=== PATIENT | female | born 1930 | race Caucasian/White ===

== ENCOUNTER 2017-02-28 18:37 | Observation (INO) | payer MEDICARE ==
[~2017-02-28] VITALS: Ht 157.5 cm; Wt 52.0 kg
[~2017-02-28 18:37] MED LIST: ASPI-94 PO; CALCTAB32 PO; METO50 PO; MULTCAP13 PO; OMPR20CCR PO; SIMV40 PO
[2017-02-28 18:39] VITALS: BP 186/91; PULSE 92; RESP 18; TEMP 98.6; O2SAT 98
--- NOTE | 2017-02-28 19:04 | PD ---
HPI Chief Complaint: Chest Pain Time Seen by Provider: 19:03 Travel History International Travel<30 days: No Contact w/Intl Traveler<30days: No Traveled to known affect area: No History of Present Illness HPI 87-year-old female came to the emergency room brought by her daughter with history of 3 days of progressive subxiphoid chest pain and shortness of breath. Currently the patient says that the shortness of breath is worse than the chest pain/discomfort. She describes the pain as a dull ache in the subxiphoid area without any radiation. Pain and shortness of breath is worse on exertion especially after few steps. No history of nausea vomiting. No history of diaphoresis. No history of syncopal episode. Patient has history of coronary artery disease. She has had aortic valve replacement and double vessel bypass about 15 years ago as per her daughter. Her american history professor is Dr. Gupta and patient last saw him one month ago. She is not on any blood thinners or aspirin. She has history of emphysema as well. Vital signs were relatively stable. [facility] Past Medical History Narrative Medical List of her past medical, surgical, social and family history is reviewed from the nursing note. Arthritis: Yes Heart Rhythm Problems: No Cancer: No Cardiac Catheterization: Yes Cardiovascular Problems: Yes High Cholesterol: Yes Chest Pain: Yes Congestive Heart Failure: No Coronary Artery Disease: Yes Diabetes: No Diminished Hearing: No Endocrine: No Gastrointestinal Disorders: Yes (CHRONIC DIARRHEA) GERD: Yes Genitourinary: No Hiatal Hernia: Yes Hypertension: Yes Immune Disorder: No Musculoskeletal: Yes Neurologic: No Psychiatric: No Reproductive: No Respiratory: No Immunizations Current: Yes Ulcer: Yes Menopausal: Yes Past Surgical History Abdominal Surgery: No Cardiac Surgery: Yes (AVR, DOUBLE BYPASS) Coronary Artery Bypass Graft: Yes (2 VESSELS W/ AORTIC VALVE REPLACMENT) Ear Surgery: No Endocrine Surgery: No Eye Surgery: No Genitourinary Surgery: No Gynecologic Surgery: No Oral Surgery: No Thoracic Surgery: No Other Surgery: Yes Social History Alcohol Use: No Tobacco Use: No Substance Use: No Allergies-Medications (Allergen,Severity, Reaction): Coded Allergies: lansoprazole (Unverified Allergy, Mild, DIARRHEA, 03/05/17) nizatidine (Unverified Allergy, Mild, DIARRHEA, 03/05/17) Comments List of her allergies reviewed from the nursing note. Reported Meds & Prescriptions Reported Meds & Active Scripts Active Reported Simvastatin 20 Mg Tab 20 Mg PO HS Omeprazole 20 Mg Tab 20 Mg PO DAILY Narrative Medication List of her home medications reviewed from the nursing note. Review of Systems Except as stated in HPI: all other systems reviewed are Neg Cardiovascular: Positive: Chest Pain or Discomfort, Dyspnea on exertion Physical Exam Narrative GENERAL: Awake, alert, elderly, frail, moderate distress SKIN: Focused skin assessment warm/dry. HEAD: Atraumatic. Normocephalic. EYES: Pupils equal and round. No scleral icterus. No injection or drainage. ENT: No nasal bleeding or discharge. Mucous membranes pink and moist. NECK: Trachea midline. No JVD. CARDIOVASCULAR: Regular rate and rhythm. No murmur appreciated. RESPIRATORY: Tachypnea, use of accessory muscles for respirations, fine bibasilar crackles. Kyphosis GASTROINTESTINAL: Abdomen soft, non-tender, nondistended. Hepatic and splenic margins not palpable. MUSCULOSKELETAL: No obvious deformities. No clubbing. No cyanosis. 1+ pedal edema bilaterally NEUROLOGICAL: Awake and alert. No obvious cranial nerve deficits. Motor grossly within normal limits. Normal speech. PSYCHIATRIC: Appropriate mood and affect; insight and judgment normal. Data Data Last Documented VS Orders Orders Electrocardiogram (02/28/17 19:03) Basic Metabolic Panel (Bmp) (02/28/17 19:03) B-Type Natriuretic Peptide (02/28/17 19:03) Ckmb (Isoenzyme) Profile (02/28/17 19:03) Complete Blood Count With Diff (02/28/17 19:03) Magnesium (Mg) (02/28/17 19:03) Prothrombin Time / Inr (Pt) (02/28/17 19:03) Act Partial Throm Time (Ptt) (02/28/17 19:03) Troponin I (02/28/17 19:03) Chest, Single Ap (02/28/17 19:03) Ecg Monitoring (02/28/17 19:03) Bilateral Bp Monitoring (02/28/17 19:03) Iv Access Insert/Monitor (02/28/17 19:03) Oximetry (02/28/17 19:03) Oxygen Administration (02/28/17 19:03) Sodium Chloride 0.9% Flush (Ns Flush) (02/28/17 19:15) Furosemide Inj (Lasix Inj) (02/28/17 19:15) Aspirin Chew (Aspirin Chew) (02/28/17 19:15) Aspirin Chew (Aspirin Chew) (02/28/17 19:30) Admit Order (Ed Use Only) (02/28/17 20:41) Labs Laboratory Tests Test 02/28/17 19:20 White Blood Count 6.0 TH/MM3 Red Blood Count 4.22 MIL/MM3 Hemoglobin 12.0 GM/DL Hematocrit 36.0 % Mean Corpuscular Volume 85.3 FL Mean Corpuscular Hemoglobin 28.5 PG Mean Corpuscular Hemoglobin Concent 33.4 % Red Cell Distribution Width 15.7 % Platelet Count 257 TH/MM3 Mean Platelet Volume 8.5 FL Neutrophils (%) (Auto) 56.2 % Lymphocytes (%) (Auto) 33.1 % Monocytes (%) (Auto) 7.7 % Eosinophils (%) (Auto) 1.8 % Basophils (%) (Auto) 1.2 % Neutrophils # (Auto) 3.3 TH/MM3 Lymphocytes # (Auto) 2.0 TH/MM3 Monocytes # (Auto) 0.5 TH/MM3 Eosinophils # (Auto) 0.1 TH/MM3 Basophils # (Auto) 0.1 TH/MM3 CBC Comment DIFF FINAL Differential Comment Prothrombin Time 11.3 SEC Prothromb Time International Ratio 1.0 RATIO Activated Partial Thromboplast Time 28.0 SEC Blood Urea Nitrogen 8 MG/DL Creatinine 0.50 MG/DL Random Glucose 100 MG/DL Calcium Level 8.9 MG/DL Magnesium Level 2.0 MG/DL Sodium Level 132 MEQ/L Potassium Level 3.7 MEQ/L Chloride Level 101 MEQ/L Carbon Dioxide Level 23.8 MEQ/L Anion Gap 7 MEQ/L Estimat Glomerular Filtration Rate 117 ML/MIN Total Creatine Kinase 88 U/L Troponin I 0.07 NG/ML B-Type Natriuretic Peptide 2381 PG/ML [facility] Medical Decision Making Medical Screen Exam Complete: Yes Emergency Medical Condition: Yes Medical Record Reviewed: Yes Interpretation(s) Twelve-lead EKG was reviewed by me. Normal sinus rhythm, normal axis, left bundle branch block, unchanged left bundle branch block from the old EKG. Heart rate of 93 bpm. Differential Diagnosis Non-STEMI, congestive heart failure, COPD exacerbation Narrative Course 7:59 PM awaiting for the blood test results including troponin and BNP. Chest x -ray was done which shows a right middle lobe density. Awaiting for the radiologist to give read. Patient will need to be admitted to be seen by the american history professor's regardless given her current condition and past medical history. I've explained this to the patient and the daughter and they understand. She was given 2 baby aspirin's and 40 mg of IV Lasix. 8:32 PM blood test results are back. Troponin is mildly elevated. I will admit the patient to the medical service. Awaiting for the hospitalist call back. Critical Care Narrative Aggregate critical care time was 30 minutes. Time to perform other separately billable procedures was not included in the critical care time. My time did not include minutes spent treating any other patients simultaneously or on activities that did not directly contribute to the patient's treatment. The services I provided to this patient were to treat and/or prevent clinically significant deterioration that could result in: Respiratory distress, ACS, congestive heart failure I provided critical care services requiring my management, as noted below: Chart data review, documentation time, medication orders and management, vital sign assessments/reviewing monitor data, ordering and reviewing lab tests, ordering and interpreting/reviewing x-rays and diagnostic studies, care of the patient and discussion of the patient with the admitting physicians. Procedures EKG Prior to Arrival: No Diagnosis Primary Impression: ACS (acute coronary syndrome) Additional Impressions: Respiratory distress CHF (congestive heart failure) Qualified Codes: I50.9 - Heart failure, unspecified Admitting Information Admitting Physician Requests: Observation Scripts Spironolactone (Aldactone) 25 Mg Tab 25 MG PO DAILY for Blood Pressure Management, #30 TAB 0 Refills Prov: Shanna Thurston MD 03/02/17 Furosemide (Lasix) 20 Mg Tab 20 MG PO DAILY for edema, #30 TAB 0 Refills Prov: Shanna Thurston MD 03/02/[address] (Adult Aspirin EC Low Strength) 81 Mg Tabec 162 MG PO DAILY for Blood Clot Prevention, #30 TAB Prov: Shanna Thurston MD 03/02/17 Isosorbide Mononitrate ER (Isosorbide Mononitrate ER) 30 Mg Amanda 30 MG PO DAILY@07 for Blood Pressure Management, #30 TAB Prov: Shanna Thurston MD 03/02/17 Carvedilol (Coreg) 3.125 Mg Tab 3.125 MG PO Q12HR for Blood Pressure Management, #60 TAB Prov: Shanna Thurston MD 03/02/17 Enalapril (Enalapril) 2.5 Mg Tab 2.5 MG PO BID for Blood Pressure Management, #30 TAB Prov: Shanna Thurston MD 03/02/17 Ursula Lopez MD Feb 28, 2017 19:04
[2017-02-28 19:11] VITALS: O2SAT 96
[2017-02-28] MEDS ORDERED: SODIUM CHLORIDE 0.9% FLUSH 10 ML FLUSH IVF PRN (19:15)
[2017-02-28] MEDS ORDERED: ASPIRIN 81 MG CHEW TAB ONE (19:15)
[2017-02-28] MEDS ORDERED: FUROSEMIDE 40 MG/4 ML VIAL IV PUSH ONE (19:15)
[2017-02-28] MEDS ORDERED: ASPIRIN 81 MG CHEW TAB CHEW ONE (19:30)
[2017-02-28 19:38] LABS: AUTOMATED NEUTROPHIL # 3.3 TH/MM3 (1.8-7.7); BASOPHIL # 0.1 TH/MM3 (0-0.2); BASOPHIL % 1.2 % (0.0-2.0); EOSINOPHIL # 0.1 TH/MM3 (0-0.4); EOSINOPHIL % 1.8 % (0.0-4.0); LYMPH % 33.1 % (9.0-44.0); MEAN CELL VOLUME 85.3 FL (80.0-100.0); MEAN CORPUSCULAR HEMOGLOBIN 28.5 PG (27.0-34.0); MEAN CORPUSCULAR HGB CONC 33.4 % (32.0-36.0); MEAN PLATELET VOLUME 8.5 FL (7.0-11.0); MONO % 7.7 % (0.0-8.0); MONOCYTE # 0.5 TH/MM3 (0-0.9); NEUT % 56.2 % (16.0-70.0); PLATELET COUNT 257 TH/MM3 (150-450); RED BLOOD COUNT 4.22 MIL/MM3 (4.00-5.30); RED CELL DISTRIBUTION WIDTH 15.7 % (11.6-17.2)
[2017-02-28 19:45] LABS: PROTHROMBIN TIME - PATIENT 11.3 SEC (9.8-11.6)
[2017-02-28] MEDS ORDERED: OMEP20TA PO (19:58)
[2017-02-28] MEDS ORDERED: SIMV20TA PO (19:58)
[2017-02-28 20:11] LABS: BICARBONATE 23.8 MEQ/L (21.0-32.0); CALCIUM 8.9 MG/DL (8.5-10.1); CREATININE 0.5 MG/DL (0.50-1.00)
[2017-02-28 20:15] LABS: TROPONIN I 0.07 NG/ML (0.02-0.05)
[2017-02-28 20:27] VITALS: BP 158/68; PULSE 80; RESP 18; O2SAT 97
[2017-02-28] MEDS ORDERED: MAGNESIUM HYDROXIDE SUSP 30 ML CUP PO PRN (20:45)
[2017-02-28] MEDS ORDERED: NITROGLYCERIN 0.4 MG SL 25 TABS/BTL SL PRN (20:45)
[2017-02-28] MEDS ORDERED: SODIUM CHLORIDE 0.9% FLUSH 10 ML FLUSH IV FLUSH PRN (20:45)
[2017-02-28] MEDS ORDERED: ONDANSETRON HCL 4 MG/2 ML VIAL IVP PRN (20:45)
[2017-02-28] MEDS ORDERED: NALOXONE HCL 0.4 MG/ML AMP IV PUSH PRN (20:45)
[2017-02-28] MEDS ORDERED: SENNOSIDES 8.6 MG TAB PO PRN (20:45)
[2017-02-28] MEDS ORDERED: LACTULOSE SYRUP 20 GM/30 ML CUP PO PRN (20:45)
[2017-02-28] MEDS ORDERED: BISACODYL 10 MG SUPP RECTAL PRN (20:45)
--- NOTE | 2017-02-28 21:09 | RADRPT ---
EXAM DATE/TIME: 02/28/2017 19:05 [facility] COMPARISON: CHEST SINGLE AP, December 01, 2012, 18:00. INDICATIONS : Chest pain, congestion for 24 hours MEDICAL HISTORY : None. SURGICAL HISTORY : CABG. Aortic valve replacement ENCOUNTER: Initial ACUITY: 1 day PAIN SCORE: 5/10 LOCATION: Bilateral chest FINDINGS: Mild diffuse interstitial prominence which has increased. No definite alveolar consolidation or effus ion. Heart size is grossly stable. Mild increase in prominence of the right hilum. Sternotomy wires a nd prosthetic aortic valve. CONCLUSION: Diffuse interstitial prominence. Increased prominence of the right hilum from prior exam. Hesham Mcnamara MD on February 28, 2017 at 21:06 Board Certified Radiologist. This report was verified electronically.
[2017-02-28 21:23] VITALS: BP 147/67; PULSE 87; RESP 18; TEMP 98.5; O2SAT 97
[2017-02-28] MEDS: SODIUM CHLORIDE 0.9% FLUSH 10 ML FLUSH IV FLUSH SCH (21:33)
[2017-02-28] MEDS: HEPARIN SODIUM - SQ 10,000 UNITS/ML VIAL SQ SCH (21:33)
[2017-03-01] VITALS (9 sets, daily range): BP systolic 123–173; BP diastolic 58–75; PULSE 72–82; RESP 16–24; TEMP 98.1–98.8; O2SAT 96–98
[2017-03-01] MEDS ORDERED: PRAVASTATIN SOD 10 MG TAB PO SCH (09:00)
--- NOTE | 2017-03-01 09:37 | MH ---
cc: KATHLEEN LEVIN MD DATE OF ADMISSION: 02/28/[address] Claudio CHIEF COMPLAINT The patient came to the ER complaining of chest pain. HISTORY OF PRESENTING ILLNESS This is a pleasant 89-year-old female with prior history of known coronary artery disease and hypertension. She was in her usual state of health until the last few days when she started experiencing chest pain. The patient is forgetful and not a good historian. She told me the pain started yesterday. However, her daughter told the emergency room physician that the pain started three days ago. In any case, she described this as a dull aching sensation in the anterior middle chest pain that would come and go, lasted 10-15 minutes, moderate in intensity, sometimes has sharp component to it. The pain is non-radiating. When she gets these pains she says she cannot breathe. There is no known aggravating factor. There is no known relieving factor. She does not know what they gave her in the emergency room that made the pain go away. She also noted some swelling of her ankles. She denies fever or chills. Denies cough or sputum production. Denies nausea, vomiting or abdominal pain. Due to the recurring pain, she was recommended to come into the hospital. Upon arrival she was noted to be hemodynamically stable. Her initial EKG showed left bundle branch block which is unchanged. She was in sinus rhythm. The patient has mildly elevated troponin. Recommendation was given by ER physician for the patient to be admitted to the hospital. The patient was admitted to the hospital under our service for further evaluation and management. The patient is currently resting in bed. She is feeling better. Currently she is chest pain-free. PAST MEDICAL HISTORY 1. Hypertension. 2. Hyperlipidemia. 3. Coronary artery disease. 4. History of valvular heart disease. 5. Osteoarthritis. 6. Osteoporosis. 7. GERD. 8. Paniagua's esophagus. PAST SURGICAL HISTORY 1. Significant for coronary artery bypass grafting with bioprosthetic aortic valve replacement in 2000. 2. History of endoscopy. 3. History of colonoscopy. SOCIAL HISTORY She denies smoking, drinking or drug abuse. She is a who lives at home with her daughter. ALLERGIES She reports allergies to - LANSOPRAZOLE. NIZATIDINE. Apparently lansoprazole causes diarrhea. HOME MEDICATIONS 1. Omeprazole. 2. Simvastatin. Aspirin is not listed. FAMILY HISTORY Both of her parents are . Her mother in her 70s; she had congestive heart failure. Dad at the age of 90 from old age; he was a smoker. She has one sister who at the age of 75 of unknown cause and one sister and a brother living and they apparently are healthy. REVIEW OF SYSTEMS The patient denies headache, loss of vision, double vision. Denies change in hearing. She uses glasses. Denies sore throat, dysphagia or odynophagia. Her memory is not as good as it used to be. She denies cough or sputum production. She claims she has a good appetite. She has intermittent diarrhea for a long time which has not recently changed. She denies melena or bright red blood per rectum. She urinates a lot but she blames her increased watering habits for that. She denies dysuria or hematuria. She gets joint pain especially in her hands and her knees. She is able to walk around in the house. She is independent in activities of daily living. Her daughter assists her with bathing. She uses a cane for ambulation. Otherwise review of systems is negative for 12 systems. PHYSICAL EXAMINATION GENERAL: On examination, an elderly, frail female lying in bed, not in any acute distress. She is awake and alert. She is oriented x3. VITAL SIGNS: Upon arrival blood pressure was 186/97, pulse of 92, respirations 18. Temperature is 98.6, O2 sat 98%. HEAD EXAMINATION: Normocephalic, atraumatic. EYE EXAMINATION: Extraocular movements intact, round and reactive. No icterus or significant pallor. ENT: No throat congestion. No oral ulcers, no thrush. Ears clear. NECK: Supple. No JVD. No lymph nodes. No bruits. CARDIOVASCULAR: S1 and S2 audible. Regular. No murmur or gallop. RESPIRATORY SYSTEM: Good bilateral air entry. No crackles or rhonchi appreciated. CHEST: Scar of previous median sternotomy. G: The abdomen is soft, nontender. Positive bowel sounds. No hepatosplenomegaly. EXTREMITIES: No edema, cyanosis or clubbing. She has superficial varicose veins and feet are warm to touch. MUSCULOSKELETAL EXAM: She has prominent bony enlargement of her hand joints, especially her DIP and PIP joints bilaterally without sign of inflammation. NEUROLOGIC: She is awake and alert. She is oriented x3 but she is slightly forgetful. No facial asymmetry. Tongue is midline. She is moving all four extremities. LABORATORY DATA Chest x-ray was a portable film, showed evidence of previous sternotomy and mild diffuse interstitial prominence, increased prominence over the right hilum. A 12-lead EKG shows sinus rhythm with left bundle-branch block. Her white count is 6.0, hemoglobin 12.0, hematocrit of 36.0, platelet count of 257. MCV of 85.3. Sodium 132, potassium 3.7, chloride 101, bicarb 23.8, BUN of 8, creatinine 0.5, random glucose 100, calcium 8.9. Troponin I was 0.07, 0.09 in 0.09. BNP was elevated at 2381. ASSESSMENT 1. Chest pain, shortness of breath in a lady with known history of coronary artery disease and valvular heart disease with angina. 2. Hypertension. 3. Hyperlipidemia. 4. History of bioprosthetic aortic valve replacement. 5. History of GERD with Paniagua's esophagus. 6. Osteoarthritis. PLAN 1. The patient was admitted to hospital for observation. 2. She is put on oxygen. 3. We will give her an aspirin. 4. Put her on beta-bridger. 5. Continue statin. 6. Obtain echocardiogram. 7. Consult her debate director. 8. Check lipid profile. 9. Continue PPI. 10. Start heparin for DVT prophylaxis. Further management of this patient will depend on her hospital course. MD DEJAN Nicholson/IWONA /8:35 AM /8:55 AM
--- NOTE | 2017-03-01 10:59 | MB ---
cc: GUSTAVO WHEELER M.D. DATE OF CONSULTATION 03/01/2017 REASON FOR CONSULTATION Chest pain. HISTORY OF PRESENT ILLNESS The patient is a vague historian. She is an 87-year-old white female, followed in our office by Dr. Sander Gupta, with a history of coronary artery disease status post bypass surgery and aortic valve replacement in 2000, history of Paniagua's esophagus, hypertension, gastroesophageal reflux disease, who was in her usual state of health up until yesterday when she began to experienced some vaguely described episodes of substernal chest pain associated with shortness of breath without nausea or diaphoresis. She states she may have had 3 or 4 separate episodes which "did not last long" although she is unable to relate the duration of the chest discomforts. In the last 3-4 days she has noticed increased dyspnea and possibly mild pedal edema. She denies paroxysmal nocturnal dyspnea, syncope, near-syncope, palpitations. At times she has felt mildly lightheaded for a few minutes. PAST MEDICAL HISTORY 1. Coronary artery disease status post two-vessel bypass surgery in 2000. 2. Aortic valve disease status post bovine pericardial aortic valve replacement in 2000 at time of her bypass surgery. 3. Paniagua's esophagus. 4. Gastroesophageal reflux disease. 5. Hypertension 6. Hyperlipidemia. CARDIAC MEDICATIONS AT HOME Simvastatin. ALLERGIES LANSOPRAZOLE. NIZATIDINE. FAMILY HISTORY Noncontributory. SOCIAL HISTORY The patient denies any history of alcohol or tobacco abuse. REVIEW OF SYSTEMS as in the History of Present Illness otherwise negative or noncontributory. She also denies headache, abdominal pain, melena, dyspepsia, bright red blood per rectum, cough, pleurisy. PHYSICAL EXAMINATION VITAL SIGNS: On physical examination her blood pressure is 138/64 with a pulse of 77, respirations 20. IN GENERAL: She is a well-developed, well-nourished white female in no acute distress. NECK AND HEENT EXAMINATION: Jugular venous pressure is normal. Carotid pulses are 2+ bilaterally and without bruits. EXAMINATION OF THE CHEST: Reveals clear lung patiño. CARDIAC EXAMINATION: She has a regular rhythm and rate with a grade 2/6 systolic ejection murmur heard at the base of the heart. The S2 heart sound is very minimally diminished at the right upper sternal border. There may also be a separate grade 2/6 mid to late systolic murmur heard at the apex. No gallop is audible. ABDOMINAL EXAMINATION: She has a soft, nontender abdomen. Bowel sounds are present. There is no definite hepatosplenomegaly. EXAMINATION OF EXTREMITIES: No clubbing, cyanosis or edema. LABORATORY DATA Normal CBC. Potassium 3.7, BUN 8, creatinine 0.50. Troponin 0.09. Brain-natriuretic peptide level 2381. CHEST X-RAY Increased interstitial markings. EKG Normal sinus rhythm, left bundle-branch block. IMPRESSION Overall atypical chest pains, possible congestive heart failure in this 87-year-old white female with a history of coronary artery disease status post two-vessel bypass surgery and bovine pericardial aortic valve replacement in 2000, history of hypertension,hyperlipidemia, Paniagua's esophagus. The patient is a vague historian. Her chest pains are atypical for ischemia. Her EKG is unchanged from years ago with chronic left bundle-branch block. Initial CK is negative for myocardial infarction. Her troponin level is only minimally elevated and this could be due to congestive heart failure. The precipitating factor for her congestive heart failure is not entirely clear. She has no known history of left ventricular dysfunction. It appears she has diuresed quite well with a single dose of intravenous Lasix here in the emergency department. RECOMMENDATIONS 1. Agree with carvedilol 3.25 mg p.o. b.i.d. and daily aspirin. 2. Await her 2-D echo to assess her left ventricular and valvular function. 3. Check a Lexiscan nuclear stress test to rule out myocardial ischemia. MD VIKKI Barnes/IWONA /10:33 AM /10:43 AM EDILBERTO
[2017-03-01] MEDS: CARVEDILOL 3.125 MG TAB PO SCH ×2 (11:33→19:52)
[2017-03-01] MEDS: HEPARIN SODIUM - SQ 10,000 UNITS/ML VIAL SQ SCH ×2 (11:37→19:53)
[2017-03-01] MEDS: ASPIRIN EC 81 MG TABEC PO SCH (11:37)
[2017-03-01] MEDS: PANTOPRAZOLE SOD 20 MG DELAYED RELEASE TAB PO SCH (11:37)
[2017-03-01] MEDS: SODIUM CHLORIDE 0.9% FLUSH 10 ML FLUSH IV FLUSH SCH ×2 (11:38→19:52)
--- NOTE | 2017-03-01 15:03 | EKG ---
Date Performed: 02/28/2017 Time Performed: 18:59:34 PTAGE: 87 years EKG: Sinus rhythm LEFT BUNDLE BRANCH BLOCK ABNORMAL ECG PREVIOUS TRACING 12/02/12 Compared to prior tracing no significant change DOCTOR: Juvenal Ayala Interpretating Date/Time 03/01/2017 14:56:09
--- NOTE | 2017-03-01 15:03 | EKG ---
Date Performed: 03/01/2017 Time Performed: 02:58:18 PTAGE: 87 years EKG: Sinus rhythm LEFT BUNDLE BRANCH BLOCK ABNORMAL ECG PREVIOUS TRACING : 02/28/2017 18.59 Compared to prior tracing no significant change DOCTOR: Juvenal Ayala Interpretating Date/Time 03/01/2017 14:56:20
[2017-03-01] MEDS ORDERED: PRAVASTATIN SOD 40 MG TAB PO SCH (21:00)
[2017-03-01] MEDS ORDERED: ALPRAZolam 0.25 MG TAB PO PRN (21:45)
[2017-03-01] MEDS ORDERED: ACETAMINOPHEN 325 MG TAB PO PRN (21:45)
[2017-03-02] VITALS (9 sets, daily range): BP systolic 122–142; BP diastolic 58–64; PULSE 70–84; RESP 14–22; TEMP 98.1–98.8; O2SAT 96–99
[2017-03-02 07:28] LABS: HEMATOCRIT 35.8 % (35.0-46.0); HEMOGLOBIN 12.1 GM/DL (11.6-15.3); MEAN CELL VOLUME 84.7 FL (80.0-100.0); MEAN CORPUSCULAR HEMOGLOBIN 28.6 PG (27.0-34.0); MEAN CORPUSCULAR HGB CONC 33.8 % (32.0-36.0); MEAN PLATELET VOLUME 8.8 FL (7.0-11.0); PLATELET COUNT 276 TH/MM3 (150-450); RED BLOOD COUNT 4.22 MIL/MM3 (4.00-5.30); RED CELL DISTRIBUTION WIDTH 15.1 % (11.6-17.2); WHITE BLOOD COUNT 6.4 TH/MM3 (4.0-11.0)
[2017-03-02 07:51] LABS: CALCIUM 8.6 MG/DL (8.5-10.1); CREATININE 0.55 MG/DL (0.50-1.00)
[2017-03-02 07:55] LABS: CHOLESTEROL/ HDL RATIO 1.53 RATIO
--- NOTE | 2017-03-02 07:59 | PD.CARD.PN ---
Subjective Subjective Remarks Feels "OK". Slept well. Mild dyspnea last night, none this morning. No further CP. No dizziness, palpitations. Objective Medications Item Value Date Time Pravastatin Sodium 40 mg 03/01/172099 (Pravachol) HS/PO 03/01/171951 Carvedilol 3.125 mg 03/01/17 1000 (Coreg) Q12HR/PO 03/01/171951 Aspirin 162 mg 03/01/17 0900 (Ecotrin Ec) DAILY/PO 03/01/17 113 Heparin Sodium 5,000 units 02/28/172099 (Porcine) Q12H/SQ 03/01/171952 (Heparin Inj) Current Medications Medications (Trade) Dose Ordered Sig/Bradley Route Start Time Stop Time Status Last Admin (NS Flush) 2 ml UNSCH PRN IV FLUSH 02/28/17 20:45 (NS Flush) 2 ml BID IV FLUSH 02/28/17 21:00 03/01/17 19:52 (Zofran Inj) 4 mg Q6H PRN IVP 02/28/17 20:45 (Heparin Inj) 5,000 units Q12H SQ 02/28/17 21:00 03/01/17 19:53 (Narcan Inj) 0.4 mg UNSCH PRN IV PUSH 02/28/17 20:45 (Milk Of Magnesia Liq) 30 ml Q12H PRN PO 02/28/17 20:45 (Senokot) 17.2 mg Q12H PRN PO 02/28/17 20:45 (Dulcolax Supp) 10 mg DAILY PRN RECTAL 02/28/17 20:45 (Lactulose Liq) 30 ml DAILY PRN PO 02/28/17 20:45 (Ecotrin Ec) 162 mg DAILY PO 03/01/17 09:00 03/01/17 11:37 (Nitrostat Sl) 0.4 mg Q5M PRN SL 02/28/17 20:45 (Coreg) 3.125 mg Q12HR PO 03/01/17 10:00 03/01/17 19:52 (Protonix) 20 mg DAILY PO 03/01/17 10:00 03/01/17 11:37 (Pravachol) 40 mg HS PO 03/01/17 21:00 03/01/17 19:52 (Xanax) 0.25 mg Q8H PRN PO 03/01/17 21:45 03/01/17 22:05 (Tylenol) 650 mg Q4H PRN PO 03/01/17 21:45 03/01/17 22:05 Vital Signs / I&O Vital Signs Date Time Temp Pulse Resp B/P (MAP) Pulse Ox O2 Delivery O2 Flow Rate FiO2 03/02/17 07:49 99 Nasal Cannula 2.00 03/02/17 06:01 Nasal Cannula 2.00 03/02/17 04:00 78 03/02/17 03:39 98.2 72 18 122/58 (79) 99 03/02/17 00:00 84 03/01/17 23:48 98.6 82 19 123/59 (80) 97 03/01/17 19:44 98.3 80 20 173/75 (107) 96 03/01/17 15:20 98.1 72 24 152/67 (95) 97 03/01/17 13:36 74 03/01/17 11:24 98.4 78 22 124/59 (80) 96 I/O 03/01/17 03/01/17 03/01/17 03/02/17 03/02/17 03/02/17 07:00 15:00 23:00 07:00 15:00 23:00 Output Total 800 ml Balance -800 ml Output Urine Total 800 ml # Voids 2 3 # Bowel Movements 1 Physical Exam GENERAL: Well developed, well nourished. No acute distress. HEENT: Jugular venous pressure is normal. CHEST: Minimal bibasilar crackle. CARDIAC: Regular rate and rhythm without S3, S4. II/ [place] base. Normal S2. ABDOMEN: Soft, nontender, no hepatosplenomegaly. Bowel sounds present. EXTREMITIES: No clubbing, cyanosis, or edema. Laboratory Laboratory Tests Test 03/02/17 06:34 White Blood Count 6.4 TH/MM3 Red Blood Count 4.22 MIL/MM3 Hemoglobin 12.1 GM/DL Hematocrit 35.8 % Mean Corpuscular Volume 84.7 FL Mean Corpuscular Hemoglobin 28.6 PG Mean Corpuscular Hemoglobin Concent 33.8 % Red Cell Distribution Width 15.1 % Platelet Count 276 TH/MM3 Mean Platelet Volume 8.8 FL Blood Urea Nitrogen 11 MG/DL Creatinine 0.55 MG/DL Random Glucose 86 MG/DL Calcium Level 8.6 MG/DL Sodium Level 134 MEQ/L Potassium Level 3.5 MEQ/L Chloride Level 102 MEQ/L Carbon Dioxide Level 24.0 MEQ/L Anion Gap 8 MEQ/L Estimat Glomerular Filtration Rate 105 ML/MIN Triglycerides Level 40 MG/DL Cholesterol Level 106 MG/DL Assessment and Plan Problem List: (1) CAD (coronary artery disease) ICD Codes: I25.10 - Atherosclerotic heart disease of [place] coronary artery without angina pectoris Status: Chronic Plan: Stable overnight. No further atypical CP. Nuclear stress testing pending. REC await nuclear stress test results; overall recommend conservative medical management unless large amount of ischemia continue beta bridger, add oral nitrate, Imdur 30 mg qd continue daily aspirin (2) CHF (congestive heart failure) ICD Codes: I50.9 - Heart failure, unspecified Status: Acute Plan: Stable overnight. Dyspnea improved with IV Lasix diuresis in ER. Echo pending. REC continue beta bridger, add SHINE-I enalapril 2.5 mg bid (3) History of aortic valve replacement ICD Codes: Z95.2 - Presence of prosthetic heart valve Status: Chronic Plan: Echo pending. By exam, AVR function normal. Code Status full code Discussed Condition With patient Problem Qualifiers (1) CAD (coronary artery disease): Qualified Codes: I25.119 - Atherosclerotic heart disease of [place] coronary artery with unspecified angina pectoris (2) CHF (congestive heart failure): Qualified Codes: I50.9 - Heart failure, unspecified Aba Rivera MD Mar 02, 2017 07:59
[2017-03-02] MEDS ORDERED: ENALAPRIL MALEATE 2.5 MG TAB PO SCH (09:00)
[2017-03-02] MEDS ORDERED: REGADENOSON INJ 0.4 MG/5 ML SYR ONE (10:31)
--- NOTE | 2017-03-02 10:38 | HHI.PR ---
Subjective Remarks Went for stress test, patient was seen thereafter. No chest pain overnight. She feels sob, satting well on 2L NC. Says LE edema improved some. No n/v/d/c. Says she feels much better and wants to go home. Family at bedside, has family support. Objective Vitals Vital Signs Date Time Temp Pulse Resp B/P (MAP) Pulse Ox O2 Delivery O2 Flow Rate FiO2 03/02/17 08:05 98.4 71 14 135/62 (86) 97 03/02/17 08:02 98.8 70 22 142/64 (90) 96 03/02/17 07:49 99 Nasal Cannula 2.00 03/02/17 06:01 Nasal Cannula 2.00 03/02/17 04:00 78 03/02/17 03:39 98.2 72 18 122/58 (79) 99 03/02/17 00:00 84 03/01/17 23:48 98.6 82 19 123/59 (80) 97 03/01/17 19:44 98.3 80 20 173/75 (107) 96 03/01/17 15:20 98.1 72 24 152/67 (95) 97 03/01/17 13:36 74 03/01/17 11:24 98.4 78 22 124/59 (80) 96 I/O 03/01/17 03/01/17 03/01/17 03/02/17 03/02/17 03/02/17 07:00 15:00 23:00 07:00 15:00 23:00 Output Total 800 ml Balance -800 ml Output Urine Total 800 ml # Voids 2 3 # Bowel Movements 1 Result Diagram: 03/02/17 0634 03/02/17 0634 Imaging Last Impressions Chest X-Ray 02/28/17 190 Signed Impressions: Service Date/Time: Tuesday, February 28, 2017 19:05 - CONCLUSION: Diffuse interstitial prominence. Increased prominence of the right hilum from prior exam. Hesham Mcnamara MD Objective Remarks GENERAL: Elderly, frail, pleasant 87 yo F, appears in nad. CARDIOVASCULAR: Mid chest scar from previous sternotomy. Regular rate and rhythm. RESPIRATORY: No accessory muscle use. Clear to auscultation. Breath sounds equal bilaterally. GASTROINTESTINAL: Abdomen soft, non-tender, nondistended. Hepatic and splenic margins not palpable. MUSCULOSKELETAL: Extremities without clubbing, cyanosis, or edema. No obvious deformities. NEUROLOGICAL: Awake and alert. No obvious cranial nerve deficits. Motor grossly within normal limits. Five out of 5 muscle strength in the arms and legs. Normal speech. PSYCHIATRIC: Appropriate mood and affect; insight and judgment normal. A/P Assessment and Plan Chest pain, shortness of breath in the setting of known history of coronary artery disease and valvular heart disease with angina. Mildly elevated troponin Systolic CHF with EF of 30% Hypertension Hyperlipidemia History of bioprosthetic aortic valve replacement History of GERD with Paniagua's esophagus Osteoarthritis CXR reviewed previous sternotomy and mild diffuse interstitial prominence, increased prominence over the right hilum EKG reviewed NSR , LBBB Troponin I was 0.07, 0.09 in 0.09. BNP was elevated at 2381. 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 Meds per med reconciliations. Activity ad jayda as tolerated. Diet: healthy heart diet . Discharge Planning DC home in stable condition, to follow up as OP with PCP and consultants. Meds per med reconciliations. Activity ad jayda as tolerated. Diet : healthy heart diet . Shanna Thurston MD Mar 02, 2017 10:38
[2017-03-02] MEDS ORDERED: ISOS30TA3 PO (10:40)
[2017-03-02] MEDS ORDERED: CARV3.125 PO (10:40)
[2017-03-02] MEDS ORDERED: ENAL2.5T PO (10:40)
[2017-03-02] MEDS ORDERED: ASPI-99 PO (10:40)
--- NOTE | 2017-03-02 10:40 | HHI.DCPOC ---
Discharge Care Plan Goals to Promote Your Health * To prevent worsening of your condition and complications * To maintain your health at the optimal level Directions to Meet Your Goals Take your medications as prescribed Follow your dietary instruction Follow activity as directed Keep your appointments as scheduled Take your immunizations and boosters as scheduled If your symptoms worsen call your PCP, if no PCP go to Urgent Care Center or Emergency Room Smoking is Dangerous to Your Health. Avoid second hand smoke Call the 24-hour hour crisis hotline for domestic abuse at Shanna Thurston MD Mar 02, 2017 10:40
--- NOTE | 2017-03-02 10:40 | HHI.DCPOC ---
Discharge Care Plan Goals to Promote Your Health * To prevent worsening of your condition and complications * To maintain your health at the optimal level Directions to Meet Your Goals Take your medications as prescribed Follow your dietary instruction Follow activity as directed Keep your appointments as scheduled Take your immunizations and boosters as scheduled If your symptoms worsen call your PCP, if no PCP go to Urgent Care Center or Emergency Room Smoking is Dangerous to Your Health. Avoid second hand smoke Call the 24-hour hour crisis hotline for domestic abuse at Shanna Thurston MD Mar 02, 2017 10:40
--- NOTE | 2017-03-02 10:40 | HHI.DCPOC ---
Discharge Care Plan Goals to Promote Your Health * To prevent worsening of your condition and complications * To maintain your health at the optimal level Directions to Meet Your Goals Take your medications as prescribed Follow your dietary instruction Follow activity as directed Keep your appointments as scheduled Take your immunizations and boosters as scheduled If your symptoms worsen call your PCP, if no PCP go to Urgent Care Center or Emergency Room Smoking is Dangerous to Your Health. Avoid second hand smoke Call the 24-hour hour crisis hotline for domestic abuse at Shanna Thurston MD Mar 02, 2017 10:40
--- NOTE | 2017-03-02 10:43 | HHI.FF ---
Face to Face Verification Diagnosis: (1) CAD (coronary artery disease) (2) Respiratory distress (3) CHF (congestive heart failure) (4) ACS (acute coronary syndrome) (5) History of aortic valve replacement Physical Therapy Order: Evaluate and Treat Home Health Nursing Order: Medical education Signs/symptoms of disease process CHF education Medication education-adverse effect Nursing assessment with vital signs I have seen patient Jessy Cornell on 03/02/17. My clinical findings support the need for the requested home health care services because: Ltd mobility - disease progression Patient has SOB I certify that my clinical findings support that this patient is homebound because: Post-op weakness Shanna Thurston MD Mar 02, 2017 10:43
--- NOTE | 2017-03-02 10:46 | HHI.DS ---
Discharge Summary Admission Date Feb 28, 2017 at 20:44 Discharge Date: Mar 02, 2017 Admitting Diagnosis ACS, congestive heart failure, respiratory distress (1) CAD (coronary artery disease) ICD Code: I25.10 - Atherosclerotic heart disease of [place] coronary artery without angina pectoris Status: Chronic (2) Respiratory distress ICD Code: R06.00 - Dyspnea, unspecified Status: Acute (3) CHF (congestive heart failure) ICD Code: I50.9 - Heart failure, unspecified Status: Acute (4) ACS (acute coronary syndrome) ICD Code: I24.9 - Acute ischemic heart disease, unspecified Status: Acute (5) History of aortic valve replacement ICD Code: Z95.2 - Presence of prosthetic heart valve Status: Chronic Procedures none Brief History - From Admission This is a pleasant 89-year-old female with prior history of known coronary artery disease and hypertension. She was in her usual state of health until the last few days when she started experiencing chest pain. The patient is forgetful and not a good historian. She told me the pain started yesterday. However, her daughter told the emergency room physician that the pain started three days ago. In any case, she described this as a dull aching sensation in the anterior middle chest pain that would come and go, lasted 10-15 minutes, moderate in intensity, sometimes has sharp component to it. The pain is non-radiating. When she gets these pains she says she cannot breathe. There is no known aggravating factor. There is no known relieving factor. She does not know what they gave her in the emergency room that made the pain go away. She also noted some swelling of her ankles. She denies fever or chills. Denies cough or sputum production. Denies nausea, vomiting or abdominal pain. Due to the recurring pain, she was recommended to come into the hospital. Upon arrival she was noted to be hemodynamically stable. Her initial EKG showed left bundle branch block which is unchanged. She was in sinus rhythm. The patient has mildly elevated troponin. Recommendation was given by ER physician for the patient to be admitted to the hospital. The patient was admitted to the hospital under our service for further evaluation and management. The patient is currently resting in bed. She is feeling better. Currently she is chest pain-free. CBC/BMP: 03/02/17 0634 03/02/17 0634 Significant Findings Laboratory Tests Test 02/28/17 19:20 03/01/17 02:13 03/01/17 06:10 03/02/17 06:34 Sodium Level 132 MEQ/L (136-145) 134 MEQ/L (136-145) Troponin I 0.07 NG/ML (0.02-0.05) 0.09 NG/ML (0.02-0.05) 0.09 NG/ML (0.02-0.05) B-Type Natriuretic Peptide 2381 PG/ML (0-100) Triglycerides Level 40 MG/DL (42-150) Cholesterol Level 106 MG/DL (120-200) HDL Cholesterol 69.0 MG/DL (40.0-60.0) Imaging Last Impressions Chest X-Ray 02/28/17 190 Signed Impressions: Service Date/Time: Tuesday, February 28, 2017 19:05 - CONCLUSION: Diffuse interstitial prominence. Increased prominence of the right hilum from prior exam. Hesham Mcnamara MD PE at Discharge GENERAL: Elderly, frail, pleasant 87 yo F, appears in nad. CARDIOVASCULAR: Mid chest scar from previous sternotomy. Regular rate and rhythm. RESPIRATORY: No accessory muscle use. Clear to auscultation. Breath sounds equal bilaterally. GASTROINTESTINAL: Abdomen soft, non-tender, nondistended. Hepatic and splenic margins not palpable. MUSCULOSKELETAL: Extremities without clubbing, cyanosis, or edema. No obvious deformities. NEUROLOGICAL: Awake and alert. No obvious cranial nerve deficits. Motor grossly within normal limits. Five out of 5 muscle strength in the arms and legs. Normal speech. PSYCHIATRIC: Appropriate mood and affect; insight and judgment normal. Hospital Course Chest pain, shortness of breath in the setting of known history of coronary artery disease and valvular heart disease with angina. Mildly elevated troponin Systolic CHF with EF of 30% Hypertension Hyperlipidemia History of bioprosthetic aortic valve replacement History of GERD with Paniagua's esophagus Osteoarthritis CXR reviewed previous sternotomy and mild diffuse interstitial prominence, increased prominence over the right hilum EKG reviewed NSR , LBBB Troponin I was 0.07, 0.09 in 0.09. BNP was elevated at 2381. 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 Meds per med reconciliations. Activity ad jayda as tolerated. Diet : healthy heart diet . Pt Condition on Discharge: Stable Discharge Disposition: Disch w/ Home Health Serv Discharge Time: > 30 minutes Discharge Instructions DIET: Follow Instructions for: Heart Healthy Diet Activities you can perform: Regular-No Restrictions Follow up Referrals: Cardiology - 1 Week with Aba Rivera MD PCP Follow-up - 2-3 Days New Medications: Furosemide (Lasix) 20 Mg Tab 20 MG PO DAILY for edema, #30 TAB 0 Refills Spironolactone (Aldactone) 25 Mg Tab 25 MG PO DAILY for Blood Pressure Management, #30 TAB [address] (Adult Aspirin EC Low Strength) 81 Mg Tabec 162 MG PO DAILY for Blood Clot Prevention, #30 TAB Carvedilol (Coreg) 3.125 Mg Tab 3.125 MG PO Q12HR for Blood Pressure Management, #60 TAB Enalapril (Enalapril) 2.5 Mg Tab 2.5 MG PO BID for Blood Pressure Management, #30 TAB Isosorbide Mononitrate ER (Isosorbide Mononitrate ER) 30 Mg Amanda 30 MG PO DAILY@07 for Blood Pressure Management, #30 TAB Continued Medications: Omeprazole (Omeprazole) 20 Mg Tab 20 MG PO DAILY, #30 TAB 0 Refills Simvastatin (Simvastatin) 20 Mg Tab 20 MG PO HS for Cholesterol Management, #30 TAB 0 Refills Shanna Thurston MD Mar 02, 2017 10:46
[2017-03-02] MEDS: PANTOPRAZOLE SOD 20 MG DELAYED RELEASE TAB PO SCH (12:11)
[2017-03-02] MEDS: CARVEDILOL 3.125 MG TAB PO SCH (12:12)
[2017-03-02] MEDS: ASPIRIN EC 81 MG TABEC PO SCH (12:12)
[2017-03-02] MEDS: HEPARIN SODIUM - SQ 10,000 UNITS/ML VIAL SQ SCH (12:12)
[2017-03-02] MEDS ORDERED: AMINOPHYLLINE INJ 500 MG/20 ML VIAL ONE (12:24)
--- NOTE | 2017-03-02 12:30 | RADRPT ---
EXAM DATE/TIME: 03/02/2017 09:15 [facility] COMPARISON: MYOCARDIAL PERF PHARM SPECT, GATED W/EF, December 02, 2012, 9:25. INDICATIONS : Substernal chest pain with dyspnea. Coronary artery disease. DOSE: 27.2 mCi Tc99m Myoview at stress. 8.5 mCi Tc99m Myoview at rest. 0.4 mg Lexiscan STRESS SYMPTOMS: Dyspnea and headache. MEDICATIONS: 1.) 100 mg Aminophylline IV EJECTION FRACTION: 30% MEDICAL HISTORY : Hypercholesterolemia. Hypertension. SURGICAL HISTORY : CABG ENCOUNTER: Initial ACUITY: 3 days PAIN SCALE: 5/10 LOCATION: Substernal chest TECHNIQUE: The patient underwent pharmacologic stress with infusion of prescribed dose. Continuous ECG tracing was monitored during stress. Gated SPECT imaging was performed after stress and conventional SPECT i maging was performed at rest. The examination was performed on a SPECT/CT scanner, both attenuation and non-corrected datasets were reviewed. FINDINGS: DISTRIBUTION: The maximum perfused segment at stress is in the anterior wall. PERFUSION STUDY: The pattern of perfusion at stress show some diminished perfusion to the apex. There is an approximat steph 10% redistribution in segments of the mid septal wall which should not be considered significant. GATED STUDY: Diffuse hypokinesis with an akinetic septum and markedly reduced ejection fraction of 30%. CONCLUSION: 1. Scintigraphic findings characteristic apical thinning. 2. No reversibility to suggest ischemia. 3. Diffuse hypokinesis with an akinetic septum and markedly reduced ejection fraction of 30%. RISK CATEGORY: High (>3% Annual Mortality Rate) Zeyad Lance MD on March 02, 2017 at 12:22 Board Certified Radiologist. This report was verified electronically.
[2017-03-02] MEDS ORDERED: FURO1TAB62 PO (12:32)
[2017-03-02] MEDS ORDERED: FUROSEMIDE 20 MG/2 ML VIAL IV PUSH ONE (12:45)
[2017-03-02] MEDS ORDERED: POTASSIUM CHLORIDE 10 MEQ CONTROLLED RELEASE TAB PO ONE (12:45)
[2017-03-02] MEDS: SODIUM CHLORIDE 0.9% FLUSH 10 ML FLUSH IV FLUSH SCH (13:04)
[2017-03-02] MEDS ORDERED: SPIR25 PO (14:18)
--- NOTE | 2017-03-02 18:20 | ECHRPT ---
Indication: cp CONCLUSIONS There was limited left ventricular wall motion assessment due to poor endocardial visualization. The left ventricular systolic function is moderately reduced with an estimated ejection fraction 40% + or minus 10%. Mild mitral annular calcification. Mild mitral valve regurgitation. Mild aortic valve regurgitation. Aortic valve mean gradient is 32 mmHg. Aortic valve area is 0.91 cm. The aortic valve prosthesis is normal to two-dimensional, color flow and Doppler interrogation. There is mild tricuspid valve regurgitation. The estimated pulmonary arterial pressure is _42_ mmHg. The pulmonary valve is not well visualized. BP: / HR: Rhythm: MEASUREMENTS (Male / Female) Normal Values Technical Quality:Good 2D ECHO LV Diastolic Diameter PLAX 4.5 cm 4.2 - 5.9 / 3.9 - 5.3 cm LV Systolic Diameter PLAX 4.0 cm IVS Diastolic Thickness 2.4 cm 0.6 - 1.0 / 0.6 - 0.9 cm LVPW Diastolic Thickness 0.8 cm 0.6 - 1.0 / 0.6 - 0.9 cm LV Relative Wall Thickness 0.7 RV Internal Dim ED PLAX 2.7 cm M-MODE Aortic Root Diameter MM 2.7 cm LA Systolic Diameter MM 2.5 cm LA Ao Ratio MM 0.9 DOPPLER AV Peak Velocity 363.5 cm/s AV Peak Gradient 52.9 mmHg AV Mean Gradient 32.0 mmHg AV Velocity Time Integral 95.3 cm AI Peak Velocity 437.0 cm/s AI Peak Gradient 76.4 mmHg AI Pressure Half Time 439.0 ms LVOT Peak Velocity 96.3 cm/s LVOT Peak Gradient 3.7 mmHg LVOT Velocity Time Integral 22.8 cm AV Area Cont Eq vti 0.9 cm AV Area Cont Eq pk 1.0 cm Mitral E Point Velocity 102.0 cm/s Mitral A Point Velocity 106.0 cm/s Mitral E to A Ratio 1.0 LV E' Lateral Velocity 10.2 cm/s Mitral E to LV E' Lateral Ratio 10.0 LV E' Septal Velocity 4.2 cm/s Mitral E to LV E' Septal Ratio 24.3 TR Peak Velocity 281.0 cm/s TR Peak Gradient 31.6 mmHg Right Atrial Pressure 10.0 mmHg Pulmonary Artery Systolic Pressu 41.6 mmHg Right Ventricular Systolic Press 41.6 mmHg FINDINGS LEFT VENTRICLE There was limited left ventricular wall motion assessment due to poor endocardial visualization. The left ventricular systolic function is moderately reduced with an estimated ejection fraction 40% + or minus 10%. RIGHT VENTRICLE Normal right ventricular size and systolic function. LEFT ATRIUM The left atrial size is normal. RIGHT ATRIUM The right atrial size is normal. ATRIAL SEPTUM Normal atrial septal thickness without atrial level shunting by limited color doppler interrogation. AORTA The aortic root and proximal ascending aorta are normal in size on limited imaging. MITRAL VALVE Mild mitral annular calcification. Mild mitral valve regurgitation. AORTIC VALVE Mild aortic valve regurgitation. Aortic valve mean gradient is 32 mmHg. Aortic valve area is 0.91 cm. The aortic valve prosthesis is normal to two-dimensional, color flow and Doppler interrogation. TRICUSPID VALVE Structurally normal tricuspid valve. There is mild tricuspid valve regurgitation. The estimated pulmonary arterial pressure is _42_ mmHg. PULMONARY VALVE The pulmonary valve is not well visualized. VESSELS The inferior vena cava is normal in size. PERICARDIUM No pericardial effusion. Alonzo Gr MD (Electronically Signed) Final Date:02 March 2017 18:20
[2017-03-03] MEDS ORDERED: ISOSORBIDE MONONITRATE 30 MG TAB PO SCH (07:00)
[2017-03-03] MEDS ORDERED: FUROSEMIDE 20 MG TAB PO SCH (09:00)
[2017-03-03] MEDS ORDERED: SPIRONOLACTONE 25 MG TAB PO SCH (09:00)
== END 2017-03-02 18:25 | disposition home or self-care (01) ==
LOC: NEPE 18:37 → NEDA 20:44 → NEPHCDU 21:16
PROVIDERS: ADMIT Hospitalist; ATTEND Hospitalist
DX: I24.9 Acute ischemic heart disease, unspecified (principal); R06.03 Acute respiratory distress; I50.20 Unspecified systolic (congestive) heart failure; I25.119 Atherosclerotic heart disease of native coronary artery with unspecified angina pectoris; Z95.3 Presence of xenogenic heart valve; J43.9 Emphysema, unspecified; M19.90 Unspecified osteoarthritis, unspecified site; E78.00 Pure hypercholesterolemia, unspecified; K44.9 Diaphragmatic hernia without obstruction or gangrene; K21.9 Gastro-esophageal reflux disease without esophagitis; I11.0 Hypertensive heart disease with heart failure; K52.9 Noninfective gastroenteritis and colitis, unspecified; I44.7 Left bundle-branch block, unspecified; M81.0 Age-related osteoporosis without current pathological fracture; Z95.1 Presence of aortocoronary bypass graft
CPT/HCPCS: 71010; 78452; 80048; 80061; 82550; 83735; 83880; 84484; 85025; 85027; 85610; 85730; 93005; 93017; 93306; 94620; 96372; 96374; 96376; 99285; A9502; G0378; J0280; J1644; J1940; J2785

== ENCOUNTER 2017-03-05 04:19 | Inpatient (IN) | payer MEDICARE ==
[2017-03-05] VITALS (21 sets, daily range): BP systolic 109–179; BP diastolic 55–96; PULSE 66–103; RESP 16–26; TEMP 97.6–98.1; O2SAT 95–100
[~2017-03-05] VITALS: Ht 157.5 cm; Wt 51.4 kg
[~2017-03-05 04:19] MED LIST changes: -ASPI-94 PO; +ASPI-99 PO; -CALCTAB32 PO; +CARV3.125 PO; +ENAL2.5T PO; +FURO1TAB62 PO; +ISOS30TA3 PO; -METO50 PO; -MULTCAP13 PO; +OMEP20TA PO; -OMPR20CCR PO; +SIMV20TA PO; -SIMV40 PO; +SPIR25 PO
[2017-03-05] MEDS ORDERED: SODIUM CHLORIDE 0.9% FLUSH 10 ML FLUSH IVF PRN (04:30)
--- NOTE | 2017-03-05 04:37 | PD ---
HPI Chief Complaint: Respiratory Symptoms Time Seen by Provider: 04:26 Travel History International Travel<30 days: No Contact w/Intl Traveler<30days: No Traveled to known affect area: No History of Present Illness HPI Patient is an 87-year-old female with history of hypertension, hyperlipidemia, CAD, valvular heart disease, GERD, [place]'s esophagus, presents to emergency room with complaints of shortness of breath. Patient reports that she woke up tonight to use the restroom and became short of breath. She reports that she feels short of breath on exertion and feels shortness of breath when laying down. Patient denies any chest pain this time, denies any fevers or chills. Patient reports that she extremely anxious as she was recently discharged from the hospital with a diagnosis of CHF exacerbation. Patient reports that since her discharge on March 02, 2017, she has been compliant with all her medications. Patient reports that she has follow-up with customer service dispatcher, Dr. Gupta the office. She has not followed-up with him since her discharge from the hospital. Patient reports that she is feeling chilly, as it's "almost winter outside." Patient denies any fevers, denies any cough or congestion. PFSH Past Medical History Arthritis: Yes Blood Disorders: No Anxiety: No Depression: No Heart Rhythm Problems: No Cancer: No Cardiac Catheterization: Yes Cardiovascular Problems: Yes High Cholesterol: Yes Chest Pain: Yes Congestive Heart Failure: No Coronary Artery Disease: Yes Diabetes: No Diminished Hearing: No Endocrine: No Gastrointestinal Disorders: Yes (CHRONIC DIARRHEA) GERD: Yes Genitourinary: No Hiatal Hernia: Yes Hypertension: Yes Immune Disorder: No Musculoskeletal: Yes Neurologic: No Psychiatric: No Reproductive: No Respiratory: No Immunizations Current: Yes Radiation Therapy: No Ulcer: Yes Tetanus Vaccination: Never Vaccinated Influenza Vaccination: Yes Menopausal: Yes Past Surgical History Abdominal Surgery: No Cardiac Surgery: Yes (AVR, DOUBLE BYPASS) Coronary Artery Bypass Graft: Yes (2 VESSELS W/ AORTIC VALVE REPLACMENT) Ear Surgery: No Endocrine Surgery: No Eye Surgery: No Genitourinary Surgery: No Gynecologic Surgery: No Oral Surgery: No Thoracic Surgery: No Other Surgery: Yes Social History Alcohol Use: No Tobacco Use: No Substance Use: No Allergies-Medications (Allergen,Severity, Reaction): Coded Allergies: lansoprazole (Unverified Allergy, Mild, DIARRHEA, 03/05/17) nizatidine (Unverified Allergy, Mild, DIARRHEA, 03/05/17) Reported Meds & Prescriptions Reported Meds & Active Scripts Active Aldactone (Spironolactone) 25 Mg Tab 25 Mg PO DAILY Lasix (Furosemide) 20 Mg Tab 20 Mg PO DAILY Adult Aspirin EC Low Strength (Aspirin) 81 Mg Tabec 162 Mg PO DAILY Isosorbide Mononitrate ER (Isosorbide Mononitrate) 30 Mg Amanda 30 Mg PO DAILY@07 Coreg (Carvedilol) 3.125 Mg Tab 3.125 Mg PO Q12HR Enalapril (Enalapril Maleate) 2.5 Mg Tab 2.5 Mg PO BID Reported Simvastatin 20 Mg Tab 20 Mg PO HS Omeprazole 20 Mg Tab 20 Mg PO DAILY Review of Systems General / Constitutional: No: Fever Eyes: No: Visual changes HENT: No: Headaches Cardiovascular: No: Chest Pain or Discomfort Respiratory: Positive: Shortness of Breath Gastrointestinal: No: Abdominal Pain Genitourinary: No: Dysuria Musculoskeletal: No: Pain Skin: No Rash Neurologic: No: Weakness Psychiatric: No: Depression Endocrine: No: Polydipsia Hematologic/Lymphatic: No: Easy Bruising Physical Exam Narrative GENERAL: No acute distress, nontoxic SKIN: Focused skin assessment warm/dry. HEAD: Atraumatic. Normocephalic. EYES: Pupils equal and round. No scleral icterus. No injection or drainage. ENT: No nasal bleeding or discharge. Mucous membranes pink and moist. NECK: Trachea midline. No JVD. CARDIOVASCULAR: Regular rate and rhythm. + 5/6 systolic murmur appreciated. RESPIRATORY: No accessory muscle use. Clear to auscultation. Breath sounds equal bilaterally. GASTROINTESTINAL: Abdomen soft, non-tender, nondistended. Hepatic and splenic margins not palpable. MUSCULOSKELETAL: No obvious deformities. No clubbing. No cyanosis. No edema. NEUROLOGICAL: Awake and alert. No obvious cranial nerve deficits. Motor grossly within normal limits. Normal speech. PSYCHIATRIC: Anxious mood and affect; insight and judgment normal. Data Data Last Documented VS Vital Signs Date Time Temp Pulse Resp B/P (MAP) Pulse Ox O2 Delivery O2 Flow Rate FiO2 03/05/17 04:38 96 Room Air 03/05/17 04:28 2.00 03/05/17 04:22 98.1 91 26 179/74 (109) Orders Orders Complete Blood Count With Diff (03/05/17 04:26) Comprehensive Metabolic Panel (03/05/17 04:26) B-Type Natriuretic Peptide (03/05/17 04:26) Act Partial Throm Time (Ptt) (03/05/17 04:26) Prothrombin Time / Inr (Pt) (03/05/17 04:26) Magnesium (Mg) (03/05/17 04:26) Ckmb (Isoenzyme) Profile (03/05/17 04:26) Troponin I (03/05/17 04:26) Urinalysis - C+S If Indicated (03/05/17 04:26) Iv Access Insert/Monitor (03/05/17 04:26) Electrocardiogram (03/05/17 04:26) Ecg Monitoring (03/05/17 04:26) Oximetry (03/05/17 04:26) Chest, Single Ap (03/05/17 04:26) Sodium Chloride 0.9% Flush (Ns Flush) (03/05/17 04:30) CKMB (03/05/17 04:28) CKMB% (03/05/17 04:28) Aspirin (Aspirin) (03/05/17 05:30) Heparin Infusion SU.Q1H (03/05/17 05:23) Heparin-D5w 25,000 U/250 Ml (Heparin-D5w (03/05/17 05:30) Consult Cardiology (03/05/17 ) Labs Laboratory Tests Test 03/05/17 04:28 White Blood Count 6.1 TH/MM3 Red Blood Count 4.10 MIL/MM3 Hemoglobin 11.9 GM/DL Hematocrit 35.0 % Mean Corpuscular Volume 85.3 FL Mean Corpuscular Hemoglobin 28.9 PG Mean Corpuscular Hemoglobin Concent 33.9 % Red Cell Distribution Width 15.3 % Platelet Count 279 TH/MM3 Mean Platelet Volume 8.4 FL Neutrophils (%) (Auto) 52.0 % Lymphocytes (%) (Auto) 34.3 % Monocytes (%) (Auto) 10.3 % Eosinophils (%) (Auto) 2.1 % Basophils (%) (Auto) 1.3 % Neutrophils # (Auto) 3.2 TH/MM3 Lymphocytes # (Auto) 2.1 TH/MM3 Monocytes # (Auto) 0.6 TH/MM3 Eosinophils # (Auto) 0.1 TH/MM3 Basophils # (Auto) 0.1 TH/MM3 CBC Comment DIFF FINAL Differential Comment Prothrombin Time 10.9 SEC Prothromb Time International Ratio 1.0 RATIO Activated Partial Thromboplast Time 25.4 SEC Blood Urea Nitrogen 10 MG/DL Creatinine 0.56 MG/DL Random Glucose 86 MG/DL Total Protein 6.7 GM/DL Albumin 3.3 GM/DL Calcium Level 8.5 MG/DL Magnesium Level 1.8 MG/DL Alkaline Phosphatase 67 U/L Aspartate Amino Transf (AST/SGOT) 43 U/L Alanine Aminotransferase (ALT/SGPT) 34 U/L Total Bilirubin 0.6 MG/DL Sodium Level 131 MEQ/L Potassium Level 3.9 MEQ/L Chloride Level 101 MEQ/L Carbon Dioxide Level 21.3 MEQ/L Anion Gap 9 MEQ/L Estimat Glomerular Filtration Rate 103 ML/MIN Total Creatine Kinase 127 U/L Creatine Kinase MB 4.3 NG/ML Troponin I 0.80 NG/ML B-Type Natriuretic Peptide 1867 PG/ML MDM Medical Decision Making Medical Screen Exam Complete: Yes Emergency Medical Condition: Yes Medical Record Reviewed: Yes Interpretation(s) EKG at 0434: [id number], qt/qtc: 447/489, lbbb, ekg similar to ekg from 03/01/17 Vital Signs Date Time Temp Pulse Resp B/P (MAP) Pulse Ox O2 Delivery O2 Flow Rate FiO2 03/05/17 04:22 98.1 91 26 179/74 (109) 96 Differential Diagnosis Anxiety reaction, CHF exacerbation, ACS, arrhythmia, pneumonia Narrative Course 87 year old female who presents to the ER with c/o of sob and anxiety reaction. Onset of symptoms was tonight after she woke up to use the restroom. VSS as per EVAC and there were no interventions from EVAC. Vital Signs Date Time Temp Pulse Resp B/P (MAP) Pulse Ox O2 Delivery O2 Flow Rate FiO2 03/05/17 04:38 96 Room Air 03/05/17 04:28 98 Nasal Cannula 2.00 03/05/17 04:22 98.1 91 26 179/74 (109) 96 During the course of the patients emergency department visit, the patients history, examination, and differential diagnosis were reviewed with the patient. The patient was placed on a secured entrance monitor with oximetry and frequent blood pressure monitoring. The patient had 20 gauge IV access obtained and blood work sent for analysis. Patient's initial pulse ox was 96% on room air, patient requested oxygen as this makes her feel better and gave her resolution of symptoms from her SOB. The patient was initially provided 2L Oxygen. The patients laboratory studies were reviewed and remarkable for troponin of 0.80, sodium of 131 Radiology studies were reviewed and remarkable for stable interstitial prominence Patient with no chest pain at this time, patient with a positive troponin of 0.80, patient with NSTEMI. Plan to admit to medicine service at this time. Will administer ASA as well as start heparin gtt. case reviewed with Dr. oBwles who accepts pt to service Critical Care Narrative Aggregate critical care time was 30 minutes. Time to perform other separately billable procedures was not included in the critical care time. My time did not include minutes spent treating any other patients simultaneously or on activities that did not directly contribute to the patient's treatment. The services I provided to this patient were to treat and/or prevent clinically significant deterioration that could result in: , decompensation, deterioration I provided critical care services requiring my management, as noted below: Chart data review, documentation time, medication orders and management, vital sign assessments/reviewing monitor data, ordering and reviewing lab tests, ordering and interpreting/reviewing x-rays and diagnostic studies, care of the patient and discussion of the patient with the admitting physicians. Diagnosis Primary Impression: NSTEMI (non-ST elevation myocardial infarction) Additional Impression: Shortness of breath Admitting Information Admitting Physician Requests: Selina Johnston DO Mar 05, 2017 04:37
[2017-03-05 04:45] LABS: AUTOMATED NEUTROPHIL # 3.2 TH/MM3 (1.8-7.7); BASOPHIL # 0.1 TH/MM3 (0-0.2); BASOPHIL % 1.3 % (0.0-2.0); EOSINOPHIL # 0.1 TH/MM3 (0-0.4); EOSINOPHIL % 2.1 % (0.0-4.0); HEMOGLOBIN 11.9 GM/DL (11.6-15.3); LYMPH % 34.3 % (9.0-44.0); LYMPHOCYTE # 2.1 TH/MM3 (1.0-4.8); MEAN CELL VOLUME 85.3 FL (80.0-100.0); MEAN CORPUSCULAR HEMOGLOBIN 28.9 PG (27.0-34.0); MEAN CORPUSCULAR HGB CONC 33.9 % (32.0-36.0); MEAN PLATELET VOLUME 8.4 FL (7.0-11.0); MONO % 10.3 % (0.0-8.0); MONOCYTE # 0.6 TH/MM3 (0-0.9); PLATELET COUNT 279 TH/MM3 (150-450); RED CELL DISTRIBUTION WIDTH 15.3 % (11.6-17.2); WHITE BLOOD COUNT 6.1 TH/MM3 (4.0-11.0)
--- NOTE | 2017-03-05 04:50 | RADRPT ---
EXAM DATE/TIME: 03/05/2017 04:33 [facility] COMPARISON: CHEST SINGLE AP, February 28, 2017, 19:05. INDICATIONS : Shortness of breath. MEDICAL HISTORY : None. SURGICAL HISTORY : None. ENCOUNTER: Initial ACUITY: 1 day PAIN SCORE: 0/10 LOCATION: Bilateral chest FINDINGS: Mild diffuse interstitial prominence again noted. No alveolar consolidation or pleural effusion. Card iac contours are unchanged. Sternotomy wires are present. CONCLUSION: Stable interstitial prominence Hesham Mcnamara MD on March 05, 2017 at 4:47 Board Certified Radiologist. This report was verified electronically.
[2017-03-05 04:57] LABS: PROTHROMBIN TIME - PATIENT 10.9 SEC (9.8-11.6)
[2017-03-05 05:12] LABS: ALT (GPT) 34 U/L (10-53)
[2017-03-05 05:15] LABS: ALKALINE PHOSPHATASE 67 U/L (45-117); TOTAL BILIRUBIN ADULT 0.6 MG/DL (0.2-1.0); TOTAL PROTEIN 6.7 GM/DL (6.4-8.2)
[2017-03-05 05:18] LABS: ALBUMIN 3.3 GM/DL (3.4-5.0); AST (GOT) 43 U/L (15-37); BICARBONATE 21.3 MEQ/L (21.0-32.0); BLOOD UREA NITROGEN 10 MG/DL (7-18); CALCIUM 8.5 MG/DL (8.5-10.1); CHLORIDE 101 MEQ/L (98-107); CREATININE 0.56 MG/DL (0.50-1.00); GLOMERULAR FILTRATION RATE 103 ML/MIN (>89); GLUCOSE,RANDOM 86 MG/DL (74-106); MAGNESIUM 1.8 MG/DL (1.5-2.5); SODIUM (NA) 131 MEQ/L (136-145)
[2017-03-05] MEDS ORDERED: ASPIRIN 325 MG TAB PO ONE (05:30)
[2017-03-05] MEDS ORDERED: HEPARIN-D5W 25,000 U/250 ML 250 ML IV PRN (05:30)
[2017-03-05] MEDS ORDERED: CARVEDILOL 6.25 MG TAB PO ONE (05:45)
[2017-03-05] MEDS ORDERED: ONDANSETRON HCL 4 MG/2 ML VIAL IVP PRN (05:45)
[2017-03-05] MEDS ORDERED: MAGNESIUM HYDROXIDE SUSP 30 ML CUP PO PRN (05:45)
[2017-03-05] MEDS ORDERED: LORazepam 2 MG/ML VIAL IV PUSH ONE ×2 (05:45→20:45)
[2017-03-05] MEDS ORDERED: BISACODYL 10 MG SUPP RECTAL PRN (05:45)
[2017-03-05] MEDS ORDERED: SENNOSIDES 8.6 MG TAB PO PRN (05:45)
[2017-03-05] MEDS ORDERED: LACTULOSE SYRUP 20 GM/30 ML CUP PO PRN (05:45)
[2017-03-05] MEDS ORDERED: NALOXONE HCL 0.4 MG/ML AMP IV PUSH PRN (05:45)
[2017-03-05] MEDS ORDERED: SODIUM CHLORIDE 0.9% FLUSH 10 ML FLUSH IV FLUSH PRN (05:45)
--- NOTE | 2017-03-05 05:58 | HHI.HP ---
HPI Service [facility] Primary Care Physician No Primary Care Physician Admission Diagnosis NSTEMI Diagnoses: Chief Complaint: shortness of breath Travel History International Travel<30 Days: No Contact w/Intl Traveler <30 Da: No Traveled to Known Affected Are: No History of Present Illness Written by JUDITH Ritchie acting as scribe for Dr. Rachel] on 03/05/17 at 05:48. 87 y/o with a history of HTN, CHF, HLD presented to the ED with complaints of shortness of breath that has been getting worse over the last few days. She was recently discharge on the and she has been continuing to have short of breath. She said she woke up this morning and had short of breath with associated anxiety. Per the daughter she has not been taking her Coreg and Enalapril because her BP has been good, and she says the nurse told her to take the pressure and only take the Meds if her BP was high. The daughter states her shortness of breath is about the same as when she was admitted 5 days ago. She denies any chest pain, dizziness, fever, chills, nausea or vomiting. Review of Systems Except as stated in HPI: all other systems reviewed are Neg Past Family Social History Past Medical History HTN CHF HLD Past Surgical History Aortic valve replacement CABG Reported Medications Reported Meds & Active Scripts Active Aldactone (Spironolactone) 25 Mg Tab 25 Mg PO DAILY Lasix (Furosemide) 20 Mg Tab 20 Mg PO DAILY Adult Aspirin EC Low Strength (Aspirin) 81 Mg Tabec 162 Mg PO DAILY Isosorbide Mononitrate ER (Isosorbide Mononitrate) 30 Mg Amanda 30 Mg PO DAILY@07 Coreg (Carvedilol) 3.125 Mg Tab 3.125 Mg PO Q12HR Enalapril (Enalapril Maleate) 2.5 Mg Tab 2.5 Mg PO BID Reported Simvastatin 20 Mg Tab 20 Mg PO HS Omeprazole 20 Mg Tab 20 Mg PO DAILY Allergies: Coded Allergies: lansoprazole (Unverified Allergy, Mild, DIARRHEA, 03/05/17) nizatidine (Unverified Allergy, Mild, DIARRHEA, 03/05/17) Active Ordered Medications Current Medications Medications (Trade) Dose Ordered Sig/Bradley Route Start Time Stop Time Status Last Admin (NS Flush) 2 ml UNSCH PRN IVF 03/05/17 04:30 Heparin Sodium/ Dextrose 250 ml @ 6 mls/hr TITRATE PRN IV 03/05/17 05:30 (NS Flush) 2 ml UNSCH PRN IV FLUSH 03/05/17 05:45 UNV (NS Flush) 2 ml BID IV FLUSH 03/05/17 09:00 UNV (Zofran Inj) 4 mg Q6H PRN IVP 03/05/17 05:45 UNV (Narcan Inj) 0.4 mg UNSCH PRN IV PUSH 03/05/17 05:45 (Milk Of Magnesia Liq) 30 ml Q12H PRN PO 03/05/17 05:45 (Senokot) 17.2 mg Q12H PRN PO 03/05/17 05:45 UNV (Dulcolax Supp) 10 mg DAILY PRN RECTAL 03/05/17 05:45 (Lactulose Liq) 30 ml DAILY PRN PO 03/05/17 05:45 (Ecotrin Ec) 162 mg DAILY PO 03/05/17 09:00 (Vasotec) 2.5 mg BID PO 03/05/17 09:00 UNV (Lasix) 20 mg DAILY PO 03/05/17 09:00 (Imdur) 30 mg DAILY@07 PO 03/05/17 07:00 (Aldactone) 25 mg DAILY PO 03/05/17 09:00 Non-Formulary Medication 20 mg DAILY PO 03/05/17 09:00 UNV Non-Formulary Medication 20 mg HS PO 03/05/17 21:00 UNV (Coreg) 6.25 mg Q12HR PO 03/05/17 21:00 Family History Mom: CHF Social History Denies any tobacco, alcohol or illicit drug use. Physical Exam Vital Signs Vital Signs Date Time Temp Pulse Resp B/P (MAP) Pulse Ox O2 Delivery O2 Flow Rate FiO2 03/05/17 04:38 96 Room Air 03/05/17 04:28 98 Nasal Cannula 2.00 03/05/17 04:22 98.1 91 26 179/74 (109) 96 Physical Exam GENERAL: This is a well-nourished, well-developed patient, in no apparent distress. SKIN: No rashes, ecchymoses or lesions. Cool and dry. HEAD: Atraumatic. Normocephalic. EYES: Pupils equal round and reactive. Extraocular motions intact. ENT: Nose without bleeding, purulent drainage or septal hematoma. Airway patent. NECK: Trachea midline. No JVD or lymphadenopathy. Supple, nontender, no meningeal signs. CARDIOVASCULAR: Regular rate and rhythm without murmurs, gallops, or rubs. RESPIRATORY: Clear to auscultation. Breath sounds equal bilaterally. No wheezes , rales, or rhonchi. GASTROINTESTINAL: Abdomen soft, non-tender, nondistended. No hepato-splenomegaly , or palpable masses. No guarding. MUSCULOSKELETAL: +1 lower extremity edema. No joint tenderness, effusion, or edema noted. No calf tenderness. NEUROLOGICAL: Awake and alert. Motor and sensory grossly within normal limits Normal speech. Laboratory Laboratory Tests Test 03/05/17 04:28 White Blood Count 6.1 Red Blood Count 4.10 Hemoglobin 11.9 Hematocrit 35.0 Mean Corpuscular Volume 85.3 Mean Corpuscular Hemoglobin 28.9 Mean Corpuscular Hemoglobin Concent 33.9 Red Cell Distribution Width 15.3 Platelet Count 279 Mean Platelet Volume 8.4 Neutrophils (%) (Auto) 52.0 Lymphocytes (%) (Auto) 34.3 Monocytes (%) (Auto) 10.3 Eosinophils (%) (Auto) 2.1 Basophils (%) (Auto) 1.3 Neutrophils # (Auto) 3.2 Lymphocytes # (Auto) 2.1 Monocytes # (Auto) 0.6 Eosinophils # (Auto) 0.1 Basophils # (Auto) 0.1 CBC Comment DIFF FINAL Differential Comment Prothrombin Time 10.9 Prothromb Time International Ratio 1.0 Activated Partial Thromboplast Time 25.4 Blood Urea Nitrogen 10 Creatinine 0.56 Random Glucose 86 Total Protein 6.7 Albumin 3.3 Calcium Level 8.5 Magnesium Level 1.8 Alkaline Phosphatase 67 Aspartate Amino Transf (AST/SGOT) 43 Alanine Aminotransferase (ALT/SGPT) 34 Total Bilirubin 0.6 Sodium Level 131 Potassium Level 3.9 Chloride Level 101 Carbon Dioxide Level 21.3 Anion Gap 9 Estimat Glomerular Filtration Rate 103 Total Creatine Kinase 127 Creatine Kinase MB 4.3 Troponin I 0.80 B-Type Natriuretic Peptide 1867 Result Diagram: 03/05/1742703/05/17427 Imaging Last Impressions Chest X-Ray 03/05/17425 Signed Impressions: Service Date/Time: Sunday, March 05, 2017 04:33 - CONCLUSION: Stable interstitial prominence MD Lorraine Hawk VTE Risk Assessment Lorraine VTE Risk Assessment: Mod/High Risk (score >= 2) Caprini Risk Assessment Model Point Value = 1 Point Value = 2 Point Value = 3 Point Value = 5 Age 41-60 Minor surgery BMI > 25 kg/m2 Swollen legs Varicose veins or History of unexplained or recurrent spontaneous Oral contraceptives or hormone replacement Sepsis (< 1 month) Serious lung disease, including pneumonia (< 1 month) Abnormal pulmonary function Acute myocardial infarction Congestive heart failure (< 1 month) History of inflammatory bowel disease Medical patient at bed rest Age 61-74 Arthroscopic surgery Major open surgery (> 45 min) Laparoscopic surgery (> 45 min) Malignancy Confined to bed (> 72 hours) Immobilizing plaster cast Central venous access Age >= 75 History of VTE Family history of VTE Factor V Leiden Prothrombin [id number] Lupus anticoagulant Anticardiolipin antibodies Elevated serum homocysteine Heparin-induced thrombocytopenia Other congenital or acquired thrombophilia Stroke (< 1 month) Elective arthroplasty Hip, pelvis, or leg fracture Acute spinal cord injury (< 1 month) Prophylaxis Regimen Total Risk Factor Score Risk Level Prophylaxis Regimen 0-1 Low Early ambulation 2 Moderate Order ONE of the following: *Sequential Compression Device (SCD) *Heparin 5000 units SQ BID 3-4 Higher Order ONE of the following medications: *Heparin 5000 units SQ TID *Enoxaparin/Lovenox 40 mg SQ daily (WT < 150 kg, CrCl > 30 mL/min) *Enoxaparin/Lovenox 30 mg SQ daily (WT < 150 kg, CrCl > 10-29 mL/min) *Enoxaparin/Lovenox 30 mg SQ BID (WT < 150 kg, CrCl > 30 mL/min) AND/OR *Sequential Compression Device (SCD) 5 or more Highest Order ONE of the following medications: *Heparin 5000 units SQ TID (Preferred with Epidurals) *Enoxaparin/Lovenox 40 mg SQ daily (WT < 150 kg, CrCl > 30 mL/min) *Enoxaparin/Lovenox 30 mg SQ daily (WT < 150 kg, CrCl > 10-29 mL/min) *Enoxaparin/Lovenox 30 mg SQ BID (WT < 150 kg, CrCl > 30 mL/min) AND *Sequential Compression Device (SCD) Assessment and Plan Problem List: (1) CHF (congestive heart failure) ICD Code: I50.9 - Heart failure, unspecified Status: Acute (2) NSTEMI (non-ST elevation myocardial infarction) ICD Code: I21.4 - Non-ST elevation (NSTEMI) myocardial infarction Status: Acute Assessment and Plan 87 y/o with a history of HTN, CHF, HLD presented to the ED with complaints of shortness of breath that has been getting worse over the last few days. NSTEMI, troponin .8, denies chest pain EKG reviewed and shows no ST elevation with BBB -Serial troponin and EKGs -Consult cardiology for recommendations -Heparin drip ordered Acute on chronic CHF, EF 45%, BNP 1867 -Resume home medications -Fluid restriction HTN, chronic -Resume home medications, monitor vitals DVT prophylaxis: Heparin Discussed Condition With Patient and patient's daughter Physician Certification 2 Midnight Certification Type: Admission for Inpatient Services Order for Inpatient Services The services are ordered in accordance with Medicare regulations or non- Medicare payer requirements, as applicable. In the case of services not specified as inpatient-only, they are appropriately provided as inpatient services in accordance with the 2-midnight benchmark. Estimated LOS (days): 2 days is the estimated time the patient will need to remain in the hospital, assuming treatment plan goals are met and no additional complications. Post-Hospital Plan: Not yet determined Notes: This note was transcribed by JUDITH Topete. I, Dr. Nahum Bowles personally performed the history, physical exam, and medical decision making; and confirmed the accuracy of the information in the transcribed note. Authenticated by Dr. Nahum Bowles on 03/06/17 at 05:36. Problem Qualifiers (1) CHF (congestive heart failure): Qualified Codes: I50.23 - Acute on chronic systolic (congestive) heart failure Patricia Park Mar 05, 2017 05:58 Nahum Bowles MD Mar 06, 2017 05:36
[2017-03-05 06:05] LABS: BILIRUBIN, URINE NEG (NEG); BLOOD, URINE NEG (NEG); GLUCOSE,URINE NEG (NEG); KETONE, URINE NEG (NEG); MUCUS URINE FEW /lpf (OCC); NITRITE,URINE NEG (NEG); RENAL EPITHELIAL CELLS <1 /hpf; URINE COLOR LIGHT-YELLOW (YELLW/STRAW); URINE LEUKOCYTE ESTERASE NEG (NEG)
[2017-03-05] MEDS: PANTOPRAZOLE SOD 20 MG DELAYED RELEASE TAB PO SCH (09:01)
[2017-03-05] MEDS: SODIUM CHLORIDE 0.9% FLUSH 10 ML FLUSH IV FLUSH SCH ×2 (09:01→20:34)
[2017-03-05] MEDS: ASPIRIN EC 81 MG TABEC PO SCH (09:02)
[2017-03-05] MEDS: ISOSORBIDE MONONITRATE 30 MG TAB PO SCH (09:02)
[2017-03-05] MEDS: SPIRONOLACTONE 25 MG TAB PO SCH (09:02)
[2017-03-05] MEDS: FUROSEMIDE 20 MG TAB PO SCH (09:02)
[2017-03-05] MEDS: ENALAPRIL MALEATE 2.5 MG TAB PO SCH ×2 (09:15→20:34)
--- NOTE | 2017-03-05 13:28 | EKG ---
Date Performed: 03/05/2017 Time Performed: 04:34:49 PTAGE: 87 years EKG: Sinus rhythm WITH OCCASIONAL SUPRAVENTRICULAR PREMATURE COMPLEXES LEFT BUNDLE BRANCH BLOCK ABNORMAL ECG PREVIOUS TRACING : 03/01/2017 02.58 Compared to prior tracing no significant change DOCTOR: Karl Summers Interpretating Date/Time 03/05/2017 13:25:57
--- NOTE | 2017-03-05 13:28 | EKG ---
Date Performed: 03/05/2017 Time Performed: 07:08:09 PTAGE: 87 years EKG: Sinus rhythm WITH MARKED SINUS ARRHYTHMIA LEFT BUNDLE BRANCH BLOCK ABNORMAL ECG PREVIOUS TRACING : 03/05/2017 04.34 Compared to prior tracing no significant change DOCTOR: Karl Summers Interpretating Date/Time 03/05/2017 13:25:48
[2017-03-05 17:26] LABS: HEMOGLOBIN A1C 5.5 % (4.3-6.0)
[2017-03-05] MEDS: CARVEDILOL 6.25 MG TAB PO SCH (20:34)
[2017-03-05] MEDS: PRAVASTATIN SOD 40 MG TAB PO SCH (20:34)
[2017-03-06] VITALS (26 sets, daily range): BP systolic 101–135; BP diastolic 52–89; PULSE 63–96; RESP 16–20; TEMP 97.3–98.5; O2SAT 94–99
[2017-03-06 05:26] LABS: AUTOMATED NEUTROPHIL # 2.4 TH/MM3 (1.8-7.7); BASOPHIL # 0.1 TH/MM3 (0-0.2); BASOPHIL % 1.8 % (0.0-2.0); EOSINOPHIL # 0.2 TH/MM3 (0-0.4); EOSINOPHIL % 2.9 % (0.0-4.0); HEMATOCRIT 31.6 % (35.0-46.0); HEMOGLOBIN 10.7 GM/DL (11.6-15.3); LYMPH % 41.1 % (9.0-44.0); LYMPHOCYTE # 2.2 TH/MM3 (1.0-4.8); MEAN CELL VOLUME 85.1 FL (80.0-100.0); MEAN CORPUSCULAR HEMOGLOBIN 28.8 PG (27.0-34.0); MEAN CORPUSCULAR HGB CONC 33.8 % (32.0-36.0); MEAN PLATELET VOLUME 8.4 FL (7.0-11.0); MONOCYTE # 0.5 TH/MM3 (0-0.9); NEUT % 44.2 % (16.0-70.0); PLATELET COUNT 255 TH/MM3 (150-450); RED BLOOD COUNT 3.72 MIL/MM3 (4.00-5.30); WHITE BLOOD COUNT 5.3 TH/MM3 (4.0-11.0)
[2017-03-06 05:53] LABS: ALBUMIN 2.8 GM/DL (3.4-5.0); AST (GOT) 25 U/L (15-37); BICARBONATE 24.1 MEQ/L (21.0-32.0); BLOOD UREA NITROGEN 13 MG/DL (7-18); CALCIUM 8.1 MG/DL (8.5-10.1); CHLORIDE 98 MEQ/L (98-107); CREATININE 0.56 MG/DL (0.50-1.00); GLOMERULAR FILTRATION RATE 103 ML/MIN (>89); GLUCOSE,RANDOM 81 MG/DL (74-106); SODIUM (NA) 131 MEQ/L (136-145)
[2017-03-06 06:04] LABS: ALKALINE PHOSPHATASE 53 U/L (45-117); ALT (GPT) 27 U/L (10-53); TOTAL BILIRUBIN ADULT 0.6 MG/DL (0.2-1.0); TOTAL PROTEIN 5.5 GM/DL (6.4-8.2)
[2017-03-06] MEDS: ISOSORBIDE MONONITRATE 30 MG TAB PO SCH (06:37)
[2017-03-06] MEDS: ASPIRIN EC 81 MG TABEC PO SCH (08:59)
[2017-03-06] MEDS: CARVEDILOL 6.25 MG TAB PO SCH ×3 (08:59→21:00)
[2017-03-06] MEDS: PANTOPRAZOLE SOD 20 MG DELAYED RELEASE TAB PO SCH (08:59)
[2017-03-06] MEDS: SPIRONOLACTONE 25 MG TAB PO SCH (08:59)
[2017-03-06] MEDS: ENALAPRIL MALEATE 2.5 MG TAB PO SCH ×3 (09:00→21:00)
[2017-03-06] MEDS: FUROSEMIDE 20 MG TAB PO SCH (09:00)
[2017-03-06] MEDS: SODIUM CHLORIDE 0.9% FLUSH 10 ML FLUSH IV FLUSH SCH ×2 (09:00→21:00)
--- NOTE | 2017-03-06 11:57 | HHI.PR ---
Subjective Remarks Denies chest pain. Awaiting heart catheterization. Objective Vitals Vital Signs Date Time Temp Pulse Resp B/P (MAP) Pulse Ox O2 Delivery O2 Flow Rate FiO2 03/06/17 10:00 64 03/06/17 09:00 70 03/06/17 09:00 97.6 70 18 115/62 (79) 97 03/06/17 06:08 67 03/06/17 05:29 69 03/06/17 04:15 67 03/06/17 03:40 98.0 79 16 120/59 (79) 99 03/06/17 03:26 71 03/06/17 02:19 65 03/06/17 01:45 72 03/06/17 00:00 72 03/05/17 23:25 97.8 81 16 109/55 (73) 100 03/05/17 23:00 69 03/05/17 22:00 70 03/05/17 21:15 84 03/05/17 20:15 82 03/05/17 19:25 82 03/05/17 19:25 98.1 81 18 115/59 (77) 99 03/05/17 18:00 80 03/05/17 17:00 70 03/05/17 16:00 73 03/05/17 15:00 97.9 71 16 118/67 (84) 98 03/05/17 15:00 80 03/05/17 14:00 79 03/05/17 13:00 79 03/05/17 12:00 67 I/O 03/05/17 03/05/17 03/05/17 03/06/17 03/06/17 03/06/17 07:00 15:00 23:00 07:00 15:00 23:00 Intake Total 6 ml 48 ml 78 ml 240 ml Output Total 1500 ml Balance 6 ml 48 ml -1422 ml 240 ml Intake Oral 0 ml 240 ml IV Total 6 ml 48 ml 78 ml Output Urine Total 1500 ml # Voids 3 Result Diagram: 03/06/1742703/06/17427 Objective Remarks GENERAL: Elderly female. CARDIOVASCULAR: Regular rate and rhythm. RESPIRATORY: No accessory muscle use. Clear to auscultation. Breath sounds equal bilaterally. GASTROINTESTINAL: Abdomen soft, non-tender, nondistended. MUSCULOSKELETAL: Extremities without clubbing, cyanosis, or edema. NEUROLOGICAL: Awake and alert. Normal speech. PSYCHIATRIC: Appropriate mood and affect; insight and judgment normal. A/P Problem List: (1) CHF (congestive heart failure) ICD Code: I50.9 - Heart failure, unspecified Status: Acute (2) NSTEMI (non-ST elevation myocardial infarction) ICD Code: I21.4 - Non-ST elevation (NSTEMI) myocardial infarction Status: Acute Assessment and Plan 87 y/o with a history of HTN, CHF, HLD presented to the ED with complaints of shortness of breath that has been getting worse over the last few days. NSTEMI, troponin .8, denies chest pain - Cardiology following. On Heparin drip. Plan for heart catheterization today. Acute on chronic CHF, EF 45%, BNP 1867 -No overt evidence of fluid overload. Resume home dose Lasix. -Fluid restriction HTN, chronic -Resume home medications, monitor vitals DVT prophylaxis: Heparin Problem Qualifiers (1) CHF (congestive heart failure): Qualified Codes: I50.23 - Acute on chronic systolic (congestive) heart failure Alfie Purcell MD Mar 06, 2017 11:57
--- NOTE | 2017-03-06 14:15 | ECHRPT ---
Indication: AVR, LOW EF CONCLUSIONS Normal left ventricular size. Wall thickness is normal. There is diffuse global hypokinesis with distinct regional wall motion abnormalities. 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 There is severe stenosis of the aortic valve prosthesis, mean gradient 44 mmHg. BP: 118 / 67 HR: Rhythm: Sinus MEASUREMENTS (Male / Female) Normal Values Technical Quality:Fair 2D ECHO LV Diastolic Diameter PLAX 5.4 cm 4.2 - 5.9 / 3.9 - 5.3 cm LV Systolic Diameter PLAX 5.0 cm IVS Diastolic Thickness 1.0 cm 0.6 - 1.0 / 0.6 - 0.9 cm LVPW Diastolic Thickness 0.7 cm 0.6 - 1.0 / 0.6 - 0.9 cm LV Relative Wall Thickness 0.3 LVOT Diameter 1.8 cm Aortic Root Diameter 2.5 cm LA Systolic Diameter LX 3.4 cm 3.0 - 4.0 / 2.7 - 3.8 cm DOPPLER AV Peak Velocity 439.0 cm/s AV Peak Gradient 77.1 mmHg AV Mean Gradient 44.0 mmHg AV Velocity Time Integral 107.0 cm AI Peak Velocity 402.0 cm/s AI Peak Gradient 64.6 mmHg AI Pressure Half Time 483.0 ms LVOT Peak Velocity 73.7 cm/s LVOT Peak Gradient 2.2 mmHg LVOT Velocity Time Integral 18.6 cm AV Area Cont Eq vti 0.4 cm AV Area Cont Eq pk 0.4 cm Mitral E Point Velocity 88.4 cm/s Mitral A Point Velocity 99.7 cm/s Mitral E to A Ratio 0.9 LV E' Lateral Velocity 8.1 cm/s Mitral E to LV E' Lateral Ratio 10.9 LV E' Septal Velocity 3.8 cm/s Mitral E to LV E' Septal Ratio 23.3 TR Peak Velocity 239.0 cm/s TR Peak Gradient 22.8 mmHg Right Atrial Pressure 10.0 mmHg Pulmonary Artery Systolic Pressu 32.8 mmHg Right Ventricular Systolic Press 32.8 mmHg PV Peak Velocity 63.2 cm/s PV Peak Gradient 1.6 mmHg FINDINGS LEFT VENTRICLE Normal left ventricular size. Wall thickness is normal. There is diffuse global hypokinesis with distinct regional wall motion abnormalities. 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 There is moderate stenosis of the aortic valve prosthesis, mean gradient 44 mmHg. Austin Calderon MD (Electronically Signed) Final Date:06 March 2017 14:14
[2017-03-06] MEDS ORDERED: VERAPAMIL HCL 5 MG/2 ML VIAL ONE (16:35)
[2017-03-06] MEDS ORDERED: MIDAZOLAM HCL 2 MG/2 ML VIAL ONE (16:35)
[2017-03-06] MEDS ORDERED: HEPARIN-NS/PF INJ 500 ML ONE (16:35)
[2017-03-06] MEDS ORDERED: IOHEXOL 350 MG/ML 50 ML BTL (for Cath Lab) OTHER ONE (16:36)
[2017-03-06] MEDS ORDERED: NITROGLYCERIN INJ 5 ML ONE (16:36)
[2017-03-06] MEDS ORDERED: HEPARIN SODIUM - IV 10,000 UNITS/10 ML VIAL ONE (16:36)
[2017-03-06] MEDS ORDERED: IOHEXOL 350 MG/ML 100 ML BTL (for Cath Lab) OTHER ONE (16:36)
--- NOTE | 2017-03-06 18:02 | EKG ---
Date Performed: 03/05/2017 Time Performed: 14:41:26 PTAGE: 87 years EKG: Sinus rhythm . Left bundle branch block Abnormal ECG Compared to prior tracing no significant change PREVIOUS TRACING : 03/05/2017 07.08 DOCTOR: Karyna Escobar Interpretating Date/Time 03/06/2017 18:01:34
[2017-03-06] MEDS ORDERED: MISC INFORMATION XX ONE (18:15)
[2017-03-06] MEDS ORDERED: ONDANSETRON HCL 4 MG/2 ML VIAL IV PUSH PRN (18:15)
[2017-03-06] MEDS ORDERED: SODIUM CHLORIDE 0.9% FLUSH 10 ML FLUSH IV FLUSH PRN (18:15)
[2017-03-06] MEDS ORDERED: ATROPINE SULFATE 1 MG/ML VIAL IV PUSH PRN (18:15)
--- NOTE | 2017-03-06 18:22 | PD.CONS ---
HPI Consult Requested By Primary Care Physician No Primary Care Physician History of Present Illness 87 y/o with a pmhx significant for aortic stenosis s/p AVR in 2000 ([place] 23mm Pericardial Heart Valve), CABG x2, depressed LV systolic function, HTN, HLD admitted with complaints of shortness of breath that has been getting worse over the last few days. She was recently discharge on the for the same symptoms, at the time she was treated with IV diuresis.She reports being complaint with medical regimen. She denies any chest pain, dizziness, fever, chills, nausea or vomiting. Cardiology consulted for acute on chronic HF management and troponin elevation. Review of Systems Consitutional: COMPLAINS OF: Fatigue, DENIES: Fever, Chills, Weight gain, Weight loss Eyes: DENIES: Amaurosis Fugax, Change in vision HEENT: DENIES: Lightheadedness, Change in hearing Respiratory: COMPLAINS OF: Shortness of breath, DENIES: See HPI, Cough, Snoring , Wheezing, Sputum production Cardiovascular: DENIES: See HPI, Chest pain, Palpitations, Syncope, Tachycardia Gastrointestinal: DENIES: Nausea, Vomiting, Change in bowel habits, Reflux, Bloody stools, Melena Genitourinary: DENIES: Urinary incontinence, Difficulty voiding Integumentary: DENIES: Rash Neurologic: DENIES: Tingling or numbness, Memory problems, Poor Balance, Stroke symptoms Musculoskeletal: DENIES: Joint pain, Muscle pain, Limited range of motion, Back pain Psychiatric: DENIES: Anxiety, Depression, Sleep disturbances Hematologic: DENIES: Bruising tendencies, Bleeding tendencies Endocrine: DENIES: Weight gain, Weight loss, Thyroid disease Past Family Social History Allergies: Coded Allergies: lansoprazole (Unverified Allergy, Mild, DIARRHEA, 03/05/17) nizatidine (Unverified Allergy, Mild, DIARRHEA, 03/05/17) Past Medical History HTN CHF HLD Past Surgical History Aortic valve replacement CABG x2 Reported Medications Reported Meds & Active Scripts Active Aldactone (Spironolactone) 25 Mg Tab 25 Mg PO DAILY Lasix (Furosemide) 20 Mg Tab 20 Mg PO DAILY Adult Aspirin EC Low Strength (Aspirin) 81 Mg Tabec 162 Mg PO DAILY Isosorbide Mononitrate ER (Isosorbide Mononitrate) 30 Mg Amanda 30 Mg PO DAILY@07 Coreg (Carvedilol) 3.125 Mg Tab 3.125 Mg PO Q12HR Enalapril (Enalapril Maleate) 2.5 Mg Tab 2.5 Mg PO BID Reported Simvastatin 20 Mg Tab 20 Mg PO HS Omeprazole 20 Mg Tab 20 Mg PO DAILY Active Ordered Medications Current Medications Medications (Trade) Dose Ordered Sig/Bradley Route Start Time Stop Time Status Last Admin (NS Flush) 2 ml UNSCH PRN IVF 03/05/17 04:30 Heparin Sodium/ Dextrose 250 ml @ 6 mls/hr TITRATE PRN IV 03/05/17 05:30 03/05/17 06:15 (NS Flush) 2 ml UNSCH PRN IV FLUSH 03/05/17 05:45 (NS Flush) 2 ml BID IV FLUSH 03/05/17 09:00 03/06/17 09:00 (Zofran Inj) 4 mg Q6H PRN IVP 03/05/17 05:45 (Narcan Inj) 0.4 mg UNSCH PRN IV PUSH 03/05/17 05:45 (Milk Of Magnesia Liq) 30 ml Q12H PRN PO 03/05/17 05:45 (Senokot) 17.2 mg Q12H PRN PO 03/05/17 05:45 (Dulcolax Supp) 10 mg DAILY PRN RECTAL 03/05/17 05:45 (Lactulose Liq) 30 ml DAILY PRN PO 03/05/17 05:45 (Ecotrin Ec) 162 mg DAILY PO 03/05/17 09:00 03/06/17 08:59 (Vasotec) 2.5 mg BID PO 03/05/17 09:00 03/05/17 20:34 (Lasix) 20 mg DAILY PO 03/05/17 09:00 03/06/17 09:00 (Imdur) 30 mg DAILY@07 PO 03/05/17 07:00 03/06/17 06:37 (Aldactone) 25 mg DAILY PO 03/05/17 09:00 03/06/17 08:59 (Protonix) 20 mg DAILY PO 03/05/17 09:00 03/06/17 08:59 (Pravachol) 40 mg HS PO 03/05/17 21:00 03/05/17 20:34 (Coreg) 6.25 mg Q12HR PO 03/05/17 21:00 03/06/17 08:59 Family History Noncontributory Social History Denies any tobacco, alcohol or illicit drug use. Physical Exam Vital Signs Vital Signs Date Time Temp Pulse Resp B/P (MAP) Pulse Ox O2 Delivery O2 Flow Rate FiO2 03/06/17 16:00 77 03/06/17 15:00 97.9 69 18 118/63 (81) 99 03/06/17 15:00 69 03/06/17 14:00 70 03/06/17 13:00 63 03/06/17 12:00 64 03/06/17 11:00 63 03/06/17 11:00 97.3 63 20 117/63 (81) 97 03/06/17 10:00 64 03/06/17 09:00 70 03/06/17 09:00 97.6 70 18 115/62 (79) 97 03/06/17 06:08 67 03/06/17 05:29 69 03/06/17 04:15 67 03/06/17 03:40 98.0 79 16 120/59 (79) 99 03/06/17 03:26 71 03/06/17 02:19 65 03/06/17 01:45 72 03/06/17 00:00 72 03/05/17 23:25 97.8 81 16 109/55 (73) 100 03/05/17 23:00 69 03/05/17 22:00 70 03/05/17 21:15 84 03/05/17 20:15 82 03/05/17 19:25 82 03/05/17 19:25 98.1 81 18 115/59 (77) 99 Physical Exam GENERAL: Well-nourished, well-developed patient. SKIN: Warm and dry. HEAD: Normocephalic. EYES: No scleral icterus. No injection or drainage. NECK: Supple, trachea midline. No JVD or lymphadenopathy. CARDIOVASCULAR: Regular rate and rhythm 2/3 KAHLIL RESPIRATORY: Breath sounds equal bilaterally. No accessory muscle use. GASTROINTESTINAL: Abdomen soft, non-tender, nondistended. EXTREMITIES: No cyanosis, or edema. NEUROLOGICAL: Awake, alert, and oriented x 3. Non-focal. Laboratory Laboratory Tests Test 03/05/17 21:22 03/06/17 04:28 03/06/17 13:49 Activated Partial Thromboplast Time 32.2 38.9 45.1 White Blood Count 5.3 Red Blood Count 3.72 Hemoglobin 10.7 Hematocrit 31.6 Mean Corpuscular Volume 85.1 Mean Corpuscular Hemoglobin 28.8 Mean Corpuscular Hemoglobin Concent 33.8 Red Cell Distribution Width 15.0 Platelet Count 255 Mean Platelet Volume 8.4 Neutrophils (%) (Auto) 44.2 Lymphocytes (%) (Auto) 41.1 Monocytes (%) (Auto) 10.0 Eosinophils (%) (Auto) 2.9 Basophils (%) (Auto) 1.8 Neutrophils # (Auto) 2.4 Lymphocytes # (Auto) 2.2 Monocytes # (Auto) 0.5 Eosinophils # (Auto) 0.2 Basophils # (Auto) 0.1 CBC Comment DIFF FINAL Differential Comment Blood Urea Nitrogen 13 Creatinine 0.56 Random Glucose 81 Total Protein 5.5 Albumin 2.8 Calcium Level 8.1 Alkaline Phosphatase 53 Aspartate Amino Transf (AST/SGOT) 25 Alanine Aminotransferase (ALT/SGPT) 27 Total Bilirubin 0.6 Sodium Level 131 Potassium Level 3.5 Chloride Level 98 Carbon Dioxide Level 24.1 Anion Gap 9 Estimat Glomerular Filtration Rate 103 Result Diagram: 03/06/1742703/06/17427 Imaging Last Impressions Chest X-Ray 03/05/17425 Signed Impressions: Service Date/Time: Sunday, March 05, 2017 04:33 - CONCLUSION: Stable interstitial prominence Hesham Mcnamara MD Assessment and Plan Problem List: (1) Shortness of breath ICD Codes: R06.02 - Shortness of breath Status: Acute Plan: 87 y/oF with acute on chronic heart failure and elevated troponin. Denies chest pain or palpitations. 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 This has been confirm with today's echo which shows SEVERE . Thus will evaluate her Valve in Valve TAVR. Regarding elevated troponin this might be due to ACS vs HF. Thus recommend will do a LHC to evaluate for progression of CAD, failure of graft and preoperative evaluation. Risk benefits of LHC/PCI including but not limited to neurovascular trauma, infection, bleeding, acute kidney injury, stoke , emergent CABG and have been explain to the patient. She understands risks and is willing to proceed. Plan: -[facility] -TAVR evaluation Austin Calderon MD, MPH, [facility] Director, [facility] [place] Structural Valve Program (2) CAD (coronary artery disease) ICD Codes: I25.10 - Atherosclerotic heart disease of [place] coronary artery without angina pectoris Status: Chronic (3) NSTEMI (non-ST elevation myocardial infarction) ICD Codes: I21.4 - Non-ST elevation (NSTEMI) myocardial infarction Status: Acute (4) CHF (congestive heart failure) ICD Codes: I50.9 - Heart failure, unspecified Status: Acute Problem Qualifiers (1) CHF (congestive heart failure): Qualified Codes: I50.23 - Acute on chronic systolic (congestive) heart failure Austin Calderon MD Mar 06, 2017 18:22
--- NOTE | 2017-03-06 19:18 | MA ---
cc: KAYCE JOSE DATE March 06, 2017 DATE OF 1930 PROCEDURE PERFORMED 1. Left heart catheterization. 2. Selective right and left coronary angiography. 3. Saphenous vein graft angiography. 4. Selective right common femoral artery angiography. 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 ACCESS Right transfemoral. DESCRIPTION OF PROCEDURE Consent signed. The patient was prepped and draped in sterile fashion using 1% lidocaine for local anesthesia and a micropuncture kit a 5-[place] sheath was inserted in the right common femoral artery. Right common femoral artery angiography was performed to confirm position of the sheath. Then selective right and left coronary angiography was performed with a JR-4 and a JL-5 diagnostic catheters. Angiography was taken in multiple views. Then the JR-4 catheter was used also to engage the saphenous vein graft. The patient tolerated the procedure well without complications. Estimated blood loss less than 20 cc. Total contrast 120 cc. The right groin access site was closed with a Vascade closure device. RESULTS Aortic pressure was 131/56 with a mean of 85. 1. Right coronary artery. Is dominant vessel. It does have a stent in the proximal segment which has ISR. After the lesion there is a 90% lesion and a significant lumen irregularities throughout. There is also a collateral vessel coming up from the ___ that is providing some blood supply to the left circumflex artery. 2. Left main is mildly calcified, long and patent. 3. The left main is giving off the LAD and ramus vessel and a high obtuse marginal vessel which is patent. The LAD is 100% occluded proximally. The left circumflex is 100% occluded proximally. However, it has an OM branch which is patent with NORIS III flow and minimal luminal irregularities throughout. 4. The ramus vessel is small and patent. Saphenous vein graft angiography: -SVG to the DUVALL is patent. It touches the DUVALL in its mid segment. The LAD is a transapical vessel, is small and giving retrograde flow to the proximal and first diagonal. -SVG to PDA is patent. Is patent. The PDA is diffusely diseased and is giving collateral to the LAD and also OM vessels through the PLV branches. -DUVALL is not attached to any vessel. 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 RECOMMENDATIONS The patient will go back to the [facility] for post cath care. She will continue a TAVR workup for a possible Valve in Valve. MD CHIQUITA Meraz/BAKARI /5:57 PM /6:51 PM EDILBERTO
--- NOTE | 2017-03-06 19:18 | MA ---
cc: KAYCE JOSE DATE March 06, 2017 DATE OF 1930 PROCEDURE PERFORMED 1. Left heart catheterization. 2. Selective right and left coronary angiography. 3. Saphenous vein graft angiography. 4. Selective right common femoral artery angiography. 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 ACCESS Right transfemoral. DESCRIPTION OF PROCEDURE Consent signed. The patient was prepped and draped in sterile fashion using 1% lidocaine for local anesthesia and a micropuncture kit a 5-[place] sheath was inserted in the right common femoral artery. Right common femoral artery angiography was performed to confirm position of the sheath. Then selective right and left coronary angiography was performed with a JR-4 and a JL-5 diagnostic catheters. Angiography was taken in multiple views. Then the JR-4 catheter was used also to engage the saphenous vein graft. The patient tolerated the procedure well without complications. Estimated blood loss less than 20 cc. Total contrast 120 cc. The right groin access site was closed with a Vascade closure device. RESULTS Aortic pressure was 131/56 with a mean of 85. 1. Right coronary artery. Is dominant vessel. It does have a stent in the proximal segment which has ISR. After the lesion there is a 90% lesion and a significant lumen irregularities throughout. There is also a collateral vessel coming up from the ___ that is providing some blood supply to the left circumflex artery. 2. Left main is mildly calcified, long and patent. 3. The left main is giving off the LAD and ramus vessel and a high obtuse marginal vessel which is patent. The LAD is 100% occluded proximally. The left circumflex is 100% occluded proximally. However, it has an OM branch which is patent with NORIS III flow and minimal luminal irregularities throughout. 4. The ramus vessel is small and patent. Saphenous vein graft angiography: -SVG to the DUVALL is patent. It touches the DUVALL in its mid segment. The LAD is a transapical vessel, is small and giving retrograde flow to the proximal and first diagonal. -SVG to PDA is patent. Is patent. The PDA is diffusely diseased and is giving collateral to the LAD and also OM vessels through the PLV branches. -DUVALL is not attached to any vessel. 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 RECOMMENDATIONS The patient will go back to the [facility] for post cath care. She will continue a TAVR workup for a possible Valve in Valve. MD CHIQUITA Meraz/BAKARI /5:57 PM /6:51 PM EDILBERTO
--- NOTE | 2017-03-06 19:18 | MA ---
cc: KAYCE JOSE DATE March 06, 2017 DATE OF 1930 PROCEDURE PERFORMED 1. Left heart catheterization. 2. Selective right and left coronary angiography. 3. Saphenous vein graft angiography. 4. Selective right common femoral artery angiography. 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 ACCESS Right transfemoral. DESCRIPTION OF PROCEDURE Consent signed. The patient was prepped and draped in sterile fashion using 1% lidocaine for local anesthesia and a micropuncture kit a 5-[place] sheath was inserted in the right common femoral artery. Right common femoral artery angiography was performed to confirm position of the sheath. Then selective right and left coronary angiography was performed with a JR-4 and a JL-5 diagnostic catheters. Angiography was taken in multiple views. Then the JR-4 catheter was used also to engage the saphenous vein graft. The patient tolerated the procedure well without complications. Estimated blood loss less than 20 cc. Total contrast 120 cc. The right groin access site was closed with a Vascade closure device. RESULTS Aortic pressure was 131/56 with a mean of 85. 1. Right coronary artery. Is dominant vessel. It does have a stent in the proximal segment which has ISR. After the lesion there is a 90% lesion and a significant lumen irregularities throughout. There is also a collateral vessel coming up from the ___ that is providing some blood supply to the left circumflex artery. 2. Left main is mildly calcified, long and patent. 3. The left main is giving off the LAD and ramus vessel and a high obtuse marginal vessel which is patent. The LAD is 100% occluded proximally. The left circumflex is 100% occluded proximally. However, it has an OM branch which is patent with NORIS III flow and minimal luminal irregularities throughout. 4. The ramus vessel is small and patent. Saphenous vein graft angiography: -SVG to the DUVALL is patent. It touches the DUVALL in its mid segment. The LAD is a transapical vessel, is small and giving retrograde flow to the proximal and first diagonal. -SVG to PDA is patent. Is patent. The PDA is diffusely diseased and is giving collateral to the LAD and also OM vessels through the PLV branches. -DUVALL is not attached to any vessel. 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 RECOMMENDATIONS The patient will go back to the [facility] for post cath care. She will continue a TAVR workup for a possible Valve in Valve. MD CHIQUITA Meraz/BAKARI /5:57 PM /6:51 PM EDILBERTO
[2017-03-06] MEDS: PRAVASTATIN SOD 40 MG TAB PO SCH (20:59)
[2017-03-06] MEDS ORDERED: diphenhydrAMINE HCL 25 MG CAP PO ONE (21:00)
[2017-03-06] MEDS ORDERED: ACETAMINOPHEN 325 MG TAB PO ONE (21:00)
[2017-03-07] VITALS (26 sets, daily range): BP systolic 102–133; BP diastolic 45–74; PULSE 62–91; RESP 16–18; TEMP 97.9–99.3; O2SAT 95–100
[2017-03-07] MEDS: ISOSORBIDE MONONITRATE 30 MG TAB PO SCH (06:39)
[2017-03-07] MEDS: FUROSEMIDE 20 MG TAB PO SCH (09:01)
[2017-03-07] MEDS: PANTOPRAZOLE SOD 20 MG DELAYED RELEASE TAB PO SCH (09:01)
[2017-03-07] MEDS: ENALAPRIL MALEATE 2.5 MG TAB PO SCH ×2 (09:01→22:02)
[2017-03-07] MEDS: CARVEDILOL 6.25 MG TAB PO SCH ×2 (09:02→22:02)
[2017-03-07] MEDS: ASPIRIN EC 81 MG TABEC PO SCH (09:02)
[2017-03-07] MEDS: SPIRONOLACTONE 25 MG TAB PO SCH (09:02)
[2017-03-07] MEDS: SODIUM CHLORIDE 0.9% FLUSH 10 ML FLUSH IV FLUSH SCH ×2 (09:03→22:02)
[2017-03-07] MEDS ORDERED: EPINEPHrine HCL (1:10,000) 1 MG/10 ML SYRINGE ONE (11:25)
[2017-03-07] MEDS ORDERED: LIDOCAINE HCL 2% 100 MG/5 ML SYRINGE ONE (11:25)
[2017-03-07] MEDS ORDERED: ATROPINE SULFATE 1 MG/10 ML SYRINGE ONE (11:25)
[2017-03-07] MEDS ORDERED: LOPERAMIDE HCL 2 MG CAP PO PRN (11:30)
[2017-03-07] MEDS ORDERED: IOHEXOL 350 MG/ML 10 ML VIAL (for RAD DIAG) IVCONTRAST ONE (12:01)
--- NOTE | 2017-03-07 12:43 | HHI.PR ---
Subjective Remarks Patient reports she is feeling okay. No chest pain or increased shortness of breath. Objective Vitals Vital Signs Date Time Temp Pulse Resp B/P (MAP) Pulse Ox O2 Delivery O2 Flow Rate FiO2 03/07/17 11:00 69 03/07/17 11:00 98.6 73 16 119/64 (82) 99 03/07/17 10:00 70 03/07/17 09:00 68 03/07/17 08:00 80 03/07/17 07:00 97.9 78 16 128/57 (80) 98 03/07/17 07:00 71 03/07/17 06:13 76 03/07/17 06:13 76 18 122/62 (82) 95 03/07/17 05:26 74 03/07/17 04:29 98.7 71 18 102/45 (64) 99 03/07/17 04:27 70 03/07/17 03:55 71 03/07/17 02:05 75 03/07/17 01:39 76 03/07/17 01:00 71 18 104/50 (68) 100 03/07/17 00:18 72 03/07/17 00:00 72 18 111/58 (75) 97 03/06/17 23:00 67 18 101/52 (68) 94 03/06/17 23:00 67 03/06/17 22:00 98.5 78 20 110/58 (75) 98 03/06/17 22:00 78 03/06/17 21:00 96 135/56 (82) 03/06/17 21:00 96 03/06/17 20:30 93 129/67 (87) 03/06/17 20:00 89 03/06/17 20:00 89 121/89 (100) 03/06/17 19:30 82 116/65 (82) 03/06/17 19:00 70 122/63 (82) 03/06/17 18:45 80 126/65 (85) 03/06/17 18:30 75 116/64 (81) 03/06/17 18:18 81 133/68 (89) 95 03/06/17 18:18 81 03/06/17 16:00 77 03/06/17 15:00 97.9 69 18 118/63 (81) 99 03/06/17 15:00 69 03/06/17 14:00 70 03/06/17 13:00 63 I/O 03/06/17 03/06/17 03/06/17 03/07/17 03/07/17 03/07/17 07:00 15:00 23:00 07:00 15:00 23:00 Intake Total 240 ml 200 ml 450 ml Output Total 850 ml Balance 240 ml 200 ml -400 ml Intake Oral 240 ml 120 ml 450 ml IV Total 80 ml Output Urine Total 850 ml # Voids 3 4 # Bowel Movements 1 Result Diagram: 03/06/1742703/06/17427 Objective Remarks GENERAL: Elderly female. CARDIOVASCULAR: Regular rate and rhythm. 2 out of 6 KAHLIL best heard right upper sternum RESPIRATORY: No accessory muscle use. Clear to auscultation. Breath sounds equal bilaterally. GASTROINTESTINAL: Abdomen soft, non-tender, nondistended. MUSCULOSKELETAL: Extremities without clubbing, cyanosis, or edema. NEUROLOGICAL: Awake and alert. Normal speech. PSYCHIATRIC: Appropriate mood and affect; insight and judgment normal. A/P Problem List: (1) CHF (congestive heart failure) ICD Code: I50.9 - Heart failure, unspecified Status: Acute (2) NSTEMI (non-ST elevation myocardial infarction) ICD Code: I21.4 - Non-ST elevation (NSTEMI) myocardial infarction Status: Acute Assessment and Plan 87 y/o with a history of HTN, CHF, HLD presented to the ED with complaints of shortness of breath that has been getting worse over the last few days. NSTEMI, troponin .8, denies chest pain Aortic valve stenosis - Cardiology following. Patient underwent heart catheterization which showed severe [place] coronary artery disease. 2 out of 2 patent grafts. 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 - Per cardiology, ongoing workup for TAVR. CT surgery consulted. Acute on chronic CHF, EF 45%, BNP 1867 -No overt evidence of fluid overload. Resume home dose Lasix. -Fluid restriction HTN, chronic -Resume home medications, monitor vitals DVT prophylaxis: Heparin Problem Qualifiers (1) CHF (congestive heart failure): Qualified Codes: I50.23 - Acute on chronic systolic (congestive) heart failure Alfie Purcell MD Mar 07, 2017 12:43
--- NOTE | 2017-03-07 15:22 | EKG ---
Date Performed: 03/07/2017 Time Performed: 06:13:36 PTAGE: 87 years EKG: Sinus rhythm PVC Left bundle branch block Abnormal ECG PREVIOUS TRACING : 03/05/2017 14.41 Compared to prior tracing no significant change DOCTOR: Yash Roman Interpretating Date/Time 03/07/2017 15:21:49
--- NOTE | 2017-03-07 15:46 | RADRPT ---
EXAM DATE/TIME: 03/07/2017 11:43 [place] COMPARISON: No previous studies available for comparison. INDICATIONS : Aortic stenosis; pre-operative evaluation for TAVR procedure. IV CONTRAST: 85 cc Omnipaque 350 (iohexol) IV RADIATION DOSE: 44.68 CTDIvol (mGy) MEDICAL HISTORY : Cardiovascular disease. Congestive heart failure. Hypertension.Osteoporosis. SURGICAL HISTORY : CABG Aortic valve replacement. ENCOUNTER: Initial ACUITY: 1 day PAIN SCALE: 0/10 LOCATION: Bilateral chest TECHNIQUE: Volumetric scanning was performed using a multi-row detector CT scanner. The data was post processed with a variety of visualization algorithms including full volume maximum intensity projection, multi -planar sliding thin slab reformation, curved planar reformation, and surface rendering techniques. Using automated exposure control and adjustment of the mA and/or kV according to patient size, radiat ion dose was kept as low as reasonably achievable to obtain optimal diagnostic quality images. DIC OM format image data is available electronically for review and comparison. FINDINGS: CARDIAC: The coronary system is right dominant. Extensive coronary artery calcification involving LAD, circumf satinder arteries and right coronary artery. There is evidence of previous bypass. Aortic valve replacemen t. There is no pericardial effusion AORTIC ROOT/VALVE: Coronary cusps are evident with minimal calcifications. The aortic root measures 3.1 cm. Mid thoracic aorta measures 3.3 with no calcifications. THORACIC AORTA: Origin of the great vessels is normal. No evidence of aneurysm, mural thrombus, dissection, mural ca lcification, or stenosis. ABDOMINAL AORTA: No evidence of aneurysm, mural thrombus, dissection, mural calcification, or stenosis. CELIAC ARTERY: Celiac artery is widely patent. SMA: Superior mesenteric artery is widely patent. RIGHT RENAL ARTERY: Right renal artery is widely patent. LEFT RENAL ARTERY: Left renal artery is widely patent. RIGHT COMMON ILIAC: No evidence of aneurysm, mural thrombus, dissection, mural calcification, or stenosis. The common fe moral measures 7-8 mm LEFT COMMON ILIAC: No evidence of aneurysm, mural thrombus, dissection, mural calcification, or stenosis. The common fe moral measures 7-8mm. THORAX: Heterogeneous left thyroid gland with dominant nodule inferiorly. A there are some interstitial mcknight es. 5 mm nodule right lower lobe anteriorly. 5 nodule right upper lobe medially. ABDOMEN: Diverticulosis of the colon. There is cholelithiasis. PELVIS: No acute abnormalities. CONCLUSION: 1. Evidence of previous CABG. 2. Previous aortic valve replacement. 3. Scattered subcentimeter pulmonary nodules, likely benign. Followup CT chest in 6 months. 4. Diverticulosis of the colon. 5. Heterogeneous left thyroid nodule containing dominant nodule. Osmar Cam MD on March 07, 2017 at 15:37 Board Certified Radiologist. This report was verified electronically.
--- NOTE | 2017-03-07 15:50 | PD.CONS ---
History of Present Illness Service CT Surgery Consult Requested By Dr. Turner Reason for Consult Severe , exertional dyspnea Primary Care Physician No Primary Care Physician Diagnoses: History of Present Illness 87 y/o female presents with exertional dyspnea leading to her admission. She has a h/o AVR/CABG x 2 in 2000. She needs help with her ADLs and is very frail. She presents for consideration of REDO AVR. Review of Systems Constitutional: COMPLAINS OF: Fatigue, DENIES: Diaphoretic episodes, Fever, Weight gain, Weight loss, Chills, Dizziness, Change in appetite, Night Sweats Endocrine: DENIES: Abnorml menstrual pattern, Heat/cold intolerance, Polydipsia , Polyuria, Polyphagia Eyes: DENIES: Blurred vision, Diplopia, Eye inflammation, Eye pain, Vision loss , Photosensitivity, Double Vision Ears, nose, mouth, throat: DENIES: Tinnitus, Hearing loss, Vertigo, Nasal discharge, Oral lesions, Throat pain, Hoarseness, Ear Pain, Running Nose, Epistaxis, Sinus Pain, Toothache, Odynophagia Respiratory: COMPLAINS OF: Shortness of breath, DENIES: Apneas, Cough, Snoring , Wheezing, Hemoptysis, Sputum production Cardiovascular: COMPLAINS OF: Dyspnea on Exertion, DENIES: Chest pain, Palpitations, Syncope, PND, Lower Extremity Edema, Orthopnea, Claudication Gastrointestinal: DENIES: Abdominal pain, Black stools, Bloody stools, Constipation, Diarrhea, Nausea, Vomiting, Difficulty Swallowing, Anorexia Genitourinary: DENIES: Abnormal vaginal bleeding, Dysmenorrhea, Dyspareunia, Sexual dysfunction, Urinary frequency, Urinary incontinence, Urgency, Hematuria , Dysuria, Nocturia, Vaginal discharge Musculoskeletal: COMPLAINS OF: Muscle aches, Stiffness, DENIES: Joint pain, Joint Swelling, Back pain, Neck pain Integumentary: DENIES: Abnormal pigmentation, Pruritus, Rash, Nail changes, Breast masses, Breast skin changes, Nipple discharge Hematologic/lymphatic: DENIES: Bruising, Lymphadenopathy Immunologic/allergic: DENIES: Eczema, Urticaria Neurologic: COMPLAINS OF: Abnormal gait, Poor Balance, DENIES: Headache, Localized weakness, Paresthesias, Seizures, Speech Problems, Tremor Psychiatric: DENIES: Anxiety, Confusion, Mood changes, Depression, Hallucinations, Agitation, Suicidal Ideation, Homicidal Ideation, Delusions Past Family Social History Allergies: Coded Allergies: lansoprazole (Unverified Allergy, Mild, DIARRHEA, 03/05/17) nizatidine (Unverified Allergy, Mild, DIARRHEA, 03/05/17) Past Medical History HTN CHF HLD Past Surgical History Aortic valve replacement (23 [place] tissue valve) CABG x2 Reported Medications Reported Meds & Active Scripts Active Aldactone (Spironolactone) 25 Mg Tab 25 Mg PO DAILY Lasix (Furosemide) 20 Mg Tab 20 Mg PO DAILY Adult Aspirin EC Low Strength (Aspirin) 81 Mg Tabec 162 Mg PO DAILY Isosorbide Mononitrate ER (Isosorbide Mononitrate) 30 Mg Amanda 30 Mg PO DAILY@07 Coreg (Carvedilol) 3.125 Mg Tab 3.125 Mg PO Q12HR Enalapril (Enalapril Maleate) 2.5 Mg Tab 2.5 Mg PO BID Reported Simvastatin 20 Mg Tab 20 Mg PO HS Omeprazole 20 Mg Tab 20 Mg PO DAILY Active Ordered Medications Current Medications Medications (Trade) Dose Ordered Sig/Bradley Route Start Time Stop Time Status Last Admin (Zofran Inj) 4 mg Q6H PRN IVP 03/05/17 05:45 (Narcan Inj) 0.4 mg UNSCH PRN IV PUSH 03/05/17 05:45 (Milk Of Magnesia Liq) 30 ml Q12H PRN PO 03/05/17 05:45 (Senokot) 17.2 mg Q12H PRN PO 03/05/17 05:45 (Dulcolax Supp) 10 mg DAILY PRN RECTAL 03/05/17 05:45 (Lactulose Liq) 30 ml DAILY PRN PO 03/05/17 05:45 (Ecotrin Ec) 162 mg DAILY PO 03/05/17 09:00 03/07/17 09:02 (Vasotec) 2.5 mg BID PO 03/05/17 09:00 03/07/17 09:01 (Lasix) 20 mg DAILY PO 03/05/17 09:00 03/07/17 09:01 (Imdur) 30 mg DAILY@07 PO 03/05/17 07:00 03/07/17 06:39 (Aldactone) 25 mg DAILY PO 03/05/17 09:00 03/07/17 09:02 (Protonix) 20 mg DAILY PO 03/05/17 09:00 03/07/17 09:01 (Pravachol) 40 mg HS PO 03/05/17 21:00 03/06/17 20:59 (Coreg) 6.25 mg Q12HR PO 03/05/17 21:00 03/07/17 09:02 (NS Flush) 2 ml BID IV FLUSH 03/06/17 21:00 03/07/17 09:03 (NS Flush) 2 ml UNSCH PRN IV FLUSH 03/06/17 18:15 (Atropine Inj) 0.5 mg UNSCH PRN IV PUSH 03/06/17 18:15 (Zofran Inj) 4 mg Q4H PRN IV PUSH 03/06/17 18:15 (Imodium) 2 mg Q6H PRN PO 03/07/17 11:30 03/07/17 13:09 Family History unremarkable Social History Denies tobacco, ETOH abuse Physical Exam Vital Signs Vital Signs Date Time Temp Pulse Resp B/P (MAP) Pulse Ox O2 Delivery O2 Flow Rate FiO2 03/07/17 15:00 80 03/07/17 15:00 98.8 70 18 118/67 (84) 99 03/07/17 14:00 64 03/07/17 13:00 70 03/07/17 11:00 69 03/07/17 11:00 98.6 73 16 119/64 (82) 99 03/07/17 10:00 70 03/07/17 09:00 68 03/07/17 08:00 80 03/07/17 07:00 97.9 78 16 128/57 (80) 98 03/07/17 07:00 71 03/07/17 06:13 76 03/07/17 06:13 76 18 122/62 (82) 95 03/07/17 05:26 74 03/07/17 04:29 98.7 71 18 102/45 (64) 99 03/07/17 04:27 70 03/07/17 03:55 71 03/07/17 02:05 75 03/07/17 01:39 76 03/07/17 01:00 71 18 104/50 (68) 100 03/07/17 00:18 72 03/07/17 00:00 72 18 111/58 (75) 97 03/06/17 23:00 67 18 101/52 (68) 94 03/06/17 23:00 67 03/06/17 22:00 98.5 78 20 110/58 (75) 98 03/06/17 22:00 78 03/06/17 21:00 96 135/56 (82) 03/06/17 21:00 96 03/06/17 20:30 93 129/67 (87) 03/06/17 20:00 89 03/06/17 20:00 89 121/89 (100) 03/06/17 19:30 82 116/65 (82) 03/06/17 19:00 70 122/63 (82) 03/06/17 18:45 80 126/65 (85) 03/06/17 18:30 75 116/64 (81) 03/06/17 18:18 81 133/68 (89) 95 03/06/17 18:18 81 03/06/17 16:00 77 Physical Exam GENERAL: This is an elderly appearing , well-developed patient, in no apparent distress. SKIN: No rashes, ecchymoses or lesions. Cool and dry. HEAD: Atraumatic. Normocephalic. No temporal or scalp tenderness. EYES: Pupils equal round and reactive. Extraocular motions intact. No scleral icterus. No injection or drainage. ENT: Nose without bleeding, purulent drainage or septal hematoma. Throat without erythema, tonsillar hypertrophy or exudate. Uvula midline. Airway patent. NECK: Trachea midline. No JVD or lymphadenopathy. Supple, nontender, no meningeal signs. CARDIOVASCULAR: Regular rate and rhythm with 3/6 KAHLIL at the RUSB RESPIRATORY: Clear to auscultation. Breath sounds equal bilaterally. No wheezes , rales, or rhonchi. GASTROINTESTINAL: Abdomen soft, non-tender, nondistended. No hepato-splenomegaly , or palpable masses. No guarding. MUSCULOSKELETAL: Extremities without clubbing, cyanosis, or edema. No joint tenderness, effusion, or edema noted. No calf tenderness. Negative Homans sign bilaterally. NEUROLOGICAL: Awake and alert. Cranial nerves II through XII intact. Motor and sensory grossly within normal limits. Five out of 5 muscle strength in all muscle groups. Normal speech. Result Diagram: 03/06/1742703/06/17427 Imaging Last Impressions Chest X-Ray 03/05/17425 Signed Impressions: Service Date/Time: Sunday, March 05, 2017 04:33 - CONCLUSION: Stable interstitial prominence Hesham Mcnamara MD Assessment and Plan Problem List: (1) Shortness of breath ICD Codes: R06.02 - Shortness of breath Status: Acute (2) CHF (congestive heart failure) ICD Codes: I50.9 - Heart failure, unspecified Status: Acute (3) CAD (coronary artery disease) ICD Codes: I25.10 - Atherosclerotic heart disease of [place] coronary artery without angina pectoris Status: Chronic (4) History of aortic valve replacement ICD Codes: Z95.2 - Presence of prosthetic heart valve Status: Chronic Assessment and Plan 87 y/o female presents with severe and class 4 symptoms. She has failed frailty assessment and wouls not be a candidate for REDO AVR. She should be considered for TAVR - valve in valve. Problem Qualifiers (1) CHF (congestive heart failure): Qualified Codes: I50.23 - Acute on chronic systolic (congestive) heart failure Mary Leyva MD Mar 07, 2017 15:50
[2017-03-07] MEDS ORDERED: diphenhydrAMINE HCL 25 MG CAP PO ONE (20:45)
[2017-03-07] MEDS: PRAVASTATIN SOD 40 MG TAB PO SCH (22:02)
[2017-03-08] VITALS (27 sets, daily range): BP systolic 98–146; BP diastolic 45–79; PULSE 60–79; RESP 16–20; TEMP 96.9–99.4; O2SAT 98–99
[2017-03-08] MEDS: ISOSORBIDE MONONITRATE 30 MG TAB PO SCH (06:29)
[2017-03-08] MEDS: CARVEDILOL 6.25 MG TAB PO SCH ×2 (08:55→20:55)
[2017-03-08] MEDS: ENALAPRIL MALEATE 2.5 MG TAB PO SCH ×2 (08:55→20:54)
[2017-03-08] MEDS: PANTOPRAZOLE SOD 20 MG DELAYED RELEASE TAB PO SCH (08:56)
[2017-03-08] MEDS: SODIUM CHLORIDE 0.9% FLUSH 10 ML FLUSH IV FLUSH SCH ×2 (08:56→20:55)
[2017-03-08] MEDS: FUROSEMIDE 20 MG TAB PO SCH (08:56)
[2017-03-08] MEDS: ASPIRIN EC 81 MG TABEC PO SCH (08:56)
[2017-03-08] MEDS: SPIRONOLACTONE 25 MG TAB PO SCH (08:56)
--- NOTE | 2017-03-08 09:12 | HHI.PR ---
Subjective Remarks Patient reports she is feeling ok. No chest pain or shortness of breath. Did not sleep well last night. Laura worked for her a couple of nights ago. Objective Vitals Vital Signs Date Time Temp Pulse Resp B/P (MAP) Pulse Ox O2 Delivery O2 Flow Rate FiO2 03/08/17 09:07 68 03/08/17 08:00 66 03/08/17 07:30 99.0 66 18 98/45 (62) 98 03/08/17 07:00 66 03/08/17 06:00 62 03/08/17 05:00 74 03/08/17 04:00 99.4 75 18 117/67 (84) 99 03/08/17 04:00 71 03/08/17 03:00 74 03/08/17 02:00 70 03/08/17 01:00 76 03/08/17 00:00 96.9 79 20 146/79 (101) 98 03/08/17 00:00 79 03/07/17 23:00 70 03/07/17 22:00 70 03/07/17 21:00 72 03/07/17 20:00 99.3 83 18 133/74 (93) 99 03/07/17 20:00 71 03/07/17 19:00 76 03/07/17 18:00 76 03/07/17 17:00 70 03/07/17 16:00 62 03/07/17 15:00 80 03/07/17 15:00 98.8 70 18 118/67 (84) 99 03/07/17 14:00 64 03/07/17 13:00 70 03/07/17 11:00 69 03/07/17 11:00 98.6 73 16 119/64 (82) 99 03/07/17 10:00 70 I/O 03/07/17 03/07/17 03/07/17 03/08/17 03/08/17 03/08/17 07:00 15:00 23:00 07:00 15:00 23:00 Intake Total 450 ml 600 ml 480 ml Output Total 850 ml 650 ml Balance -400 ml 600 ml -170 ml Intake Oral 450 ml 600 ml 480 ml Output Urine Total 850 ml 650 ml # Voids 1 # Bowel Movements 1 1 0 Result Diagram: 03/06/1742703/06/17427 Objective Remarks GENERAL: Elderly female. CARDIOVASCULAR: Regular rate and rhythm. 2 out of 6 KAHLIL best heard right upper sternum RESPIRATORY: No accessory muscle use. Clear to auscultation. Breath sounds equal bilaterally. GASTROINTESTINAL: Abdomen soft, non-tender, nondistended. MUSCULOSKELETAL: Extremities without clubbing, cyanosis, or edema. NEUROLOGICAL: Awake and alert. Normal speech. PSYCHIATRIC: Appropriate mood and affect; insight and judgment normal. A/P Problem List: (1) CHF (congestive heart failure) ICD Code: I50.9 - Heart failure, unspecified Status: Acute (2) NSTEMI (non-ST elevation myocardial infarction) ICD Code: I21.4 - Non-ST elevation (NSTEMI) myocardial infarction Status: Acute Assessment and Plan 87 y/o with a history of HTN, CHF, HLD presented to the ED with complaints of shortness of breath that has been getting worse over the last few days. NSTEMI, troponin .8, denies chest pain - Cardiology following. Patient underwent heart catheterization which showed severe [place] coronary artery disease. 2 out of 2 patent grafts. 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 - Continue medical management for CAD Aortic valve stenosis - Per cardiology, ongoing workup for TAVR. - CT surgery following and considering TAVR Acute on chronic CHF, EF 45%, BNP 1867 -No overt evidence of fluid overload. Continue home dose Lasix. -Fluid restriction Insomnia: Low dose Ativan at night PRN HTN, chronic -Resume home medications, monitor vitals DVT prophylaxis: Heparin Problem Qualifiers (1) CHF (congestive heart failure): Qualified Codes: I50.23 - Acute on chronic systolic (congestive) heart failure Alfie Purcell MD Mar 08, 2017 09:12
--- NOTE | 2017-03-08 11:03 | PD.CAR.PN ---
CVT Progress Note Subjective/Hospital Course: Risk Model and Variables - STS Adult Cardiac Surgery Database Version 2.81 RISK SCORES About the STS Risk Calculator Procedure: AV Replacement Risk of Mortality: 12.521% Morbidity or Mortality: 41.204% Long Length of Stay: 20.759% Short Length of Stay: 11.048% Permanent Stroke: 2.488% Prolonged Ventilation: 38.93% DSW Infection: 0.141% Renal Failure: 7.947% Reoperation: 13.043% Objective: Vital Signs Date Time Temp Pulse Resp B/P (MAP) Pulse Ox O2 Delivery O2 Flow Rate FiO2 03/08/17 09:07 68 03/08/17 08:00 66 03/08/17 07:30 99.0 66 18 98/45 (62) 98 03/08/17 07:00 66 03/08/17 06:00 62 03/08/17 05:00 74 03/08/17 04:00 99.4 75 18 117/67 (84) 99 03/08/17 04:00 71 03/08/17 03:00 74 03/08/17 02:00 70 03/08/17 01:00 76 03/08/17 00:00 96.9 79 20 146/79 (101) 98 03/08/17 00:00 79 03/07/17 23:00 70 03/07/17 22:00 70 03/07/17 21:00 72 03/07/17 20:00 99.3 83 18 133/74 (93) 99 03/07/17 20:00 71 03/07/17 19:00 76 03/07/17 18:00 76 03/07/17 17:00 70 03/07/17 16:00 62 03/07/17 15:00 80 03/07/17 15:00 98.8 70 18 118/67 (84) 99 03/07/17 14:00 64 03/07/17 13:00 70 Result Diagram: 03/06/178 03/06/17 0428 (1) Shortness of breath Plan: 87 y/oF with acute on chronic heart failure and elevated troponin. Denies chest pain or palpitations. 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 This has been confirm with today's echo which shows SEVERE . Thus will evaluate her Valve in Valve TAVR. Regarding elevated troponin this might be due to ACS vs HF. Thus recommend will do a LHC to evaluate for progression of CAD, failure of graft and preoperative evaluation. Risk benefits of LHC/PCI including but not limited to neurovascular trauma, infection, bleeding, acute kidney injury, stoke , emergent CABG and have been explain to the patient. She understands risks and is willing to proceed. Plan: -LHC -TAVR evaluation Austin Calderon MD, MPH, FACC Director, [facility] [place] (2) CAD (coronary artery disease) (3) NSTEMI (non-ST elevation myocardial infarction) (4) CHF (congestive heart failure) Problem Qualifiers (1) CHF (congestive heart failure): Qualified Codes: I50.23 - Acute on chronic systolic (congestive) heart failure Patrick Levine MD Mar 08, 2017 11:03
--- NOTE | 2017-03-08 12:28 | MB ---
cc: AUSTIN JOSE SOHIT K. MD KHANNA,BRAVO DATE OF CONSULTATION 03/08/[address] Austin Jose REASON FOR CONSULTATION Second opinion regarding aortic stenosis. HISTORY Ms. Cornell is a very pleasant and very frail 87-year-old lady with a known history of coronary artery disease and aortic stenosis status post previous coronary artery bypass grafting and aortic valve replacement by Dr. Krueger who now presents with recurrent episodes and admissions for congestive heart failure with symptoms of shortness of breath and associated anxiety. The patient was recently admitted and discharged and then readmitted again for the same complaints. Further workup at this time including an echocardiogram reveals moderate to severe left ventricle dysfunction with associated severe prosthetic aortic valve stenosis and moderate aortic insufficiency. I am now being consulted for further therapy and opinion regarding her aortic valve pathology. At the present time, she is on supplemental oxygen therapy. She is very weak and quite short of breath even at rest, but certainly with minimal exertion. PAST MEDICAL HISTORY Significant for: 1. Hypertension 2. Congestive heart failure with recurrent admissions. 3. Hyperlipidemia 4. Coronary artery disease 5. Gastroesophageal reflux disease PAST SURGICAL HISTORY Remarkable for: 1. Aortic valve replacement 1. Coronary artery bypass grafting x2. ALLERGIES THE PATIENT REPORTS ALLERGIES TO LANSOPRAZOLE AND NIZATIDINE. ADMISSION MEDICATIONS Include: 1. Aldactone 2. Lasix 3. Aspirin 4. Isordil 5. Coreg 6. Enalapril 7. Simvastatin 8. Omeprazole SOCIAL HISTORY Denies any history of smoking, alcohol use or illicit drug use. FAMILY HISTORY Noncontributory, although there is some history of congestive heart failure in her mom. REVIEW OF SYSTEMS As above, all other parameters are negative. EXAMINATION Today she is 157 cm tall, weighs 51 kg, blood pressure is 98/45 with a heart rate of 66, respiratory rate is 18 and she is afebrile. HEENT: Normocephalic, atraumatic. Pupils are round and reactive. Extraocular muscles intact. NECK: No cervical lymphadenopathy, carotid bruits or JVD. CARDIOVASCULAR: Regular rate rhythm. Normal S1-S2 without gallops or rubs. There is a 3/6 systolic ejection murmur at the right parasternal border. She also has a well-healed mediastinotomy incision. LUNGS: Clear to auscultation bilaterally with good air exchange. There are some basilar crackles bilaterally. ABDOMEN: Soft, nontender, and nondistended with normoactive bowel sounds. No hepatosplenomegaly. EXTREMITIES: Bilateral lower extremity femoral pulses are intact with no palpable pedal pulses and no cyanosis, clubbing or edema. NEUROLOGIC: Neurologically intact with no focal deficits. IMPRESSION 1. 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 2. Severe left ventricle dysfunction . 3. Congestive heart failure 4. Hypertension 5. Hyperlipidemia 6. CAD - status post CABG. PLAN The clinical, echo, as well as radiographic findings were discussed in detail with the patient and her daughter today. At this point, the patient is very frail and has recurrent admissions with exacerbated congestive heart failure. Therapeutic options including a reoperative aortic valve replacement versus TAVR were discussed with both. Given her severe medical co-morbidities, as well as her fraility, I do not think she will be a candidate for reoperative sternotomy and reoperative aortic valve replacement. Her STS score puts her at a high risk category and I think she will achieve maximum benefit from the TAVR approach. I suspect prior to that she will need rehabilitation and therapy to get her a little bit stronger in efforts to tolerate the procedure and have a good outcome. This was discussed in detail with the patient and daughter and all questions answered. Thank you for allowing me to participate in the care of this patient. Patrick CAGE /11:22 AM /12:25 PM EDILBERTO
[2017-03-08] MEDS: PRAVASTATIN SOD 40 MG TAB PO SCH (20:54)
[2017-03-08] MEDS: LORazepam 2 MG/ML VIAL IV PUSH PRN (20:55)
[2017-03-09] VITALS (25 sets, daily range): BP systolic 96–132; BP diastolic 51–73; PULSE 60–75; RESP 16–18; TEMP 98.1–98.6; O2SAT 99–100
[2017-03-09] MEDS: ISOSORBIDE MONONITRATE 30 MG TAB PO SCH (06:33)
[2017-03-09] MEDS: ENALAPRIL MALEATE 2.5 MG TAB PO SCH ×2 (09:14→20:53)
[2017-03-09] MEDS: FUROSEMIDE 20 MG TAB PO SCH (09:14)
[2017-03-09] MEDS: ASPIRIN EC 81 MG TABEC PO SCH (09:14)
[2017-03-09] MEDS: CARVEDILOL 6.25 MG TAB PO SCH ×2 (09:14→20:50)
[2017-03-09] MEDS: PANTOPRAZOLE SOD 20 MG DELAYED RELEASE TAB PO SCH (09:14)
[2017-03-09] MEDS: SODIUM CHLORIDE 0.9% FLUSH 10 ML FLUSH IV FLUSH SCH ×2 (09:14→20:51)
[2017-03-09] MEDS: SPIRONOLACTONE 25 MG TAB PO SCH (09:14)
--- NOTE | 2017-03-09 09:16 | HHI.PR ---
Subjective Remarks No chest pain. Baseline SOB is unchanged. Objective Vitals Vital Signs Date Time Temp Pulse Resp B/P (MAP) Pulse Ox O2 Delivery O2 Flow Rate FiO2 03/09/17 08:00 70 03/09/17 08:00 98.1 70 18 113/60 (77) 99 03/09/17 07:00 70 03/09/17 06:00 64 03/09/17 05:00 63 03/09/17 04:06 98.6 75 16 109/51 (70) 100 03/09/17 04:00 61 03/09/17 03:00 74 03/09/17 02:00 67 03/09/17 01:00 70 03/09/17 00:24 98.3 75 16 132/73 (92) 99 03/09/17 00:00 69 03/08/17 23:00 68 03/08/17 22:00 67 03/08/17 21:00 74 03/08/17 20:40 98.7 69 16 120/60 (80) 98 03/08/17 20:00 78 03/08/17 19:00 79 03/08/17 18:00 66 03/08/17 17:00 68 03/08/17 16:00 64 03/08/17 15:00 66 03/08/17 15:00 98.3 66 20 108/64 (79) 99 03/08/17 14:00 66 03/08/17 13:00 60 03/08/17 12:00 68 03/08/17 11:30 98.3 68 20 103/49 (67) 99 03/08/17 11:00 63 03/08/17 10:00 68 I/O 03/08/17 03/08/17 03/08/17 03/09/17 03/09/17 03/09/17 07:00 15:00 23:00 07:00 15:00 23:00 Intake Total 480 ml 650 ml 420 ml Output Total 650 ml 701 ml 981 ml Balance -170 ml -51 ml -561 ml Intake Oral 480 ml 650 ml 420 ml Output Urine Total 650 ml 700 ml 980 ml Stool Total 1 ml 1 ml # Bowel Movements 0 Result Diagram: 03/06/17 0428 03/06/17 0428 Objective Remarks GENERAL: Elderly female. CARDIOVASCULAR: Regular rate and rhythm. 2 out of 6 KAHLIL best heard right upper sternum RESPIRATORY: No accessory muscle use. Clear to auscultation. Breath sounds equal bilaterally. GASTROINTESTINAL: Abdomen soft, non-tender, nondistended. MUSCULOSKELETAL: Extremities without clubbing, cyanosis, or edema. NEUROLOGICAL: Awake and alert. Normal speech. PSYCHIATRIC: Appropriate mood and affect; insight and judgment normal. A/P Problem List: (1) CHF (congestive heart failure) ICD Code: I50.9 - Heart failure, unspecified Status: Acute (2) NSTEMI (non-ST elevation myocardial infarction) ICD Code: I21.4 - Non-ST elevation (NSTEMI) myocardial infarction Status: Acute Assessment and Plan 87 y/o with a history of HTN, CHF, HLD presented to the ED with complaints of shortness of breath that has been getting worse over the last few days. NSTEMI, troponin .8, denies chest pain - Cardiology following. Patient underwent heart catheterization which showed severe [place] coronary artery disease. 2 out of 2 patent grafts. 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 - Continue medical management for CAD Aortic valve stenosis - Per cardiology, ongoing workup for TAVR. - CT surgery considering TAVR but indicates she will need further rehabilitation prior to procedure. Acute on chronic CHF, EF 45%, BNP 1867 -No overt evidence of fluid overload. Continue home dose Lasix. -Fluid restriction Insomnia: Low dose Ativan at night PRN HTN, chronic -Resume home medications, monitor vitals DVT prophylaxis: Heparin Discharge Planning DC planning to rehab. ?[facility]. PT, OT consult. CT surgery to determine timing and follow up for TAVR Problem Qualifiers (1) CHF (congestive heart failure): Qualified Codes: I50.23 - Acute on chronic systolic (congestive) heart failure Alfie Purcell MD Mar 09, 2017 09:16
--- NOTE | 2017-03-09 14:31 | PD.CARD.PN ---
Subjective Subjective Remarks no cv complaints no overnight events Objective Medications Current Medications Medications (Trade) Dose Ordered Sig/Bradley Route Start Time Stop Time Status Last Admin (Narcan Inj) 0.4 mg UNSCH PRN IV PUSH 03/05/17 05:45 (Milk Of Magnesia Liq) 30 ml Q12H PRN PO 03/05/17 05:45 (Senokot) 17.2 mg Q12H PRN PO 03/05/17 05:45 (Dulcolax Supp) 10 mg DAILY PRN RECTAL 03/05/17 05:45 (Lactulose Liq) 30 ml DAILY PRN PO 03/05/17 05:45 (Ecotrin Ec) 162 mg DAILY PO 03/05/17 09:00 03/09/17 09:14 (Vasotec) 2.5 mg BID PO 03/05/17 09:00 03/09/17 09:14 (Lasix) 20 mg DAILY PO 03/05/17 09:00 03/09/17 09:14 (Imdur) 30 mg DAILY@07 PO 03/05/17 07:00 03/09/17 06:33 (Aldactone) 25 mg DAILY PO 03/05/17 09:00 03/09/17 09:14 (Protonix) 20 mg DAILY PO 03/05/17 09:00 03/09/17 09:14 (Pravachol) 40 mg HS PO 03/05/17 21:00 03/08/17 20:54 (Coreg) 6.25 mg Q12HR PO 03/05/17 21:00 03/09/17 09:14 (NS Flush) 2 ml BID IV FLUSH 03/06/17 21:00 03/09/17 09:14 (NS Flush) 2 ml UNSCH PRN IV FLUSH 03/06/17 18:15 (Atropine Inj) 0.5 mg UNSCH PRN IV PUSH 03/06/17 18:15 (Zofran Inj) 4 mg Q4H PRN IV PUSH 03/06/17 18:15 (Imodium) 2 mg Q6H PRN PO 03/07/17 11:30 03/07/17 13:09 (Ativan Inj) 0.5 mg HS PRN IV PUSH 03/08/17 10:45 03/08/17 20:55 Vital Signs / I&O Vital Signs Date Time Temp Pulse Resp B/P (MAP) Pulse Ox O2 Delivery O2 Flow Rate FiO2 03/09/17 12:00 60 03/09/17 12:00 60 18 101/54 (70) 100 03/09/17 11:00 66 03/09/17 10:00 70 03/09/17 09:00 68 03/09/17 08:00 70 03/09/17 08:00 98.1 70 18 113/60 (77) 99 03/09/17 07:00 70 03/09/17 06:00 64 03/09/17 05:00 63 03/09/17 04:06 98.6 75 16 109/51 (70) 100 03/09/17 04:00 61 03/09/17 03:00 74 03/09/17 02:00 67 03/09/17 01:00 70 03/09/17 00:24 98.3 75 16 132/73 (92) 99 03/09/17 00:00 69 03/08/17 23:00 68 03/08/17 22:00 67 03/08/17 21:00 74 03/08/17 20:40 98.7 69 16 120/60 (80) 98 03/08/17 20:00 78 03/08/17 19:00 79 03/08/17 18:00 66 03/08/17 17:00 68 03/08/17 16:00 64 03/08/17 15:00 66 03/08/17 15:00 98.3 66 20 108/64 (79) 99 I/O 03/08/17 03/08/17 03/08/17 03/09/17 03/09/17 03/09/17 07:00 15:00 23:00 07:00 15:00 23:00 Intake Total 480 ml 650 ml 420 ml Output Total 650 ml 701 ml 981 ml Balance -170 ml -51 ml -561 ml Intake Oral 480 ml 650 ml 420 ml Output Urine Total 650 ml 700 ml 980 ml Stool Total 1 ml 1 ml # Bowel Movements 0 Physical Exam GENERAL: Well-nourished, well-developed patient. SKIN: Warm and dry. HEAD: Normocephalic. EYES: No scleral icterus. No injection or drainage. NECK: Supple, trachea midline. No JVD or lymphadenopathy. CARDIOVASCULAR: Regular rate and rhythm without murmurs, gallops, or rubs. RESPIRATORY: Breath sounds equal bilaterally. No accessory muscle use. GASTROINTESTINAL: Abdomen soft, non-tender, nondistended. EXTREMITIES: No cyanosis, or edema. NEUROLOGICAL: Awake, alert, and oriented x 3. Non-focal. Laboratory Laboratory Tests Test 03/09/17 11:16 Thyroid Stimulating Hormone 3rd Gen 1.410 uIU/ML Imaging Last Impressions Chest CTA 03/07/17 0000 Signed Impressions: Service Date/Time: Tuesday, March 07, 2017 11:43 - CONCLUSION: 1. Evidence of previous CABG. 2. Previous aortic valve replacement. 3. Scattered subcentimeter pulmonary nodules, likely benign. Followup CT chest in 6 months. 4. Diverticulosis of the colon. 5. Heterogeneous left thyroid nodule containing dominant nodule. Osmar Cam MD Chest X-Ray 03/05/17 0426 Signed Impressions: Service Date/Time: Sunday, March 05, 2017 04:33 - CONCLUSION: Stable interstitial prominence Hesham Mcnamara MD Assessment and Plan Problem List: (1) CHF (congestive heart failure) ICD Codes: I50.9 - Heart failure, unspecified Status: Acute Plan: No CV Complaints Severely deconditioned. 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 Plan: Will schedule TAVR after rehab Stable to be d/c home or rehab from CV standpoint (2) Shortness of breath ICD Codes: R06.02 - Shortness of breath Status: Acute (3) CAD (coronary artery disease) ICD Codes: I25.10 - Atherosclerotic heart disease of [place] coronary artery without angina pectoris Status: Chronic (4) NSTEMI (non-ST elevation myocardial infarction) ICD Codes: I21.4 - Non-ST elevation (NSTEMI) myocardial infarction Status: Acute Problem Qualifiers (1) CHF (congestive heart failure): Qualified Codes: I50.23 - Acute on chronic systolic (congestive) heart failure Austin Calderon MD Mar 09, 2017 14:31
[2017-03-09] MEDS: PRAVASTATIN SOD 40 MG TAB PO SCH (20:50)
[2017-03-09] MEDS: LORazepam 2 MG/ML VIAL IV PUSH PRN (21:03)
[2017-03-10] VITALS (25 sets, daily range): BP systolic 97–126; BP diastolic 52–68; PULSE 58–80; RESP 16–18; TEMP 97.5–98.2; O2SAT 97–99
[2017-03-10] MEDS: ISOSORBIDE MONONITRATE 30 MG TAB PO SCH (06:16)
[2017-03-10] MEDS: SPIRONOLACTONE 25 MG TAB PO SCH (09:28)
[2017-03-10] MEDS: ENALAPRIL MALEATE 2.5 MG TAB PO SCH ×2 (09:28→20:25)
[2017-03-10] MEDS: SODIUM CHLORIDE 0.9% FLUSH 10 ML FLUSH IV FLUSH SCH ×2 (09:29→20:26)
[2017-03-10] MEDS: ASPIRIN EC 81 MG TABEC PO SCH (09:29)
[2017-03-10] MEDS: CARVEDILOL 6.25 MG TAB PO SCH ×2 (09:29→20:25)
[2017-03-10] MEDS: FUROSEMIDE 20 MG TAB PO SCH (09:29)
[2017-03-10] MEDS: PANTOPRAZOLE SOD 20 MG DELAYED RELEASE TAB PO SCH (09:29)
[2017-03-10] MEDS ORDERED: CARV6.252 PO (13:56)
--- NOTE | 2017-03-10 14:01 | HHI.DS ---
Discharge Summary Admission Date Mar 05, 2017 at 05:38 Discharge Date: Mar 10, 2017 Admitting Diagnosis NSTEMI (1) CHF (congestive heart failure) ICD Code: I50.9 - Heart failure, unspecified Status: Acute (2) NSTEMI (non-ST elevation myocardial infarction) ICD Code: I21.4 - Non-ST elevation (NSTEMI) myocardial infarction Status: Acute Procedures Heart catheterization Brief History - From Admission Written by JUDITH Ritchie acting as scribe for Dr. Rachel] on 03/05/17 at 05:48. 87 y/o with a history of HTN, CHF, HLD presented to the ED with complaints of shortness of breath that has been getting worse over the last few days. She was recently discharge on the and she has been continuing to have short of breath. She said she woke up this morning and had short of breath with associated anxiety. Per the daughter she has not been taking her Coreg and Enalapril because her BP has been good, and she says the nurse told her to take the pressure and only take the Meds if her BP was high. The daughter states her shortness of breath is about the same as when she was admitted 5 days ago. She denies any chest pain, dizziness, fever, chills, nausea or vomiting. CBC/BMP: 03/06/17 0428 03/06/17 0428 Significant Findings Laboratory Tests Test 03/09/17 11:16 Imaging Last Impressions Chest CTA 03/07/17 0000 Signed Impressions: Service Date/Time: Tuesday, March 07, 2017 11:43 - CONCLUSION: 1. Evidence of previous CABG. 2. Previous aortic valve replacement. 3. Scattered subcentimeter pulmonary nodules, likely benign. Followup CT chest in 6 months. 4. Diverticulosis of the colon. 5. Heterogeneous left thyroid nodule containing dominant nodule. Osmar Cam MD Chest X-Ray 03/05/17 0426 Signed Impressions: Service Date/Time: Sunday, March 05, 2017 04:33 - CONCLUSION: Stable interstitial prominence Hesham Mcnamara MD PE at Discharge GENERAL: Elderly female. CARDIOVASCULAR: Regular rate and rhythm. 2 out of 6 [place] best heard right upper sternum RESPIRATORY: No accessory muscle use. Clear to auscultation. Breath sounds equal bilaterally. GASTROINTESTINAL: Abdomen soft, non-tender, nondistended. MUSCULOSKELETAL: Extremities without clubbing, cyanosis, or edema. NEUROLOGICAL: Awake and alert. Normal speech. PSYCHIATRIC: Appropriate mood and affect; insight and judgment normal. Pt update on day of discharge Patient reports she is feeling okay. No increased in shortness of breath. No chest pain. Hospital Course 87 y/o with a history of HTN, CHF, HLD presented to the ED with complaints of shortness of breath that has been getting worse over the last few days. Evaluation and treatment course detailed below: NSTEMI, troponin .8, denies chest pain - Cardiology followed the patient. Patient underwent heart catheterization which showed severe [place] coronary artery disease. 2 out of 2 patent grafts. 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 -Cardiology recommends medical management for CAD and TAVR after rehabilitation. Aortic valve stenosis: Severe - Patient was seen by cardiology and CT surgery. Patient will be considered for TAVR after rehabilitation. Acute on chronic CHF, EF 45%, BNP 1867 -No overt evidence of fluid overload. Continue home dose Lasix. -Fluid restriction Insomnia: Low dose Ativan at night PRN HTN, chronic -Resume home medications, Coreg was increased to 6.25 mg twice a day. Patient is medically stable. She is discharged to inpatient rehabilitation to continue rehabilitation efforts. She will be considered for TAVR after completion of rehabilitation. Pt Condition on Discharge: Good Discharge Disposition: Rehab Inpatient Discharge Time: > 30 minutes Discharge Instructions DIET: Follow Instructions for: Heart Healthy Diet Activities you can perform: Regular-No Restrictions Other Activity Instructions: Per PT instructions. Follow up Referrals: Cardiology @ [facility] Changed Medications: Carvedilol (Carvedilol) 6.25 Mg Tab 6.25 MG PO BID, #60 TAB 0 Refills (Changed from: Carvedilol (Coreg) 3.125 Mg Tab 3.125 Mg PO Q12HR Blood Pressure Management #60 TAB) Continued Medications: Aspirin DR (Adult Aspirin EC Low Strength) 81 Mg Tabec 162 MG PO DAILY for Blood Clot Prevention, #30 TAB Enalapril (Enalapril) 2.5 Mg Tab 2.5 MG PO BID for Blood Pressure Management, #30 TAB Furosemide (Lasix) 20 Mg Tab 20 MG PO DAILY for edema, #30 TAB 0 Refills Isosorbide Mononitrate ER (Isosorbide Mononitrate ER) 30 Mg Amanda 30 MG PO DAILY@07 for Blood Pressure Management, #30 TAB Omeprazole (Omeprazole) 20 Mg Tab 20 MG PO DAILY, #30 TAB 0 Refills Simvastatin (Simvastatin) 20 Mg Tab 20 MG PO HS for Cholesterol Management, #30 TAB 0 Refills Spironolactone (Aldactone) 25 Mg Tab 25 MG PO DAILY for Blood Pressure Management, #30 TAB 0 Refills Alfie Purcell MD Mar 10, 2017 14:01
[2017-03-10] MEDS: PRAVASTATIN SOD 40 MG TAB PO SCH (20:25)
[2017-03-10] MEDS: LORazepam 2 MG/ML VIAL IV PUSH PRN (20:26)
[2017-03-11] VITALS (26 sets, daily range): BP systolic 96–135; BP diastolic 48–72; PULSE 57–78; RESP 18–20; TEMP 98–98.6; O2SAT 96–100
[2017-03-11] MEDS: ISOSORBIDE MONONITRATE 30 MG TAB PO SCH (06:21)
[2017-03-11] MEDS: SPIRONOLACTONE 25 MG TAB PO SCH (08:55)
[2017-03-11] MEDS: CARVEDILOL 6.25 MG TAB PO SCH ×2 (08:56→20:05)
[2017-03-11] MEDS: PANTOPRAZOLE SOD 20 MG DELAYED RELEASE TAB PO SCH (08:56)
[2017-03-11] MEDS: ASPIRIN EC 81 MG TABEC PO SCH (08:56)
[2017-03-11] MEDS: SODIUM CHLORIDE 0.9% FLUSH 10 ML FLUSH IV FLUSH SCH ×2 (08:56→20:05)
[2017-03-11] MEDS: FUROSEMIDE 20 MG TAB PO SCH (08:56)
[2017-03-11] MEDS: ENALAPRIL MALEATE 2.5 MG TAB PO SCH ×2 (09:00→20:05)
--- NOTE | 2017-03-11 10:04 | HHI.PR ---
Subjective Remarks Patient reports she is feeling okay today. Was not discharged to [place] yesterday because she did not meet the criteria for [place]. Case management following for [facility] to a [facility] facility. Objective Vitals Vital Signs Date Time Temp Pulse Resp B/P (MAP) Pulse Ox O2 Delivery O2 Flow Rate FiO2 03/11/17 06:00 77 03/11/17 05:00 68 03/11/17 04:00 60 03/11/17 04:00 98.1 60 18 97/48 (64) 96 03/11/17 04:00 Nasal Cannula 2.00 03/11/17 03:00 62 03/11/17 02:00 64 03/11/17 01:00 72 03/11/17 00:00 75 03/11/17 00:00 Nasal Cannula 2.00 03/11/17 00:00 98.3 75 18 96/51 (66) 99 03/10/17 23:00 72 03/10/17 22:00 64 03/10/17 21:00 66 03/10/17 20:00 Nasal Cannula 2.00 03/10/17 20:00 65 03/10/17 20:00 98.0 65 18 110/60 (77) 97 03/10/17 18:00 70 03/10/17 17:00 66 03/10/17 16:00 68 03/10/17 15:25 97.8 69 16 106/56 (73) 98 03/10/17 15:00 69 03/10/17 14:00 66 03/10/17 13:00 68 03/10/17 12:10 97.5 70 18 105/57 (73) 99 03/10/17 12:00 66 03/10/17 11:00 69 03/10/17 10:00 80 I/O 03/10/17 03/10/17 03/10/17 03/11/17 03/11/17 03/11/17 07:00 15:00 23:00 07:00 15:00 23:00 Intake Total 480 ml 880 ml 240 ml Output Total 850 ml 800 ml Balance -370 ml 880 ml -560 ml Intake Oral 480 ml 880 ml 240 ml Output Urine Total 850 ml 800 ml # Voids 4 # Bowel Movements 0 1 0 Objective Remarks GENERAL: Elderly female. CARDIOVASCULAR: Regular rate and rhythm. 2 out of 6 [place] best heard right upper sternum RESPIRATORY: No accessory muscle use. Clear to auscultation. Breath sounds equal bilaterally. GASTROINTESTINAL: Abdomen soft, non-tender, nondistended. MUSCULOSKELETAL: Extremities without clubbing, cyanosis, or edema. NEUROLOGICAL: Awake and alert. Normal speech. PSYCHIATRIC: Appropriate mood and affect; insight and judgment normal. Procedures Heart catheterization A/P Problem List: (1) CHF (congestive heart failure) ICD Code: I50.9 - Heart failure, unspecified Status: Acute (2) NSTEMI (non-ST elevation myocardial infarction) ICD Code: I21.4 - Non-ST elevation (NSTEMI) myocardial infarction Status: Acute Assessment and Plan 87 y/o with a history of HTN, CHF, HLD presented to the ED with complaints of shortness of breath that has been getting worse over the last few days. Evaluation and treatment course detailed below: NSTEMI, troponin .8, denies chest pain - Cardiology followed the patient. Patient underwent heart catheterization which showed severe [place] coronary artery disease. 2 out of 2 patent grafts. 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 - Cardiology recommends medical management for CAD and TAVR after rehabilitation. Aortic valve stenosis: Severe - Patient was seen by cardiology and CT surgery. Patient will be considered for TAVR after rehabilitation. Acute on chronic CHF, EF 45%, BNP 1867 -No overt evidence of fluid overload. Continue home dose Lasix. -Fluid restriction Insomnia: Low dose Ativan at night PRN HTN, chronic -Resume home medications, Coreg was increased to 6.25 mg twice a day. Patient is medically stable. She is discharged to SNF to continue rehabilitation efforts. She did not meet criteria for [facility]. She will be considered for TAVR after completion of rehabilitation. Discharge Planning Can be discharged to SNF once arrangements are made. 3008 in chart. Problem Qualifiers (1) CHF (congestive heart failure): Qualified Codes: I50.23 - Acute on chronic systolic (congestive) heart failure Alfie Purcell MD Mar 11, 2017 10:04
[2017-03-11] MEDS: LORazepam 2 MG/ML VIAL IV PUSH PRN (16:00)
[2017-03-11] MEDS ORDERED: LORazepam 0.5 MG TAB PO PRN (19:30)
[2017-03-11] MEDS: PRAVASTATIN SOD 40 MG TAB PO SCH (20:05)
[2017-03-11] MEDS ORDERED: ZOLPIDEM TARTRATE 5 MG TAB PO ONE (23:15)
[2017-03-12] VITALS (13 sets, daily range): BP systolic 117–150; BP diastolic 62–97; PULSE 65–99; RESP 18–20; TEMP 97.3–98.3; O2SAT 94–99
[2017-03-12] MEDS: ISOSORBIDE MONONITRATE 30 MG TAB PO SCH (05:32)
[2017-03-12] MEDS: FUROSEMIDE 20 MG TAB PO SCH (09:32)
[2017-03-12] MEDS: PANTOPRAZOLE SOD 20 MG DELAYED RELEASE TAB PO SCH (09:32)
[2017-03-12] MEDS: SPIRONOLACTONE 25 MG TAB PO SCH (09:32)
[2017-03-12] MEDS: ENALAPRIL MALEATE 2.5 MG TAB PO SCH (09:33)
[2017-03-12] MEDS: ASPIRIN EC 81 MG TABEC PO SCH (09:33)
[2017-03-12] MEDS: SODIUM CHLORIDE 0.9% FLUSH 10 ML FLUSH IV FLUSH SCH (09:33)
[2017-03-12] MEDS: CARVEDILOL 6.25 MG TAB PO SCH (09:33)
--- NOTE | 2017-03-12 10:58 | HHI.PR ---
Subjective Remarks Pt feels a bit sleepy but denies any CP/SOB/N/V ate all her oatmeals and some of her banana and drank her coffee. No concerns at this time. waiting for placement. Objective Vitals Vital Signs Date Time Temp Pulse Resp B/P (MAP) Pulse Ox O2 Delivery O2 Flow Rate FiO2 03/12/17 10:00 84 03/12/17 09:00 67 03/12/17 08:00 85 03/12/17 07:00 99 03/12/17 07:00 Nasal Cannula 2.00 03/12/17 07:00 97.3 94 18 140/92 (108) 97 03/12/17 06:00 77 03/12/17 05:00 79 03/12/17 04:00 81 03/12/17 04:00 98.2 81 18 150/97 (114) 97 03/12/17 04:00 Nasal Cannula 2.00 03/12/17 03:00 76 03/12/17 02:00 65 03/12/17 01:00 69 03/12/17 00:00 72 03/12/17 00:00 98.3 72 20 143/70 (94) 99 03/12/17 00:00 Nasal Cannula 2.00 03/11/17 23:00 69 03/11/17 22:00 65 03/11/17 21:00 67 03/11/17 20:00 70 03/11/17 20:00 Nasal Cannula 2.00 03/11/17 20:00 98.1 70 20 121/67 (85) 97 03/11/17 18:01 71 03/11/17 17:01 62 03/11/17 16:00 68 03/11/17 15:42 98.0 69 20 110/56 (74) 100 03/11/17 15:00 69 03/11/17 14:00 62 03/11/17 13:01 68 03/11/17 12:00 66 03/11/17 11:45 98.0 67 20 114/62 (79) 98 03/11/17 11:00 70 I/O 03/11/17 03/11/17 03/11/17 03/12/17 03/12/17 03/12/17 07:00 15:00 23:00 07:00 15:00 23:00 Intake Total 240 ml 720 ml 240 ml Output Total 800 ml 500 ml 650 ml Balance -560 ml 220 ml -410 ml Intake Oral 240 ml 720 ml 240 ml Output Urine Total 800 ml 500 ml 650 ml Stool Total 0 ml # Voids 4 # Bowel Movements 0 4 0 Imaging Last Impressions Chest CTA 03/07/17 0000 Signed Impressions: Service Date/Time: Tuesday, March 07, 2017 11:43 - CONCLUSION: 1. Evidence of previous CABG. 2. Previous aortic valve replacement. 3. Scattered subcentimeter pulmonary nodules, likely benign. Followup CT chest in 6 months. 4. Diverticulosis of the colon. 5. Heterogeneous left thyroid nodule containing dominant nodule. Osmar Cam MD Chest X-Ray 03/05/17 0426 Signed Impressions: Service Date/Time: Sunday, March 05, 2017 04:33 - CONCLUSION: Stable interstitial prominence Hesham Mcnamara MD Objective Remarks GENERAL: Elderly female resting on the recliner, appears comfortable. CARDIOVASCULAR: Regular rate and rhythm. 1/6 [place] RESPIRATORY: No accessory muscle use. Clear to auscultation. Breath sounds equal bilaterally. GASTROINTESTINAL: Abdomen soft, non-tender, nondistended. MUSCULOSKELETAL: Extremities without edema. NEUROLOGICAL: Awake and alert. Normal speech. PSYCHIATRIC: Appropriate mood and affect; insight and judgment normal. Procedures Heart catheterization A/P Problem List: (1) CHF (congestive heart failure) ICD Code: I50.9 - Heart failure, unspecified Status: Acute (2) NSTEMI (non-ST elevation myocardial infarction) ICD Code: I21.4 - Non-ST elevation (NSTEMI) myocardial infarction Status: Acute Assessment and Plan 87 y/o with a history of HTN, CHF, HLD presented to the ED with complaints of shortness of breath that has been getting worse over the last few days. Evaluation and treatment course detailed below: NSTEMI, troponin 00.8--0.77--0.92, denies chest pain at this time. - Cardiology followed the patient. Patient underwent heart catheterization which showed severe [place] coronary artery disease. 2 out of 2 patent grafts. 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 - Cardiology recommends medical management for CAD and TAVR after rehabilitation. Aortic valve stenosis: Severe - Patient was seen by cardiology and CT surgery. Patient will be considered for TAVR after rehabilitation. Acute on chronic CHF, EF 45%, BNP 1867 -No overt evidence of fluid overload. Continue home dose Lasix. -Fluid restriction Insomnia: Low dose Ativan at night PRN HTN, chronic -Resume home medications, Coreg was increased to 6.25 mg twice a day. Patient is medically stable. She is discharged to SNF to continue rehabilitation efforts. She did not meet criteria for [facility]. She will be considered for TAVR after completion of rehabilitation. Discharge Planning No change in management. Can be discharged to SNF once arrangements are made. 3008 in chart. Problem Qualifiers (1) CHF (congestive heart failure): Qualified Codes: I50.23 - Acute on chronic systolic (congestive) heart failure Princess Cortés MD Mar 12, 2017 10:58
--- NOTE | 2017-03-13 09:53 | RSPPFT ---
DATE OF PROCEDURE: 03/06/17 COMMENTS: Spirometry demonstrates an FEV1 of 0.8 at 53% of predicted, FVC of 0.8 at 38%, FEF 25-75 is 83%. Post-bronchodilator study were not conducted. Flow volume loops suggest a restrictive pattern. IMPRESSION: 1. Moderately severe restrictive disease. 2. No significant obstructive disease.
== END 2017-03-12 13:49 | DRG 280 ==
LOC: NEPC 04:19 → NEDA 05:38 → HCPC 07:27 → HCIN 03-06 08:35 → HCIS 03-09 16:07
PROVIDERS: ADMIT Hospitalist; ATTEND Hospitalist
PROC: B2111ZZ Fluoroscopy of Multiple Coronary Arteries using Low Osmolar Contrast (ICD-10-PCS; 2017-03-06)
PROC: B41F1ZZ Fluoroscopy of Right Lower Extremity Arteries using Low Osmolar Contrast (ICD-10-PCS; 2017-03-06)
PROC: B2131ZZ Fluoroscopy of Multiple Coronary Artery Bypass Grafts using Low Osmolar Contrast (ICD-10-PCS; 2017-03-06)
PROC: 4A023N7 Measurement of Cardiac Sampling and Pressure, Left Heart, Percutaneous Approach (ICD-10-PCS; principal; 2017-03-06 16:15)
DX: I21.4 Non-ST elevation (NSTEMI) myocardial infarction (principal); I50.23 Acute on chronic systolic (congestive) heart failure; T82.857A Stenosis of other cardiac prosthetic devices, implants and grafts, initial encounter; I11.0 Hypertensive heart disease with heart failure; K21.9 Gastro-esophageal reflux disease without esophagitis; I25.10 Atherosclerotic heart disease of native coronary artery without angina pectoris; E78.5 Hyperlipidemia, unspecified; M19.90 Unspecified osteoarthritis, unspecified site; G47.00 Insomnia, unspecified; F41.1 Generalized anxiety disorder; Y83.1 Surgical operation with implant of artificial internal device as the cause of abnormal reaction of the patient, or of later complication, without mention of misadventure at the time of the procedure; Z95.1 Presence of aortocoronary bypass graft; Z95.2 Presence of prosthetic heart valve
CPT/HCPCS: 71010; 74174; 80053; 81001; 82550; 82552; 83036; 83735; 83880; 84443; 84484; 85025; 85610; 85730; 86850; 86900; 86901; 93005; 93308; 93454; 94010; 99152; 99153; C1760; C1769; C1893; G0269; J0171; J0461; J1644; J2060; J2250; J3010; Q9967

== ENCOUNTER 2017-03-21 04:48 | Inpatient (IN) | payer MEDICARE ==
[2017-03-21] VITALS (8 sets, daily range): BP systolic 128–158; BP diastolic 66–76; PULSE 70–86; RESP 16–20; TEMP 97.1–98.2; O2SAT 98
[~2017-03-21] VITALS: Ht 152.4 cm; Wt 51.4 kg
[~2017-03-21 04:48] MED LIST changes: -ASPI-99 PO; +ASPI1TAB56 PO; -CARV3.125 PO; +CARV6.252 PO; -OMEP20TA PO; +OMEP20TA93 PO
--- NOTE | 2017-03-21 05:11 | PD ---
HPI Chief Complaint: Chest Pain Time Seen by Provider: 04:52 Travel History International Travel<30 days: No Contact w/Intl Traveler<30days: No Traveled to known affect area: No History of Present Illness HPI The patient is an 87 year old female who presents to the [facility] emergency department with a history of chest pressure in the center of her chest that she reports began an hour prior to arrival. The patient is a resident at a local [place] [facility]. They tried administering a gas medication without relief. The patient reports that she has shortness of breath associated with this. According to ambulance services the patient was recently admitted to the hospital and had an elevated troponin and was diagnosed with a non-STEMI. The patient has a known left bundle branch block. The patient was given aspirin 162 mg by mouth prior to arrival. On review of systems otherwise , the patient denies having any nausea or vomiting. The patient denies having any cough, congestion, neck pain, urinary symptoms, or neurologic symptoms. According to ambulance services at [place] [facility] had reported that the patient did experience diarrhea 2 days ago. [facility] Past Medical History Narrative Medical The patient's past medical history is significant for having a left bundle branch block, coronary artery disease, hyperlipidemia, aortic valve stenosis, arthritis, according to the record she has a history of chronic diarrhea, acid reflux, hypertension, systolic congestive heart failure with an ejection fraction of Arthritis: Yes Blood Disorders: No Anxiety: No Depression: No Heart Rhythm Problems: No Cancer: No Cardiac Catheterization: Yes Cardiovascular Problems: Yes High Cholesterol: Yes Chest Pain: Yes Congestive Heart Failure: No Coronary Artery Disease: Yes Diabetes: No Diminished Hearing: No Endocrine: No Gastrointestinal Disorders: Yes (CHRONIC DIARRHEA) GERD: Yes Genitourinary: No Hiatal Hernia: Yes Hypertension: Yes Immune Disorder: No Musculoskeletal: Yes Neurologic: No Psychiatric: No Reproductive: No Respiratory: No Immunizations Current: Yes Radiation Therapy: No Ulcer: Yes ?: Not Menopausal: Yes Past Surgical History Narrative Surgical The patient's past surgical history is significant for 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 to the record failed, and two-vessel coronary artery bypass grafting Abdominal Surgery: No Cardiac Surgery: Yes (AVR, DOUBLE BYPASS) Coronary Artery Bypass Graft: Yes (2 VESSELS W/ AORTIC VALVE REPLACMENT) Ear Surgery: No Endocrine Surgery: No Eye Surgery: No Genitourinary Surgery: No Gynecologic Surgery: No Oral Surgery: No Thoracic Surgery: No Other Surgery: Yes Social History Alcohol Use: No Tobacco Use: No Substance Use: No Allergies-Medications (Allergen,Severity, Reaction): Coded Allergies: lansoprazole (Unverified Allergy, Mild, DIARRHEA, 03/21/17) nizatidine (Unverified Allergy, Mild, DIARRHEA, 03/21/17) Reported Meds & Prescriptions Reported Meds & Active Scripts Active Carvedilol 6.25 Mg Tab 6.25 Mg PO BID Aldactone (Spironolactone) 25 Mg Tab 25 Mg PO DAILY Lasix (Furosemide) 20 Mg Tab 20 Mg PO DAILY Adult Aspirin EC Low Strength (Aspirin) 81 Mg Tabec 162 Mg PO DAILY Isosorbide Mononitrate ER (Isosorbide Mononitrate) 30 Mg Amanda 30 Mg PO DAILY@07 Enalapril (Enalapril Maleate) 2.5 Mg Tab 2.5 Mg PO BID Reported Xanax (Alprazolam) 0.5 Mg Tab 0.5 Mg PO Q8H PRN Hydrocodone-Acetamin 5-325 mg (Hydrocodone/Acetaminophen) 5 Mg-325 Mg Tablet 1 Tab PO Q6HR Tylenol (Acetaminophen) 325 Mg Tab 650 Mg PO Q4H PRN Simvastatin 20 Mg Tab 20 Mg PO HS Omeprazole 20 Mg Tab 20 Mg PO DAILY Review of Systems Except as stated in HPI: all other systems reviewed are Neg General / Constitutional: No: Fever Eyes: No: Visual changes HENT: No: Headaches Cardiovascular: Positive: Chest Pain or Discomfort, Dyspnea on exertion Respiratory: Positive: Shortness of Breath Gastrointestinal: Positive: Diarrhea, Indigestion, No: Nausea, Vomiting, Abdominal Pain, Changes in Bowel Habits, Loss of Appetite Genitourinary: No: Dysuria Musculoskeletal: No: Pain Skin: No Rash Neurologic: No: Weakness Psychiatric: No: Depression Endocrine: No: Polydipsia Hematologic/Lymphatic: No: Easy Bruising Physical Exam Narrative General: The patient is a well-developed well-nourished female in no acute distress. Head and Neck exam: Head is normocephalic atraumatic. Eyes: EOMI, pupils are equal round and reactive to light. Nose: Midline septum with pink mucous membranes Mouth: Dentition unremarkable. Moist mucus membranes. Posterior oropharynx is not erythematous. No tonsillar hypertrophy. Uvula midline. Airway patent. Neck: No palpable lymphadenopathy. No nuchal rigidity. No thyromegaly. Cardiovascular: Regular rate and rhythm with a 2/6 systolic murmur and an audible click consistent with a history of valve replacement. No pulse deficit to the extremities on simultaneous auscultation and palpation of her radial artery. Lungs: Decreased breath sounds in bilateral bases, crackles audible in the bases, no wheezes or rhonchi. Abdomen: Soft, without tenderness to palpation in all 4 quadrants of the abdomen. No guarding, rebound, or rigidity. Normal bowel sounds are audible. No tenderness on palpation of McBurney's point. Negative Farrell's sign. Extremities: No clubbing, cyanosis, or edema. 2+ pulses in all 4 extremities. No calf tenderness on palpation. Back: No spinous process tenderness to palpation. No costovertebral angle tenderness to palpation. Neurologic Exam: Grossly nonfocal. Skin Exam: No rash noted. Intact skin that is warm and dry. Data Data Last Documented VS Vital Signs Date Time Temp Pulse Resp B/P (MAP) Pulse Ox O2 Delivery O2 Flow Rate FiO2 03/21/17 05:03 98 Room Air 03/21/17 04:59 2.00 03/21/17 04:52 98.2 81 16 158/71 (100) Orders Orders Electrocardiogram (03/21/17 04:55) Complete Blood Count With Diff (03/21/17 04:55) Comprehensive Metabolic Panel (03/21/17 04:55) Creatine Kinase (Cpk) (03/21/17 04:55) Ckmb (Isoenzyme) Profile (03/21/17 04:55) Troponin I (03/21/17 04:55) B-Type Natriuretic Peptide (03/21/17 04:55) Prothrombin Time / Inr (Pt) (03/21/17 04:55) Act Partial Throm Time (Ptt) (03/21/17 04:55) Lipase (03/21/17 04:55) Magnesium (Mg) (03/21/17 04:55) Chest, Single Ap (03/21/17 04:55) Iv Access Insert/Monitor (03/21/17 04:55) Ecg Monitoring (03/21/17 04:55) Oxygen Administration (03/21/17 04:55) Oximetry (03/21/17 04:55) Aspirin Chew (Aspirin Chew) (03/21/17 05:15) Nitroglycerin 2% Oint (Nitroglycerin 2% (03/21/17 05:15) Nitroglycerin Sl (Nitrostat Sl) (03/21/17 05:15) Furosemide Inj (Lasix Inj) (03/21/17 06:00) Labs Laboratory Tests Test 03/21/17 05:00 White Blood Count 7.9 TH/MM3 Red Blood Count 4.00 MIL/MM3 Hemoglobin 11.9 GM/DL Hematocrit 34.0 % Mean Corpuscular Volume 85.2 FL Mean Corpuscular Hemoglobin 29.7 PG Mean Corpuscular Hemoglobin Concent 34.9 % Red Cell Distribution Width 14.9 % Platelet Count 239 TH/MM3 Mean Platelet Volume 8.3 FL Neutrophils (%) (Auto) 61.3 % Lymphocytes (%) (Auto) 24.5 % Monocytes (%) (Auto) 9.2 % Eosinophils (%) (Auto) 3.7 % Basophils (%) (Auto) 1.3 % Neutrophils # (Auto) 4.8 TH/MM3 Lymphocytes # (Auto) 1.9 TH/MM3 Monocytes # (Auto) 0.7 TH/MM3 Eosinophils # (Auto) 0.3 TH/MM3 Basophils # (Auto) 0.1 TH/MM3 CBC Comment DIFF FINAL Differential Comment Prothrombin Time 10.6 SEC Prothromb Time International Ratio 1.0 RATIO Activated Partial Thromboplast Time 26.4 SEC Blood Urea Nitrogen 12 MG/DL Creatinine 0.41 MG/DL Random Glucose 100 MG/DL Total Protein 6.5 GM/DL Albumin 3.2 GM/DL Calcium Level 8.4 MG/DL Magnesium Level 1.8 MG/DL Alkaline Phosphatase 64 U/L Aspartate Amino Transf (AST/SGOT) 27 U/L Alanine Aminotransferase (ALT/SGPT) 22 U/L Total Bilirubin 0.4 MG/DL Sodium Level 123 MEQ/L Potassium Level 4.7 MEQ/L Chloride Level 90 MEQ/L Carbon Dioxide Level 24.8 MEQ/L Anion Gap 8 MEQ/L Estimat Glomerular Filtration Rate 147 ML/MIN Total Creatine Kinase 71 U/L Troponin I 0.07 NG/ML B-Type Natriuretic Peptide 1139 PG/ML Lipase 157 U/L MDM Medical Decision Making Medical Screen Exam Complete: Yes Emergency Medical Condition: Yes Medical Record Reviewed: Yes Interpretation(s) Last Impressions Chest X-Ray 11/15/17 0455 Signed Impressions: Service Date/Time: Tuesday, March 21, 2017 05:12 - CONCLUSION: Diffuse patchy interstitial lung disease. Venkatesh Iverson MD Differential Diagnosis Acute coronary syndrome, versus CHF exacerbation, versus pneumonia Narrative Course During the course of the patients emergency department visit, the patients history, examination, and differential diagnosis were reviewed with the patient. The patient was placed on a labor arbitrator with oximetry and frequent blood pressure monitoring. The patient had IV access obtained and blood work sent for analysis. The patient had an ECG done on arrival. The patient's ECG shows a sinus rhythm heart rate of 85, left bundle branch block. From reviewing the patient's electronic medical record she does have a history of a left bundle branch block. A review of the record reveals that the patient did have a cardiac catheterization on March 06 that showed a failed aortic valve replacement with aortic stenosis. The patient had 2 patent coronary arteries grafts. The patient was initially provided an additional aspirin 81 mg by mouth 1 as the patient received 162 mg by ambulance services and is on low-dose aspirin daily at the [place] [facility]. The patient was given sublingual nitroglycerin every 5 minutes 3 when necessary chest pain, nitroglycerin 1 inch the chest wall. The patients laboratory studies were reviewed and remarkable for a white count of 7.9, hemoglobin 11.9, platelets 239 with monocytes 9.2, CMP is remarkable for a sodium of 123, chloride 90, creatinine 0.41, calcium 8.4, CPK 71, troponin I 0.07, lipase 157, BNP is 1139. During the patient's prior admission her last troponin I was measured at 0.92 on March 05. PT PTT within normal limits. Radiology studies were reviewed and remarkable for a chest x-ray that shows diffuse patchy interstitial lung disease. The patients results were discussed with the patient, including the plan of care. I explained that further testing and/ or monitoring is indicated based on the patients history, examination, and/ or laboratory findings. Therefore, I recommended admission for additional evaluation. The patient expressed understanding and was agreeable with this plan. The patient was admitted to the hospital in guarded condition and [facility] Physician Communication Physician Communication The patient's case including history, pertinent physical examination findings, and laboratory studies were discussed with Dr. Smith. It was agreed that the patient would be admitted to the [facility] service. Diagnosis Primary Impression: CHF (congestive heart failure) Qualified Codes: I50.9 - Heart failure, unspecified Additional Impression: Elevated troponin Admitting Information Admitting Physician Requests: Polly Hernandez MD Mar 21, 2017 05:11
[2017-03-21 05:15] LABS: AUTOMATED NEUTROPHIL # 4.8 TH/MM3 (1.8-7.7); BASOPHIL # 0.1 TH/MM3 (0-0.2); BASOPHIL % 1.3 % (0.0-2.0); EOSINOPHIL # 0.3 TH/MM3 (0-0.4); EOSINOPHIL % 3.7 % (0.0-4.0); HEMO FLAGS DIFF FINAL; LYMPH % 24.5 % (9.0-44.0); LYMPHOCYTE # 1.9 TH/MM3 (1.0-4.8); MEAN CELL VOLUME 85.2 FL (80.0-100.0); MEAN CORPUSCULAR HEMOGLOBIN 29.7 PG (27.0-34.0); MEAN CORPUSCULAR HGB CONC 34.9 % (32.0-36.0); MONO % 9.2 % (0.0-8.0); NEUT % 61.3 % (16.0-70.0); PLATELET COUNT 239 TH/MM3 (150-450); RED CELL DISTRIBUTION WIDTH 14.9 % (11.6-17.2); WHITE BLOOD COUNT 7.9 TH/MM3 (4.0-11.0)
[2017-03-21] MEDS ORDERED: NITROGLYCERIN 2% OINT 1 GM PACKET TOPICAL ONE (05:15)
[2017-03-21] MEDS ORDERED: ASPIRIN 81 MG CHEW TAB CHEW ONE (05:15)
[2017-03-21 05:25] LABS: APTT (PATIENT) 26.4 SEC (24.3-30.1); PROTHROMBIN TIME - PATIENT 10.6 SEC (9.8-11.6)
--- NOTE | 2017-03-21 05:43 | RADRPT ---
EXAM DATE/TIME: 03/21/2017 05:12 [place] COMPARISON: CHEST SINGLE AP, March 05, 2017, 4:33. INDICATIONS : Short of breath. MEDICAL HISTORY : None. SURGICAL HISTORY : CABG. ENCOUNTER: Initial ACUITY: 1 day PAIN SCORE: 0/10 LOCATION: Bilateral chest FINDINGS: A single view of the chest demonstrates patchy interstitial disease bilaterally. Aorta is quite tortu ous. Clips and wires suggest CABG and a prosthetic aortic valve.. The cardiomediastinal contours are unremarkable. Osseous structures are intact. CONCLUSION: Diffuse patchy interstitial lung disease. Venkatesh Iverson MD on March 21, 2017 at 5:41 Board Certified Radiologist. This report was verified electronically.
[2017-03-21 05:46] LABS: ALKALINE PHOSPHATASE 64 U/L (45-117); ALT (GPT) 22 U/L (10-53); ANION GAP 8 MEQ/L (5-15); AST (GOT) 27 U/L (15-37); BICARBONATE 24.8 MEQ/L (21.0-32.0); BLOOD UREA NITROGEN 12 MG/DL (7-18); CHLORIDE 90 MEQ/L (98-107); CREATINE KINASE 71 U/L (26-192); GLOMERULAR FILTRATION RATE 147 ML/MIN (>89); MAGNESIUM 1.8 MG/DL (1.5-2.5); POTASSIUM 4.7 MEQ/L (3.5-5.1); TOTAL BILIRUBIN ADULT 0.4 MG/DL (0.2-1.0)
[2017-03-21 05:50] LABS: SODIUM (NA) 123 MEQ/L (136-145)
[2017-03-21] MEDS: NITROGLYCERIN 0.4 MG SL 25 TABS/BTL SL PRN ×2 (05:55→06:34)
[2017-03-21] MEDS ORDERED: FUROSEMIDE 40 MG/4 ML VIAL IV PUSH ONE (06:00)
[2017-03-21] MEDS ORDERED: ALPR.5 PO (06:04)
[2017-03-21] MEDS ORDERED: TYLE325T PO (06:04)
[2017-03-21] MEDS ORDERED: HYDR-3516 PO (06:04)
[2017-03-21] MEDS ORDERED: SODIUM CHLORIDE 0.9% FLUSH 10 ML FLUSH IV FLUSH PRN ×2 (06:15→11:00)
[2017-03-21] MEDS ORDERED: NALOXONE HCL 0.4 MG/ML AMP IV PUSH PRN ×2 (06:15→11:00)
[2017-03-21] MEDS ORDERED: ACETAMINOPHEN 325 MG TAB PO PRN ×4 (06:15→11:00)
[2017-03-21] MEDS ORDERED: SODIUM CHLORIDE 0.9% FLUSH 10 ML FLUSH IV FLUSH SCH (09:00)
--- NOTE | 2017-03-21 10:54 | HHI.HP ---
HPI Service [facility]ists Primary Care Physician De Claudio MD Admission Diagnosis CHF exacerbation, elevated troponin, hyponatremia Diagnoses: Chief Complaint: Chest pain Travel History International Travel<30 Days: No Contact w/Intl Traveler <30 Da: No Traveled to Known Affected Are: No History of Present Illness Patient is a 87-year-old female who presented to [facility] emergency department with a history of chest pressure in the center of her chest that began an hour prior to arrival. Patient lives in [facility] [place] [facility]. At the residential facility they tried to administering gas medication without relief. The patient reports that she had some shortness of breath associated with this. Patient had recently been admitted to the hospital and had an elevated troponin was diagnosed with a non-ST elevation OH. Patient has a chronic known left bundle branch block. As given aspirin. On review of systems denies any nausea vomiting denies any cough or congestion neck pain urinary symptoms but had some diarrhea couple days. Patient has been placed in observation will consult cardiology someone is already consult cardiovascular surgery patient was being worked up for TAVR aortic valve stenosis Review of Systems Constitutional: COMPLAINS OF: Fatigue, DENIES: Diaphoretic episodes, Fever, Weight gain, Weight loss, Dizziness Endocrine: DENIES: Abnorml menstrual pattern, Heat/cold intolerance Eyes: DENIES: Blurred vision, Diplopia, Eye inflammation, Eye pain Ears, nose, mouth, throat: DENIES: Tinnitus, Hearing loss, Vertigo, Nasal discharge Respiratory: DENIES: Apneas, Cough, Snoring, Wheezing, Hemoptysis Cardiovascular: COMPLAINS OF: Chest pain, DENIES: Palpitations, Syncope, Dyspnea on Exertion, PND, Lower Extremity Edema Gastrointestinal: COMPLAINS OF: Diarrhea, DENIES: Abdominal pain, Black stools , Bloody stools, Constipation Genitourinary: DENIES: Abnormal vaginal bleeding, Dysmenorrhea Musculoskeletal: DENIES: Joint pain, Muscle aches, Stiffness Integumentary: DENIES: Abnormal pigmentation, Pruritus, Rash Hematologic/lymphatic: DENIES: Bruising, Lymphadenopathy Immunologic/allergic: DENIES: Eczema, Urticaria Neurologic: DENIES: Abnormal gait, Headache, Localized weakness, Paresthesias Psychiatric: DENIES: Anxiety, Confusion, Mood changes, Depression, Hallucinations Past Family Social History Past Medical History Left bundle branch block Coronary artery disease Hyperlipidemia Aortic valve stenosis Osteoarthritis Chronic diarrhea GERD hiatal hernia Hypertension systolic congestive heart failure Hypertension Past Surgical History Aortic valve replacement Coronary artery bypass and graft of 2 vessels Reported Medications Reported Meds & Active Scripts Active Carvedilol 6.25 Mg Tab 6.25 Mg PO BID Aldactone (Spironolactone) 25 Mg Tab 25 Mg PO DAILY Lasix (Furosemide) 20 Mg Tab 20 Mg PO DAILY Adult Aspirin EC Low Strength (Aspirin) 81 Mg Tabec 162 Mg PO DAILY Isosorbide Mononitrate ER (Isosorbide Mononitrate) 30 Mg Amanda 30 Mg PO DAILY@07 Enalapril (Enalapril Maleate) 2.5 Mg Tab 2.5 Mg PO BID Reported Xanax (Alprazolam) 0.5 Mg Tab 0.5 Mg PO Q8H PRN Hydrocodone-Acetamin 5-325 mg (Hydrocodone/Acetaminophen) 5 Mg-325 Mg Tablet 1 Tab PO Q6HR Tylenol (Acetaminophen) 325 Mg Tab 650 Mg PO Q4H PRN Simvastatin 20 Mg Tab 20 Mg PO HS Omeprazole 20 Mg Tab 20 Mg PO DAILY Allergies: Coded Allergies: lansoprazole (Unverified Allergy, Mild, DIARRHEA, 03/21/17) nizatidine (Unverified Allergy, Mild, DIARRHEA, 03/21/17) Active Ordered Medications Current Medications Aspirin (Aspirin Chew) 81 mg ONCE ONCE CHEW Last administered on 03/21/17 05 :54; Start 03/21/17 at 05:15; Stop 03/21/17 at 05:16; Status DC Nitroglycerin (Nitroglycerin 2% Oint) 1 inch ONCE ONCE TOPICAL Last administered on 03/21/17 05:54; Start 03/21/17 at 05:15; Stop 03/21/17 at 05 :16; Status DC Nitroglycerin (Nitrostat Sl) 0.4 mg Q5M PRN SL CHEST PAIN Last administered on 03/21/17 06:34; Start 03/21/17 at 05:15 Furosemide (Lasix Inj) 40 mg ONCE ONCE IV PUSH Last administered on 05:54; Start 03/21/17 at 06:00; Stop 03/21/17 at 06:01; Status DC Sodium Chloride (NS Flush) 2 ml UNSCH PRN IV FLUSH FLUSH AFTER USING IV ACCESS ; Start 03/21/17 at 06:15 Sodium Chloride (NS Flush) 2 ml BID IV FLUSH Last administered on 03/21/17 07 :58; Start 03/21/17 at 09:00 Acetaminophen (Tylenol) 650 mg Q4H PRN PO TEMP > 100.4 Last administered on 06:53; Start 03/21/17 at 06:15 Naloxone HCl (Narcan Inj) 0.4 mg UNSCH PRN IV PUSH SEE LABEL COMMENTS; Start 03/21/17 at 06:15 Family History Suspected hypertension Social History Denies any tobacco alcohol or illicits Lives at [facility] Physical Exam Vital Signs Vital Signs Date Time Temp Pulse Resp B/P (MAP) Pulse Ox O2 Delivery O2 Flow Rate FiO2 03/21/17 09:00 97.8 76 18 128/76 (93) 98 Nasal Cannula 2.00 03/21/17 07:53 17 03/21/17 07:01 97.8 74 18 139/66 (90) 98 Nasal Cannula 2.00 03/21/17 07:00 74 17 98 Nasal Cannula 2.00 03/21/17 07:00 17 03/21/17 07:00 98 Room Air 2.00 03/21/17 05:03 98 Room Air 03/21/17 04:59 98 Nasal Cannula 2.00 03/21/17 04:52 98.2 81 16 158/71 (100) 98 Physical Exam GENERAL: This is a well-nourished, well-developed patient, in no apparent distress. SKIN: No rashes, ecchymoses or lesions. Cool and dry. HEAD: Atraumatic. Normocephalic. No temporal or scalp tenderness. EYES: Pupils equal round and reactive. Extraocular motions intact. No scleral icterus. No injection or drainage. ENT: Nose without bleeding, purulent drainage or septal hematoma. Throat without erythema, tonsillar hypertrophy or exudate. Uvula midline. Airway patent. NECK: Trachea midline. No JVD or lymphadenopathy. Supple, nontender, no meningeal signs. CARDIOVASCULAR: Regular rate and rhythm without murmurs, gallops, or rubs. S1 and S2 no S3 or S4 RESPIRATORY: Clear to auscultation. Breath sounds equal bilaterally. No wheezes , rales, or rhonchi. GASTROINTESTINAL: Abdomen soft, non-tender, nondistended. No hepato-splenomegaly , or palpable masses. No guarding. MUSCULOSKELETAL: Extremities without clubbing, cyanosis, or edema. No joint tenderness, effusion, or edema noted. No calf tenderness. Negative Homans sign bilaterally. NEUROLOGICAL: Awake and alert. Cranial nerves II through XII intact. Motor and sensory grossly within normal limits. 4 out of 5 muscle strength in all muscle groups. Normal speech. Insight and judgment appears good Mood and behavior are somewhat appropriate Laboratory Laboratory Tests Test 03/21/17 05:00 White Blood Count 7.9 Red Blood Count 4.00 Hemoglobin 11.9 Hematocrit 34.0 Mean Corpuscular Volume 85.2 Mean Corpuscular Hemoglobin 29.7 Mean Corpuscular Hemoglobin Concent 34.9 Red Cell Distribution Width 14.9 Platelet Count 239 Mean Platelet Volume 8.3 Neutrophils (%) (Auto) 61.3 Lymphocytes (%) (Auto) 24.5 Monocytes (%) (Auto) 9.2 Eosinophils (%) (Auto) 3.7 Basophils (%) (Auto) 1.3 Neutrophils # (Auto) 4.8 Lymphocytes # (Auto) 1.9 Monocytes # (Auto) 0.7 Eosinophils # (Auto) 0.3 Basophils # (Auto) 0.1 CBC Comment DIFF FINAL Differential Comment Prothrombin Time 10.6 Prothromb Time International Ratio 1.0 Activated Partial Thromboplast Time 26.4 Blood Urea Nitrogen 12 Creatinine 0.41 Random Glucose 100 Total Protein 6.5 Albumin 3.2 Calcium Level 8.4 Magnesium Level 1.8 Alkaline Phosphatase 64 Aspartate Amino Transf (AST/SGOT) 27 Alanine Aminotransferase (ALT/SGPT) 22 Total Bilirubin 0.4 Sodium Level 123 Potassium Level 4.7 Chloride Level 90 Carbon Dioxide Level 24.8 Anion Gap 8 Estimat Glomerular Filtration Rate 147 Total Creatine Kinase 71 Troponin I 0.07 B-Type Natriuretic Peptide 1139 Lipase 157 Result Diagram: 03/21/17 0500 03/21/17 0500 Imaging Last Impressions Chest X-Ray 03/21/17 5753 Signed Impressions: Service Date/Time: Tuesday, March 21, 2017 05:12 - CONCLUSION: Diffuse patchy interstitial lung disease. MD Lorraine Ayers VTE Risk Assessment Caprini VTE Risk Assessment: Mod/High Risk (score >= 2) Caprini Risk Assessment Model Point Value = 1 Point Value = 2 Point Value = 3 Point Value = 5 Age 41-60 Minor surgery BMI > 25 kg/m2 Swollen legs Varicose veins or History of unexplained or recurrent spontaneous Oral contraceptives or hormone replacement Sepsis (< 1 month) Serious lung disease, including pneumonia (< 1 month) Abnormal pulmonary function Acute myocardial infarction Congestive heart failure (< 1 month) History of inflammatory bowel disease Medical patient at bed rest Age 61-74 Arthroscopic surgery Major open surgery (> 45 min) Laparoscopic surgery (> 45 min) Malignancy Confined to bed (> 72 hours) Immobilizing plaster cast Central venous access Age >= 75 History of VTE Family history of VTE Factor V Leiden Prothrombin [id number] Lupus anticoagulant Anticardiolipin antibodies Elevated serum homocysteine Heparin-induced thrombocytopenia Other congenital or acquired thrombophilia Stroke (< 1 month) Elective arthroplasty Hip, pelvis, or leg fracture Acute spinal cord injury (< 1 month) Prophylaxis Regimen Total Risk Factor Score Risk Level Prophylaxis Regimen 0-1 Low Early ambulation 2 Moderate Order ONE of the following: *Sequential Compression Device (SCD) *Heparin 5000 units SQ BID 3-4 Higher Order ONE of the following medications: *Heparin 5000 units SQ TID *Enoxaparin/Lovenox 40 mg SQ daily (WT < 150 kg, CrCl > 30 mL/min) *Enoxaparin/Lovenox 30 mg SQ daily (WT < 150 kg, CrCl > 10-29 mL/min) *Enoxaparin/Lovenox 30 mg SQ BID (WT < 150 kg, CrCl > 30 mL/min) AND/OR *Sequential Compression Device (SCD) 5 or more Highest Order ONE of the following medications: *Heparin 5000 units SQ TID (Preferred with Epidurals) *Enoxaparin/Lovenox 40 mg SQ daily (WT < 150 kg, CrCl > 30 mL/min) *Enoxaparin/Lovenox 30 mg SQ daily (WT < 150 kg, CrCl > 10-29 mL/min) *Enoxaparin/Lovenox 30 mg SQ BID (WT < 150 kg, CrCl > 30 mL/min) AND *Sequential Compression Device (SCD) Assessment and Plan Assessment and Plan Chest pain we will trend troponins. Consult cardiology. Has slightly higher than baseline troponins at less than last admission Hypertension continue home medications Hyperlipidemia continue on statin if able to tolerate History of coronary artery disease consult cardiology History of aortic valve replacement and past with probable need of TAVR in future GERD hiatal hernia continue PPI osteoarthritis pain control Hyponatremia recheck labs monitor Cardiology and cardiovascular surgery (consulted await their opinions Code Status Full code Discussed Condition With Patient RN and family Luis Segura DO Mar 21, 2017 10:54
[2017-03-21] MEDS ORDERED: LACTULOSE SYRUP 20 GM/30 ML CUP PO PRN (11:00)
[2017-03-21] MEDS ORDERED: BISACODYL 10 MG SUPP RECTAL PRN (11:00)
[2017-03-21] MEDS ORDERED: MORPHINE SULFATE 2 MG/ML INJ IV PUSH PRN (11:00)
[2017-03-21] MEDS ORDERED: MORPHINE SULFATE 4 MG/ML INJ IV PUSH PRN (11:00)
[2017-03-21] MEDS ORDERED: ONDANSETRON HCL 4 MG/2 ML VIAL IVP PRN (11:00)
[2017-03-21] MEDS ORDERED: MAGNESIUM HYDROXIDE SUSP 30 ML CUP PO PRN (11:00)
[2017-03-21] MEDS ORDERED: PROCHLORPERAZINE 25 MG SUPP RECTAL PRN (11:00)
[2017-03-21] MEDS ORDERED: SENNOSIDES 8.6 MG TAB PO PRN (11:00)
--- NOTE | 2017-03-21 11:08 | PD.CAR.PN ---
CVT Progress Note Subjective/Hospital Course: 87/ female known to our service , seen by Dr Levine and Dr Leyva recently for evaluation for TAVR , Ms. Cornell is a very pleasant and very frail 87-year-old lady with a known history of coronary artery disease and aortic stenosis status post previous coronary artery bypass grafting and aortic valve replacement by Dr. Kreuger who now presented in NOV with recurrent episodes and admissions for congestive heart failure with symptoms of shortness of breath and associated anxiety. She has been admitted multiple times for same complaint Further workup at that time including an echocardiogram reveals moderate to severe left ventricle dysfunction with associated severe prosthetic aortic valve stenosis and moderate aortic insufficiency. She has a history of being very weak and quite short of breath even at rest, but certainly with minimal exertion. Her STS score risk of mortality of 12.4, she was recommended for TAVR and was scheduled 04/11/17. she was discharge on her last admission to [facility] for rehab and to improved strength and stability. Per the daughter, she was not happy with the care and felt the she did not progress in the rehab and actually is worse now strength bob , then when she was transferred there. She now has to have assistance to get OOB with a walker , when she previously walked only with a cane. She presented to ED with increased shortness of breath and chest pressure PAST MEDICAL HISTORY: Hypertension , Congestive heart failure with recurrent admissions, Hyperlipidemia, Coronary artery disease, Gastroesophageal reflux disease PAST SURGICAL HISTORY: Aortic valve replacement, Coronary artery bypass grafting x2. Objective: GENERAL: weakness SKIN: Warm and dry. HEAD: Atraumatic. Normocephalic. EYES: Pupils equal and round. No scleral icterus. No injection or drainage. ENT: No nasal bleeding or discharge. Mucous membranes pink and moist. NECK: Trachea midline. No JVD. CARDIOVASCULAR: Regular rate and rhythm. 3/6 sm RESPIRATORY: No accessory muscle use. diminished in the bases , few crackles Clear to auscultation. Breath sounds equal bilaterally. GASTROINTESTINAL: Abdomen soft, non-tender, nondistended. Hepatic and splenic margins not palpable. MUSCULOSKELETAL: Extremities without clubbing, cyanosis, or edema. No obvious deformities. NEUROLOGICAL: Awake and alert. No obvious cranial nerve deficits. Motor grossly within normal limits. Five out of 5 muscle strength in the arms and legs. Normal speech. PSYCHIATRIC: Appropriate mood and affect; insight and judgment normal. Vital Signs Date Time Temp Pulse Resp B/P (MAP) Pulse Ox O2 Delivery O2 Flow Rate FiO2 03/21/17 09:00 97.8 76 18 128/76 (93) 98 Nasal Cannula 2.00 03/21/17 07:53 17 03/21/17 07:01 97.8 74 18 139/66 (90) 98 Nasal Cannula 2.00 03/21/17 07:00 74 17 98 Nasal Cannula 2.00 03/21/17 07:00 17 03/21/17 07:00 98 Room Air 2.00 03/21/17 05:03 98 Room Air 03/21/17 04:59 98 Nasal Cannula 2.00 03/21/17 04:52 98.2 81 16 158/71 (100) 98 Labs: Laboratory Tests Test 03/21/17 05:00 White Blood Count 7.9 TH/MM3 (4.0-11.0) Red Blood Count 4.00 MIL/MM3 (4.00-5.30) Hemoglobin 11.9 GM/DL (11.6-15.3) Hematocrit 34.0 % (35.0-46.0) Mean Corpuscular Volume 85.2 FL (80.0-100.0) Mean Corpuscular Hemoglobin 29.7 PG (27.0-34.0) Mean Corpuscular Hemoglobin Concent 34.9 % (32.0-36.0) Red Cell Distribution Width 14.9 % (11.6-17.2) Platelet Count 239 TH/MM3 (150-450) Mean Platelet Volume 8.3 FL (7.0-11.0) Neutrophils (%) (Auto) 61.3 % (16.0-70.0) Lymphocytes (%) (Auto) 24.5 % (9.0-44.0) Monocytes (%) (Auto) 9.2 % (0.0-8.0) Eosinophils (%) (Auto) 3.7 % (0.0-4.0) Basophils (%) (Auto) 1.3 % (0.0-2.0) Neutrophils # (Auto) 4.8 TH/MM3 (1.8-7.7) Lymphocytes # (Auto) 1.9 TH/MM3 (1.0-4.8) Monocytes # (Auto) 0.7 TH/MM3 (0-0.9) Eosinophils # (Auto) 0.3 TH/MM3 (0-0.4) Basophils # (Auto) 0.1 TH/MM3 (0-0.2) CBC Comment DIFF FINAL Differential Comment Prothrombin Time 10.6 SEC (9.8-11.6) Prothromb Time International Ratio 1.0 RATIO Activated Partial Thromboplast Time 26.4 SEC (24.3-30.1) Blood Urea Nitrogen 12 MG/DL (7-18) Creatinine 0.41 MG/DL (0.50-1.00) Random Glucose 100 MG/DL (74-106) Total Protein 6.5 GM/DL (6.4-8.2) Albumin 3.2 GM/DL (3.4-5.0) Calcium Level 8.4 MG/DL (8.5-10.1) Magnesium Level 1.8 MG/DL (1.5-2.5) Alkaline Phosphatase 64 U/L (45-117) Aspartate Amino Transf (AST/SGOT) 27 U/L (15-37) Alanine Aminotransferase (ALT/SGPT) 22 U/L (10-53) Total Bilirubin 0.4 MG/DL (0.2-1.0) Sodium Level 123 MEQ/L (136-145) Potassium Level 4.7 MEQ/L (3.5-5.1) Chloride Level 90 MEQ/L (98-107) Carbon Dioxide Level 24.8 MEQ/L (21.0-32.0) Anion Gap 8 MEQ/L (5-15) Estimat Glomerular Filtration Rate 147 ML/MIN (>89) Total Creatine Kinase 71 U/L (26-192) Troponin I 0.07 NG/ML (0.02-0.05) B-Type Natriuretic Peptide 1139 PG/ML (0-100) Lipase 157 U/L (73-393) Result Diagram: 03/21/17 0500 03/21/17 0500 Telemetry: SR with LBBB (1) CHF (congestive heart failure) (2) CAD (coronary artery disease) (3) History of aortic valve replacement Plan: await further eval by Dr Turner for possible rescheuling of TAVR will get PT/OT Marian Kaur Mar 21, 2017 11:08
--- NOTE | 2017-03-21 11:45 | PD.CONS ---
HPI Consult Requested By Primary Care Physician De Claudio MD History of Present Illness 87/ female known to me admitted recenlty with HF exacerbation in the setting of Aortic Bioprosthesis Failure readmitted with acute on chronic HF. She has been evaluated by the Structural Heart Team and is schedule for TAVR in the beginning o April. PMHx significant for coronary artery disease s/ CABG, HLF , GERD, anxiety. Her STS score risk of mortality for conventional AVR is 12.4%. Review of Systems Consitutional: COMPLAINS OF: Fatigue, DENIES: Fever, Chills, Weight gain, Weight loss Eyes: DENIES: Amaurosis Fugax, Change in vision HEENT: DENIES: Lightheadedness, Change in hearing Respiratory: COMPLAINS OF: Shortness of breath, DENIES: See HPI, Cough, Snoring , Wheezing, Sputum production Cardiovascular: DENIES: See HPI, Chest pain, Palpitations, Syncope, Tachycardia Gastrointestinal: DENIES: Nausea, Vomiting, Change in bowel habits, Reflux, Bloody stools, Melena Genitourinary: DENIES: Urinary incontinence, Difficulty voiding Integumentary: DENIES: Rash Neurologic: DENIES: Tingling or numbness, Memory problems, Poor Balance, Stroke symptoms Musculoskeletal: DENIES: Joint pain, Muscle pain, Limited range of motion, Back pain Psychiatric: DENIES: Anxiety, Depression, Sleep disturbances Hematologic: DENIES: Bruising tendencies, Bleeding tendencies Endocrine: DENIES: Weight gain, Weight loss, Thyroid disease Past Family Social History Allergies: Coded Allergies: lansoprazole (Unverified Allergy, Mild, DIARRHEA, 03/21/17) nizatidine (Unverified Allergy, Mild, DIARRHEA, 03/21/17) Past Medical History Hypertension Congestive heart failure with recurrent admissions, Hyperlipidemia, Coronary artery disease, Gastroesophageal reflux disease Past Surgical History Aortic valve replacement, Coronary artery bypass grafting x2. Reported Medications Reported Meds & Active Scripts Active Carvedilol 6.25 Mg Tab 6.25 Mg PO BID Aldactone (Spironolactone) 25 Mg Tab 25 Mg PO DAILY Lasix (Furosemide) 20 Mg Tab 20 Mg PO DAILY Adult Aspirin EC Low Strength (Aspirin) 81 Mg Tabec 162 Mg PO DAILY Isosorbide Mononitrate ER (Isosorbide Mononitrate) 30 Mg Amanda 30 Mg PO DAILY@07 Enalapril (Enalapril Maleate) 2.5 Mg Tab 2.5 Mg PO BID Reported Xanax (Alprazolam) 0.5 Mg Tab 0.5 Mg PO Q8H PRN Hydrocodone-Acetamin 5-325 mg (Hydrocodone/Acetaminophen) 5 Mg-325 Mg Tablet 1 Tab PO Q6HR Tylenol (Acetaminophen) 325 Mg Tab 650 Mg PO Q4H PRN Simvastatin 20 Mg Tab 20 Mg PO HS Omeprazole 20 Mg Tab 20 Mg PO DAILY Active Ordered Medications Current Medications Medications (Trade) Dose Ordered Sig/Bradley Route Start Time Stop Time Status Last Admin (Nitrostat Sl) 0.4 mg Q5M PRN SL 03/21/17 05:15 03/21/17 06:34 (Xanax) 0.5 mg Q8H PRN PO 03/21/17 11:00 (Ecotrin Ec) 162 mg DAILY PO 03/22/17 09:00 (Coreg) 6.25 mg BID PO 03/21/17 21:00 (Vasotec) 2.5 mg BID PO 03/21/17 21:00 (Lasix) 20 mg DAILY PO 03/22/17 09:00 ([place] 5-325 Mg) 1 tab Q6HR PO 03/21/17 12:00 (Imdur) 30 mg DAILY@07 PO 03/22/17 07:00 (Aldactone) 25 mg DAILY PO 03/22/17 09:00 (Protonix) 20 mg DAILY PO 03/22/17 09:00 (Pravachol) 40 mg HS PO 03/21/17 21:00 (NS Flush) 2 ml UNSCH PRN IV FLUSH 03/21/17 11:00 (NS Flush) 2 ml BID IV FLUSH 03/21/17 21:00 (Tylenol) 650 mg Q4H PRN PO 03/21/17 11:00 (Zofran Inj) 4 mg Q6H PRN IVP 03/21/17 11:00 (Compazine Supp) 25 mg Q12H PRN RECTAL 03/21/17 11:00 (Tylenol) 650 mg Q6H PRN PO 03/21/17 11:00 (Morphine Inj) 2 mg Q3H PRN IV PUSH 03/21/17 11:00 (Morphine Inj) 4 mg Q3H PRN IV PUSH 03/21/17 11:00 (Narcan Inj) 0.4 mg UNSCH PRN IV PUSH 03/21/17 11:00 (Nasrin-Colace) 1 tab BID PO 03/21/17 21:00 (Milk Of Magnesia Liq) 30 ml Q12H PRN PO 03/21/17 11:00 (Senokot) 17.2 mg Q12H PRN PO 03/21/17 11:00 (Dulcolax Supp) 10 mg DAILY PRN RECTAL 03/21/17 11:00 (Lactulose Liq) 30 ml DAILY PRN PO 03/21/17 11:00 Physical Exam Vital Signs Vital Signs Date Time Temp Pulse Resp B/P (MAP) Pulse Ox O2 Delivery O2 Flow Rate FiO2 03/21/17 09:00 97.8 76 18 128/76 (93) 98 Nasal Cannula 2.00 03/21/17 07:53 17 03/21/17 07:01 97.8 74 18 139/66 (90) 98 Nasal Cannula 2.00 03/21/17 07:00 74 17 98 Nasal Cannula 2.00 03/21/17 07:00 17 03/21/17 07:00 98 Room Air 2.00 03/21/17 05:03 98 Room Air 03/21/17 04:59 98 Nasal Cannula 2.00 03/21/17 04:52 98.2 81 16 158/71 (100) 98 Laboratory Laboratory Tests Test 03/21/17 05:00 White Blood Count 7.9 Red Blood Count 4.00 Hemoglobin 11.9 Hematocrit 34.0 Mean Corpuscular Volume 85.2 Mean Corpuscular Hemoglobin 29.7 Mean Corpuscular Hemoglobin Concent 34.9 Red Cell Distribution Width 14.9 Platelet Count 239 Mean Platelet Volume 8.3 Neutrophils (%) (Auto) 61.3 Lymphocytes (%) (Auto) 24.5 Monocytes (%) (Auto) 9.2 Eosinophils (%) (Auto) 3.7 Basophils (%) (Auto) 1.3 Neutrophils # (Auto) 4.8 Lymphocytes # (Auto) 1.9 Monocytes # (Auto) 0.7 Eosinophils # (Auto) 0.3 Basophils # (Auto) 0.1 CBC Comment DIFF FINAL Differential Comment Prothrombin Time 10.6 Prothromb Time International Ratio 1.0 Activated Partial Thromboplast Time 26.4 Blood Urea Nitrogen 12 Creatinine 0.41 Random Glucose 100 Total Protein 6.5 Albumin 3.2 Calcium Level 8.4 Magnesium Level 1.8 Alkaline Phosphatase 64 Aspartate Amino Transf (AST/SGOT) 27 Alanine Aminotransferase (ALT/SGPT) 22 Total Bilirubin 0.4 Sodium Level 123 Potassium Level 4.7 Chloride Level 90 Carbon Dioxide Level 24.8 Anion Gap 8 Estimat Glomerular Filtration Rate 147 Total Creatine Kinase 71 Troponin I 0.07 B-Type Natriuretic Peptide 1139 Lipase 157 Result Diagram: 03/21/17 0500 03/21/17 0500 Imaging Last Impressions Chest X-Ray 03/21/17 0455 Signed Impressions: Service Date/Time: Sunday, March 21, 2017 05:12 - CONCLUSION: Diffuse patchy interstitial lung disease. 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 Currently afebrile and hemodynamically stable. Omproving from SOB. She is schedule for Karl TAVR on 04/11/17 Recommendations: 1. IV diuresis 2. Strict I&O 3. Low salt diet 4. Daily weight 5. Cont cardiac home medications After d/c follow with Cardiology Schedule Karl TAVR on 04/11/17 Thank you for the opportunity to take part in the care of this patient Will be available on a PRN basis for any questions or concerns (2) CAD (coronary artery disease) ICD Codes: I25.10 - Atherosclerotic heart disease of [place] coronary artery without angina pectoris Status: Chronic (3) History of aortic valve replacement ICD Codes: Z95.2 - Presence of prosthetic heart valve Status: Chronic Problem Qualifiers (1) CHF (congestive heart failure): Qualified Codes: I50.21 - Acute systolic (congestive) heart failure (2) CAD (coronary artery disease): Austin Calderon MD Mar 21, 2017 11:45
[2017-03-21] MEDS: ACETAMINOPHEN/HYDROcodone 325 MG/5 MG TAB PO SCH ×2 (12:00→18:00)
[2017-03-21] MEDS: ALPRAZolam 0.5 MG TAB PO PRN ×2 (13:47→22:35)
--- NOTE | 2017-03-21 18:28 | EKG ---
Date Performed: 03/21/2017 Time Performed: 05:00:25 PTAGE: 87 years EKG: Sinus rhythm LEFT BUNDLE BRANCH BLOCK ABNORMAL ECG PREVIOUS TRACING : 03/07/2017 06.13 Compared to prior tracing no significant change DOCTOR: Yash Roman Interpretating Date/Time 03/21/2017 18:26:37
[2017-03-21] MEDS: SODIUM CHLORIDE 0.9% FLUSH 10 ML FLUSH IV FLUSH SCH (22:32)
[2017-03-21] MEDS: DOCUSATE SODIUM 50 MG/SENNA 8.6 MG TAB PO SCH (22:35)
[2017-03-21] MEDS: ENALAPRIL MALEATE 2.5 MG TAB PO SCH (22:35)
[2017-03-21] MEDS: CARVEDILOL 6.25 MG TAB PO SCH (22:35)
[2017-03-21] MEDS: PRAVASTATIN SOD 40 MG TAB PO SCH (22:35)
[2017-03-22] VITALS (22 sets, daily range): BP systolic 89–126; BP diastolic 47–71; PULSE 59–78; RESP 18–20; TEMP 97.6–98.8; O2SAT 97–99
[2017-03-22] MEDS: ISOSORBIDE MONONITRATE 30 MG TAB PO SCH (05:54)
[2017-03-22 07:05] LABS: AUTOMATED NEUTROPHIL # 3.5 TH/MM3 (1.8-7.7); BASOPHIL # 0.1 TH/MM3 (0-0.2); BASOPHIL % 1.4 % (0.0-2.0); EOSINOPHIL # 0.2 TH/MM3 (0-0.4); EOSINOPHIL % 3.8 % (0.0-4.0); HEMATOCRIT 33.1 % (35.0-46.0); HEMO FLAGS DIFF FINAL; LYMPHOCYTE # 1.6 TH/MM3 (1.0-4.8); MEAN CELL VOLUME 84.5 FL (80.0-100.0); MEAN CORPUSCULAR HEMOGLOBIN 28.9 PG (27.0-34.0); MEAN CORPUSCULAR HGB CONC 34.2 % (32.0-36.0); MONO % 10.7 % (0.0-8.0); NEUT % 58.1 % (16.0-70.0); PLATELET COUNT 225 TH/MM3 (150-450); RED BLOOD COUNT 3.91 MIL/MM3 (4.00-5.30); RED CELL DISTRIBUTION WIDTH 14.6 % (11.6-17.2); WHITE BLOOD COUNT 6.1 TH/MM3 (4.0-11.0)
[2017-03-22 07:09] LABS: PROTHROMBIN TIME - PATIENT 11.2 SEC (9.8-11.6)
[2017-03-22 07:38] LABS: BICARBONATE 26.4 MEQ/L (21.0-32.0); POTASSIUM 3.6 MEQ/L (3.5-5.1)
[2017-03-22] MEDS: CARVEDILOL 6.25 MG TAB PO SCH ×2 (08:55→20:57)
[2017-03-22] MEDS: PANTOPRAZOLE SOD 20 MG DELAYED RELEASE TAB PO SCH (08:56)
[2017-03-22] MEDS: ALPRAZolam 0.5 MG TAB PO PRN ×2 (08:56→21:04)
[2017-03-22] MEDS: FUROSEMIDE 20 MG TAB PO SCH (08:56)
[2017-03-22] MEDS: ENALAPRIL MALEATE 2.5 MG TAB PO SCH (08:56)
[2017-03-22] MEDS: ASPIRIN EC 81 MG TABEC PO SCH (08:56)
[2017-03-22] MEDS: DOCUSATE SODIUM 50 MG/SENNA 8.6 MG TAB PO SCH ×2 (08:56→21:00)
[2017-03-22] MEDS: SODIUM CHLORIDE 0.9% FLUSH 10 ML FLUSH IV FLUSH SCH ×2 (08:57→21:02)
[2017-03-22] MEDS ORDERED: SPIRONOLACTONE 25 MG TAB PO SCH (09:00)
[2017-03-22] MEDS ORDERED: ADJUSTABLE COMM1 MIS (15:40)
[2017-03-22] MEDS ORDERED: HOSP BED1 (15:40)
--- NOTE | 2017-03-22 15:41 | HHI.PR ---
Subjective Remarks Patient is a 87-year-old female who presented to [facility] emergency department with a history of chest pressure in the center of her chest that began an hour prior to arrival. Patient lives in [facility] assisted facility. At the assisted facility they tried to administering gas medication without relief. The patient reports that she had some shortness of breath associated with this. Patient had recently been admitted to the hospital and had an elevated troponin was diagnosed with a non-ST elevation [place]. Patient has a chronic known left bundle branch block. As given aspirin. On review of systems denies any nausea vomiting denies any cough or congestion neck pain urinary symptoms but had some diarrhea couple days. Patient has been placed in observation will consult cardiology someone is already consult cardiovascular surgery patient was being worked up for TAVR aortic valve stenosis 03-22 SEEN BY CARDIOLOGY YESTERDAY NOT MUCH OFFERED- AWAIT PROCEDURE ON APR 11 MONITOR LABS PT AND OT DW RN AND PT FOLLOW HYPONATREMIA Objective Vitals Vital Signs Date Time Temp Pulse Resp B/P (MAP) Pulse Ox O2 Delivery O2 Flow Rate FiO2 03/22/17 12:00 98.2 67 19 96/47 (63) 99 03/22/17 12:00 66 03/22/17 11:00 59 03/22/17 10:00 72 03/22/17 09:02 98.2 68 20 101/57 (72) 98 03/22/17 09:00 66 03/22/17 08:00 70 03/22/17 07:00 62 03/22/17 04:00 76 03/22/17 04:00 98.4 76 18 126/63 (84) 98 03/22/17 03:00 78 03/22/17 02:00 70 03/22/17 01:00 72 03/22/17 00:00 74 03/22/17 00:00 98.0 77 20 121/71 (88) 99 03/21/17 23:00 70 03/21/17 22:00 80 03/21/17 21:00 86 03/21/17 20:00 97.1 79 20 128/70 (89) 98 03/21/17 20:00 83 03/21/17 19:00 78 I/O 03/21/17 03/21/17 03/21/17 03/22/17 03/22/17 03/22/17 07:00 15:00 23:00 07:00 15:00 23:00 Intake Total 240 ml Output Total 775 ml Balance -535 ml Intake Oral 240 ml Output Urine Total 775 ml # Bowel Movements 0 Result Diagram: 03/22/17 0537 03/22/17 0537 Other Results Laboratory Tests Test 03/21/17 05:00 03/21/17 12:10 03/21/17 17:10 03/21/17 22:46 White Blood Count 7.9 TH/MM3 Red Blood Count 4.00 MIL/MM3 Hemoglobin 11.9 GM/DL Hematocrit 34.0 % Mean Corpuscular Volume 85.2 FL Mean Corpuscular Hemoglobin 29.7 PG Mean Corpuscular Hemoglobin Concent 34.9 % Red Cell Distribution Width 14.9 % Platelet Count 239 TH/MM3 Mean Platelet Volume 8.3 FL Neutrophils (%) (Auto) 61.3 % Lymphocytes (%) (Auto) 24.5 % Monocytes (%) (Auto) 9.2 % Eosinophils (%) (Auto) 3.7 % Basophils (%) (Auto) 1.3 % Neutrophils # (Auto) 4.8 TH/MM3 Lymphocytes # (Auto) 1.9 TH/MM3 Monocytes # (Auto) 0.7 TH/MM3 Eosinophils # (Auto) 0.3 TH/MM3 Basophils # (Auto) 0.1 TH/MM3 CBC Comment DIFF FINAL Differential Comment Prothrombin Time 10.6 SEC Prothromb Time International Ratio 1.0 RATIO Activated Partial Thromboplast Time 26.4 SEC Blood Urea Nitrogen 12 MG/DL Creatinine 0.41 MG/DL Random Glucose 100 MG/DL Total Protein 6.5 GM/DL Albumin 3.2 GM/DL Calcium Level 8.4 MG/DL Magnesium Level 1.8 MG/DL Alkaline Phosphatase 64 U/L Aspartate Amino Transf (AST/SGOT) 27 U/L Alanine Aminotransferase (ALT/SGPT) 22 U/L Total Bilirubin 0.4 MG/DL Sodium Level 123 MEQ/L Potassium Level 4.7 MEQ/L Chloride Level 90 MEQ/L Carbon Dioxide Level 24.8 MEQ/L Anion Gap 8 MEQ/L Estimat Glomerular Filtration Rate 147 ML/MIN Total Creatine Kinase 71 U/L 69 U/L 68 U/L 77 U/L Troponin I 0.07 NG/ML 0.06 NG/ML 0.07 NG/ML 0.07 NG/ML B-Type Natriuretic Peptide 1139 PG/ML Lipase 157 U/L Test 03/22/17 05:37 White Blood Count 6.1 TH/MM3 Red Blood Count 3.91 MIL/MM3 Hemoglobin 11.3 GM/DL Hematocrit 33.1 % Mean Corpuscular Volume 84.5 FL Mean Corpuscular Hemoglobin 28.9 PG Mean Corpuscular Hemoglobin Concent 34.2 % Red Cell Distribution Width 14.6 % Platelet Count 225 TH/MM3 Mean Platelet Volume 8.5 FL Neutrophils (%) (Auto) 58.1 % Lymphocytes (%) (Auto) 26.0 % Monocytes (%) (Auto) 10.7 % Eosinophils (%) (Auto) 3.8 % Basophils (%) (Auto) 1.4 % Neutrophils # (Auto) 3.5 TH/MM3 Lymphocytes # (Auto) 1.6 TH/MM3 Monocytes # (Auto) 0.6 TH/MM3 Eosinophils # (Auto) 0.2 TH/MM3 Basophils # (Auto) 0.1 TH/MM3 CBC Comment DIFF FINAL Differential Comment Prothrombin Time 11.2 SEC Prothromb Time International Ratio 1.0 RATIO Blood Urea Nitrogen 13 MG/DL Creatinine 0.46 MG/DL Random Glucose 79 MG/DL Calcium Level 8.1 MG/DL Sodium Level 123 MEQ/L Potassium Level 3.6 MEQ/L Chloride Level 88 MEQ/L Carbon Dioxide Level 26.4 MEQ/L Anion Gap 9 MEQ/L Estimat Glomerular Filtration Rate 129 ML/MIN Imaging Last Impressions Chest X-Ray 03/21/17 0455 Signed Impressions: Service Date/Time: Tuesday, March 21, 2017 05:12 - CONCLUSION: Diffuse patchy interstitial lung disease. Venkatesh Iverson MD Objective Remarks GENERAL: This is a well-nourished, well-developed patient, in no apparent distress. SKIN: No rashes, ecchymoses or lesions. Cool and dry. HEAD: Atraumatic. Normocephalic. No temporal or scalp tenderness. EYES: Pupils equal round and reactive. Extraocular motions intact. No scleral icterus. No injection or drainage. ENT: Nose without bleeding, purulent drainage or septal hematoma. Throat without erythema, tonsillar hypertrophy or exudate. Uvula midline. Airway patent. NECK: Trachea midline. No JVD or lymphadenopathy. Supple, nontender, no meningeal signs. CARDIOVASCULAR: Regular rate and rhythm without murmurs, gallops, or rubs. S1 and S2 no S3 or S4 RESPIRATORY: Clear to auscultation. Breath sounds equal bilaterally. No wheezes , rales, or rhonchi. GASTROINTESTINAL: Abdomen soft, non-tender, nondistended. No hepato-splenomegaly , or palpable masses. No guarding. MUSCULOSKELETAL: Extremities without clubbing, cyanosis, or edema. No joint tenderness, effusion, or edema noted. No calf tenderness. Negative Homans sign bilaterally. NEUROLOGICAL: Awake and alert. Cranial nerves II through XII intact. Motor and sensory grossly within normal limits. 4 out of 5 muscle strength in all muscle groups. Normal speech. Insight and judgment appears good Mood and behavior are somewhat appropriate Procedures NONE Medications and IVs Current Medications Aspirin (Aspirin Chew) 81 mg ONCE ONCE CHEW Last administered on 03/21/17 05 :54; Start 03/21/17 at 05:15; Stop 03/21/17 at 05:16; Status DC Nitroglycerin (Nitroglycerin 2% Oint) 1 inch ONCE ONCE TOPICAL Last administered on 03/21/17 05:54; Start 03/21/17 at 05:15; Stop 03/21/17 at 05 :16; Status DC Nitroglycerin (Nitrostat Sl) 0.4 mg Q5M PRN SL CHEST PAIN Last administered on 03/21/17 06:34; Start 03/21/17 at 05:15 Furosemide (Lasix Inj) 40 mg ONCE ONCE IV PUSH Last administered on 05:54; Start 03/21/17 at 06:00; Stop 03/21/17 at 06:01; Status DC Sodium Chloride (NS Flush) 2 ml UNSCH PRN IV FLUSH FLUSH AFTER USING IV ACCESS ; Start 03/21/17 at 06:15; Stop 03/21/17 at 11:16; Status DC Sodium Chloride (NS Flush) 2 ml BID IV FLUSH Last administered on 03/21/17 07 :58; Start 03/21/17 at 09:00; Stop 03/21/17 at 11:16; Status DC Acetaminophen (Tylenol) 650 mg Q4H PRN PO TEMP > 100.4 Last administered on 06:53; Start 03/21/17 at 06:15; Stop 03/21/17 at 11:09; Status DC Naloxone HCl (Narcan Inj) 0.4 mg UNSCH PRN IV PUSH SEE LABEL COMMENTS; Start 03/21/17 at 06:15; Stop 03/21/17 at 11:15; Status DC Acetaminophen (Tylenol) 650 mg Q4H PRN PO PAIN SCALE 1 TO 10; Start 03/21/17 at 11:00; Stop 03/21/17 at 11:09; Status DC Alprazolam (Xanax) 0.5 mg Q8H PRN PO ANXIETY Last administered on 03/22/17 08 :56; Start 03/21/17 at 11:00 Aspirin (Ecotrin Ec) 162 mg DAILY PO Last administered on 03/22/17 08:56; Start 03/22/17 at 09:00 Carvedilol (Coreg) 6.25 mg BID PO Last administered on 03/22/17 08:55; Start 03/21/17 at 21:00 Enalapril Maleate (Vasotec) 2.5 mg BID PO Last administered on 03/22/17 08:56 ; Start 03/21/17 at 21:00 Furosemide (Lasix) 20 mg DAILY PO Last administered on 03/22/17 08:56; Start 03/22/17 at 09:00 Acetaminophen/ Hydrocodone Bitart ([place] 5-325 Mg) 1 tab Q6HR PO ; Start 03/21 at 12:00; Stop 03/21/17 at 19:56; Status DC Isosorbide Mononitrate (Imdur) 30 mg DAILY@07 PO Last administered on 05:54; Start 03/22/17 at 07:00 Spironolactone (Aldactone) 25 mg DAILY PO Last administered on 03/22/17 08:56 ; Start 03/22/17 at 09:00 Pantoprazole Sodium (Protonix) 20 mg DAILY PO Last administered on 03/22/17 08:56; Start 03/22/17 at 09:00 Pravastatin Sodium (Pravachol) 40 mg HS PO Last administered on 03/21/17 22: 35; Start 03/21/17 at 21:00 Sodium Chloride (NS Flush) 2 ml UNSCH PRN IV FLUSH FLUSH AFTER USING IV ACCESS ; Start 03/21/17 at 11:00 Sodium Chloride (NS Flush) 2 ml BID IV FLUSH Last administered on 03/22/17 08 :57; Start 03/21/17 at 21:00 Acetaminophen (Tylenol) 650 mg Q4H PRN PO TEMP > 100.4; Start 03/21/17 at 11: 00 Ondansetron HCl (Zofran Inj) 4 mg Q6H PRN IVP NAUSEA OR VOMITING; Start at 11:00 Prochlorperazine (Compazine Supp) 25 mg Q12H PRN RECTAL NAUSEA OR VOMITING; Start 03/21/17 at 11:00 Acetaminophen (Tylenol) 650 mg Q6H PRN PO PAIN SCALE 1 TO 2; Start 03/21/17 at 11:00 Morphine Sulfate (Morphine Inj) 2 mg Q3H PRN IV PUSH Pain 3-5; if unable to take PO; Start 03/21/17 at 11:00; Stop 03/21/17 at 19:56; Status DC Morphine Sulfate (Morphine Inj) 4 mg Q3H PRN IV PUSH Pain 6-10;if unable to take PO; Start 03/21/17 at 11:00; Stop 03/21/17 at 19:56; Status DC Naloxone HCl (Narcan Inj) 0.4 mg UNSCH PRN IV PUSH SEE LABEL COMMENTS; Start 03/21/17 at 11:00 Senna/Docusate Sodium (Nasrin-Colace) 1 tab BID PO Last administered on 08:56; Start 03/21/17 at 21:00 Magnesium Hydroxide (Milk Of Magnesia Liq) 30 ml Q12H PRN PO Mild constipation ; Start 03/21/17 at 11:00 Sennosides (Senokot) 17.2 mg Q12H PRN PO Moderate constipation; Start at 11:00 Bisacodyl (Dulcolax Supp) 10 mg DAILY PRN RECTAL SEVERE CONSITIPATION; Start 03/21/17 at 11:00 Lactulose (Lactulose Liq) 30 ml DAILY PRN PO SEVERE CONSITIPATION; Start 03/21 at 11:00 A/P Assessment and Plan Chest pain we will trend troponins. Consult cardiology. Has slightly higher than baseline troponins BUT less than last admission Hypertension continue home medications PUT RESTRICTIONS ON MEDS Hyperlipidemia continue on statin if able to tolerate History of coronary artery disease consult cardiology History of aortic valve replacement and past with probable need of TAVR in future MAYBE APR 11 GERD hiatal hernia continue PPI osteoarthritis pain control Hyponatremia recheck labs monitor Cardiology and cardiovascular surgery (consulted) OPINIONS REVIEWED Discharge Planning WILL NEED HHC AND PT AND OT AND RN EVAL AND TREAT WILL NEED 3 IN 1 [facility] AND HOSPITAL BED WALK TEST TO SEE IF CAN HAVE HOME OXYGEN Luis Segura DO Mar 22, 2017 15:41
[2017-03-22] MEDS ORDERED: PILL SPLITTER OTHER PRN (16:15)
--- NOTE | 2017-03-22 16:28 | EKG ---
Date Performed: 03/21/2017 Time Performed: 11:38:04 PTAGE: 87 years EKG: Sinus rhythm Left bundle branch block Abnormal ECG PREVIOUS TRACING 03/21/17 @ 05.00 Compared to prior tracing no significant change DOCTOR: Cinthia Brock Interpretating Date/Time 03/22/2017 16:27:11
--- NOTE | 2017-03-22 16:29 | EKG ---
Date Performed: 03/21/2017 Time Performed: 17:13:44 PTAGE: 87 years EKG: Sinus rhythm Left bundle branch block Abnormal ECG PREVIOUS TRACING 03/21/17 @ 11.38 DOCTOR: Cinthia Brock Interpretating Date/Time 03/22/2017 16:27:41
[2017-03-22] MEDS: SODIUM CHLORIDE 1 GRAM TAB PO SCH (19:20)
[2017-03-22] MEDS: PRAVASTATIN SOD 40 MG TAB PO SCH (21:01)
[2017-03-23] VITALS (22 sets, daily range): BP systolic 105–133; BP diastolic 49–70; PULSE 64–80; RESP 18–20; TEMP 98.4–98.6; O2SAT 97–98
[2017-03-23] MEDS: ISOSORBIDE MONONITRATE 30 MG TAB PO SCH (07:00)
[2017-03-23 07:07] LABS: ALT (GPT) 19 U/L (10-53); ANION GAP 9 MEQ/L (5-15); AST (GOT) 21 U/L (15-37); BICARBONATE 25.4 MEQ/L (21.0-32.0); CHLORIDE 91 MEQ/L (98-107); GLOMERULAR FILTRATION RATE 136 ML/MIN (>89); POTASSIUM 4.3 MEQ/L (3.5-5.1); SODIUM (NA) 125 MEQ/L (136-145)
[2017-03-23 07:10] LABS: ALKALINE PHOSPHATASE 59 U/L (45-117); BLOOD UREA NITROGEN 15 MG/DL (7-18); TOTAL BILIRUBIN ADULT 0.5 MG/DL (0.2-1.0)
[2017-03-23 07:13] LABS: AUTOMATED NEUTROPHIL # 2.9 TH/MM3 (1.8-7.7); BASOPHIL # 0.1 TH/MM3 (0-0.2); BASOPHIL % 1.5 % (0.0-2.0); EOSINOPHIL # 0.2 TH/MM3 (0-0.4); EOSINOPHIL % 3.9 % (0.0-4.0); HEMATOCRIT 32.8 % (35.0-46.0); HEMO FLAGS DIFF FINAL; LYMPH % 34.4 % (9.0-44.0); MEAN CELL VOLUME 84.9 FL (80.0-100.0); MEAN CORPUSCULAR HEMOGLOBIN 29.7 PG (27.0-34.0); MEAN CORPUSCULAR HGB CONC 34.9 % (32.0-36.0); MONO % 9.9 % (0.0-8.0); NEUT % 50.3 % (16.0-70.0); PLATELET COUNT 216 TH/MM3 (150-450); RED BLOOD COUNT 3.87 MIL/MM3 (4.00-5.30); RED CELL DISTRIBUTION WIDTH 14.7 % (11.6-17.2); WHITE BLOOD COUNT 5.8 TH/MM3 (4.0-11.0)
[2017-03-23] MEDS: SODIUM CHLORIDE 1 GRAM TAB PO SCH ×3 (09:00→18:00)
[2017-03-23] MEDS: CARVEDILOL 6.25 MG TAB PO SCH ×2 (09:00→20:38)
[2017-03-23] MEDS: ENALAPRIL MALEATE 2.5 MG TAB PO SCH (09:00)
[2017-03-23] MEDS: PANTOPRAZOLE SOD 20 MG DELAYED RELEASE TAB PO SCH (09:00)
[2017-03-23] MEDS: ASPIRIN EC 81 MG TABEC PO SCH (09:00)
[2017-03-23] MEDS: SODIUM CHLORIDE 0.9% FLUSH 10 ML FLUSH IV FLUSH SCH ×2 (09:00→20:39)
[2017-03-23] MEDS: DOCUSATE SODIUM 50 MG/SENNA 8.6 MG TAB PO SCH ×2 (09:00→20:38)
[2017-03-23] MEDS: SPIRONOLACTONE 25 MG TAB PO SCH (09:00)
[2017-03-23] MEDS: FUROSEMIDE 20 MG TAB PO SCH (09:00)
--- NOTE | 2017-03-23 09:30 | HHI.PR ---
Subjective Remarks Patient is a 87-year-old female who presented to [facility] emergency department with a history of chest pressure in the center of her chest that began an hour prior to arrival. Patient lives in [facility] care home facility. At the care home facility they tried to administering gas medication without relief. The patient reports that she had some shortness of breath associated with this. Patient had recently been admitted to the hospital and had an elevated troponin was diagnosed with a non-ST elevation [place]. Patient has a chronic known left bundle branch block. As given aspirin. On review of systems denies any nausea vomiting denies any cough or congestion neck pain urinary symptoms but had some diarrhea couple days. Patient has been placed in observation will consult cardiology someone is already consult cardiovascular surgery patient was being worked up for TAVR aortic valve stenosis 03-22 SEEN BY CARDIOLOGY YESTERDAY NOT MUCH OFFERED- AWAIT PROCEDURE ON APR 11 MONITOR LABS PT AND OT DW RN AND PT FOLLOW HYPONATREMIA 03-23 CONTINUE PT AND OT HYPONATREMIA SLOWLY IMPROVING WITH MEDICATION ADJUSTMENT DW RN AND PT FAMILY WANTS [facility] [place] MEDICATIONS WERE ADJUSTED AM LABS Objective Vitals Vital Signs Date Time Temp Pulse Resp B/P (MAP) Pulse Ox O2 Delivery O2 Flow Rate FiO2 03/23/17 06:00 69 03/23/17 05:00 71 03/23/17 04:25 98.4 64 18 105/49 (67) 97 03/23/17 04:00 64 03/23/17 03:00 64 03/23/17 02:00 68 03/23/17 01:00 76 03/23/17 00:00 67 03/23/17 00:00 74 03/23/17 00:00 98.6 67 18 106/53 (70) 97 03/22/17 23:00 78 03/22/17 20:00 98.8 72 18 100/58 (72) 97 03/22/17 19:00 72 03/22/17 18:59 99 Nasal Cannula 2.00 03/22/17 18:00 72 03/22/17 17:00 69 03/22/17 16:00 60 03/22/17 15:00 68 03/22/17 15:00 97.6 70 20 89/48 (62) 99 03/22/17 14:00 68 03/22/17 13:00 62 03/22/17 12:00 98.2 67 19 96/47 (63) 99 03/22/17 12:00 66 03/22/17 11:00 59 03/22/17 10:00 72 I/O 03/22/17 03/22/17 03/22/17 03/23/17 03/23/17 03/23/17 07:00 15:00 23:00 07:00 15:00 23:00 Intake Total 240 ml 520 ml 240 ml Output Total 775 ml 453 ml 575 ml Balance -535 ml 67 ml -335 ml Intake Oral 240 ml 520 ml 240 ml Output Urine Total 775 ml 450 ml 575 ml Stool Total 3 ml # Bowel Movements 0 Result Diagram: 03/23/17 0533 03/23/17 0533 Other Results Laboratory Tests Test 03/21/17 05:00 03/21/17 12:10 03/21/17 17:10 03/21/17 22:46 White Blood Count 7.9 TH/MM3 Red Blood Count 4.00 MIL/MM3 Hemoglobin 11.9 GM/DL Hematocrit 34.0 % Mean Corpuscular Volume 85.2 FL Mean Corpuscular Hemoglobin 29.7 PG Mean Corpuscular Hemoglobin Concent 34.9 % Red Cell Distribution Width 14.9 % Platelet Count 239 TH/MM3 Mean Platelet Volume 8.3 FL Neutrophils (%) (Auto) 61.3 % Lymphocytes (%) (Auto) 24.5 % Monocytes (%) (Auto) 9.2 % Eosinophils (%) (Auto) 3.7 % Basophils (%) (Auto) 1.3 % Neutrophils # (Auto) 4.8 TH/MM3 Lymphocytes # (Auto) 1.9 TH/MM3 Monocytes # (Auto) 0.7 TH/MM3 Eosinophils # (Auto) 0.3 TH/MM3 Basophils # (Auto) 0.1 TH/MM3 CBC Comment DIFF FINAL Differential Comment Prothrombin Time 10.6 SEC Prothromb Time International Ratio 1.0 RATIO Activated Partial Thromboplast Time 26.4 SEC Blood Urea Nitrogen 12 MG/DL Creatinine 0.41 MG/DL Random Glucose 100 MG/DL Total Protein 6.5 GM/DL Albumin 3.2 GM/DL Calcium Level 8.4 MG/DL Magnesium Level 1.8 MG/DL Alkaline Phosphatase 64 U/L Aspartate Amino Transf (AST/SGOT) 27 U/L Alanine Aminotransferase (ALT/SGPT) 22 U/L Total Bilirubin 0.4 MG/DL Sodium Level 123 MEQ/L Potassium Level 4.7 MEQ/L Chloride Level 90 MEQ/L Carbon Dioxide Level 24.8 MEQ/L Anion Gap 8 MEQ/L Estimat Glomerular Filtration Rate 147 ML/MIN Total Creatine Kinase 71 U/L 69 U/L 68 U/L 77 U/L Troponin I 0.07 NG/ML 0.06 NG/ML 0.07 NG/ML 0.07 NG/ML B-Type Natriuretic Peptide 1139 PG/ML Lipase 157 U/L Test 03/22/17 05:37 03/23/17 05:33 White Blood Count 6.1 TH/MM3 5.8 TH/MM3 Red Blood Count 3.91 MIL/MM3 3.87 MIL/MM3 Hemoglobin 11.3 GM/DL 11.5 GM/DL Hematocrit 33.1 % 32.8 % Mean Corpuscular Volume 84.5 FL 84.9 FL Mean Corpuscular Hemoglobin 28.9 PG 29.7 PG Mean Corpuscular Hemoglobin Concent 34.2 % 34.9 % Red Cell Distribution Width 14.6 % 14.7 % Platelet Count 225 TH/MM3 216 TH/MM3 Mean Platelet Volume 8.5 FL 8.6 FL Neutrophils (%) (Auto) 58.1 % 50.3 % Lymphocytes (%) (Auto) 26.0 % 34.4 % Monocytes (%) (Auto) 10.7 % 9.9 % Eosinophils (%) (Auto) 3.8 % 3.9 % Basophils (%) (Auto) 1.4 % 1.5 % Neutrophils # (Auto) 3.5 TH/MM3 2.9 TH/MM3 Lymphocytes # (Auto) 1.6 TH/MM3 2.0 TH/MM3 Monocytes # (Auto) 0.6 TH/MM3 0.6 TH/MM3 Eosinophils # (Auto) 0.2 TH/MM3 0.2 TH/MM3 Basophils # (Auto) 0.1 TH/MM3 0.1 TH/MM3 CBC Comment DIFF FINAL DIFF FINAL Differential Comment Prothrombin Time 11.2 SEC Prothromb Time International Ratio 1.0 RATIO Blood Urea Nitrogen 13 MG/DL 15 MG/DL Creatinine 0.46 MG/DL 0.44 MG/DL Random Glucose 79 MG/DL 85 MG/DL Calcium Level 8.1 MG/DL 8.1 MG/DL Sodium Level 123 MEQ/L 125 MEQ/L Potassium Level 3.6 MEQ/L 4.3 MEQ/L Chloride Level 88 MEQ/L 91 MEQ/L Carbon Dioxide Level 26.4 MEQ/L 25.4 MEQ/L Anion Gap 9 MEQ/L 9 MEQ/L Estimat Glomerular Filtration Rate 129 ML/MIN 136 ML/MIN Total Protein 5.9 GM/DL Albumin 2.9 GM/DL Phosphorus Level 3.7 MG/DL Magnesium Level 2.0 MG/DL Alkaline Phosphatase 59 U/L Aspartate Amino Transf (AST/SGOT) 21 U/L Alanine Aminotransferase (ALT/SGPT) 19 U/L Total Bilirubin 0.5 MG/DL B-Type Natriuretic Peptide 616 PG/ML Imaging Last Impressions Chest X-Ray 03/21/17 0673 Signed Impressions: Service Date/Time: Tuesday, March 21, 2017 05:12 - CONCLUSION: Diffuse patchy interstitial lung disease. Venkatesh Iverson MD Objective Remarks GENERAL: This is a well-nourished, well-developed patient, in no apparent distress. SKIN: No rashes, ecchymoses or lesions. Cool and dry. HEAD: Atraumatic. Normocephalic. No temporal or scalp tenderness. EYES: Pupils equal round and reactive. Extraocular motions intact. No scleral icterus. No injection or drainage. ENT: Nose without bleeding, purulent drainage or septal hematoma. Throat without erythema, tonsillar hypertrophy or exudate. Uvula midline. Airway patent. NECK: Trachea midline. No JVD or lymphadenopathy. Supple, nontender, no meningeal signs. CARDIOVASCULAR: Regular rate and rhythm without murmurs, gallops, or rubs. S1 and S2 no S3 or S4 RESPIRATORY: Clear to auscultation. Breath sounds equal bilaterally. No wheezes , rales, or rhonchi. GASTROINTESTINAL: Abdomen soft, non-tender, nondistended. No hepato-splenomegaly , or palpable masses. No guarding. MUSCULOSKELETAL: Extremities without clubbing, cyanosis, or edema. No joint tenderness, effusion, or edema noted. No calf tenderness. Negative Homans sign bilaterally. NEUROLOGICAL: Awake and alert. Cranial nerves II through XII intact. Motor and sensory grossly within normal limits. 4 out of 5 muscle strength in all muscle groups. Normal speech. Insight and judgment appears good Mood and behavior are somewhat appropriate Procedures NONE Medications and IVs Current Medications Aspirin (Aspirin Chew) 81 mg ONCE ONCE CHEW Last administered on 03/21/17 05 :54; Start 03/21/17 at 05:15; Stop 03/21/17 at 05:16; Status DC Nitroglycerin (Nitroglycerin 2% Oint) 1 inch ONCE ONCE TOPICAL Last administered on 03/21/17 05:54; Start 03/21/17 at 05:15; Stop 03/21/17 at 05 :16; Status DC Nitroglycerin (Nitrostat Sl) 0.4 mg Q5M PRN SL CHEST PAIN Last administered on 03/21/17 06:34; Start 03/21/17 at 05:15 Furosemide (Lasix Inj) 40 mg ONCE ONCE IV PUSH Last administered on 05:54; Start 03/21/17 at 06:00; Stop 03/21/17 at 06:01; Status DC Sodium Chloride (NS Flush) 2 ml UNSCH PRN IV FLUSH FLUSH AFTER USING IV ACCESS ; Start 03/21/17 at 06:15; Stop 03/21/17 at 11:16; Status DC Sodium Chloride (NS Flush) 2 ml BID IV FLUSH Last administered on 03/21/17 07 :58; Start 03/21/17 at 09:00; Stop 03/21/17 at 11:16; Status DC Acetaminophen (Tylenol) 650 mg Q4H PRN PO TEMP > 100.4 Last administered on 06:53; Start 03/21/17 at 06:15; Stop 03/21/17 at 11:09; Status DC Naloxone HCl (Narcan Inj) 0.4 mg UNSCH PRN IV PUSH SEE LABEL COMMENTS; Start 03/21/17 at 06:15; Stop 03/21/17 at 11:15; Status DC Acetaminophen (Tylenol) 650 mg Q4H PRN PO PAIN SCALE 1 TO 10; Start 03/21/17 at 11:00; Stop 03/21/17 at 11:09; Status DC Alprazolam (Xanax) 0.5 mg Q8H PRN PO ANXIETY Last administered on 03/22/17 21 :04; Start 03/21/17 at 11:00 Aspirin (Ecotrin Ec) 162 mg DAILY PO Last administered on 11/16/17at 08:56; Start 03/22/17 at 09:00 Carvedilol (Coreg) 6.25 mg BID PO Last administered on 03/22/17 08:55; Start 03/21/17 at 21:00 Enalapril Maleate (Vasotec) 2.5 mg BID PO Last administered on 03/22/17 08:56 ; Start 03/21/17 at 21:00; Stop 03/22/17 at 15:32; Status DC Furosemide (Lasix) 20 mg DAILY PO Last administered on 03/22/17 08:56; Start 03/22/17 at 09:00 Acetaminophen/ Hydrocodone Bitart ([place] 5-325 Mg) 1 tab Q6HR PO ; Start 03/21 at 12:00; Stop 03/21/17 at 19:56; Status DC Isosorbide Mononitrate (Imdur) 30 mg DAILY@07 PO Last administered on 05:54; Start 03/22/17 at 07:00 Spironolactone (Aldactone) 25 mg DAILY PO Last administered on 03/22/17 08:56 ; Start 03/22/17 at 09:00; Stop 03/22/17 at 15:32; Status DC Pantoprazole Sodium (Protonix) 20 mg DAILY PO Last administered on 03/22/17 08:56; Start 03/22/17 at 09:00 Pravastatin Sodium (Pravachol) 40 mg HS PO Last administered on 03/22/17 21: 01; Start 03/21/17 at 21:00 Sodium Chloride (NS Flush) 2 ml UNSCH PRN IV FLUSH FLUSH AFTER USING IV ACCESS ; Start 03/21/17 at 11:00 Sodium Chloride (NS Flush) 2 ml BID IV FLUSH Last administered on 03/22/17 21 :02; Start 03/21/17 at 21:00 Acetaminophen (Tylenol) 650 mg Q4H PRN PO TEMP > 100.4; Start 03/21/17 at 11: 00 Ondansetron HCl (Zofran Inj) 4 mg Q6H PRN IVP NAUSEA OR VOMITING; Start at 11:00 Prochlorperazine (Compazine Supp) 25 mg Q12H PRN RECTAL NAUSEA OR VOMITING; Start 03/21/17 at 11:00 Acetaminophen (Tylenol) 650 mg Q6H PRN PO PAIN SCALE 1 TO 2; Start 03/21/17 at 11:00 Morphine Sulfate (Morphine Inj) 2 mg Q3H PRN IV PUSH Pain 3-5; if unable to take PO; Start 03/21/17 at 11:00; Stop 03/21/17 at 19:56; Status DC Morphine Sulfate (Morphine Inj) 4 mg Q3H PRN IV PUSH Pain 6-10;if unable to take PO; Start 03/21/17 at 11:00; Stop 03/21/17 at 19:56; Status DC Naloxone HCl (Narcan Inj) 0.4 mg UNSCH PRN IV PUSH SEE LABEL COMMENTS; Start 03/21/17 at 11:00 Senna/Docusate Sodium (Nasrin-Colace) 1 tab BID PO Last administered on t 08:56; Start 03/21/17 at 21:00 Magnesium Hydroxide (Milk Of Magnesia Liq) 30 ml Q12H PRN PO Mild constipation ; Start 03/21/17 at 11:00 Sennosides (Senokot) 17.2 mg Q12H PRN PO Moderate constipation; Start at 11:00 Bisacodyl (Dulcolax Supp) 10 mg DAILY PRN RECTAL SEVERE CONSITIPATION; Start 03/21/17 at 11:00 Lactulose (Lactulose Liq) 30 ml DAILY PRN PO SEVERE CONSITIPATION; Start 03/21 at 11:00 Enalapril Maleate (Vasotec) 2.5 mg DAILY PO ; Start 03/23/17 at 09:00 Spironolactone (Aldactone) 12.5 mg DAILY PO ; Start 03/23/17 at 09:00 Sodium Chloride (Sodium Chloride) 1 gm TID PO Last administered on 03/22/17t 19:20; Start 03/22/17 at 18:00 Miscellaneous (Pill Splitter) 1 ea UNSCH PRN OTHER SEE LABEL COMMENTS; Start 03/22/17 at 16:15 A/P Assessment and Plan Chest pain we will trend troponins. Consult cardiology. Has slightly higher than baseline troponins BUT less than last admission Hypertension continue home medications PUT RESTRICTIONS ON MEDS Hyperlipidemia continue on statin if able to tolerate History of coronary artery disease consult cardiology History of aortic valve replacement and past with probable need of TAVR in future MAYBE APR 11 GERD hiatal hernia continue PPI osteoarthritis pain control Hyponatremia recheck labs monitor- SLOW IMPROVEMENT WITH SODIUM CHLORIDE TABS Cardiology and cardiovascular surgery (consulted) OPINIONS REVIEWED NEEDS PT AND OT WANTS TO GO HOME WITH HHC AND DAUGHTER AT DC Discharge Planning WILL NEED HHC AND PT AND OT AND RN EVAL AND TREAT WILL NEED [facility] TO SEE IF CAN HAVE HOME OXYGEN Luis Segura DO Mar 23, 2017 09:30
[2017-03-23] MEDS: PRAVASTATIN SOD 40 MG TAB PO SCH (20:38)
[2017-03-23] MEDS: ALPRAZolam 0.5 MG TAB PO PRN (20:38)
[2017-03-24] VITALS (23 sets, daily range): BP systolic 100–126; BP diastolic 48–65; PULSE 60–78; RESP 16–18; TEMP 97.2–98.6; O2SAT 96–98
[2017-03-24 04:53] LABS: AUTOMATED NEUTROPHIL # 2.7 TH/MM3 (1.8-7.7); BASOPHIL # 0.1 TH/MM3 (0-0.2); BASOPHIL % 1.8 % (0.0-2.0); EOSINOPHIL # 0.2 TH/MM3 (0-0.4); HEMATOCRIT 30.8 % (35.0-46.0); HEMO FLAGS DIFF FINAL; LYMPHOCYTE # 2.1 TH/MM3 (1.0-4.8); MEAN CELL VOLUME 84.3 FL (80.0-100.0); MEAN CORPUSCULAR HEMOGLOBIN 29.8 PG (27.0-34.0); MEAN CORPUSCULAR HGB CONC 35.4 % (32.0-36.0); MONO % 11.5 % (0.0-8.0); NEUT % 46.7 % (16.0-70.0); PLATELET COUNT 195 TH/MM3 (150-450); RED BLOOD COUNT 3.65 MIL/MM3 (4.00-5.30); RED CELL DISTRIBUTION WIDTH 14.9 % (11.6-17.2); WHITE BLOOD COUNT 5.8 TH/MM3 (4.0-11.0)
[2017-03-24 05:20] LABS: ANION GAP 7 MEQ/L (5-15); AST (GOT) 18 U/L (15-37); BICARBONATE 26.7 MEQ/L (21.0-32.0); BLOOD UREA NITROGEN 14 MG/DL (7-18); CHLORIDE 93 MEQ/L (98-107); GLOMERULAR FILTRATION RATE 156 ML/MIN (>89); POTASSIUM 4.1 MEQ/L (3.5-5.1); SODIUM (NA) 127 MEQ/L (136-145)
[2017-03-24 05:23] LABS: ALKALINE PHOSPHATASE 66 U/L (45-117); ALT (GPT) 19 U/L (10-53); TOTAL BILIRUBIN ADULT 0.4 MG/DL (0.2-1.0)
[2017-03-24] MEDS: ISOSORBIDE MONONITRATE 30 MG TAB PO SCH (06:24)
[2017-03-24] MEDS: SPIRONOLACTONE 25 MG TAB PO SCH (08:27)
[2017-03-24] MEDS: ENALAPRIL MALEATE 2.5 MG TAB PO SCH (08:28)
[2017-03-24] MEDS: DOCUSATE SODIUM 50 MG/SENNA 8.6 MG TAB PO SCH ×2 (08:29→20:34)
[2017-03-24] MEDS: PANTOPRAZOLE SOD 20 MG DELAYED RELEASE TAB PO SCH (08:29)
[2017-03-24] MEDS: ALPRAZolam 0.5 MG TAB PO PRN ×2 (08:29→19:39)
[2017-03-24] MEDS: FUROSEMIDE 20 MG TAB PO SCH (08:29)
[2017-03-24] MEDS: SODIUM CHLORIDE 1 GRAM TAB PO SCH ×3 (08:30→17:47)
[2017-03-24] MEDS: ASPIRIN EC 81 MG TABEC PO SCH (08:30)
[2017-03-24] MEDS: SODIUM CHLORIDE 0.9% FLUSH 10 ML FLUSH IV FLUSH SCH ×2 (08:30→20:33)
[2017-03-24] MEDS: CARVEDILOL 6.25 MG TAB PO SCH ×2 (08:30→20:34)
--- NOTE | 2017-03-24 12:42 | HHI.PR ---
Subjective Remarks Patient is a 87-year-old female who presented to [facility] emergency department with a history of chest pressure in the center of her chest that began an hour prior to arrival. Patient lives in [facility]. At the detention facility they tried to administering gas medication without relief. The patient reports that she had some shortness of breath associated with this. Patient had recently been admitted to the hospital and had an elevated troponin was diagnosed with a non-ST elevation [place]. Patient has a chronic known left bundle branch block. As given aspirin. On review of systems denies any nausea vomiting denies any cough or congestion neck pain urinary symptoms but had some diarrhea couple days. Patient has been placed in observation will consult cardiology someone is already consult cardiovascular surgery patient was being worked up for TAVR aortic valve stenosis 03-22 SEEN BY CARDIOLOGY YESTERDAY NOT MUCH OFFERED- AWAIT PROCEDURE ON APR 11 MONITOR LABS PT AND OT DW RN AND PT FOLLOW HYPONATREMIA 03-23 CONTINUE PT AND OT HYPONATREMIA SLOWLY IMPROVING WITH MEDICATION ADJUSTMENT DW RN AND PT FAMILY WANTS HHC AT DC MEDICATIONS WERE ADJUSTED AM LABS 03-24 HYPONATREMIA SLOWLY IMPROVING WITH MEDICATION ADJUSTMENT WILL NEED HHC AT DC DW RN AND PT AM LABS Objective Vitals Vital Signs Date Time Temp Pulse Resp B/P (MAP) Pulse Ox O2 Delivery O2 Flow Rate FiO2 03/24/17 06:00 62 03/24/17 05:00 61 03/24/17 04:00 65 03/24/17 04:00 Room Air 03/24/17 04:00 98.5 66 18 115/55 (75) 98 03/24/17 03:00 69 03/24/17 02:00 66 03/24/17 01:00 64 03/24/17 00:00 98.1 66 18 111/64 (80) 96 03/24/17 00:00 66 03/24/17 00:00 Room Air 03/23/17 23:00 69 03/23/17 22:00 79 03/23/17 21:00 80 03/23/17 20:00 98.6 77 18 106/60 (75) 97 03/23/17 20:00 77 03/23/17 17:56 98.6 67 18 120/53 (75) 97 03/23/17 17:00 80 03/23/17 16:00 71 03/23/17 15:00 76 03/23/17 14:00 69 03/23/17 13:00 76 I/O 03/23/17 03/23/17 03/23/17 03/24/17 03/24/17 03/24/17 07:00 15:00 23:00 07:00 15:00 23:00 Intake Total 240 ml 240 ml 240 ml Output Total 575 ml 600 ml Balance -335 ml 240 ml -360 ml Intake Oral 240 ml 240 ml 240 ml Output Urine Total 575 ml 600 ml # Voids 1 # Bowel Movements 0 Result Diagram: 03/24/17 0340 03/24/17 0340 Other Results Laboratory Tests Test 03/21/17 17:10 03/21/17 22:46 03/22/17 05:37 03/23/17 05:33 Total Creatine Kinase 68 U/L 77 U/L Troponin I 0.07 NG/ML 0.07 NG/ML White Blood Count 6.1 TH/MM3 5.8 TH/MM3 Red Blood Count 3.91 MIL/MM3 3.87 MIL/MM3 Hemoglobin 11.3 GM/DL 11.5 GM/DL Hematocrit 33.1 % 32.8 % Mean Corpuscular Volume 84.5 FL 84.9 FL Mean Corpuscular Hemoglobin 28.9 PG 29.7 PG Mean Corpuscular Hemoglobin Concent 34.2 % 34.9 % Red Cell Distribution Width 14.6 % 14.7 % Platelet Count 225 TH/MM3 216 TH/MM3 Mean Platelet Volume 8.5 FL 8.6 FL Neutrophils (%) (Auto) 58.1 % 50.3 % Lymphocytes (%) (Auto) 26.0 % 34.4 % Monocytes (%) (Auto) 10.7 % 9.9 % Eosinophils (%) (Auto) 3.8 % 3.9 % Basophils (%) (Auto) 1.4 % 1.5 % Neutrophils # (Auto) 3.5 TH/MM3 2.9 TH/MM3 Lymphocytes # (Auto) 1.6 TH/MM3 2.0 TH/MM3 Monocytes # (Auto) 0.6 TH/MM3 0.6 TH/MM3 Eosinophils # (Auto) 0.2 TH/MM3 0.2 TH/MM3 Basophils # (Auto) 0.1 TH/MM3 0.1 TH/MM3 CBC Comment DIFF FINAL DIFF FINAL Differential Comment Prothrombin Time 11.2 SEC Prothromb Time International Ratio 1.0 RATIO Blood Urea Nitrogen 13 MG/DL 15 MG/DL Creatinine 0.46 MG/DL 0.44 MG/DL Random Glucose 79 MG/DL 85 MG/DL Calcium Level 8.1 MG/DL 8.1 MG/DL Sodium Level 123 MEQ/L 125 MEQ/L Potassium Level 3.6 MEQ/L 4.3 MEQ/L Chloride Level 88 MEQ/L 91 MEQ/L Carbon Dioxide Level 26.4 MEQ/L 25.4 MEQ/L Anion Gap 9 MEQ/L 9 MEQ/L Estimat Glomerular Filtration Rate 129 ML/MIN 136 ML/MIN Total Protein 5.9 GM/DL Albumin 2.9 GM/DL Phosphorus Level 3.7 MG/DL Magnesium Level 2.0 MG/DL Alkaline Phosphatase 59 U/L Aspartate Amino Transf (AST/SGOT) 21 U/L Alanine Aminotransferase (ALT/SGPT) 19 U/L Total Bilirubin 0.5 MG/DL B-Type Natriuretic Peptide 616 PG/ML Test 03/24/17 03:40 White Blood Count 5.8 TH/MM3 Red Blood Count 3.65 MIL/MM3 Hemoglobin 10.9 GM/DL Hematocrit 30.8 % Mean Corpuscular Volume 84.3 FL Mean Corpuscular Hemoglobin 29.8 PG Mean Corpuscular Hemoglobin Concent 35.4 % Red Cell Distribution Width 14.9 % Platelet Count 195 TH/MM3 Mean Platelet Volume 8.6 FL Neutrophils (%) (Auto) 46.7 % Lymphocytes (%) (Auto) 36.0 % Monocytes (%) (Auto) 11.5 % Eosinophils (%) (Auto) 4.0 % Basophils (%) (Auto) 1.8 % Neutrophils # (Auto) 2.7 TH/MM3 Lymphocytes # (Auto) 2.1 TH/MM3 Monocytes # (Auto) 0.7 TH/MM3 Eosinophils # (Auto) 0.2 TH/MM3 Basophils # (Auto) 0.1 TH/MM3 CBC Comment DIFF FINAL Differential Comment Blood Urea Nitrogen 14 MG/DL Creatinine 0.39 MG/DL Random Glucose 87 MG/DL Total Protein 5.6 GM/DL Albumin 2.8 GM/DL Calcium Level 7.9 MG/DL Phosphorus Level 3.1 MG/DL Magnesium Level 2.0 MG/DL Alkaline Phosphatase 66 U/L Aspartate Amino Transf (AST/SGOT) 18 U/L Alanine Aminotransferase (ALT/SGPT) 19 U/L Total Bilirubin 0.4 MG/DL Sodium Level 127 MEQ/L Potassium Level 4.1 MEQ/L Chloride Level 93 MEQ/L Carbon Dioxide Level 26.7 MEQ/L Anion Gap 7 MEQ/L Estimat Glomerular Filtration Rate 156 ML/MIN Imaging Last Impressions Chest X-Ray 03/21/17 5516 Signed Impressions: Service Date/Time: Tuesday, March 21, 2017 05:12 - CONCLUSION: Diffuse patchy interstitial lung disease. Venkatesh Iverson MD Objective Remarks GENERAL: This is a well-nourished, well-developed patient, in no apparent distress. SKIN: No rashes, ecchymoses or lesions. Cool and dry. HEAD: Atraumatic. Normocephalic. No temporal or scalp tenderness. EYES: Pupils equal round and reactive. Extraocular motions intact. No scleral icterus. No injection or drainage. ENT: Nose without bleeding, purulent drainage or septal hematoma. Throat without erythema, tonsillar hypertrophy or exudate. Uvula midline. Airway patent. NECK: Trachea midline. No JVD or lymphadenopathy. Supple, nontender, no meningeal signs. CARDIOVASCULAR: Regular rate and rhythm without murmurs, gallops, or rubs. S1 and S2 no S3 or S4 RESPIRATORY: Clear to auscultation. Breath sounds equal bilaterally. No wheezes , rales, or rhonchi. GASTROINTESTINAL: Abdomen soft, non-tender, nondistended. No hepato-splenomegaly , or palpable masses. No guarding. MUSCULOSKELETAL: Extremities without clubbing, cyanosis, or edema. No joint tenderness, effusion, or edema noted. No calf tenderness. Negative Homans sign bilaterally. NEUROLOGICAL: Awake and alert. Cranial nerves II through XII intact. Motor and sensory grossly within normal limits. 4 out of 5 muscle strength in all muscle groups. Normal speech. Insight and judgment appears good Mood and behavior are somewhat appropriate Procedures NONE Medications and IVs Current Medications Aspirin (Aspirin Chew) 81 mg ONCE ONCE CHEW Last administered on 03/21/17 05 :54; Start 03/21/17 at 05:15; Stop 03/21/17 at 05:16; Status DC Nitroglycerin (Nitroglycerin 2% Oint) 1 inch ONCE ONCE TOPICAL Last administered on 03/21/17 05:54; Start 03/21/17 at 05:15; Stop 03/21/17 at 05 :16; Status DC Nitroglycerin (Nitrostat Sl) 0.4 mg Q5M PRN SL CHEST PAIN Last administered on 03/21/17 06:34; Start 03/21/17 at 05:15 Furosemide (Lasix Inj) 40 mg ONCE ONCE IV PUSH Last administered on 05:54; Start 03/21/17 at 06:00; Stop 03/21/17 at 06:01; Status DC Sodium Chloride (NS Flush) 2 ml UNSCH PRN IV FLUSH FLUSH AFTER USING IV ACCESS ; Start 03/21/17 at 06:15; Stop 03/21/17 at 11:16; Status DC Sodium Chloride (NS Flush) 2 ml BID IV FLUSH Last administered on 03/21/17 07 :58; Start 03/21/17 at 09:00; Stop 03/21/17 at 11:16; Status DC Acetaminophen (Tylenol) 650 mg Q4H PRN PO TEMP > 100.4 Last administered on 06:53; Start 03/21/17 at 06:15; Stop 03/21/17 at 11:09; Status DC Naloxone HCl (Narcan Inj) 0.4 mg UNSCH PRN IV PUSH SEE LABEL COMMENTS; Start 03/21/17 at 06:15; Stop 03/21/17 at 11:15; Status DC Acetaminophen (Tylenol) 650 mg Q4H PRN PO PAIN SCALE 1 TO 10; Start 03/21/17 at 11:00; Stop 03/21/17 at 11:09; Status DC Alprazolam (Xanax) 0.5 mg Q8H PRN PO ANXIETY Last administered on 03/24/17 08 :29; Start 03/21/17 at 11:00 Aspirin (Ecotrin Ec) 162 mg DAILY PO Last administered on 03/24/17 08:30; Start 03/22/17 at 09:00 Carvedilol (Coreg) 6.25 mg BID PO Last administered on 03/24/17 08:30; Start 03/21/17 at 21:00 Enalapril Maleate (Vasotec) 2.5 mg BID PO Last administered on 03/22/17 08:56 ; Start 03/21/17 at 21:00; Stop 03/22/17 at 15:32; Status DC Furosemide (Lasix) 20 mg DAILY PO Last administered on 03/24/17 08:29; Start 03/22/17 at 09:00 Acetaminophen/ Hydrocodone Bitart ([place] 5-325 Mg) 1 tab Q6HR PO ; Start 03/21 at 12:00; Stop 03/21/17 at 19:56; Status DC Isosorbide Mononitrate (Imdur) 30 mg DAILY@07 PO Last administered on 06:24; Start 03/22/17 at 07:00 Spironolactone (Aldactone) 25 mg DAILY PO Last administered on 03/22/17 08:56 ; Start 03/22/17 at 09:00; Stop 03/22/17 at 15:32; Status DC Pantoprazole Sodium (Protonix) 20 mg DAILY PO Last administered on 03/24/17 08:29; Start 03/22/17 at 09:00 Pravastatin Sodium (Pravachol) 40 mg HS PO Last administered on 03/23/17 20: 38; Start 03/21/17 at 21:00 Sodium Chloride (NS Flush) 2 ml UNSCH PRN IV FLUSH FLUSH AFTER USING IV ACCESS ; Start 03/21/17 at 11:00 Sodium Chloride (NS Flush) 2 ml BID IV FLUSH Last administered on 03/24/17 08 :30; Start 03/21/17 at 21:00 Acetaminophen (Tylenol) 650 mg Q4H PRN PO TEMP > 100.4; Start 03/21/17 at 11: 00 Ondansetron HCl (Zofran Inj) 4 mg Q6H PRN IVP NAUSEA OR VOMITING; Start at 11:00 Prochlorperazine (Compazine Supp) 25 mg Q12H PRN RECTAL NAUSEA OR VOMITING; Start 03/21/17 at 11:00 Acetaminophen (Tylenol) 650 mg Q6H PRN PO PAIN SCALE 1 TO 2; Start 03/21/17 at 11:00 Morphine Sulfate (Morphine Inj) 2 mg Q3H PRN IV PUSH Pain 3-5; if unable to take PO; Start 03/21/17 at 11:00; Stop 03/21/17 at 19:56; Status DC Morphine Sulfate (Morphine Inj) 4 mg Q3H PRN IV PUSH Pain 6-10;if unable to take PO; Start 03/21/17 at 11:00; Stop 03/21/17 at 19:56; Status DC Naloxone HCl (Narcan Inj) 0.4 mg UNSCH PRN IV PUSH SEE LABEL COMMENTS; Start 03/21/17 at 11:00 Senna/Docusate Sodium (Nasrin-Colace) 1 tab BID PO Last administered on 08:29; Start 03/21/17 at 21:00 Magnesium Hydroxide (Milk Of Magnesia Liq) 30 ml Q12H PRN PO Mild constipation ; Start 03/21/17 at 11:00 Sennosides (Senokot) 17.2 mg Q12H PRN PO Moderate constipation; Start at 11:00 Bisacodyl (Dulcolax Supp) 10 mg DAILY PRN RECTAL SEVERE CONSITIPATION; Start 03/21/17 at 11:00 Lactulose (Lactulose Liq) 30 ml DAILY PRN PO SEVERE CONSITIPATION; Start 03/21 at 11:00 Enalapril Maleate (Vasotec) 2.5 mg DAILY PO Last administered on 03/24/17 08: 28; Start 03/23/17 at 09:00 Spironolactone (Aldactone) 12.5 mg DAILY PO Last administered on 03/24/17 08: 27; Start 03/23/17 at 09:00 Sodium Chloride (Sodium Chloride) 1 gm TID PO Last administered on 03/24/17 12:01; Start 03/22/17 at 18:00 Miscellaneous (Pill Splitter) 1 ea UNSCH PRN OTHER SEE LABEL COMMENTS; Start 03/22/17 at 16:15 Urinary Catheter: No Vascular Central Line Catheter: No A/P Assessment and Plan Chest pain we will trend troponins. Consult cardiology. Has slightly higher than baseline troponins BUT less than last admission Hypertension continue home medications PUT RESTRICTIONS ON MEDS Hyperlipidemia continue on statin if able to tolerate History of coronary artery disease consult cardiology History of aortic valve replacement and past with probable need of TAVR in future MAYBE APR 11 GERD hiatal hernia continue PPI osteoarthritis pain control Hyponatremia recheck labs monitor- SLOW IMPROVEMENT WITH SODIUM CHLORIDE TABS Cardiology and cardiovascular surgery (consulted) OPINIONS REVIEWED NEEDS PT AND OT WANTS TO GO HOME WITH HHC AND DAUGHTER AT DC AWAIT HYPONATREMIA IMPROVEMENT Discharge Planning WILL NEED HHC AND PT AND OT AND RN EVAL AND TREAT WILL NEED 3 [facility] TO SEE IF CAN HAVE HOME OXYGEN Luis Segura DO Mar 24, 2017 12:42
--- NOTE | 2017-03-24 12:44 | HHI.FF ---
Face to Face Verification Diagnosis: (1) History of aortic valve replacement (2) CHF (congestive heart failure) (3) Aortic stenosis (4) CAD (coronary artery disease) Physical Therapy Order: Evaluate and Treat, Improve ambulation, Strength and gait training Occupational Therapy Order: Evaluate and Treat, Improve ADL, Gross motor coordination, Fine motor coordination Home Health Nursing Order: Medical education Signs/symptoms of disease process CHF education Oxygen administration education Nursing assessment with vital signs Telehealth Home Health Aide Order: To Assist In: Bathing and personal care, brilliandeer lopper and meal prep I have seen patient Jessy Cornell on 03/24/17. My clinical findings support the need for the requested home health care services because: Ltd mobility - disease progression Patient has SOB Deconditioned w/ increased weakness Limited ability to care for self High risk of falls I certify that my clinical findings support that this patient is homebound because: Impaired cognitive ability/safety Unsteady gait/balance Poor cardiac reserve Luis Segura DO Mar 24, 2017 12:44
[2017-03-24] MEDS: PRAVASTATIN SOD 40 MG TAB PO SCH (20:34)
[2017-03-25] VITALS (26 sets, daily range): BP systolic 97–139; BP diastolic 52–66; PULSE 63–104; RESP 18–20; TEMP 97.7–98.4; O2SAT 96–98
[2017-03-25] MEDS: ALPRAZolam 0.5 MG TAB PO PRN ×3 (05:21→21:01)
[2017-03-25] MEDS: ISOSORBIDE MONONITRATE 30 MG TAB PO SCH (05:44)
[2017-03-25] MEDS: ASPIRIN EC 81 MG TABEC PO SCH (08:45)
[2017-03-25] MEDS: CARVEDILOL 6.25 MG TAB PO SCH ×2 (08:45→21:01)
[2017-03-25] MEDS: PANTOPRAZOLE SOD 20 MG DELAYED RELEASE TAB PO SCH (08:45)
[2017-03-25] MEDS: FUROSEMIDE 20 MG TAB PO SCH (08:45)
[2017-03-25] MEDS: SPIRONOLACTONE 25 MG TAB PO SCH (08:45)
[2017-03-25] MEDS: ENALAPRIL MALEATE 2.5 MG TAB PO SCH (08:45)
[2017-03-25] MEDS: SODIUM CHLORIDE 1 GRAM TAB PO SCH ×3 (08:50→18:15)
[2017-03-25] MEDS: DOCUSATE SODIUM 50 MG/SENNA 8.6 MG TAB PO SCH (08:51)
[2017-03-25] MEDS: SODIUM CHLORIDE 0.9% FLUSH 10 ML FLUSH IV FLUSH SCH ×2 (08:54→21:02)
--- NOTE | 2017-03-25 11:07 | HHI.PR ---
Subjective Remarks Patient seen and evaluated in follow-up for congestive heart failure and weakness. Patient doing a bit better. T aVR scheduled for 04/11 Sodium better Care plan discussed with veterinary physiologist Objective Vitals Vital Signs Date Time Temp Pulse Resp B/P (MAP) Pulse Ox O2 Delivery O2 Flow Rate FiO2 03/25/17 08:45 97.7 78 18 139/66 (90) 98 03/25/17 06:00 63 03/25/17 05:00 71 03/25/17 04:00 98.4 67 18 132/60 (84) 97 03/25/17 04:00 Room Air 03/25/17 04:00 67 03/25/17 03:00 70 03/25/17 02:00 69 03/25/17 01:00 69 03/25/17 00:00 79 03/25/17 00:00 98.2 79 18 110/66 (81) 96 03/25/17 00:00 Room Air 03/24/17 23:00 71 03/24/17 22:00 74 03/24/17 21:00 66 03/24/17 20:00 98.5 69 18 126/60 (82) 97 03/24/17 20:00 Room Air 03/24/17 20:00 69 03/24/17 18:00 70 03/24/17 17:00 66 03/24/17 16:00 66 03/24/17 16:00 97.2 66 18 112/53 (72) 98 03/24/17 15:00 72 03/24/17 14:00 78 03/24/17 13:00 68 03/24/17 12:00 62 03/24/17 12:00 97.2 65 16 100/48 (65) 97 I/O 03/24/17 03/24/17 03/24/17 03/25/17 03/25/17 03/25/17 07:00 15:00 23:00 07:00 15:00 23:00 Intake Total 240 ml 360 ml 400 ml Output Total 600 ml 450 ml 550 ml Balance -360 ml -90 ml -150 ml Intake Oral 240 ml 360 ml 400 ml Output Urine Total 600 ml 450 ml 550 ml # Bowel Movements 0 3 1 Result Diagram: 03/24/1733903/24/17 034 Objective Remarks GENERAL: This is a frail elderly female who is tearful CARDIOVASCULAR: Regular rate and rhythm without murmurs, gallops, or rubs. RESPIRATORY: Clear to auscultation. Breath sounds equal bilaterally. No wheezes , rales, or rhonchi. GASTROINTESTINAL: Abdomen soft, non-tender, nondistended. Normal active bowel sounds MUSCULOSKELETAL: Extremities without clubbing, cyanosis, or edema. NEURO: Alert & Oriented x4 to person, place, time, situation. Moves all ext x4 Procedures NONE A/P Problem List: (1) CHF (congestive heart failure) ICD Code: I50.9 - Heart failure, unspecified Status: Acute Plan: Patient also with known coronary artery disease Aldactone, Pravachol, Imdur, Lasix, lisinopril Coreg and aspirin Follow ins and outs with diuresis (2) Aortic stenosis ICD Code: I35.0 - Nonrheumatic aortic (valve) stenosis Plan: With failed previous valve T aVR scheduled 04/11 per cardiology Continue medications (3) Hyponatremia ICD Code: E87.1 - Hypo-osmolality and hyponatremia Plan: Improved, likely due to CHF It is chronic and asymptomatic Discharge Planning Likely discharge with home health in a.m. Daughter has gone to the emergency room, no family available at this time Problem Qualifiers (1) CHF (congestive heart failure): Qualified Codes: I50.21 - Acute systolic (congestive) heart failure (2) Aortic stenosis: Qualified Codes: I35.0 - Nonrheumatic aortic (valve) stenosis Leticia Orona MD Mar 25, 2017 11:07
[2017-03-25 12:27] LABS: AUTOMATED NEUTROPHIL # 2.6 TH/MM3 (1.8-7.7); BASOPHIL # 0.1 TH/MM3 (0-0.2); BASOPHIL % 2.5 % (0.0-2.0); EOSINOPHIL # 0.2 TH/MM3 (0-0.4); EOSINOPHIL % 3.8 % (0.0-4.0); HEMATOCRIT 35.4 % (35.0-46.0); HEMO FLAGS DIFF FINAL; LYMPH % 28.6 % (9.0-44.0); LYMPHOCYTE # 1.4 TH/MM3 (1.0-4.8); MEAN CELL VOLUME 86.8 FL (80.0-100.0); MEAN CORPUSCULAR HEMOGLOBIN 29.9 PG (27.0-34.0); MEAN CORPUSCULAR HGB CONC 34.4 % (32.0-36.0); MONO % 11.2 % (0.0-8.0); NEUT % 53.9 % (16.0-70.0); PLATELET COUNT 229 TH/MM3 (150-450); RED BLOOD COUNT 4.07 MIL/MM3 (4.00-5.30); RED CELL DISTRIBUTION WIDTH 14.9 % (11.6-17.2); WHITE BLOOD COUNT 4.8 TH/MM3 (4.0-11.0)
[2017-03-25 12:51] LABS: ALKALINE PHOSPHATASE 68 U/L (45-117); ALT (GPT) 19 U/L (10-53); ANION GAP 7 MEQ/L (5-15); AST (GOT) 15 U/L (15-37); BICARBONATE 23.4 MEQ/L (21.0-32.0); BLOOD UREA NITROGEN 10 MG/DL (7-18); CHLORIDE 94 MEQ/L (98-107); GLOMERULAR FILTRATION RATE 140 ML/MIN (>89); POTASSIUM 4.8 MEQ/L (3.5-5.1); TOTAL BILIRUBIN ADULT 0.5 MG/DL (0.2-1.0)
[2017-03-25 12:56] LABS: SODIUM (NA) 124 MEQ/L (136-145)
[2017-03-25] MEDS: PRAVASTATIN SOD 40 MG TAB PO SCH (21:01)
[2017-03-26] VITALS (12 sets, daily range): BP systolic 110–139; BP diastolic 55–67; PULSE 62–84; RESP 18–20; TEMP 98.1–98.4; O2SAT 96–97
[2017-03-26] MEDS: ISOSORBIDE MONONITRATE 30 MG TAB PO SCH (05:56)
[2017-03-26 07:11] LABS: BICARBONATE 25.7 MEQ/L (21.0-32.0); POTASSIUM 4.3 MEQ/L (3.5-5.1)
[2017-03-26] MEDS: SPIRONOLACTONE 25 MG TAB PO SCH (10:05)
[2017-03-26] MEDS: CARVEDILOL 6.25 MG TAB PO SCH (10:06)
[2017-03-26] MEDS: FUROSEMIDE 20 MG TAB PO SCH (10:06)
[2017-03-26] MEDS: ASPIRIN EC 81 MG TABEC PO SCH (10:06)
[2017-03-26] MEDS: SODIUM CHLORIDE 0.9% FLUSH 10 ML FLUSH IV FLUSH SCH (10:07)
[2017-03-26] MEDS: ENALAPRIL MALEATE 2.5 MG TAB PO SCH (10:07)
[2017-03-26] MEDS: PANTOPRAZOLE SOD 20 MG DELAYED RELEASE TAB PO SCH (10:07)
[2017-03-26] MEDS: SODIUM CHLORIDE 1 GRAM TAB PO SCH (10:11)
[2017-03-26] MEDS ORDERED: FURO1TAB62 PO (10:56)
--- NOTE | 2017-03-26 10:59 | HHI.DCPOC ---
Discharge Care Plan Diagnosis: (1) CAD (coronary artery disease) (2) CHF (congestive heart failure) (3) Hyponatremia Goals to Promote Your Health * To prevent worsening of your condition and complications * To maintain your health at the optimal level Directions to Meet Your Goals Take your medications as prescribed Follow your dietary instruction Follow activity as directed Keep your appointments as scheduled Take your immunizations and boosters as scheduled If your symptoms worsen call your PCP, if no PCP go to Urgent Care Center or Emergency Room Smoking is Dangerous to Your Health. Avoid second hand smoke Call the 24-hour hour crisis hotline for domestic abuse at Leticia Orona MD Mar 26, 2017 10:59
--- NOTE | 2017-03-26 11:04 | HHI.DS ---
Discharge Summary Admission Date Mar 21, 2017 at 06:16 Discharge Date: Mar 26, 2017 Admitting Diagnosis CHF exacerbation, elevated troponin, hyponatremia (1) CHF (congestive heart failure) ICD Code: I50.9 - Heart failure, unspecified Status: Acute (2) Aortic stenosis ICD Code: I35.0 - Nonrheumatic aortic (valve) stenosis (3) Hyponatremia ICD Code: E87.1 - Hypo-osmolality and hyponatremia Procedures NONE Brief History - From Admission Patient is a 87-year-old female who presented to [facility] emergency department with a history of chest pressure in the center of her chest that began an hour prior to arrival. Patient lives in [facility]. At the [facility] they tried to administering gas medication without relief. The patient reports that she had some shortness of breath associated with this. Patient had recently been admitted to the hospital and had an elevated troponin was diagnosed with a non-ST elevation IL. Patient has a chronic known left bundle branch block. As given aspirin. On review of systems denies any nausea vomiting denies any cough or congestion neck pain urinary symptoms but had some diarrhea couple days. Patient has been placed in observation will consult cardiology someone is already consult cardiovascular surgery patient was being worked up for TAVR aortic valve stenosis CBC/BMP: 03/25/17 1119 03/26/17 0456 Significant Findings Laboratory Tests Test 03/24/17 03:40 03/25/17 11:19 03/25/17 18:12 03/25/17 18:26 Red Blood Count 3.65 MIL/MM3 (4.00-5.30) Hemoglobin 10.9 GM/DL (11.6-15.3) Hematocrit 30.8 % (35.0-46.0) Monocytes (%) (Auto) 11.5 % (0.0-8.0) 11.2 % (0.0-8.0) Creatinine 0.39 MG/DL (0.50-1.00) 0.43 MG/DL (0.50-1.00) Total Protein 5.6 GM/DL (6.4-8.2) 6.3 GM/DL (6.4-8.2) Albumin 2.8 GM/DL (3.4-5.0) 3.0 GM/DL (3.4-5.0) Calcium Level 7.9 MG/DL (8.5-10.1) 7.9 MG/DL (8.5-10.1) Sodium Level 127 MEQ/L (136-145) 124 MEQ/L (136-145) Chloride Level 93 MEQ/L (98-107) 94 MEQ/L (98-107) Basophils (%) (Auto) 2.5 % (0.0-2.0) Urine Osmolality 275 MOSM/KG (300-1300) Serum Osmolality 269 MOSM/KG (275-295) Test 03/26/17 04:56 Creatinine 0.39 MG/DL (0.50-1.00) Calcium Level 8.0 MG/DL (8.5-10.1) Sodium Level 127 MEQ/L (136-145) Chloride Level 94 MEQ/L (98-107) Imaging Last Impressions Chest X-Ray 03/21/17 0375 Signed Impressions: Service Date/Time: Sunday, March 21, 2017 05:12 - CONCLUSION: Diffuse patchy interstitial lung disease. Venkatesh Iverson MD PE at Discharge GENERAL: This is a frail elderly female who is tearful CARDIOVASCULAR: Regular rate and rhythm without murmurs, gallops, or rubs. RESPIRATORY: Clear to auscultation. Breath sounds equal bilaterally. No wheezes , rales, or rhonchi. GASTROINTESTINAL: Abdomen soft, non-tender, nondistended. Normal active bowel sounds MUSCULOSKELETAL: Extremities without clubbing, cyanosis, or edema. NEURO: Alert & Oriented x4 to person, place, time, situation. Moves all ext x4 Pt update on day of discharge Patient seen today in follow-up for discharge planning. Daughter at the bedside. Sodium improved. Care plan and discharge plan discussed with daughter , patient and nursing team Hospital Course Patient is a 87-year-old female who came in hospital with chest pressure and evidence of congestive heart fire. Patient has no congestive heart failure evaluation for aortic valve dysfunction. Patient is scheduled for TAvR April. She did well with medical management of her chest discomfort as well as or shortness of breath. Patient also has some hyponatremia likely from being hypervolemic related to congestive heart failure. She was treated appropriately. Pt Condition on Discharge: Good Discharge Disposition: Discharge Home Discharge Time: <= 30 minutes Discharge Instructions DIET: Follow Instructions for: Heart Healthy Diet Activities you can perform: Regular-No Restrictions Follow up Referrals: Cardiology - 04/11/17 with lawrence PCP Follow-up - 1 Week New Medications: Adjustable Commode 3-in-1 (Adjustable Commode 3-in-1) 1 Mis Mis EA .ROUTE DIRECTED for Shortness of Breath, #1 Furosemide (Lasix) 20 Mg Tab 20 MG PO BID for chf, #60 TAB 0 Refills Hospital Bed - Electric (Hospital Bed - Electric) 1 Ea Ea EA .ROUTE DIRECTED for Shortness of Breath, #1 Continued Medications: Acetaminophen (Tylenol) 325 Mg Tab 650 MG PO Q4H PRN for PAIN SCALE 1 TO 10, TAB 0 Refills Alprazolam (Xanax) 0.5 Mg Tab 0.5 MG PO Q8H PRN for ANXIETY, TAB [address] (Adult Aspirin EC Low Strength) 81 Mg Tabec 162 MG PO DAILY for Blood Clot Prevention, #30 TAB Carvedilol (Carvedilol) 6.25 Mg Tab 6.25 MG PO BID, #60 TAB 0 Refills Enalapril (Enalapril) 2.5 Mg Tab 2.5 MG PO BID for Blood Pressure Management, #30 TAB Hydrocodone/Acetaminophen (Hydrocodone-Acetamin 5-325 mg) 5 Mg-325 Mg Tablet 1 TAB PO Q6HR for Pain Management Isosorbide Mononitrate ER (Isosorbide Mononitrate ER) 30 Mg Amanda 30 MG PO DAILY@07 for Blood Pressure Management, #30 TAB Omeprazole (Omeprazole) 20 Mg Tab 20 MG PO DAILY, #30 TAB 0 Refills Simvastatin (Simvastatin) 20 Mg Tab 20 MG PO HS for Cholesterol Management, #30 TAB 0 Refills Spironolactone (Aldactone) 25 Mg Tab 25 MG PO DAILY for Blood Pressure Management, #30 TAB 0 Refills Discontinued Medications: Furosemide (Lasix) 20 Mg Tab 20 MG PO DAILY for edema, #30 TAB 0 Refills Leticia Orona MD Mar 26, 2017 11:04
== END 2017-03-26 12:57 | disposition home or self-care (01) | DRG 292 ==
LOC: NEPE 04:48 → NEDA 06:16 → HCIS 09:18
PROVIDERS: ADMIT Hospitalist; ATTEND Hospitalist
DX: I11.0 Hypertensive heart disease with heart failure (principal); E87.1 Hypo-osmolality and hyponatremia; J84.9 Interstitial pulmonary disease, unspecified; T82.857A Stenosis of other cardiac prosthetic devices, implants and grafts, initial encounter; I35.1 Nonrheumatic aortic (valve) insufficiency; I44.7 Left bundle-branch block, unspecified; I25.10 Atherosclerotic heart disease of native coronary artery without angina pectoris; I50.23 Acute on chronic systolic (congestive) heart failure; K21.9 Gastro-esophageal reflux disease without esophagitis; E78.5 Hyperlipidemia, unspecified; I25.2 Old myocardial infarction; K44.9 Diaphragmatic hernia without obstruction or gangrene; M19.90 Unspecified osteoarthritis, unspecified site; F41.9 Anxiety disorder, unspecified; Y83.1 Surgical operation with implant of artificial internal device as the cause of abnormal reaction of the patient, or of later complication, without mention of misadventure at the time of the procedure; Z95.1 Presence of aortocoronary bypass graft
CPT/HCPCS: 71010; 80048; 80053; 82550; 83690; 83735; 83880; 83930; 83935; 84100; 84300; 84484; 85025; 85610; 85730; 93005; 94620; 96374; J1940

== ENCOUNTER 2017-04-11 05:09 | Inpatient (IN) | payer MEDICARE ==
[~2017-04-11] VITALS: Ht 152.4 cm; Wt 51.5 kg
[~2017-04-11 05:09] MED LIST changes: +ADJUSTABLE COMM1 MIS; +ALPR.5 PO; +CARV3.125 PO; -CARV6.252 PO; +CIPR250T52 PO; +HOSP BED1; +HYDR-3516 PO; +PLAV75TA29 PO; +POTA-163 PO; +SODI1TAB PO; -SPIR25 PO; +TYLE325T PO
[2017-04-11] MEDS ORDERED: MUPIROCIN 2% OINT 1 APPLIC/GM SYRINGE EACH NARE PRN (06:00)
[2017-04-11] MEDS ORDERED: CHLORHEXIDINE GLUCONATE 2 % 1 PACK (2 CLOTHS) TOPICAL PRN ×2 (06:00→07:00)
[2017-04-11] MEDS ORDERED: POVIDONE IODINE 5% (ANTISEPSIS KIT) EACH NARE PRN (06:00)
[2017-04-11] MEDS ORDERED: ceFAZolin 2 GM PREMIX 50 ML IV PRN (06:00)
[2017-04-11] MEDS ORDERED: SODIUM CHLOR 0.9% 1000 ML 1,000 ML IV SCH (06:00)
[2017-04-11] MEDS ORDERED: HEPARIN-NS/PF INJ 2,500 ML ONE (06:11)
[2017-04-11 06:24] LABS: AUTOMATED NEUTROPHIL # 3.6 TH/MM3 (1.8-7.7); BASOPHIL # 0.1 TH/MM3 (0-0.2); BASOPHIL % 1.6 % (0.0-2.0); EOSINOPHIL # 0.2 TH/MM3 (0-0.4); EOSINOPHIL % 3.2 % (0.0-4.0); HEMATOCRIT 33.3 % (35.0-46.0); HEMO FLAGS DIFF FINAL; LYMPH % 26.1 % (9.0-44.0); LYMPHOCYTE # 1.6 TH/MM3 (1.0-4.8); MEAN CELL VOLUME 84.3 FL (80.0-100.0); MEAN CORPUSCULAR HEMOGLOBIN 28.3 PG (27.0-34.0); MEAN CORPUSCULAR HGB CONC 33.6 % (32.0-36.0); MONO % 9.6 % (0.0-8.0); NEUT % 59.5 % (16.0-70.0); PLATELET COUNT 301 TH/MM3 (150-450); RED BLOOD COUNT 3.95 MIL/MM3 (4.00-5.30); RED CELL DISTRIBUTION WIDTH 14.1 % (11.6-17.2); WHITE BLOOD COUNT 6.1 TH/MM3 (4.0-11.0)
[2017-04-11 06:32] LABS: APTT (PATIENT) 27.4 SEC (24.3-30.1); INTERNATIONAL NORMALIZED RATIO 1.1 RATIO; PROTHROMBIN TIME - PATIENT 10.7 SEC (9.8-11.6)
[2017-04-11 06:38] LABS: BICARBONATE 25.3 MEQ/L (21.0-32.0); POTASSIUM 4.1 MEQ/L (3.5-5.1)
[2017-04-11 06:53] VITALS: BP 122/68; PULSE 78; RESP 17; TEMP 98.4; O2SAT 96
[2017-04-11] MEDS ORDERED: POVIDONE IODINE 5% (ANTISEPSIS KIT) 4 APPLICATIONS EACH NARE PRN (07:00)
[2017-04-11] MEDS ORDERED: LACTATED RINGER'S 1000 ML IV PRN (07:00)
[2017-04-11] MEDS ORDERED: SODIUM CHLORID 0.9% 500 ML IV PRN (07:00)
[2017-04-11] MEDS ORDERED: METOPROLOL TARTRATE 25 MG TAB PO PRN (07:00)
[2017-04-11] MEDS ORDERED: POTASSIUM CHLORIDE 20 MEQ CONTROLLED RELEASE TAB PO ONE (08:00)
[2017-04-11] MEDS ORDERED: FUROSEMIDE 40 MG/4 ML VIAL ONE (08:12)
[2017-04-11] MEDS ORDERED: FUROSEMIDE 20 MG/2 ML VIAL IV PUSH ONE (08:15)
[2017-04-11] MEDS ORDERED: SODIUM CHLORID 0.9% 500 ML INJ 500 ML IV ONE (08:15)
--- NOTE | 2017-04-11 08:42 | MH ---
cc: KAYCE JOSE DATE OF ADMISSION: 04/11/2017 DATE OF : 1930 REASON FOR ADMISSION Severe symptomatic aortic stenosis for elective aortic valve replacement. HISTORY OF PRESENT ILLNESS 87-year-old female with past medical history significant for severe symptomatic aortic stenosis with preserved ejection fraction in the setting of bioprosthetic failure. The patient had an Paris 23 mm Perimount valve placed in 2000, CABG x2, COPD, hypertension, hyperlipidemia and hyponatremia. The patient presents today for elective TAVR. The patient has been thoroughly evaluated by the structural valve team who deemed her inoperable for open replacement of the aortic valve. Currently she denies chest pain, shortness of breath, PND, dizziness, bleeding, nausea, vomiting, diarrhea or fevers. REVIEW OF SYSTEMS Review of systems is negative except for what is mentioned in the HPI. PAST MEDICAL HISTORY 1. CABG x2. 2. AVR in 2000. 3. COPD. 4. Hypertension. 5. Hyperlipidemia. 6. Anxiety. 7. Hyponatremia. 8. Systolic Heart Failure PAST SURGICAL HISTORY CABG x2 with AVR in 2000. SOCIAL HISTORY Denies illicit drug use, alcohol or tobacco use. MEDICATIONS Home medications: 1. Acetaminophen. 2. Xanax. 3. Aspirin. 4. Coreg. 5. Plavix. 6. Lasix. 7. Isosorbide. 8. Omeprazole. 9. Potassium chloride. 10. Simvastatin. 11. Sodium chloride tabs. PHYSICAL EXAMINATION VITAL SIGNS: Temperature 98, respiratory rate 17, heart rate 78, blood pressure 122/68. O2 sat 96% in room air. GENERAL: She is awake, alert, oriented x3, in no acute distress. NECK: No JVD or carotid bruits. HEART: Regular rate and rhythm. There is a 3/6 systolic ejection murmur. Mid- sternotomy LUNGS: Poor inspiratory effort. No wheezes or rhonchi. EXTREMITIES: No edema. Pulses throughout. LABORATORY Hemoglobin 11, hematocrit 33, platelet count 301. INR 1.1. Sodium 129, potassium 4.1, BUN 9, creatinine 0.45, calcium 8.0. TAVR WORK-UP STS scores 12.5. She is 4/4 frail. -EKG is sinus rhythm with a left bundle branch block and nonspecific ST changes in the anterolateral leads. -PFTs showed moderate to severe restrictive disease. -Echocardiogram shows an aortic valve velocity of 4.3, mean gradient of 44, calculated valve area 0.44, and ejection fraction of 40%. There is moderate AR. -Cardiac catheterization: She has a patent graft to the LAD and a patent graft to the PDA. -TAVR CTA shows a short annulus diameter of 20, a long annulus diameter of 21, and annular area of 343, upper limit 65. The sinus of Valsalva diameter is 30. The STD is 28. The left coronary height is 12. The right coronary height is 15. Iliacs show a minimal luminal diameter on the right of 6.7 and on the left 6.7. ASSESSMENT AND PLAN 87-year-old female with severe symptomatic aortic stenosis in the setting of bioprosthetic failure, here for elective percutaneous aortic valve replacement. The patient has been deemed high-risk/inoperable for open repair per Dr. Levine and Dr. Leyva. She is scheduled today for TAVR. The risks and benefits of TAVR including but not limited to infection, bleeding, acute kidney injury, neurovascular trauma, stroke, need for permanent pacemaker and have been explained to the patient. The patient understands the risks and she is willing to proceed. Keep n.p.o. for right TF Valve in Valve TAVR. Kayce Jose MD, MPH, [facility] FIXED INTEREST DEALER/BT /8:01 AM /8:16 AM EDILBERTO
[2017-04-11 10:03] LABS: BICARBONATE 28.1 MEQ/L (21.0-32.0); POTASSIUM 4.2 MEQ/L (3.5-5.1)
--- NOTE | 2017-04-11 10:06 | EKG ---
Date Performed: 04/11/2017 Time Performed: 06:46:04 PTAGE: 87 years EKG: Sinus rhythm . Left bundle branch block Abnormal ECG PREVIOUS TRACING : 03/28/2017 05.53 Compared to prior tracing no significant change DOCTOR: Yash Roman Interpretating Date/Time 04/11/2017 10:05:23
[2017-04-11] MEDS ORDERED: HEPARIN SODIUM - SQ 10,000 UNITS/ML VIAL ONE (14:26)
[2017-04-11] MEDS ORDERED: CUSTODIOL HTK IRR SOLN 0 ML ONE (14:27)
[2017-04-11] MEDS ORDERED: POTASSIUM CHLORIDE 20 MEQ/10 ML VIAL ONE (14:29)
[2017-04-11] MEDS ORDERED: SODIUM CHLORIDE 0.9% IRR BTL 1,000 ML IV ONE (14:51)
[2017-04-11] MEDS ORDERED: PROTAMINE SULFATE 50 MG/5 ML VIAL ONE (14:55)
[2017-04-11] MEDS ORDERED: HEPARIN SODIUM - IV 10,000 UNITS/10 ML VIAL ONE (14:55)
[2017-04-11] MEDS ORDERED: IOHEXOL 350 MG/ML 50 ML BTL (for RAD DIAG) OTHER ONE (14:58)
[2017-04-11] MEDS ORDERED: SODIUM CHLOR 0.9% 1000 ML INJ 1,000 ML IV SCH (15:58)
[2017-04-11] MEDS ORDERED: MISC INFORMATION OTHER ONE (16:00)
[2017-04-11] MEDS ORDERED: ACETAMINOPHEN 325 MG TAB PO PRN (16:00)
[2017-04-11] MEDS ORDERED: DEXTROSE 50% IN WATER 50 ML VIAL(D50) IV PUSH PRN (16:00)
[2017-04-11] MEDS ORDERED: GLUCAGON 1 MG/ML VIAL OTHER PRN (16:00)
[2017-04-11] MEDS ORDERED: CLOPIDOGREL 300 MG TAB PO ONE (16:00)
[2017-04-11 16:10] VITALS: BP_SYST 137; BP_SYST 147; BP_DIAS 54; BP_DIAS 61; PULSE 70; RESP 16; TEMP 97.2; O2SAT 100
[2017-04-11 16:15] VITALS: PULSE 70
--- NOTE | 2017-04-11 16:19 | PD.OP ---
cc: Austin Calderon MD; Patrick Levine MD; Mary Leyva MD; Venkatesh Bob MD Operative Report Date of Surgery: Apr 11, 2017 Preoperative Diagnosis: (1) Aortic stenosis (2) CAD (coronary artery disease) (3) CHF (congestive heart failure) Postoperative Diagnosis: same Procedure: Transcatheter aortic valve replacement with a 26 Evolut R Corevalve (valve in valve) Percutaneous right and left femoral access with Perclose closure of the right femoral artery Fluoroscopy Anesthesia: Dr. Baldwin Surgeon: Mary Leyva Co-surgeon - Dr. Turner Copier Repair Technician(s): Mary Pickard Dr., MD Apr 11, 2017 16:19
--- NOTE | 2017-04-11 16:55 | PD.CONS ---
[facility] Service Critical Care Medicine Consult Requested By Dr. Turner Reason for Consult Medical management of comorbid conditions Primary Care Physician De Claudio MD History of Present Illness This is an 87yF with history of prior bioprosthetic aortic valve with symptomatic bioprosthetic severe aortic stenosis. She additionally has comorbid coronary artery disease status post CABG 2 in 2000, COPD with FEV1 of 0.8, hypertension, hyperlipidemia, and chronic asymptomatic hyponatremia which is typically any where from 121-129. She presents today for transcatheter aortic valve placement. She underwent uncomplicated placement under monitored anesthesia care, via groin access. She arrives to the CVICU extubated, somnolent and arousing from deep sedation. No additional information is available from the patient due to her somnolence arousing from her sedation. She is not visibly in any pain. Review of Systems ROS Limitations: Clinical Condition, Altered Mental Status ROS Arousing from deep sedation Past Family Social History Allergies: Coded Allergies: ranitidine (Verified Allergy, Severe, 04/11/17) lansoprazole (Unverified Allergy, Mild, DIARRHEA, 03/21/17) nizatidine (Unverified Allergy, Mild, DIARRHEA, 03/21/17) Uncoded Allergies: lactose intolerant (Adverse Reaction, Intermediate, diarrhea, 03/23/17) Past Medical History Severe bioprosthetic aortic stenosis Coronary artery disease COPD Hypertension Hyperlipidemia Anxiety Hypernatremia Past Surgical History Bioprosthetic aortic valve replacement in 2000 CABG 2 Reported Medications Tylenol Xanax Aspirin Coreg Plavix Lasix Isosorbide Omeprazole Simvastatin Salt tabs Active Ordered Medications See MAR Family History Reviewed in the chart and found to be noncontributory to her acute illness Social History Denied alcohol, tobacco, drugs of abuse Physical Exam Vital Signs Vital Signs Date Time Temp Pulse Resp B/P (MAP) Pulse Ox O2 Delivery O2 Flow Rate FiO2 04/11/17 06:53 98.4 78 17 122/68 (86) 96 Physical Exam GENERAL: Elderly female, frail, lying in bed, arousing from sedation HEENT: Normocephalic. Atraumatic. Pupils equal, round, reactive, conjugate. Mucous membranes are moist NECK: Trachea is midline. There is no JVD. CHEST: Unlabored. Equal chest rise. Face mask oxygen. CARDIOVASCULAR: Normal rate, regular rhythm. ABDOMEN: Soft, nontender, nondistended. No guarding. MUSCULOSKELETAL: Pulses 2+. No peripheral edema. Bilateral lower extremity Dopplers present. Bilateral groin sites with dressings intact, no evidence of hematoma. NEUROLOGICAL: RASS -2. Arousing from deep sedation. No focal deficits. Moves all extremities. Laboratory Laboratory Tests Test 04/11/17 06:00 04/11/17 09:15 White Blood Count 6.1 Red Blood Count 3.95 Hemoglobin 11.2 Hematocrit 33.3 Mean Corpuscular Volume 84.3 Mean Corpuscular Hemoglobin 28.3 Mean Corpuscular Hemoglobin Concent 33.6 Red Cell Distribution Width 14.1 Platelet Count 301 Mean Platelet Volume 7.9 Neutrophils (%) (Auto) 59.5 Lymphocytes (%) (Auto) 26.1 Monocytes (%) (Auto) 9.6 Eosinophils (%) (Auto) 3.2 Basophils (%) (Auto) 1.6 Neutrophils # (Auto) 3.6 Lymphocytes # (Auto) 1.6 Monocytes # (Auto) 0.6 Eosinophils # (Auto) 0.2 Basophils # (Auto) 0.1 CBC Comment DIFF FINAL Differential Comment Prothrombin Time 10.7 Prothromb Time International Ratio 1.1 Activated Partial Thromboplast Time 27.4 Blood Urea Nitrogen 9 8 Creatinine 0.45 0.39 Random Glucose 93 92 Calcium Level 8.0 8.1 Sodium Level 125 129 Potassium Level 4.1 4.2 Chloride Level 93 96 Carbon Dioxide Level 25.3 28.1 Anion Gap 7 5 Estimat Glomerular Filtration Rate 132 156 Result Diagram: 04/11/17 0600 04/11/17 0915 Assessment and Plan Assessment and Plan Assessment: 87-year-old female now postop day 0 status post transcatheter aortic valve replacement with additional asymptomatic hyponatremia. Her hyponatremia is likely hypervolemic secondary to heart failure. Now status postoperative replacement with preserved EF, she should likely clinically improve her hyponatremia as she improves her volume status. Will check serial sodiums and anticipate slow rise. Avoid significant amounts of fluid resuscitation. For her COPD, aggressive pulmonary toilet and when necessary nebs. Keep in ICU overnight for close monitoring. s/p TAVR with groin access 04/11 - frequent neurovascular checks - anticoagulation per Dr. Turner Asymptomatic hyponatremia - serial sodium checks - avoid 3% - anticipate slow rise in sodium as heart failure improves Hypertension - hold home antihypertensives and add back prn - goal spb < 180 COPD - prn nebs - aggressive pulmonary toilet - wean o2 for goal spo2> 90% - OOB after flat time. keep in ICU advance diet as tolerated. Dedrick Harkins MD Apr 11, 2017 16:55
[2017-04-11] MEDS: INSULIN NovoLIN REGULAR SUPPLEMENTAL SCALE SQ SCH ×2 (17:00→21:00)
[2017-04-11] MEDS ORDERED: RESP: ALBUTEROL 2.5 MG/IPRATROPIUM 0.5 MG NEB (PRN) INH (17:00)
[2017-04-11] MEDS: ACETAMINOPHEN 325 MG TAB PO PRN ×2 (17:29→22:26)
[2017-04-11 19:00] VITALS: BP_SYST 142; BP_SYST 158; BP_DIAS 63; BP_DIAS 80; PULSE 81; RESP 14; TEMP 98.3; O2SAT 97
[2017-04-11] MEDS: RESP: ALBUTEROL 2.5 MG/IPRATROPIUM 0.5 MG NEB (SCH) INH (20:54)
[2017-04-11] MEDS ORDERED: PRAVASTATIN SOD 40 MG TAB PO SCH (21:00)
[2017-04-11] MEDS ORDERED: SODIUM CHLOR 0.9% 250 ML INJ 250 ML IV ONE (21:00)
[2017-04-11] MEDS: SODIUM CHLORIDE 1 GRAM TAB PO SCH (21:11)
[2017-04-11] MEDS ORDERED: LABETALOL HCL 100 MG/20 ML VIAL IV PUSH ONE (21:15)
[2017-04-11 21:35] VITALS: O2SAT 98
[2017-04-11 23:00] VITALS: BP_SYST 143; BP_SYST 145; BP_DIAS 48; BP_DIAS 80; PULSE 80; RESP 14; TEMP 98.1; O2SAT 99
[2017-04-12] VITALS (10 sets, daily range): BP systolic 118–174; BP diastolic 60–90; PULSE 74–93; RESP 12–18; TEMP 97.4–98.4; O2SAT 94–98
--- NOTE | 2017-04-12 00:10 | MB ---
cc: KAYCE JOSE HANSCY M.D. DATE OF CONSULTATION: 04/11/2017 REASON FOR CONSULTATION: Evaluation of A-V block status post TAVR. HISTORY OF PRESENT ILLNESS: Ms. Cornell is an 87-year-old female with history of coronary artery disease, coronary bypass grafting, COPD, hyperlipidemia, history of congestive heart failure, aortic stenosis, who underwent today aortic valve replacement. She has at baseline left bundle-branch block and I was consulted for evaluation and management. The chart was reviewed. The patient was evaluated. ALLERGIES: LACTOSE INTOLERANT LANSOPRAZOLE RANITIDINE NIZATIDINE SOCIAL HISTORY Negative for smoking and drinking. FAMILY HISTORY Noncontributory to her current medical condition. MEDICATIONS At home she was on: 1. Plavix. 2. Lasix. 3. Omeprazole. 4. Imdur. 5. Zocor. 6. Aspirin. 7. Xanax 8. Simvastatin REVIEW OF SYSTEMS Currently she refers no chest pain, no chest discomfort. No fever. PHYSICAL EXAMINATION: Alert, fully oriented. VITAL SIGNS: Blood pressure was 142/80, pulse 81, respiratory rate 18. LUNGS: Ventilated. CARDIOVASCULAR: S1-S2. No gallop, no murmur. ABDOMEN: Soft, no masses, no bruits. EXTREMITIES: No edema. Right jugular area with central venous access. LABORATORY DATA: Hemoglobin 11.2, white blood cells 6.1, potassium 4.2, creatinine 0.39. Electrocardiogram showed left bundle-branch block. ASSESSMENT AND RECOMMENDATION: Ms. Cornell is stable. She has central line access in the right jugular area with a temporary pacemaker. The left bundle branch was baseline. This is nothing new. At this point, my recommendation is continue observation. DC the temporary pacer in the morning. If the patient is stable, she can be discharged home tomorrow. Discussed with the patient and Dr. Turner. I will follow the patient on a p.r.n. basis. Mariluz Enamorado MD /MACKENZIE /11:14 PM /11:43 PM
[2017-04-12] MEDS: ACETAMINOPHEN 325 MG TAB PO PRN (02:47)
[2017-04-12] MEDS: RESP: ALBUTEROL 2.5 MG/IPRATROPIUM 0.5 MG NEB (SCH) INH ×3 (03:28→15:58)
[2017-04-12 05:10] LABS: HEMATOCRIT 32.9 % (35.0-46.0); MEAN CELL VOLUME 85.2 FL (80.0-100.0); MEAN CORPUSCULAR HEMOGLOBIN 28.6 PG (27.0-34.0); MEAN CORPUSCULAR HGB CONC 33.5 % (32.0-36.0); PLATELET COUNT 273 TH/MM3 (150-450); RED BLOOD COUNT 3.86 MIL/MM3 (4.00-5.30); RED CELL DISTRIBUTION WIDTH 14.4 % (11.6-17.2); REVIEW FLAG FINAL; WHITE BLOOD COUNT 6.6 TH/MM3 (4.0-11.0)
[2017-04-12 05:23] LABS: ANION GAP 10 MEQ/L (5-15); AST (GOT) 24 U/L (15-37); BICARBONATE 23.5 MEQ/L (21.0-32.0); BLOOD UREA NITROGEN 8 MG/DL (7-18); CHLORIDE 94 MEQ/L (98-107); GLOMERULAR FILTRATION RATE 147 ML/MIN (>89); POTASSIUM 3.8 MEQ/L (3.5-5.1); SODIUM (NA) 127 MEQ/L (136-145)
[2017-04-12 05:24] LABS: ALT (GPT) 14 U/L (10-53)
[2017-04-12 05:26] LABS: ALKALINE PHOSPHATASE 61 U/L (45-117); TOTAL BILIRUBIN ADULT 0.7 MG/DL (0.2-1.0)
[2017-04-12] MEDS ORDERED: ISOSORBIDE MONONITRATE 30 MG TAB PO SCH (07:00)
[2017-04-12] MEDS ORDERED: FUROSEMIDE 20 MG/2 ML VIAL IV PUSH ONE (08:00)
[2017-04-12] MEDS: INSULIN NovoLIN REGULAR SUPPLEMENTAL SCALE SQ SCH ×3 (08:00→17:00)
[2017-04-12] MEDS ORDERED: PANTOPRAZOLE SOD 20 MG DELAYED RELEASE TAB PO SCH (09:00)
[2017-04-12] MEDS ORDERED: CLOPIDOGREL 75 MG TAB PO SCH (09:00)
[2017-04-12] MEDS ORDERED: CARVEDILOL 3.125 MG TAB PO SCH (09:00)
[2017-04-12] MEDS ORDERED: FUROSEMIDE 20 MG TAB PO SCH (09:00)
[2017-04-12] MEDS ORDERED: LISINOPRIL 20 MG TAB PO SCH (09:00)
[2017-04-12] MEDS ORDERED: ASPIRIN 81 MG CHEW TAB PO SCH (09:00)
[2017-04-12] MEDS: SODIUM CHLORIDE 1 GRAM TAB PO SCH ×3 (09:31→17:51)
--- NOTE | 2017-04-12 09:57 | PD.CARD.PN ---
Subjective Subjective Remarks no complaints no overnight events doing very good no events on telemetry Objective Medications Current Medications Medications (Trade) Dose Ordered Sig/Bradley Route Start Time Stop Time Status Last Admin Cefazolin Sodium/ Dextrose 50 ml @ 100 mls/hr [facility] PRN IV 04/11/17 06:00 04/14/17 05:59 04/11/17 14:40 (Betadine 5% Antisepsis Kit) 1 applic [facility]OR PRN EACH NARE 04/11/17 06:00 04/14/17 05:59 (Bactroban Nasal 2% Oint) 1 applic [facility] PRN EACH NARE 04/11/17 06:00 04/14/17 05:59 (Chlorhexidine 2% Cloth) 3 pack [facility] PRN TOPICAL 04/11/17 06:00 04/14/17 05:59 Sodium Chloride 500 ml @ 30 mls/hr [id number] PRN IV 04/11/17 07:00 04/14/17 06:59 (Lopressor) 25 mg [facility] PRN PO 04/11/17 07:00 04/14/17 06:59 (Betadine 5% Antisepsis Kit) 1 applic [facility] PRN EACH NARE 04/11/17 07:00 04/14/17 06:59 (Chlorhexidine 2% Cloth) 3 pack [facility]OR PRN TOPICAL 04/11/17 07:00 04/14/17 06:59 (Aspirin Chew) 81 mg DAILY PO 04/12/17 09:00 04/12/17 09:31 (Plavix) 75 mg DAILY PO 04/12/17 09:00 04/12/17 09:32 (D50w (Vial) Inj) 50 ml UNSCH PRN IV PUSH 04/11/17 16:00 (Glucagon Inj) 1 mg UNSCH PRN OTHER 04/11/17 16:00 (NovoLIN R SUPPLEMENTAL SCALE) 1 ACHS SLIDING SCALE SQ 04/11/17 17:00 (Tylenol) 650 mg Q4H PRN PO 04/11/17 16:00 04/12/17 02:47 (Imdur) 30 mg DAILY@07 PO 04/12/17 07:00 04/12/17 07:30 (Sodium Chloride) 1 gm TID PO 04/11/17 18:00 04/12/17 09:31 (Protonix) 20 mg DAILY PO 04/12/17 09:00 04/12/17 09:31 (Pravachol) 40 mg HS PO 04/11/17 21:00 04/11/17 21:11 (Duoneb Neb) 1 ampule Q6HR NEB INH 04/11/17 22:00 04/12/17 03:28 (Duoneb Neb) 1 ampule Q2HR NEB PRN INH 04/11/17 17:00 (Coreg) 3.125 mg BID PO 04/12/17 09:00 04/12/17 09:32 (Lasix) 20 mg BID PO 04/12/17 09:00 (Prinivil) 20 mg DAILY PO 04/12/17 09:00 04/12/17 09:32 Vital Signs / I&O Vital Signs Date Time Temp Pulse Resp B/P (MAP) Pulse Ox O2 Delivery O2 Flow Rate FiO2 04/12/17 08:00 96 Room Air 04/12/17 07:00 81 04/12/17 07:00 97.8 81 18 174/90 (118) 97 Arterial Line 04/12/17 07:00 81 04/12/17 04:00 98 Nasal Cannula 3.00 04/12/17 03:47 16 04/12/17 03:28 98 Nasal Cannula 3.00 04/12/17 03:00 84 04/12/17 03:00 88 04/12/17 03:00 98.3 78 16 152/75 (100) 97 04/12/17 00:00 98 Nasal Cannula 3.00 04/11/17 23:00 98.1 80 14 145/80 (101) 99 143/48 (79) 04/11/17 23:00 89 04/11/17 23:00 80 04/11/17 21:35 98 Nasal Cannula 3.00 04/11/17 20:00 97 Nasal Cannula 3.00 04/11/17 19:00 98.3 81 14 142/80 (100) 97 158/63 (94) 04/11/17 19:00 81 04/11/17 19:00 81 04/11/17 16:15 70 04/11/17 16:15 70 04/11/17 16:10 97.2 70 16 147/61 (89) 100 137/54 (81) I/O 04/11/17 04/11/17 04/11/17 04/12/17 04/12/17 04/12/17 07:00 15:00 23:00 07:00 15:00 23:00 Intake Total 750 ml 960 ml Output Total 560 ml 875 ml Balance 190 ml 85 ml Intake Oral 960 ml IV Total 250 ml Other 500 ml Output Urine Total 550 ml 875 ml Estimated Blood Loss 10 ml # Bowel Movements 1 Physical Exam GENERAL: Well-nourished, well-developed patient. SKIN: Warm and dry. HEAD: Normocephalic. EYES: No scleral icterus. No injection or drainage. NECK: Supple, trachea midline. No JVD or lymphadenopathy. CARDIOVASCULAR: Regular rate and rhythm without murmurs, gallops, or rubs. RESPIRATORY: Breath sounds equal bilaterally. No accessory muscle use. Rales GASTROINTESTINAL: Abdomen soft, non-tender, nondistended. EXTREMITIES: No cyanosis, or edema. NEUROLOGICAL: Awake, alert, and oriented x 3. Non-focal. Laboratory Laboratory Tests Test 04/11/17 18:32 04/12/17 00:00 04/12/17 04:45 Sodium Level 128 MEQ/L 128 MEQ/L 127 MEQ/L White Blood Count 6.6 TH/MM3 Red Blood Count 3.86 MIL/MM3 Hemoglobin 11.0 GM/DL Hematocrit 32.9 % Mean Corpuscular Volume 85.2 FL Mean Corpuscular Hemoglobin 28.6 PG Mean Corpuscular Hemoglobin Concent 33.5 % Red Cell Distribution Width 14.4 % Platelet Count 273 TH/MM3 Mean Platelet Volume 7.9 FL Blood Urea Nitrogen 8 MG/DL Creatinine 0.41 MG/DL Random Glucose 78 MG/DL Total Protein 6.1 GM/DL Albumin 3.0 GM/DL Calcium Level 8.1 MG/DL Alkaline Phosphatase 61 U/L Aspartate Amino Transf (AST/SGOT) 24 U/L Alanine Aminotransferase (ALT/SGPT) 14 U/L Total Bilirubin 0.7 MG/DL Potassium Level 3.8 MEQ/L Chloride Level 94 MEQ/L Carbon Dioxide Level 23.5 MEQ/L Anion Gap 10 MEQ/L Estimat Glomerular Filtration Rate 147 ML/MIN Assessment and Plan Problem List: (1) Aortic stenosis ICD Codes: I35.0 - Nonrheumatic aortic (valve) stenosis Plan: s/p successful Valve in Valve TAVR with a 26mm Evolut Valve. No events on Telemetry, LBBB baseline. Appreciate EP recs, no need for TPM. Acute on chronic systolic HF on exam. Hyponatremia chronic, asymptomatic followed by PCP. /Nephro. Recs: 1. Cont DAPT with ASA and Plavix 2. IV Lasix 3. Restart Home meds for BP 4. D/C IJ central line 5. PT/OT eval 6. Echo this AM 7. Encourage ambulation and incentive spirometry Stable to d/c home in the afternoon (2) Hyponatremia ICD Codes: E87.1 - Hypo-osmolality and hyponatremia (3) CAD (coronary artery disease) ICD Codes: I25.10 - Atherosclerotic heart disease of [place] coronary artery without angina pectoris Status: Chronic (4) CHF (congestive heart failure) ICD Codes: I50.9 - Heart failure, unspecified Status: Acute Turner-Austin Jordan MD Apr 12, 2017 09:56
--- NOTE | 2017-04-12 10:05 | PD.CARD ---
Cardiology Procedure Note Procedure Name: Right TF TAVR Procedure Date: Apr 12, 2017 Procedure Note: DATE OF 1930 PREPROCEDURE DIAGNOSIS -Severe symptomatic aortic stenosis due to failed bioprosthesis 23 Perimount Valve -Hypertension, -Hyperlipidemia, -DM -Hyponatremia -Acute on chronic systolic heart failure. - CAD s/p CABG x2 in 2000 POSTPROCEDURE DIAGNOSIS -Severe symptomatic aortic stenosis due to failed bioprosthesis 23 Perimount Valve -Hypertension, -Hyperlipidemia, -DM -Hyponatremia -Acute on chronic systolic heart failure. - CAD s/p CABG x2 in 2000 OPERATIVE PROCEDURE 1. Right transfemoral transcatheter aortic valve replacement with a 26mm Evolut Medtronic valve. 3. Aortic root angiogram. 4. Placement of a pigtail catheter for angiography. 5. Temporary pacemaker insertion. 6. Perclose right femoral arteries. ANESTHESIA Dr. Pires SURGERIES Dr. Mary Leyva and Dr. Patrick Levine ADVERTISING EXECUTIVE/ GIANT TIRE REPAIRER Dr. Austin Calderon. PORCELAIN WAXER Dr. Venkatesh Bob INDICATION An 87-year-old female with severe symptomatic aortic stenosis due to failed aortic bioprosthesis with progressive symptom of heart failure and angina. The patient is being evaluated for aortic valve replacement and felt to be an high risk/innoperable for conventional redo aortic rubia replacement by Dr. Levine and Dr. Leyva on the basis of frailty STS score and comorbidities. She has been evaluated and accepted for transaortic valve replacement after extensive review of patient's chart and history. The risks of the procedure have been discussed with the patient at length and consents have been signed to proceed as planned. PROCEDURE DESCRIPTION Consent signed. The patient was prepped and draped in sterile fashion. The patient was brought into the cardiac laboratory geneticist in fasting state. Under MAC. Using 1% lidocaine for local anesthesia and a micropuncture kit a left femoral artery and the left femoral vein entered percutaneously with a 6-Macanese sheath and a 5-Macanese sheaths respectively. The pigtail catheter was advanced over a J 0.035 wire and placed in the noncoronary cusp, followed by angiography in order to get multiple views for deployment of the valve. Then Using 1% lidocaine for local anesthesia a micropuncture kit, an 8 Macanese sheath was inserted into the right common femoral artery. This was then followed by preclosing the artery with three Perclose devices. Heparin was given for anticoagulation. Then a 16Fr Macanese sheath was inserted into the right common femoral artery through straight Stiff super core wire. Then we used an AL-1 over a straight stiff Amplatz wire to cross the aortic bioprosthesis valve with the tip left in the mid left ventricular cavity. This was followed by insertion of a 6-Macanese angled pigtail. Wire was removed and Confida wire was inserted and left in the left ventricle. Then we inserted the 26 mm aortic valve sheath left through the right groin. The valve then was positioned in the aortic valve and deployed under fluoroscopy and angiography. After confirmation of good position on the valve it was successfully deployed. Post deployment there were no signs of perivalvular leaks on TTE. The patient tolerated the procedure well without complications. The catheters were removed. We pullback the delivery system onto the ascending aorta which then was removed out of the body, then the delivery sheath was removed from the right femoral artery and a Perclose. Finally, the pigtail was removed and then the sheath of the left side were removed. This concluded the operation. Postoperative aortic mean gradient of 12. There was no aortic insufficiency or perivalvular leak. COMPLICATIONS None. DISPOSITION Admit to CV ICU in stable condition for post cath care. Continue dual antiplatelet agent with aspirin and Plavix. Temporary pacemaker will remain for the next 24 hours. Telemetry monitoring. EP consult per protocol. Resume home medications. Austin Calderon MD, MPH, [facility] Austin Calderon MD Apr 12, 2017 10:05
[2017-04-12] MEDS ORDERED: LISI-515 PO (10:09)
--- NOTE | 2017-04-12 10:12 | HHI.DS ---
Discharge Summary Admission Date Apr 11, 2017 at 05:18 Discharge Date: Apr 12, 2017 Admitting Diagnosis -Severe symptomatic aortic stenosis due to failed bioprosthesis 23 Perimount Valve -Hypertension, -Hyperlipidemia, -DM -Hyponatremia -Acute on chronic systolic heart failure. - CAD s/p CABG x2 in 2000 (1) Aortic stenosis Diagnosis: Principal ICD Codes: I35.0 - Nonrheumatic aortic (valve) stenosis Status: Chronic (2) CAD (coronary artery disease) ICD Codes: I25.10 - Atherosclerotic heart disease of [place] coronary artery without angina pectoris Status: Chronic (3) CHF (congestive heart failure) ICD Codes: I50.9 - Heart failure, unspecified Status: Acute (4) Hyponatremia ICD Codes: E87.1 - Hypo-osmolality and hyponatremia CBC/BMP: 04/12/17 0445 04/12/17 0445 Significant Findings Laboratory Tests Test 04/11/17 06:00 04/11/17 09:15 04/11/17 18:32 04/12/17 00:00 Red Blood Count 3.95 MIL/MM3 (4.00-5.30) Hemoglobin 11.2 GM/DL (11.6-15.3) Hematocrit 33.3 % (35.0-46.0) Monocytes (%) (Auto) 9.6 % (0.0-8.0) Creatinine 0.45 MG/DL (0.50-1.00) 0.39 MG/DL (0.50-1.00) Calcium Level 8.0 MG/DL (8.5-10.1) 8.1 MG/DL (8.5-10.1) Sodium Level 125 MEQ/L (136-145) 129 MEQ/L (136-145) 128 MEQ/L (136-145) 128 MEQ/L (136-145) Chloride Level 93 MEQ/L (98-107) 96 MEQ/L (98-107) Test 04/12/17 04:45 Red Blood Count 3.86 MIL/MM3 (4.00-5.30) Hemoglobin 11.0 GM/DL (11.6-15.3) Hematocrit 32.9 % (35.0-46.0) Creatinine 0.41 MG/DL (0.50-1.00) Total Protein 6.1 GM/DL (6.4-8.2) Albumin 3.0 GM/DL (3.4-5.0) Calcium Level 8.1 MG/DL (8.5-10.1) Sodium Level 127 MEQ/L (136-145) Chloride Level 94 MEQ/L (98-107) PE at Discharge GENERAL: Well-nourished, well-developed patient. SKIN: Warm and dry. HEAD: Normocephalic. EYES: No scleral icterus. No injection or drainage. NECK: Supple, trachea midline. No JVD or lymphadenopathy. CARDIOVASCULAR: Regular rate and rhythm without murmurs, gallops, or rubs. RESPIRATORY: Breath sounds equal bilaterally. No accessory muscle use. GASTROINTESTINAL: Abdomen soft, non-tender, nondistended. EXTREMITIES: No cyanosis, or edema. NEUROLOGICAL: Awake, alert, and oriented x 3. Non-focal. Hospital Course Ms. Cornell underwent successful Valve in Valve TAVR thru right TF. Required IV Lasix due to acute on chronic systolic HF. No need for PPM per EP. Hyponatremia chronic, followed by PCP. Stable to d/c home today Pt Condition on Discharge: Good Discharge Disposition: Discharge Home Discharge Instructions DIET: Follow Instructions for: Heart Healthy Diet Speech Therapy-Diet Recommenda: Regular Activities you can perform: Regular-No Restrictions New Medications: Lisinopril (Lisinopril) 20 Mg Tab 20 MG PO DAILY for Angina for 30 Days, #30 TAB Continued Medications: Acetaminophen (Tylenol) 325 Mg Tab 650 MG PO Q4H PRN for PAIN SCALE 1 TO 10, TAB 0 Refills Adjustable Commode 3-in-1 (Adjustable Commode 3-in-1) 1 Mis Mis EA .ROUTE DIRECTED for Shortness of Breath, #[address] (Adult Aspirin EC Low Strength) 81 Mg Tabec 162 MG PO DAILY for Blood Clot Prevention, #30 TAB Carvedilol (Coreg) 3.125 Mg Tab 3.125 MG PO BID for hypertension for 30 Days, #60 TAB 0 Refills Clopidogrel (Plavix) 75 Mg Tab 75 MG PO DAILY for cad for 30 Days, #30 TAB 0 Refills Furosemide (Lasix) 20 Mg Tab 20 MG PO BID for chf, #60 TAB 0 Refills Hospital Bed - Electric (Hospital Bed - Electric) 1 Ea Ea EA .ROUTE DIRECTED for Shortness of Breath, #1 Isosorbide Mononitrate ER (Isosorbide Mononitrate ER) 30 Mg Amanda 30 MG PO DAILY@07 for Blood Pressure Management, #30 TAB Omeprazole (Omeprazole) 20 Mg Tab 20 MG PO DAILY, #30 TAB 0 Refills Potassium Chloride ER (Potassium Chloride ER) 20 Meq Tab 20 MEQ PO DAILY for Electrolyte Replacement, #30 TAB 0 Refills Simvastatin (Simvastatin) 20 Mg Tab 20 MG PO HS for Cholesterol Management, #30 TAB 0 Refills Sodium Chloride (Sodium Chloride) 1 Gram Tab 1 GM PO TID for hyponatremia for 5 Days, TAB 0 Refills Discontinued Medications: Alprazolam (Xanax) 0.5 Mg Tab 0.5 MG PO Q8H PRN for ANXIETY, #15 TAB 0 Refills Ciprofloxacin (Cipro) 250 Mg Tab 250 MG PO BID for Infection for 3 Days, #6 TAB 0 Refills Enalapril (Enalapril) 2.5 Mg Tab 2.5 MG PO BID for Blood Pressure Management, #30 TAB Hydrocodone/Acetaminophen (Hydrocodone-Acetamin 5-325 mg) 5 Mg-325 Mg Tablet 1 TAB PO Q6HR for Pain Management Austin Calderon MD Apr 12, 2017 10:12
--- NOTE | 2017-04-12 16:08 | EKG ---
Date Performed: 04/12/2017 Time Performed: 05:24:12 PTAGE: 87 years EKG: Sinus rhythm Left bundle branch block Abnormal ECG Since PREVIOUS TRACING , no significant change noted PREVIOUS TRACIN04/11/2017 06.46 DOCTOR: Facundo Bolanos Interpretating Date/Time 04/12/2017 16:06:25
--- NOTE | 2017-04-12 16:16 | ECHRPT ---
Indication: EF, S/P TAVR CONCLUSIONS Normal left ventricular size. Mild concentric left ventricular hypertrophy. The left ventricular systolic function is moderate to severely reduced with an estimated ejection fr action in the range of 25-35% Aortic valve area is 1.2 cm. Aortic valve mean gradient is 9 mmHg. No PVL No pericardial effusion BP: 174 / 90 HR: 81 Rhythm: Sinus MEASUREMENTS (Male / Female) Normal Values Technical Quality:Fair 2D ECHO LV Diastolic Diameter PLAX 4.3 cm 4.2 - 5.9 / 3.9 - 5.3 cm LV Systolic Diameter PLAX 3.9 cm IVS Diastolic Thickness 1.1 cm 0.6 - 1.0 / 0.6 - 0.9 cm LVPW Diastolic Thickness 1.1 cm 0.6 - 1.0 / 0.6 - 0.9 cm LV Relative Wall Thickness 0.5 LVOT Diameter 1.6 cm Aortic Root Diameter 2.0 cm LA Systolic Diameter LX 3.2 cm 3.0 - 4.0 / 2.7 - 3.8 cm DOPPLER AV Peak Velocity 207.0 cm/s AV Peak Gradient 17.1 mmHg AV Mean Gradient 9.0 mmHg AV Velocity Time Integral 35.6 cm LVOT Peak Velocity 128.0 cm/s LVOT Peak Gradient 6.6 mmHg LVOT Velocity Time Integral 21.6 cm AV Area Cont Eq vti 1.2 cm AV Area Cont Eq pk 1.2 cm TR Peak Velocity 205.0 cm/s TR Peak Gradient 16.8 mmHg Right Atrial Pressure 10.0 mmHg Pulmonary Artery Systolic Pressu 26.8 mmHg Right Ventricular Systolic Press 26.8 mmHg FINDINGS LEFT VENTRICLE Normal left ventricular size. Mild concentric left ventricular hypertrophy. The left ventricular systolic function is moderate to severely reduced with an estimated ejection fr action in the range of 25-35% AORTIC VALVE Aortic valve area is 1.2 cm. Aortic valve mean gradient is 9 mmHg. Austin Calderon MD (Electronically Signed) Final Date:12 April 2017 16:16
--- NOTE | 2017-04-12 16:57 | PD.CAR.PN ---
CVT Progress Note Subjective/Hospital Course: 87yF with history of prior bioprosthetic aortic valve with symptomatic bioprosthetic severe aortic stenosis. She additionally has comorbid coronary artery disease status post CABG 2 in 2000, COPD with FEV1 of 0.8, hypertension , hyperlipidemia, and chronic asymptomatic hyponatremia which is typically any where from 121-129. She presents today for transcatheter aortic valve placement.U nderwent uncomplicated placement under monitored anesthesia care, via groin access. surgery 04/11 Transcatheter aortic valve replacement with a 26 Evolut R Corevalve (valve in valve) Percutaneous right and left femoral access with Perclose closure of the right femoral artery Fluoroscopy 04/12 doing well pacer and cvc line removed, dressing to both groins, in NSR pt requesting HHC and PT Objective: Vital Signs Date Time Temp Pulse Resp B/P (MAP) Pulse Ox O2 Delivery O2 Flow Rate FiO2 04/12/17 15:15 78 18 129/60 (83) 96 04/12/17 15:00 83 04/12/17 13:06 94 Room Air 04/12/17 13:06 97.4 87 16 127/68 (87) 94 04/12/17 11:50 74 04/12/17 11:49 98.4 79 12 118/62 (80) 94 04/12/17 09:58 97 21 04/12/17 08:00 96 Room Air 04/12/17 07:00 81 04/12/17 07:00 97.8 81 18 174/90 (118) 97 Arterial Line 04/12/17 07:00 81 04/12/17 04:00 98 Nasal Cannula 3.00 04/12/17 03:47 16 04/12/17 03:28 98 Nasal Cannula 3.00 04/12/17 03:00 84 04/12/17 03:00 88 04/12/17 03:00 98.3 78 16 152/75 (100) 97 04/12/17 00:00 98 Nasal Cannula 3.00 04/11/17 23:00 98.1 80 14 145/80 (101) 99 143/48 (79) 04/11/17 23:00 89 04/11/17 23:00 80 04/11/17 21:35 98 Nasal Cannula 3.00 04/11/17 20:00 97 Nasal Cannula 3.00 04/11/17 19:00 98.3 81 14 142/80 (100) 97 158/63 (94) 04/11/17 19:00 81 04/11/17 19:00 81 Labs: Laboratory Tests Test 04/12/17 13:40 Sodium Level 125 MEQ/L (136-145) Result Diagram: 04/12/17 0445 04/12/17 1340 Telemetry: NSR (1) Aortic stenosis Plan: s/p successful Valve in Valve TAVR with a 26mm Evolut Valve. No events on Telemetry, LBBB baseline. Appreciate EP recs, no need for TPM. Acute on chronic systolic HF on exam. Hyponatremia chronic, asymptomatic followed by PCP. /Nephro. Recs: 1. Cont DAPT with ASA and Plavix 2. IV Lasix 3. Restart Home meds for BP 4. D/C IJ central line 5. PT/OT eval 6. Echo this AM 7. Encourage ambulation and incentive spirometry Stable to d/c home in the afternoon (2) Hyponatremia (3) CAD (coronary artery disease) (4) CHF (congestive heart failure) Marian Kaur Apr 12, 2017 16:57
--- NOTE | 2017-04-12 16:58 | HHI.FF ---
Face to Face Verification Diagnosis: (1) Hyponatremia (2) Aortic stenosis (3) CAD (coronary artery disease) (4) CHF (congestive heart failure) (5) History of aortic valve replacement Physical Therapy Order: Evaluate and Treat Home Health Nursing Order: Medication education-adverse effect Wound care and dressing changes Nursing assessment with vital signs I have seen patient Jessy Cornell on 04/12/17. My clinical findings support the need for the requested home health care services because: Deconditioned w/ increased weakness I certify that my clinical findings support that this patient is homebound because: Post-op weakness Marian Kaur Apr 12, 2017 16:58
== END 2017-04-12 18:35 | disposition home health service (06) | DRG 266 ==
LOC: HSDI 05:09 → UNDOADMIN 05:09 → HDIC 05:18 → HCVI 16:19 → HCPC 04-12 12:53
PROVIDERS: ADMIT Radiology Vascular & Interventional Radiology; ATTEND Radiology Vascular & Interventional Radiology
PROC: 02RF38Z Replacement of Aortic Valve with Zooplastic Tissue, Percutaneous Approach (ICD-10-PCS; principal; 2017-04-11 07:30)
DX: T82.09XA Other mechanical complication of heart valve prosthesis, initial encounter (principal); I50.23 Acute on chronic systolic (congestive) heart failure; J44.9 Chronic obstructive pulmonary disease, unspecified; E87.1 Hypo-osmolality and hyponatremia; E11.9 Type 2 diabetes mellitus without complications; I11.0 Hypertensive heart disease with heart failure; E78.5 Hyperlipidemia, unspecified; F41.9 Anxiety disorder, unspecified; I25.10 Atherosclerotic heart disease of native coronary artery without angina pectoris; I35.0 Nonrheumatic aortic (valve) stenosis; I44.7 Left bundle-branch block, unspecified; Z95.1 Presence of aortocoronary bypass graft
CPT/HCPCS: 33210; 33361; 36430; 80048; 80053; 82948; 84295; 85002; 85025; 85027; 85610; 85730; 86850; 86900; 86901; 86920; 93005; 93308; 94150; 94640; 94664; 94667; 94668; C1760; C1769; C1893; G0269; J0690; J1644; J1940; J2720; J3480; J7030; J7050; P9016; Q9967

== ENCOUNTER 2017-04-17 14:23 | Observation (INO) | payer MEDICARE ==
[~2017-04-17] VITALS: Ht 157.5 cm; Wt 60.0 kg
[~2017-04-17 14:23] MED LIST changes: -ALPR.5 PO; -CIPR250T52 PO; -ENAL2.5T PO; -HYDR-3516 PO; +LISI-515 PO
[2017-04-17 14:27] VITALS: BP 146/70; RESP 20; TEMP 98.5; O2SAT 96
[2017-04-17 14:40] VITALS: BP 146/70; PULSE 75; RESP 18; O2SAT 98
--- NOTE | 2017-04-17 14:44 | PD ---
HPI Chief Complaint: chest pain shortness of breath. Time Seen by Provider: 14:31 Travel History International Travel<30 days: No Contact w/Intl Traveler<30days: No Traveled to known affect area: No History of Present Illness HPI 87-year-old female brought in by ambulance with complaints of shortness of breath and neck pain on the left. Patient is status post TAVR with Dr. Turner on April 11. Patient also has heartburn. Patient is somewhat dyspneic but denies specific chest pain. Patient is currently on aspirin 81 mg and Plavix daily. Patient also on Lasix 20 mg daily. Patient denies edema. Or abdominal pain other than the heartburn. Patient is allergic to lansoprazole , nizatidine, and ranitidine. Patient is lactose intolerant. PFSH Past Medical History Arthritis: Yes Blood Disorders: No Anxiety: No Depression: No Heart Rhythm Problems: No Cancer: No Cardiac Catheterization: Yes Cardiovascular Problems: Yes High Cholesterol: Yes Chest Pain: Yes Congestive Heart Failure: Yes Coronary Artery Disease: Yes Diabetes: No Diminished Hearing: No Endocrine: No Gastrointestinal Disorders: Yes (CHRONIC DIARRHEA) GERD: Yes Genitourinary: No Hiatal Hernia: Yes Hypertension: Yes Immune Disorder: No Musculoskeletal: Yes Neurologic: No Psychiatric: No Reproductive: No Respiratory: No Immunizations Current: Yes Radiation Therapy: No Ulcer: Yes Menopausal: Yes Past Surgical History Abdominal Surgery: No Cardiac Surgery: Yes (AVR, DOUBLE BYPASS) Coronary Artery Bypass Graft: Yes (2 VESSELS W/ AORTIC VALVE REPLACMENT) Ear Surgery: No Endocrine Surgery: No Eye Surgery: No Genitourinary Surgery: No Gynecologic Surgery: No Oral Surgery: No Thoracic Surgery: No Other Surgery: Yes Social History Alcohol Use: No Tobacco Use: No Substance Use: No Allergies-Medications (Allergen,Severity, Reaction): Coded Allergies: ranitidine (Verified Allergy, Severe, 04/17/17) lansoprazole (Unverified Allergy, Mild, DIARRHEA, 04/17/17) nizatidine (Unverified Allergy, Mild, DIARRHEA, 04/17/17) Uncoded Allergies: lactose intolerant (Adverse Reaction, Intermediate, diarrhea, 03/23/17) Reported Meds & Prescriptions Reported Meds & Active Scripts Active Lisinopril 20 Mg Tab 20 Mg PO DAILY 30 Days Potassium Chloride ER (Potassium Chloride) 20 Meq Tab 20 Meq PO DAILY Sodium Chloride 1 Gram Tab 1 Gm PO TID 5 Days Coreg (Carvedilol) 3.125 Mg Tab 3.125 Mg PO BID 30 Days Plavix (Clopidogrel Bisulfate) 75 Mg Tab 75 Mg PO DAILY 30 Days Lasix (Furosemide) 20 Mg Tab 20 Mg PO BID Hospital Bed - Electric 1 Ea Ea Ea .ROUTE DIRECTED Adjustable Commode 3-in-1 (Device) 1 Mis Mis Ea .ROUTE DIRECTED Adult Aspirin EC Low Strength (Aspirin) 81 Mg Tabec 162 Mg PO DAILY Isosorbide Mononitrate ER (Isosorbide Mononitrate) 30 Mg Amanda 30 Mg PO DAILY@07 Reported Tylenol (Acetaminophen) 325 Mg Tab 650 Mg PO Q4H PRN Simvastatin 20 Mg Tab 20 Mg PO HS Omeprazole 20 Mg Tab 20 Mg PO DAILY Review of Systems Except as stated in HPI: all other systems reviewed are Neg General / Constitutional: No: Fever Eyes: No: Visual changes HENT: No: Headaches Cardiovascular: Positive: Chest Pain or Discomfort, Dyspnea on exertion, No: Palpitations, Irregular Rhythm, Tachycardia, Diaphoresis, Syncope, Edema, Claudication Respiratory: Positive: Shortness of Breath, No: Cough, Wheezing Gastrointestinal: Positive: Other (heartburn.), No: Nausea, Vomiting, Diarrhea , Abdominal Pain Genitourinary: No: Dysuria Musculoskeletal: No: Pain Skin: No Rash Neurologic: No: Weakness Psychiatric: No: Depression Endocrine: No: Polydipsia Hematologic/Lymphatic: No: Easy Bruising Physical Exam Narrative GENERAL: Patient appears in mild distress. She is mildly tachypneic. SKIN: Warm and dry. Normal color. Normal turgor. HEAD: Atraumatic. Normocephalic. EYES: Pupils equal and round. No scleral icterus. No injection or drainage. ENT: No nasal bleeding or discharge. Mucous membranes pink and moist. Pharynx is clear. Airway is patent NECK: Trachea midline. No JVD. Supple and nontender. CARDIOVASCULAR: Regular rate and rhythm. No appreciable murmurs at this time. RESPIRATORY: No accessory muscle use. Clear to auscultation. No crackles or wheezes. Breath sounds equal bilaterally. GASTROINTESTINAL: Abdomen soft, non-tender, nondistended. Hepatic and splenic margins not palpable. MUSCULOSKELETAL: Extremities without clubbing, cyanosis, or edema. No obvious deformities. NEUROLOGICAL: Awake and alert. No obvious cranial nerve deficits. Motor grossly within normal limits. Five out of 5 muscle strength in the arms and legs. Normal speech. PSYCHIATRIC: Appropriate mood and affect; insight and judgment normal. Data Data Last Documented VS Vital Signs Date Time Temp Pulse Resp B/P (MAP) Pulse Ox O2 Delivery O2 Flow Rate FiO2 04/17/17 14:43 75 16 97 Room Air 04/17/17 14:40 146/70 (95) 04/17/17 14:27 98.5 Orders Orders Electrocardiogram (04/17/17 14:35) B-Type Natriuretic Peptide (04/17/17 14:35) Ckmb (Isoenzyme) Profile (04/17/17 14:35) Complete Blood Count With Diff (04/17/17 14:35) Comprehensive Metabolic Panel (04/17/17 14:35) Magnesium (Mg) (04/17/17 14:35) Prothrombin Time / Inr (Pt) (04/17/17 14:35) Act Partial Throm Time (Ptt) (04/17/17 14:35) Troponin I (04/17/17 14:35) Chest, Single Ap (04/17/17 14:35) Ecg Monitoring (04/17/17 14:35) Bilateral Bp Monitoring (04/17/17 14:35) Iv Access Insert/Monitor (04/17/17 14:35) Oximetry (04/17/17 14:35) Oxygen Administration (04/17/17 14:35) Aspirin Chew (Aspirin Chew) (04/17/17 14:45) Morphine Inj (Morphine Inj) (04/17/17 14:45) Sodium Chloride 0.9% Flush (Ns Flush) (04/17/17 14:45) Furosemide Inj (Lasix Inj) (04/17/17 14:45) Al-Mag Hy-Si 40-40-4 Mg/Ml Liq (Mag-Al P (04/17/17 14:45) Lidocaine 2% Viscous (Xylocaine 2% Visco (04/17/17 14:45) Admit Order (Ed Use Only) (04/17/17 17:03) Place In Observation (04/17/17 ) Vital Signs (Adult) Q4H (04/17/17 17:03) Activity Oob With Assistance (04/17/17 17:03) Customer Expert / Telemetry .CONTINUOUS (04/17/17 17:03) Intake + Output SU.QSHIFT (04/17/17 17:03) Diet Heart Healthy (04/17/17 Dinner) Sodium Chloride 0.9% Flush (Ns Flush) (04/17/17 17:15) Sodium Chloride 0.9% Flush (Ns Flush) (04/17/17 21:00) Basic Metabolic Panel (Bmp) (04/18/17 06:00) Complete Blood Count With Diff (04/18/17 06:00) Creatine Kinase (Cpk) (04/17/17 21:00) Creatine Kinase (Cpk) (04/18/17 03:00) Troponin I (04/17/17 21:00) Troponin I (04/18/17 03:00) Electrocardiogram (04/17/17 21:00) Electrocardiogram (04/18/17 03:00) Pt Request For Service (04/17/17 17:03) Case Management Consult (04/17/17 17:03) Naloxone Inj (Narcan Inj) (04/17/17 17:15) Labs Laboratory Tests Test 04/17/17 15:00 White Blood Count 4.7 TH/MM3 Red Blood Count 3.58 MIL/MM3 Hemoglobin 10.4 GM/DL Hematocrit 30.2 % Mean Corpuscular Volume 84.4 FL Mean Corpuscular Hemoglobin 29.0 PG Mean Corpuscular Hemoglobin Concent 34.4 % Red Cell Distribution Width 14.6 % Platelet Count 300 TH/MM3 Mean Platelet Volume 7.9 FL Neutrophils (%) (Auto) 56.6 % Lymphocytes (%) (Auto) 26.1 % Monocytes (%) (Auto) 12.1 % Eosinophils (%) (Auto) 3.9 % Basophils (%) (Auto) 1.3 % Neutrophils # (Auto) 2.7 TH/MM3 Lymphocytes # (Auto) 1.2 TH/MM3 Monocytes # (Auto) 0.6 TH/MM3 Eosinophils # (Auto) 0.2 TH/MM3 Basophils # (Auto) 0.1 TH/MM3 CBC Comment DIFF FINAL Differential Comment Prothrombin Time 10.7 SEC Prothromb Time International Ratio 1.1 RATIO Activated Partial Thromboplast Time 25.2 SEC Blood Urea Nitrogen 7 MG/DL Creatinine 0.35 MG/DL Random Glucose 100 MG/DL Total Protein 5.8 GM/DL Albumin 2.9 GM/DL Calcium Level 7.8 MG/DL Magnesium Level 1.6 MG/DL Alkaline Phosphatase 61 U/L Aspartate Amino Transf (AST/SGOT) 20 U/L Alanine Aminotransferase (ALT/SGPT) 14 U/L Total Bilirubin 0.4 MG/DL Sodium Level 126 MEQ/L Potassium Level 4.5 MEQ/L Chloride Level 94 MEQ/L Carbon Dioxide Level 23.7 MEQ/L Anion Gap 8 MEQ/L Estimat Glomerular Filtration Rate 177 ML/MIN Total Creatine Kinase 76 U/L Troponin I 0.03 NG/ML B-Type Natriuretic Peptide 904 PG/ML MDM Medical Decision Making Medical Screen Exam Complete: Yes Emergency Medical Condition: Yes Differential Diagnosis Chest pain. Status post T aVR. CHF. Electrolyte imbalance. Cardiac syndrome. Narrative Course Labs ordered including CBC, CMP, proBNP, and EKG is performed. Chest x-ray is ordered. IV access is obtained patient is given 40 mg Lasix IV as well as 2 mg morphine IV as well as 4 mg Zofran IV. Chest x-ray shows stable postoperative changes. Labs show mild anemia with a hemoglobin of 10.4, which is typical for the patient. Coagulation studies are unremarkable. CMP shows sodium 126, chloride 94, readiness 0.35, calcium is 7.8 total protein is 5.8 with an albumin of 2.9. ProBNP is elevated at 904. Call was placed to Dr. Turner, the patient's lodge sales associate and the patient is discussed. He recommends observation overnight and reevaluated morning. Call was placed to the hospitalist for admission. Diagnosis Primary Impression: Exertional dyspnea Additional Impressions: Hyponatremia CHF (congestive heart failure) Qualified Codes: I50.9 - Heart failure, unspecified History of aortic valve replacement Admitting Information Admitting Physician Requests: Observation Condition: Stable Darion Torres Apr 17, 2017 14:44
[2017-04-17] MEDS ORDERED: ALUMINUM/MAGNESIUM/SIMETH 30 ML CUP PO ONE (14:45)
[2017-04-17] MEDS ORDERED: FUROSEMIDE 40 MG/4 ML VIAL IV PUSH ONE (14:45)
[2017-04-17] MEDS ORDERED: ASPIRIN 81 MG CHEW TAB PO ONE (14:45)
[2017-04-17] MEDS ORDERED: SODIUM CHLORIDE 0.9% FLUSH 10 ML FLUSH IVF PRN (14:45)
[2017-04-17] MEDS ORDERED: MORPHINE SULFATE 4 MG/ML INJ IV PUSH ONE (14:45)
[2017-04-17] MEDS ORDERED: LIDOCAINE VISCOUS 2% SOLN 15 ML UDC PO ONE (14:45)
[2017-04-17 15:50] LABS: AUTOMATED NEUTROPHIL # 2.7 TH/MM3 (1.8-7.7); BASOPHIL # 0.1 TH/MM3 (0-0.2); BASOPHIL % 1.3 % (0.0-2.0); EOSINOPHIL # 0.2 TH/MM3 (0-0.4); EOSINOPHIL % 3.9 % (0.0-4.0); HEMATOCRIT 30.2 % (35.0-46.0); HEMO FLAGS DIFF FINAL; LYMPH % 26.1 % (9.0-44.0); LYMPHOCYTE # 1.2 TH/MM3 (1.0-4.8); MEAN CELL VOLUME 84.4 FL (80.0-100.0); MEAN CORPUSCULAR HGB CONC 34.4 % (32.0-36.0); MONO % 12.1 % (0.0-8.0); NEUT % 56.6 % (16.0-70.0); PLATELET COUNT 300 TH/MM3 (150-450); RED BLOOD COUNT 3.58 MIL/MM3 (4.00-5.30); RED CELL DISTRIBUTION WIDTH 14.6 % (11.6-17.2); WHITE BLOOD COUNT 4.7 TH/MM3 (4.0-11.0)
--- NOTE | 2017-04-17 15:54 | RADRPT ---
EXAM DATE/TIME: 04/17/2017 15:07 [facility] COMPARISON: CHEST SINGLE AP, March 28, 2017, 6:08. INDICATIONS : Chest pain. MEDICAL HISTORY : Hypertension. Congestive heart failure. Coronary artery disease. SURGICAL HISTORY : CABG. Aortic valve repair. Cardiac cath. ENCOUNTER: Initial ACUITY: 1 day PAIN SCORE: 2/10 LOCATION: Bilateral chest FINDINGS: Stable postsurgical features of prior median sternotomy and aortic valve repair. Mild diffuse interst itial prominence without new focal pleural or parenchymal opacities. Cardiac silhouette is enlarged. Remainder of the exam is unchanged. CONCLUSION: 1. Stable postsurgical features. 2. Cardiomegaly with trace positive fluid balance. Mando Case MD on April 17, 2017 at 15:51 Board Certified Radiologist. This report was verified electronically.
[2017-04-17 16:04] LABS: APTT (PATIENT) 25.2 SEC (24.3-30.1); INTERNATIONAL NORMALIZED RATIO 1.1 RATIO; PROTHROMBIN TIME - PATIENT 10.7 SEC (9.8-11.6)
[2017-04-17 16:15] LABS: ANION GAP 8 MEQ/L (5-15); AST (GOT) 20 U/L (15-37); BICARBONATE 23.7 MEQ/L (21.0-32.0); BLOOD UREA NITROGEN 7 MG/DL (7-18); CHLORIDE 94 MEQ/L (98-107); GLOMERULAR FILTRATION RATE 177 ML/MIN (>89); MAGNESIUM 1.6 MG/DL (1.5-2.5); POTASSIUM 4.5 MEQ/L (3.5-5.1); SODIUM (NA) 126 MEQ/L (136-145)
[2017-04-17 16:19] LABS: ALKALINE PHOSPHATASE 61 U/L (45-117); ALT (GPT) 14 U/L (10-53); TOTAL BILIRUBIN ADULT 0.4 MG/DL (0.2-1.0)
[2017-04-17 16:20] LABS: CREATINE KINASE 76 U/L (26-192)
[2017-04-17] MEDS ORDERED: NALOXONE HCL 0.4 MG/ML AMP IV PUSH PRN (17:15)
[2017-04-17] MEDS ORDERED: SODIUM CHLORIDE 0.9% FLUSH 10 ML FLUSH IV FLUSH PRN (17:15)
--- NOTE | 2017-04-17 18:22 | HHI.HP ---
HPI Service [facility] Primary Care Physician Unknown Admission Diagnosis Exertional Dyspnea/S/P Tavr Apr 11. Diagnoses: Travel History International Travel<30 Days: No Contact w/Intl Traveler <30 Da: No Traveled to Known Affected Are: No History of Present Illness History from patient, ER communication, interview of medical records. Patient is somewhat of a limited historian just because she has been too weak. Her 2 daughters at the bedside provided most of the history. Patient was admitted to our hospital and was discharged 4 days ago from here after she had T aVR on April 12, 2017. The daughters at the bedside reported that patient has been having high blood pressure since Sunday night April 14, 2017. The daughter measured the blood pressures and initially was in the systolic of 200s range and later it was in the 160s. The daughter also stated that patient was not sleeping at all at night time. She slept only about 3 hours a day. She was up all night for most of the days. Patient herself denies any headaches. Daughter states she gave isosorbide at 4 AM yesterday and then the blood pressure came down to 143/80. She again gave this morning another dose of blood pressure medications and the blood pressure was 124/76. After this above blood pressure drop, patient was eating breakfast, felt full, not hungry and started complaining about epigastric pain. She was also short of breath at that time. She went and lied down to take a nap and as soon as she wants to lie down, she started getting worsening shortness of breath. They brought her to the hospital. Together with this shortness of breath, patient was also complaining about her neck pain. They state the patient has been lying down on her left side and trying to adjust for her comfortable position and this is how she started getting bruising on her left flank and having pain in her neck. Denies falls. Daughters reported that patient has history of anorexia. She just has poor appetite. Patient also has history of Paniagua's esophagus. She does complain of occasional abdominal pains also because of IBS. Her last endoscopy was about 2 years ago. At that time they were told that her Paniagua's esophagus was getting better. She is on omeprazole at home. was sweating last night- changed night gown 4x has been coughing a lot , recently started on lisniopril sputum yellowish did have fever 100.1 just one day- the rest is 97 to 98 Patient and daughters reported compliance with her Lasix regimen. She she usually takes her nighttime dose of Lasix at 2 PM for home health care nurse instructions. They state she has been urinating well at home as well. Reported that patient was previously on Xanax. They have tapered her off and the last hospitalization she was on 1 pill a night. They again tapered her off and she is no longer on Xanax for the past 4 days. They report the patient does not sleep at all and that patient has severe depression since then of her . 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 hyperlipidemia gerd/ barretts- last egd 2 yrs ago ibs oa Past Surgical History colonoscopy CABG x2 with AVR in 2000. Allergies: Coded Allergies: ranitidine (Verified Allergy, Severe, 04/17/17) lansoprazole (Unverified Allergy, Mild, DIARRHEA, 04/17/17) nizatidine (Unverified Allergy, Mild, DIARRHEA, 04/17/17) Uncoded Allergies: lactose intolerant (Adverse Reaction, Intermediate, diarrhea, 03/23/17) Family History brother with heart issues Social History never smoked never drank etoh no drugs Physical Exam Vital Signs Vital Signs Date Time Temp Pulse Resp B/P (MAP) Pulse Ox O2 Delivery O2 Flow Rate FiO2 04/17/17 14:43 75 16 97 Room Air 04/17/17 14:43 96 04/17/17 14:40 75 18 146/70 (95) 98 Room Air 04/17/17 14:27 98.5 20 146/70 (95) 96 Physical Exam GENERAL: This is a thin elderly lady, in no apparent distress. SKIN: No rashes, ecchymoses or lesions. Cool and dry. HEAD: Atraumatic. Normocephalic. No temporal or scalp tenderness. EYES:. No scleral icterus. No injection or drainage. ENT: Nose without bleeding, purulent drainage or septal hematoma. Airway patent. NECK: Trachea midline. No JVD. Supple, nontender, no meningeal signs. CARDIOVASCULAR: Regular rate and rhythm without murmurs, gallops, or rubs. RESPIRATORY: Clear to auscultation. Breath sounds equal bilaterally. No wheezes , rales, or rhonchi. GASTROINTESTINAL: Abdomen soft, non-tender, nondistended. No guarding. MUSCULOSKELETAL: Extremities without clubbing, cyanosis, or edema. No calf tenderness. NEUROLOGICAL: Awake and alert. Motor and sensory grossly within normal limits. Normal speech. Laboratory Laboratory Tests Test 04/17/17 15:00 White Blood Count 4.7 Red Blood Count 3.58 Hemoglobin 10.4 Hematocrit 30.2 Mean Corpuscular Volume 84.4 Mean Corpuscular Hemoglobin 29.0 Mean Corpuscular Hemoglobin Concent 34.4 Red Cell Distribution Width 14.6 Platelet Count 300 Mean Platelet Volume 7.9 Neutrophils (%) (Auto) 56.6 Lymphocytes (%) (Auto) 26.1 Monocytes (%) (Auto) 12.1 Eosinophils (%) (Auto) 3.9 Basophils (%) (Auto) 1.3 Neutrophils # (Auto) 2.7 Lymphocytes # (Auto) 1.2 Monocytes # (Auto) 0.6 Eosinophils # (Auto) 0.2 Basophils # (Auto) 0.1 CBC Comment DIFF FINAL Differential Comment Prothrombin Time 10.7 Prothromb Time International Ratio 1.1 Activated Partial Thromboplast Time 25.2 Blood Urea Nitrogen 7 Creatinine 0.35 Random Glucose 100 Total Protein 5.8 Albumin 2.9 Calcium Level 7.8 Magnesium Level 1.6 Alkaline Phosphatase 61 Aspartate Amino Transf (AST/SGOT) 20 Alanine Aminotransferase (ALT/SGPT) 14 Total Bilirubin 0.4 Sodium Level 126 Potassium Level 4.5 Chloride Level 94 Carbon Dioxide Level 23.7 Anion Gap 8 Estimat Glomerular Filtration Rate 177 Total Creatine Kinase 76 Troponin I 0.03 B-Type Natriuretic Peptide 904 Result Diagram: 04/17/17 1500 04/17/17 1500 Imaging Last 48 hours Impressions Chest X-Ray 04/17/17 3041 Signed Impressions: Service Date/Time: Monday, April 17, 2017 15:07 - CONCLUSION: 1. Stable postsurgical features. 2. Cardiomegaly with trace positive fluid balance. Mando Case MD Caprinsujatha VTE Risk Assessment Caprini VTE Risk Assessment: Mod/High Risk (score >= 2) Caprini Risk Assessment Model Point Value = 1 Point Value = 2 Point Value = 3 Point Value = 5 Age 41-60 Minor surgery BMI > 25 kg/m2 Swollen legs Varicose veins or History of unexplained or recurrent spontaneous Oral contraceptives or hormone replacement Sepsis (< 1 month) Serious lung disease, including pneumonia (< 1 month) Abnormal pulmonary function Acute myocardial infarction Congestive heart failure (< 1 month) History of inflammatory bowel disease Medical patient at bed rest Age 61-74 Arthroscopic surgery Major open surgery (> 45 min) Laparoscopic surgery (> 45 min) Malignancy Confined to bed (> 72 hours) Immobilizing plaster cast Central venous access Age >= 75 History of VTE Family history of VTE Factor V Leiden Prothrombin [id number] Lupus anticoagulant Anticardiolipin antibodies Elevated serum homocysteine Heparin-induced thrombocytopenia Other congenital or acquired thrombophilia Stroke (< 1 month) Elective arthroplasty Hip, pelvis, or leg fracture Acute spinal cord injury (< 1 month) Prophylaxis Regimen Total Risk Factor Score Risk Level Prophylaxis Regimen 0-1 Low Early ambulation 2 Moderate Order ONE of the following: *Sequential Compression Device (SCD) *Heparin 5000 units SQ BID 3-4 Higher Order ONE of the following medications: *Heparin 5000 units SQ TID *Enoxaparin/Lovenox 40 mg SQ daily (WT < 150 kg, CrCl > 30 mL/min) *Enoxaparin/Lovenox 30 mg SQ daily (WT < 150 kg, CrCl > 10-29 mL/min) *Enoxaparin/Lovenox 30 mg SQ BID (WT < 150 kg, CrCl > 30 mL/min) AND/OR *Sequential Compression Device (SCD) 5 or more Highest Order ONE of the following medications: *Heparin 5000 units SQ TID (Preferred with Epidurals) *Enoxaparin/Lovenox 40 mg SQ daily (WT < 150 kg, CrCl > 30 mL/min) *Enoxaparin/Lovenox 30 mg SQ daily (WT < 150 kg, CrCl > 10-29 mL/min) *Enoxaparin/Lovenox 30 mg SQ BID (WT < 150 kg, CrCl > 30 mL/min) AND *Sequential Compression Device (SCD) Assessment and Plan Assessment and Plan Impression: acute on chronic systolic heart failure Possible hypertensive emergency at home leading to flash pulmonary edema Cough since the start of lisinopril. We'll hold lisinopril. Patient can be started on losartan. Suspect mild Xanax withdrawal. Given that patient has diaphoresis/elevated blood pressures. No seizures. Low-grade fever once in the past 1 week. We'll continue to monitor. Hyponatremia. Chronic. On sodium tablets. Question whether this is also contributing to worsening heart failure. Anorexia/poor oral intake. Chronic. Daughters advised to address this as an outpatient and to continue to see psychiatrist/GI doctors. Consider EGD as outpatient to make sure Paniagua's is stable. On physical exam though, patient abdomen is quite benign. Insomnia. From depression/elderly lady. We'll give trial of Restoril small doses. Daughters are agreeable to this. They do not want Xanax or high-dose pain medications. 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 hyperlipidemia gerd/ barretts- last egd 2 yrs ago ibs oa Plan: In the emergency room, patient was given Lasix 40 mg IV 1 dose in ER. Since then, she has been diuresing. Her leg exam is quite clear by the time of my examination. At present, I would continue her home dose of Lasix in the pill form. Her dyspnea is also related to her moderate to severe restrictive lung disease. The daughter reports the patient's symptoms improved with treatment with nebulizers. Patient will need nebulizer prescription upon discharge. Follow-up with pulmonology as outpatient. Hold lisinopril due to cough. Start on losartan We'll monitor blood pressures closely. Part of patient's hypertension is also secondary to anxiety. Family has plans to have her follow up with psychiatry as an outpatient. For now, would use Restoril 7.5 mg at nighttime for insomnia. Monitor for low-grade fever. I do believe that her diuresis is secondary to Lasix. However if patient does have fever, question whether patient is having frequency of urine and whether UA should be checked. We'll monitor electrolytes closely. Resume home meds apart from lisinopril. DVT prophylaxis with lovenox GI prophylaxis on pantoprazole. Discussed Condition With patient, her daughters at bedside, ER Brianne Morel MD Apr 17, 2017 18:22
[2017-04-17] MEDS ORDERED: ACETAMINOPHEN 325 MG TAB PO PRN (18:30)
[2017-04-17 18:56] VITALS: BP 169/76; PULSE 79; RESP 22; TEMP 98.2; O2SAT 96
[2017-04-17] MEDS ORDERED: RESP: IPRATROPIUM 0.5 MG/2.5 ML NEB NEB PRN (20:30)
[2017-04-17 20:34] VITALS: PULSE 81
[2017-04-17 20:51] VITALS: BP 148/77; PULSE 83; RESP 24; TEMP 97.5; O2SAT 96
[2017-04-17] MEDS: CARVEDILOL 3.125 MG TAB PO SCH (20:56)
[2017-04-17] MEDS: SODIUM CHLORIDE 0.9% FLUSH 10 ML FLUSH IV FLUSH SCH (20:56)
[2017-04-17] MEDS: PRAVASTATIN SOD 40 MG TAB PO SCH (20:57)
[2017-04-17] MEDS: FUROSEMIDE 20 MG TAB PO SCH (20:57)
[2017-04-17] MEDS: RESP: IPRATROPIUM 0.5 MG/2.5 ML NEB NEB SCH (21:02)
[2017-04-18] VITALS (10 sets, daily range): BP systolic 110–146; BP diastolic 56–69; PULSE 72–89; RESP 16–20; TEMP 97.2–98.4; O2SAT 95–98
[2017-04-18] MEDS: TEMAZEPAM 7.5 MG CAP PO PRN ×2 (01:58→20:50)
[2017-04-18 04:15] LABS: AUTOMATED NEUTROPHIL # 3.4 TH/MM3 (1.8-7.7); BASOPHIL % 0.8 % (0.0-2.0); EOSINOPHIL # 0.2 TH/MM3 (0-0.4); EOSINOPHIL % 3.2 % (0.0-4.0); HEMATOCRIT 31.9 % (35.0-46.0); HEMO FLAGS DIFF FINAL; LYMPH % 22.3 % (9.0-44.0); LYMPHOCYTE # 1.2 TH/MM3 (1.0-4.8); MEAN CELL VOLUME 84.3 FL (80.0-100.0); MEAN CORPUSCULAR HEMOGLOBIN 29.1 PG (27.0-34.0); MEAN CORPUSCULAR HGB CONC 34.6 % (32.0-36.0); MONO % 10.9 % (0.0-8.0); NEUT % 62.8 % (16.0-70.0); PLATELET COUNT 315 TH/MM3 (150-450); RED BLOOD COUNT 3.79 MIL/MM3 (4.00-5.30); RED CELL DISTRIBUTION WIDTH 14.2 % (11.6-17.2); WHITE BLOOD COUNT 5.4 TH/MM3 (4.0-11.0)
[2017-04-18 04:55] LABS: BICARBONATE 28.1 MEQ/L (21.0-32.0); POTASSIUM 3.6 MEQ/L (3.5-5.1)
[2017-04-18] MEDS: ISOSORBIDE MONONITRATE 30 MG TAB PO SCH (06:22)
[2017-04-18] MEDS: RESP: IPRATROPIUM 0.5 MG/2.5 ML NEB NEB SCH ×3 (07:29→19:37)
[2017-04-18] MEDS: ENOXAPARIN SODIUM 40 MG/0.4 ML SYRINGE SQ SCH (08:18)
[2017-04-18] MEDS: PANTOPRAZOLE SOD 20 MG DELAYED RELEASE TAB PO SCH (08:18)
[2017-04-18] MEDS: LOSARTAN 25 MG TAB PO SCH (08:18)
[2017-04-18] MEDS: SODIUM CHLORIDE 1 GRAM TAB PO SCH ×3 (08:18→18:22)
[2017-04-18] MEDS: CARVEDILOL 3.125 MG TAB PO SCH ×2 (08:18→20:50)
[2017-04-18] MEDS: CLOPIDOGREL 75 MG TAB PO SCH (08:18)
[2017-04-18] MEDS: POTASSIUM CHLORIDE 20 MEQ CONTROLLED RELEASE TAB PO SCH (08:19)
[2017-04-18] MEDS: SODIUM CHLORIDE 0.9% FLUSH 10 ML FLUSH IV FLUSH SCH ×2 (08:19→20:49)
[2017-04-18] MEDS: ASPIRIN EC 81 MG TABEC PO SCH (08:19)
[2017-04-18] MEDS: FUROSEMIDE 20 MG TAB PO SCH ×2 (08:20→20:50)
--- NOTE | 2017-04-18 09:11 | MB ---
cc: KAYCE JOSE DATE OF CONSULTATION 04/18/2017 DATE OF 1930 REASON FOR CONSULTATION Shortness of breath HISTORY OF PRESENT ILLNESS 87-year-old female known to me with a past medical history significant for aortic valve replacement status post recent TAVR on April 12, 2017, left ventricular diastolic dysfunction, hypertension, hyperlipidemia, frail, restrictive lung disease and CAD status post scars x2 with patent graft and recent left heart cath who presents to the hospital with vague complaints of high blood pressure. The patient is a poor historian thus history is taken from the chart. According to the chart, the patient has been having high blood pressures at home per daughter's and also some shortness of breath for which she was brought to the emergency department for further evaluation. She denied any chest pain, palpitations, syncope. She does look anxious and states that she does not get much sleep at home. She denies nausea, vomiting, diarrhea, abdominal pain or fevers. Cardiology has been consulted for possible heart failure exacerbation. REVIEW OF SYSTEMS Negative except for what is mentioned in the HPI. PAST MEDICAL HISTORY 1. Hypertension 2. CAD status post CABG x2 3. Aortic stenosis due to bioprosthetic valve failure status post TAVR. 4. Moderate to severe restrictive lung disease. 5. Hyperlipidemia 6. Gastroesophageal reflux disease 7. IBS 8. Osteoarthritis 9. Scoliosis PAST SURGICAL HISTORY 1. Coloscopy 2. CABG x2 and AVR in 2000. ALLERGIES RANITIDINE, LANSOPRAZOLE, NIZATIDINE. Intolerant to lactose. FAMILY HISTORY Noncontributory SOCIAL HISTORY Never smoked. Never drank alcohol. No illicit drug use. MEDICATIONS Cardiac home medications: 1. Aspirin 81 mg p.o. daily 2. Coreg 3.125 mg p.o. b.i.d. 3. Plavix 75 mg p.o. daily. 4. Lasix 20 mg p.o. b.i.d. 5. Imdur 30 mg p.o. daily 6. Lisinopril 20 mg p.o. daily 7. Simvastatin 20 mg p.o. daily PHYSICAL EXAMINATION VITAL SIGNS: Temperature 97.7, respiratory rate 20, heart rate 72, blood pressure 124/60, O2 sat 95% room air. GENERAL: She is awake, alert, and oriented x3 in no acute distress. NECK: No JVD or carotid bruits. HEART: Regular rate and rhythm. No murmurs, rubs or gallops. LUNGS: There is poor inspiratory effort, clear to auscultation bilaterally. No wheezes, rhonchi or rales. ABDOMEN: Benign. EXTREMITIES: No cyanosis or edema. Pulses throughout. DATA CBC hemoglobin 11, hematocrit 31, platelet count 315, INR 1.1. Chemistries sodium 126 which is chronic, potassium 3.6, BUN 7, creatinine 0.42. BNP 904, troponin less than 0.3 x3. EKG sinus rhythm with a left bundle branch block, nonspecific ST changes unchanged from previous. Chest x-ray shows a stable postsurgical features, cardiomegaly. ASSESSMENT 87-year-old female status post recent TAVR admitted with shortness of breath which is now resolved. The patient was given Lasix IV in the emergency department with a positive diuresis. On examination, no overt seizures or CHF exacerbation. Seems like her dyspnea is related to her moderate to severe restrictive lung disease. Agree that his cough related to new prescription of Lisinopril which should be changed to Losartan and ARB. At this point, I will transition her to p.o. diuresis, increase her home dose of Lasix to 40 mg p.o. b.i.d. and continue Aspirin, Plavix, Coreg and Imdur. For her shortness of breath and restrictive lung disease, I agree with starting her on some nebulizers on a standing basis for her shortness of breath and referring to pulmonology upon discharge. The patient is stable from the cardiovascular standpoint to be discharged home today. Thank you for the opportunity to take part in the care of this patient. The patient should follow up with cardiology per schedule. MD CHIQUITA Meraz/CARLOS /8:27 AM /8:40 AM EDILBERTO
--- NOTE | 2017-04-18 11:49 | HHI.PR ---
Subjective Remarks Resting comfortably in bed No event overnight Denied chest and or short of breath No fever or chills Objective Vitals Vital Signs Date Time Temp Pulse Resp B/P (MAP) Pulse Ox O2 Delivery O2 Flow Rate FiO2 04/18/17 11:32 97.2 75 16 110/56 (74) 98 04/18/17 07:08 89 04/18/17 04:31 81 04/18/17 04:29 98.3 72 19 124/60 (81) 95 04/18/17 01:11 97.7 79 20 127/60 (82) 98 04/18/17 00:06 83 04/17/17 20:51 97.5 83 24 148/77 (100) 96 04/17/17 20:34 81 04/17/17 18:56 98.2 79 22 169/76 (107) 96 04/17/17 14:43 75 16 97 Room Air 04/17/17 14:43 96 04/17/17 14:40 75 18 146/70 (95) 98 Room Air 04/17/17 14:27 98.5 20 146/70 (95) 96 I/O 04/17/17 04/17/17 04/17/17 04/18/17 04/18/17 04/18/17 07:00 15:00 23:00 07:00 15:00 23:00 Intake Total 240 ml Balance 240 ml Intake Oral 240 ml # Voids 4 Result Diagram: 04/18/17 0355 04/18/17 0355 Objective Remarks GENERAL: This is a well-nourished, well-developed patient, in no apparent distress. SKIN: No rashes, warm and dry HEAD: Atraumatic. Normocephalic. EYES: Pupils equal round and reactive. Extraocular motions intact. No scleral icterus. ENT: Nose without bleeding, or drainage, Airway patent. NECK: Trachea midline. Supple CARDIOVASCULAR: Increased S2 Regular rate RESPIRATORY: Fair air entry bilaterally. No wheezes, rales, or rhonchi. GASTROINTESTINAL: Abdomen soft, non-tender, nondistended. Positive bowel sounds MUSCULOSKELETAL: Extremities without clubbing, cyanosis, or edema. Pedal pulses appreciated NEUROLOGICAL: Awake and alert. Moves all extremity. Normal speech.no focal neurological deficit A/P Assessment and Plan Dyspnea on exertion due to acute on chronic systolic heart failure/status post TAVR 04/2017 New cough most likely site of exit of SHINE inhibitor Hyponatremia Anorexia poor oral intake Hypertension History of CAD History of restrictive lung disease on PFT Hyperlipidemia GERD/[place] DVT prophylaxis Plan: Continue diuretic increase Lasix to 40 mg twice a day per cardiology recommendation Appreciate cardiology consult Continue monitoring electrolytes BMP and BNP Patient will need to see python architect as an outpatient Continue home meds Change lisinopril to losartan to avoid side effects Discharge Planning In a.m. if symptom improved Laura Boothe MD Apr 18, 2017 11:49
--- NOTE | 2017-04-18 15:08 | EKG ---
Date Performed: 04/18/2017 Time Performed: 03:12:18 PTAGE: 87 years EKG: Sinus rhythm LEFT BUNDLE BRANCH BLOCK ABNORMAL ECG PREVIOUS TRACING : 04/17/2017 21.21 DOCTOR: Venkatesh Bob Interpretating Date/Time 04/18/2017 15:07:33
--- NOTE | 2017-04-18 15:30 | EKG ---
Date Performed: 04/17/2017 Time Performed: 21:21:35 PTAGE: 87 years EKG: Sinus rhythm LEFT BUNDLE BRANCH BLOCK ABNORMAL ECG PREVIOUS TRACING : 04/17/2017 14.38 DOCTOR: Venkatesh Bob Interpretating Date/Time 04/18/2017 15:29:25
--- NOTE | 2017-04-18 15:54 | EKG ---
Date Performed: 04/17/2017 Time Performed: 14:38:55 PTAGE: 87 years EKG: Sinus rhythm LEFT BUNDLE BRANCH BLOCK ABNORMAL ECG PREVIOUS TRACING : 04/12/2017 05.24 DOCTOR: Venkatesh Bob Interpretating Date/Time 04/18/2017 15:53:09
[2017-04-18] MEDS: PRAVASTATIN SOD 40 MG TAB PO SCH (20:50)
[2017-04-19] MEDS: RESP: IPRATROPIUM 0.5 MG/2.5 ML NEB NEB SCH ×2 (03:22→10:44)
[2017-04-19 03:27] VITALS: BP 125/60; PULSE 78; RESP 16; TEMP 98.3; O2SAT 96
[2017-04-19] MEDS: ISOSORBIDE MONONITRATE 30 MG TAB PO SCH (05:54)
[2017-04-19 06:25] LABS: BICARBONATE 26.7 MEQ/L (21.0-32.0); MAGNESIUM 1.7 MG/DL (1.5-2.5); POTASSIUM 3.8 MEQ/L (3.5-5.1)
[2017-04-19 07:07] VITALS: PULSE 75
[2017-04-19 07:19] VITALS: BP 130/63; PULSE 80; RESP 16; TEMP 98.1; O2SAT 96
[2017-04-19] MEDS: ENOXAPARIN SODIUM 40 MG/0.4 ML SYRINGE SQ SCH (08:07)
[2017-04-19] MEDS: SODIUM CHLORIDE 1 GRAM TAB PO SCH (08:07)
[2017-04-19] MEDS: ASPIRIN EC 81 MG TABEC PO SCH (08:07)
[2017-04-19] MEDS: CLOPIDOGREL 75 MG TAB PO SCH (08:08)
[2017-04-19] MEDS: PANTOPRAZOLE SOD 20 MG DELAYED RELEASE TAB PO SCH (08:08)
[2017-04-19] MEDS: CARVEDILOL 3.125 MG TAB PO SCH (08:08)
[2017-04-19] MEDS: POTASSIUM CHLORIDE 20 MEQ CONTROLLED RELEASE TAB PO SCH (08:08)
[2017-04-19] MEDS: FUROSEMIDE 20 MG TAB PO SCH (08:11)
[2017-04-19] MEDS: SODIUM CHLORIDE 0.9% FLUSH 10 ML FLUSH IV FLUSH SCH (08:12)
[2017-04-19] MEDS: LOSARTAN 25 MG TAB PO SCH (08:12)
[2017-04-19] MEDS ORDERED: FURO20TA PO (11:36)
[2017-04-19] MEDS ORDERED: COZA25TA PO (11:36)
--- NOTE | 2017-04-19 11:37 | HHI.FF ---
Face to Face Verification Diagnosis: (1) Aortic stenosis (2) CAD (coronary artery disease) (3) CHF (congestive heart failure) (4) Exertional dyspnea (5) History of aortic valve replacement Physical Therapy Order: Evaluate and Treat Occupational Therapy Order: Evaluate and Treat Home Health Nursing Order: CHF education I have seen patient Jessy Cornell on 04/19/17. My clinical findings support the need for the requested home health care services because: Patient has SOB Limited ability to care for self I certify that my clinical findings support that this patient is homebound because: Poor cardiac reserve Laura Boothe MD Apr 19, 2017 11:36
[2017-04-19 11:43] VITALS: BP 118/59; PULSE 79; RESP 18; TEMP 97.5; O2SAT 96
[2017-04-19] MEDS ORDERED: TEMA7.5C9 PO (12:48)
[2017-04-19] MEDS ORDERED: IPRASOL INH ×2 (12:48→13:06)
[2017-04-19] MEDS ORDERED: NEBULIZER1 MI1 (13:02)
--- NOTE | 2017-04-19 16:30 | HHI.PR ---
Subjective Remarks Resting comfortably in bed No event overnight Denied chest and or short of breath No fever or chills Objective Vitals Vital Signs Date Time Temp Pulse Resp B/P (MAP) Pulse Ox O2 Delivery O2 Flow Rate FiO2 04/19/17 11:43 97.5 79 18 118/59 (78) 96 04/19/17 07:19 98.1 80 16 130/63 (85) 96 04/19/17 07:07 75 04/19/17 03:27 98.3 78 16 125/60 (81) 96 04/18/17 23:16 98.4 76 16 130/62 (84) 98 04/18/17 19:20 98.1 84 16 146/69 (94) 97 I/O 04/18/17 04/18/17 04/18/17 04/19/17 04/19/17 04/19/17 06:59 14:59 22:59 06:59 14:59 22:59 Intake Total 240 ml Output Total 4 ml Balance 240 ml -4 ml Intake Oral 240 ml Output Urine Total 4 ml # Voids 4 1 Result Diagram: 04/18/17 0355 04/19/17 0503 Objective Remarks GENERAL: This is a well-nourished, well-developed patient, in no apparent distress. SKIN: No rashes, warm and dry HEAD: Atraumatic. Normocephalic. EYES: Pupils equal round and reactive. Extraocular motions intact. No scleral icterus. ENT: Nose without bleeding, or drainage, Airway patent. NECK: Trachea midline. Supple CARDIOVASCULAR: Increased S2 Regular rate RESPIRATORY: Fair air entry bilaterally. No wheezes, rales, or rhonchi. GASTROINTESTINAL: Abdomen soft, non-tender, nondistended. Positive bowel sounds MUSCULOSKELETAL: Extremities without clubbing, cyanosis, or edema. Pedal pulses appreciated NEUROLOGICAL: Awake and alert. Moves all extremity. Normal speech.no focal neurological deficit A/P Assessment and Plan Dyspnea on exertion due to acute on chronic systolic heart failure/status post TAVR 04/2017 New cough most likely site of exit of SHINE inhibitor Hyponatremia Anorexia poor oral intake Hypertension History of CAD History of restrictive lung disease on PFT Hyperlipidemia GERD/[place] DVT prophylaxis Plan: Continue diuretic increase Lasix to 40 mg twice a day per cardiology recommendation Appreciate cardiology consult Continue monitoring electrolytes BMP and BNP Patient will need to see community outreach coordinator as an outpatient Continue home meds Change lisinopril to losartan to avoid side effects Discharge Planning Discharge patient to home Condition on discharge: Improved Healthy heart Diet as tolerated Ad Nessa activity Rx written: See med rec, increase 6-40 twice a day Follow-up with primary care physician and cardiology in one week Laura Boothe MD Apr 19, 2017 16:30
== END 2017-04-19 13:15 | disposition home or self-care (01) ==
LOC: NEPC 14:23 → NEDA 17:05 → NEPFCDU 17:55
PROVIDERS: ADMIT Hospitalist; ATTEND Hospitalist
DX: I11.0 Hypertensive heart disease with heart failure (principal); I50.23 Acute on chronic systolic (congestive) heart failure; E87.1 Hypo-osmolality and hyponatremia; R07.9 Chest pain, unspecified; I25.10 Atherosclerotic heart disease of native coronary artery without angina pectoris; F41.9 Anxiety disorder, unspecified; R94.31 Abnormal electrocardiogram [ECG] [EKG]; M54.2 Cervicalgia; D64.9 Anemia, unspecified; E78.00 Pure hypercholesterolemia, unspecified; K52.9 Noninfective gastroenteritis and colitis, unspecified; K21.9 Gastro-esophageal reflux disease without esophagitis; K44.9 Diaphragmatic hernia without obstruction or gangrene; Z79.82 Long term (current) use of aspirin; Z95.2 Presence of prosthetic heart valve; Z95.1 Presence of aortocoronary bypass graft
CPT/HCPCS: 71010; 80048; 80053; 82550; 83735; 83880; 84100; 84484; 85025; 85610; 85730; 93005; 94640; 94664; 96372; 96374; 96375; 97161; 99285; G0378; G8987; G8988; J1650; J1940; J2270; J7644

== ENCOUNTER 2017-04-28 11:27 | Inpatient (IN) | payer MEDICARE ==
[~2017-04-28] VITALS: Ht 162.6 cm; Wt 47.9 kg
[~2017-04-28 11:27] MED LIST changes: +COZA25TA PO; +FURO20TA PO; +IPRASOL INH; +NEBULIZER1 MI1; +TEMA7.5C9 PO
[2017-04-28 11:29] VITALS: BP 156/67; PULSE 65; RESP 18; TEMP 97.8; O2SAT 95
[2017-04-28] MEDS ORDERED: ESCI10TA PO (12:01)
[2017-04-28 12:03] VITALS: O2SAT 96
--- NOTE | 2017-04-28 12:08 | PD ---
HPI Chief Complaint: Medical Clearance Time Seen by Provider: 11:35 Travel History International Travel<30 days: No Contact w/Intl Traveler<30days: No Traveled to known affect area: No History of Present Illness HPI Patient is an 87-year-old female who on the sixth this month had a TAVR presents emergency department for generalized weakness with her daughter. When trying to take history from the patient she defers her history to her daughter. Daughter states that she's been complaining of cramps in her lower extremities , dry mouth, generalized weakness and decreased ability to ambulate to the bathroom over the past week. The patient was actually inpatient on the for possible CHF exacerbation, at that time she was noted to have a cough and was attributed to lisinopril, her lisinopril was changed to losartan and I think this is the medication is causing her symptoms after discussing with her pharmacist. The pharmacist advised him to come to the emergency department be seen. She's also been urinating quite frequently, the patient denies any pains to me, denies any chest pain shortness of breath abdominal pain nausea vomiting cough congestion PFSH Past Medical History Hx Anticoagulant Therapy: Yes Arthritis: Yes Blood Disorders: No Anxiety: No Depression: No Heart Rhythm Problems: No Cancer: No Cardiac Catheterization: Yes Cardiovascular Problems: Yes High Cholesterol: Yes Chest Pain: Yes Congestive Heart Failure: Yes Coronary Artery Disease: Yes Diabetes: No Diminished Hearing: No Endocrine: No Gastrointestinal Disorders: Yes (CHRONIC DIARRHEA) GERD: Yes Genitourinary: No Hiatal Hernia: Yes Hypertension: Yes Immune Disorder: No Musculoskeletal: Yes Neurologic: No Psychiatric: No Reproductive: No Respiratory: No Immunizations Current: Yes Radiation Therapy: No Thyroid Disease: No Ulcer: Yes Menopausal: Yes Past Surgical History Abdominal Surgery: No Cardiac Surgery: Yes (AVR, DOUBLE BYPASS, TAVR) Coronary Artery Bypass Graft: Yes (2 VESSELS W/ AORTIC VALVE REPLACMENT) Ear Surgery: No Endocrine Surgery: No Eye Surgery: No Genitourinary Surgery: No Gynecologic Surgery: No Oral Surgery: No Thoracic Surgery: No Other Surgery: Yes (OPEN HEART, AORTIC VALVE, DOUBLE BYPASS) Social History Alcohol Use: No Tobacco Use: No Substance Use: No Allergies-Medications (Allergen,Severity, Reaction): Coded Allergies: ranitidine (Verified Allergy, Severe, 04/28/17) lansoprazole (Unverified Allergy, Mild, DIARRHEA, 04/28/17) nizatidine (Unverified Allergy, Mild, DIARRHEA, 04/28/17) Uncoded Allergies: lactose intolerant (Adverse Reaction, Intermediate, diarrhea, 03/23/17) Reported Meds & Prescriptions Reported Meds & Active Scripts Active Duoneb (Ipratropium-Albuterol Neb) 0.5-2.5 Mg/3 Ml Neb 1 Nebule INH Q4HR NEB 10 Days Nebulizer 1 Mis Mis Ea .ROUTE DIRECTED Cozaar (Losartan Potassium) 25 Mg Tab 25 Mg PO DAILY Potassium Chloride ER (Potassium Chloride) 20 Meq Tab 20 Meq PO DAILY Coreg (Carvedilol) 3.125 Mg Tab 3.125 Mg PO BID 30 Days Plavix (Clopidogrel Bisulfate) 75 Mg Tab 75 Mg PO DAILY 30 Days Lasix (Furosemide) 20 Mg Tab 20 Mg PO BID Hospital Bed - Electric 1 Ea Ea Ea .ROUTE DIRECTED Adjustable Commode 3-in-1 (Device) 1 Mis Mis Ea .ROUTE DIRECTED Isosorbide Mononitrate ER (Isosorbide Mononitrate) 30 Mg Amanda 30 Mg PO DAILY@07 Reported Escitalopram (Escitalopram Oxalate) 10 Mg Tab 10 Mg PO DAILY Simvastatin 20 Mg Tab 20 Mg PO HS Omeprazole 20 Mg Tab 20 Mg PO DAILY Review of Systems Except as stated in HPI: all other systems reviewed are Neg Physical Exam Narrative GENERAL: Well-developed well-nourished but thin in no obvious distress. SKIN: Focused skin assessment warm/dry. HEAD: Atraumatic. Normocephalic. EYES: Pupils equal and round. No scleral icterus. No injection or drainage. ENT: No nasal bleeding or discharge. Mucous membranes pink and moist. NECK: Trachea midline. No JVD. CARDIOVASCULAR: Regular rate and rhythm. No murmur appreciated. RESPIRATORY: No accessory muscle use. Clear to auscultation. Breath sounds equal bilaterally. GASTROINTESTINAL: Abdomen soft, non-tender, nondistended. Hepatic and splenic margins not palpable. MUSCULOSKELETAL: No obvious deformities. No clubbing. No cyanosis. No edema. NEUROLOGICAL: Awake and alert. No obvious cranial nerve deficits. Motor grossly within normal limits. Normal speech. PSYCHIATRIC: Appropriate mood and affect; insight and judgment normal. Data Data Last Documented VS Vital Signs Date Time Temp Pulse Resp B/P (MAP) Pulse Ox O2 Delivery O2 Flow Rate FiO2 04/28/17 12:03 96 Room Air 04/28/17 11:29 97.8 65 18 Orders Orders Ckmb (Isoenzyme) Profile (04/28/17 11:59) Complete Blood Count With Diff (04/28/17 11:59) Comprehensive Metabolic Panel (04/28/17 11:59) Magnesium (Mg) (04/28/17 11:59) Prothrombin Time / Inr (Pt) (04/28/17 11:59) Act Partial Throm Time (Ptt) (04/28/17 11:59) Troponin I (04/28/17 11:59) Chest, Single Ap (04/28/17 11:59) Ecg Monitoring (04/28/17 11:59) Iv Access Insert/Monitor (04/28/17 11:59) Oximetry (04/28/17 11:59) Oxygen Administration (04/28/17 11:59) Sodium Chloride 0.9% Flush (Ns Flush) (04/28/17 12:00) Urinalysis - C+S If Indicated (04/28/17 11:59) Sodium Chlorid 0.9% 500 Ml Inj (Ns 500 M (04/28/17 13:15) Sodium, Random Urine (04/28/17 13:03) Potassium, Random Urine (K) (04/28/17 13:03) Osmolality, Urine (04/28/17 13:03) Urine Culture (04/28/17 10:10) Admit Order (Ed Use Only) (04/28/17 ) Labs Laboratory Tests Test 04/28/17 10:06 04/28/17 10:10 White Blood Count 4.9 TH/MM3 Red Blood Count 4.02 MIL/MM3 Hemoglobin 11.4 GM/DL Hematocrit 33.1 % Mean Corpuscular Volume 82.2 FL Mean Corpuscular Hemoglobin 28.5 PG Mean Corpuscular Hemoglobin Concent 34.6 % Red Cell Distribution Width 13.7 % Platelet Count 356 TH/MM3 Mean Platelet Volume 7.5 FL Neutrophils (%) (Auto) 65.7 % Lymphocytes (%) (Auto) 18.7 % Monocytes (%) (Auto) 12.2 % Eosinophils (%) (Auto) 2.8 % Basophils (%) (Auto) 0.6 % Neutrophils # (Auto) 3.3 TH/MM3 Lymphocytes # (Auto) 0.9 TH/MM3 Monocytes # (Auto) 0.6 TH/MM3 Eosinophils # (Auto) 0.1 TH/MM3 Basophils # (Auto) 0.0 TH/MM3 CBC Comment DIFF FINAL Differential Comment Prothrombin Time 10.4 SEC Prothromb Time International Ratio 1.0 RATIO Activated Partial Thromboplast Time 25.7 SEC Blood Urea Nitrogen 8 MG/DL Creatinine 0.35 MG/DL Random Glucose 104 MG/DL Total Protein 6.4 GM/DL Albumin 3.0 GM/DL Calcium Level 7.9 MG/DL Magnesium Level 1.8 MG/DL Alkaline Phosphatase 79 U/L Aspartate Amino Transf (AST/SGOT) 31 U/L Alanine Aminotransferase (ALT/SGPT) 16 U/L Total Bilirubin 0.7 MG/DL Sodium Level 111 MEQ/L Potassium Level 4.8 MEQ/L Chloride Level 79 MEQ/L Carbon Dioxide Level 23.6 MEQ/L Anion Gap 8 MEQ/L Estimat Glomerular Filtration Rate 177 ML/MIN Total Creatine Kinase 96 U/L Troponin I 0.03 NG/ML Urine Color YELLOW Urine Turbidity HAZY Urine pH 7.5 Urine Specific [place] 1.009 Urine Protein NEG mg/dL Urine Glucose (UA) NEG mg/dL Urine Ketones NEG mg/dL Urine Occult Blood NEG Urine Nitrite NEG Urine Bilirubin NEG Urine Urobilinogen LESS THAN 2.0 MG/DL Urine Leukocyte Esterase NEG Urine RBC LESS THAN 1 /hpf Urine WBC LESS THAN 1 /hpf Urine Amorphous Sediment MOD Urine Bacteria OCC /hpf Urine Hyaline Casts 1 /lpf Urine Mucus FEW /lpf Microscopic Urinalysis Comment CATH-CULTURE IND Urine Osmolality 353 MOSM/KG Urine Random Sodium 75 MEQ/L Urine Random Potassium 39 MEQ/L [facility] Medical Decision Making Medical Screen Exam Complete: Yes Emergency Medical Condition: Yes Differential Diagnosis Hyponatremia, electrolyte abnormality, dehydration, failure to thrive Narrative Course Patient roomed emergency department, she does not provide much further history instead her daughter does, labs are significant for a sodium of 111 which I think would explain her symptoms. Review of her chart shows a woman he's had a gradual decline in health, this may be coupled with her valve replacements however she may be hospice appropriate in the near future. Certainly will admit her for the time being she appears dehydrated, cautiously hydrated in the emergency department with a 500 cc normal saline bolus, further hydration deferred to Dr. Funes whom the patient was discussed with. Diagnosis Primary Impression: Hyponatremia Admitting Information Admitting Physician Requests: Admit Condition: Brett Daniels MD Apr 28, 2017 12:08
[2017-04-28 12:22] LABS: AUTOMATED NEUTROPHIL # 3.3 TH/MM3 (1.8-7.7); BASOPHIL % 0.6 % (0.0-2.0); EOSINOPHIL # 0.1 TH/MM3 (0-0.4); EOSINOPHIL % 2.8 % (0.0-4.0); HEMATOCRIT 33.1 % (35.0-46.0); HEMOGLOBIN 11.4 GM/DL (11.6-15.3); LYMPH % 18.7 % (9.0-44.0); LYMPHOCYTE # 0.9 TH/MM3 (1.0-4.8); MEAN CELL VOLUME 82.2 FL (80.0-100.0); MEAN CORPUSCULAR HEMOGLOBIN 28.5 PG (27.0-34.0); MEAN CORPUSCULAR HGB CONC 34.6 % (32.0-36.0); MEAN PLATELET VOLUME 7.5 FL (7.0-11.0); MONO % 12.2 % (0.0-8.0); MONOCYTE # 0.6 TH/MM3 (0-0.9); NEUT % 65.7 % (16.0-70.0); PLATELET COUNT 356 TH/MM3 (150-450); RED BLOOD COUNT 4.02 MIL/MM3 (4.00-5.30); RED CELL DISTRIBUTION WIDTH 13.7 % (11.6-17.2); WHITE BLOOD COUNT 4.9 TH/MM3 (4.0-11.0)
[2017-04-28 12:32] LABS: PROTHROMBIN TIME - PATIENT 10.4 SEC (9.8-11.6)
[2017-04-28 12:50] LABS: AST (GOT) 31 U/L (15-37); BICARBONATE 23.6 MEQ/L (21.0-32.0); BLOOD UREA NITROGEN 8 MG/DL (7-18); CALCIUM 7.9 MG/DL (8.5-10.1); CHLORIDE 79 MEQ/L (98-107); CREATININE 0.35 MG/DL (0.50-1.00); GLOMERULAR FILTRATION RATE 177 ML/MIN (>89); GLUCOSE,RANDOM 104 MG/DL (74-106); MAGNESIUM 1.8 MG/DL (1.5-2.5)
[2017-04-28 12:58] LABS: SODIUM (NA) 111 MEQ/L (136-145)
[2017-04-28 12:59] LABS: ALKALINE PHOSPHATASE 79 U/L (45-117); ALT (GPT) 16 U/L (10-53); TOTAL BILIRUBIN ADULT 0.7 MG/DL (0.2-1.0); TOTAL PROTEIN 6.4 GM/DL (6.4-8.2); TROPONIN I 0.03 NG/ML (0.02-0.05)
--- NOTE | 2017-04-28 13:00 | RADRPT ---
EXAM DATE/TIME: 04/28/2017 12:24 [place] COMPARISON: CHEST SINGLE AP, April 17, 2017, 15:07. INDICATIONS : Chest pain. MEDICAL HISTORY : Hypertension. Congestive heart failure. Coronary artery disease. SURGICAL HISTORY : CABG. Aortic valve repair. Cardiac cath. ENCOUNTER: Initial ACUITY: 1 day PAIN SCORE: 3/10 LOCATION: Bilateral chest FINDINGS: Previous bypass. Mild cardiomegaly with minimal interstitial edema. No significant pleural effusion . No pneumothorax. The portion of the bony skeleton visualized is unremarkable. CONCLUSION: Mild congestive failure Luis Amaral MD FACR on April 28, 2017 at 12:57 Board Certified Radiologist. This report was verified electronically.
[2017-04-28 13:08] LABS: AMORPHOUS SEDIMENT, URINE MOD; BACTERIA, URINE OCC /hpf; BILIRUBIN, URINE NEG (NEG); BLOOD, URINE NEG (NEG); GLUCOSE,URINE NEG (NEG); HYALINE CAST, URINE 1 /lpf (RARE); KETONE, URINE NEG (NEG); MUCUS URINE FEW /lpf (OCC); NITRITE,URINE NEG (NEG); PH, URINE 7.5 (5.0-8.5); URINE COLOR YELLOW (YELLW/STRAW); URINE LEUKOCYTE ESTERASE NEG (NEG)
[2017-04-28] MEDS ORDERED: SODIUM CHLORID 0.9% 500 ML INJ 500 ML IV ONE (13:15)
[2017-04-28] MEDS ORDERED: SODIUM CHLOR 0.9% 1000 ML INJ 1,000 ML IV SCH (13:45)
--- NOTE | 2017-04-28 13:59 | HHI.HP ---
[facility] Service [place] [facility] Primary Care Physician Unknown Admission Diagnosis Hyponatremia, Generalized weakness. Diagnoses: (1) Hyponatremia Diagnosis: Principal Chief Complaint: generalized weakness Travel History International Travel<30 Days: No Contact w/Intl Traveler <30 Da: No Traveled to Known Affected Are: No History of Present Illness patient is a 87 y/o female, known to me from previous admission,with history of hyponatremia, s/p recent aortic valve replacement, was brought to ER with generalized weakness. most of the information was obtained from the daughter at the bedside. she says that she initially did fine after the surgery. but two days ago she started to feel weak to the extent that she wasn't able to get out of the bed.she denies any chest pain, sob, nausea or dizziness. but the daughter says that she's been having difficult swallowing recently. she says that she's been referred to a prover but hasn't heard from the office yet. Review of Systems Constitutional: COMPLAINS OF: Fatigue, DENIES: Fever, Weight loss, Chills, Night Sweats Eyes: DENIES: Blurred vision, Diplopia, Vision loss, Double Vision Ears, nose, mouth, throat: DENIES: Tinnitus, Vertigo, Throat pain, Epistaxis Respiratory: DENIES: Apneas, Cough, Snoring, Wheezing, Hemoptysis, Sputum production, Shortness of breath Cardiovascular: DENIES: Chest pain, Palpitations, Syncope, Dyspnea on Exertion , PND, Lower Extremity Edema, Orthopnea, Claudication Gastrointestinal: DENIES: Abdominal pain, Black stools, Bloody stools, Constipation, Diarrhea, Nausea, Vomiting, Difficulty Swallowing, Anorexia Genitourinary: DENIES: Urinary frequency, Urgency, Hematuria, Dysuria Musculoskeletal: DENIES: Joint pain, Muscle aches, Stiffness, Joint Swelling Integumentary: DENIES: Rash Neurologic: DENIES: Abnormal gait, Headache, Localized weakness, Paresthesias, Seizures, Speech Problems, Tremor, Poor Balance Psychiatric: DENIES: Anxiety, Confusion, Mood changes, Depression, Hallucinations, Agitation, Suicidal Ideation, Homicidal Ideation, Delusions Past Family Social History Past Medical History Left bundle branch block Coronary artery disease Hyperlipidemia Aortic valve stenosis Osteoarthritis Chronic diarrhea GERD hiatal hernia Hypertension systolic congestive heart failure Hypertension Past Surgical History Past Surgical History Aortic valve replacement Coronary artery bypass and graft of 2 vessels Reported Medications Duoneb (Ipratropium-Albuterol Neb) 0.5-2.5 Mg/3 Ml Neb 1 Nebule INH Q4HR NEB 10 Days Nebulizer 1 Mis Mis Ea .ROUTE DIRECTED Cozaar (Losartan Potassium) 25 Mg Tab 25 Mg PO DAILY Potassium Chloride ER (Potassium Chloride) 20 Meq Tab 20 Meq PO DAILY Coreg (Carvedilol) 3.125 Mg Tab 3.125 Mg PO BID 30 Days Plavix (Clopidogrel Bisulfate) 75 Mg Tab 75 Mg PO DAILY 30 Days Lasix (Furosemide) 20 Mg Tab 20 Mg PO BID Hospital Bed - Electric 1 Ea Ea Ea .ROUTE DIRECTED Adjustable Commode 3-in-1 (Device) 1 Mis Mis Ea .ROUTE DIRECTED Isosorbide Mononitrate ER (Isosorbide Mononitrate) 30 Mg Amanda 30 Mg PO DAILY@07 Escitalopram (Escitalopram Oxalate) 10 Mg Tab 10 Mg PO DAILY Simvastatin 20 Mg Tab 20 Mg PO HS Omeprazole 20 Mg Tab 20 Mg PO DAILY Allergies: Coded Allergies: ranitidine (Verified Allergy, Severe, 04/28/17) lansoprazole (Unverified Allergy, Mild, DIARRHEA, 04/28/17) nizatidine (Unverified Allergy, Mild, DIARRHEA, 04/28/17) Uncoded Allergies: lactose intolerant (Adverse Reaction, Intermediate, diarrhea, 03/23/17) Active Ordered Medications Inpatient Medications Sodium Chloride 500 ml @ 500 mls/hr BOLUS ONCE IV Last administered on t 13:14; Start 04/28/17 at 13:15; Stop 04/28/17 at 14:14 Sodium Chloride (NS Flush) 2 ml UNSCH PRN IVF FLUSH AFTER USING IV ACCESS; Start 04/28/17 at 12:00 Social History lives at home with the daughter. Physical Exam Vital Signs Vital Signs Date Time Temp Pulse Resp B/P (MAP) Pulse Ox O2 Delivery O2 Flow Rate FiO2 04/28/17 12:03 96 Room Air 04/28/17 11:29 97.8 65 18 156/67 (96) 95 Physical Exam GENERAL: elderly female , in no distress. SKIN: No rashes, ecchymoses or lesions. Cool and dry. HEAD: Atraumatic. Normocephalic. No temporal or scalp tenderness. EYES: Pupils equal round and reactive. Extraocular motions intact. No scleral icterus. No injection or drainage. ENT: Nose without bleeding, purulent drainage or septal hematoma. Throat without erythema, tonsillar hypertrophy or exudate. Uvula midline. Airway patent. NECK: Trachea midline. No JVD or lymphadenopathy. Supple, nontender, no meningeal signs. CARDIOVASCULAR: Regular rate and rhythm without murmurs, gallops, or rubs. RESPIRATORY: Clear to auscultation. Breath sounds equal bilaterally. No wheezes , rales, or rhonchi. GASTROINTESTINAL: Abdomen soft, non-tender, nondistended. No hepato-splenomegaly , or palpable masses. No guarding. MUSCULOSKELETAL: Extremities without clubbing, cyanosis, or edema. No joint tenderness, effusion, or edema noted. No calf tenderness. Negative Homans sign bilaterally. NEUROLOGICAL: Awake and alert. Cranial nerves II through XII intact. Motor and sensory grossly within normal limits. Five out of 5 muscle strength in all muscle groups. Normal speech. Laboratory Laboratory Tests Test 04/28/17 10:06 04/28/17 10:10 White Blood Count 4.9 Red Blood Count 4.02 Hemoglobin 11.4 Hematocrit 33.1 Mean Corpuscular Volume 82.2 Mean Corpuscular Hemoglobin 28.5 Mean Corpuscular Hemoglobin Concent 34.6 Red Cell Distribution Width 13.7 Platelet Count 356 Mean Platelet Volume 7.5 Neutrophils (%) (Auto) 65.7 Lymphocytes (%) (Auto) 18.7 Monocytes (%) (Auto) 12.2 Eosinophils (%) (Auto) 2.8 Basophils (%) (Auto) 0.6 Neutrophils # (Auto) 3.3 Lymphocytes # (Auto) 0.9 Monocytes # (Auto) 0.6 Eosinophils # (Auto) 0.1 Basophils # (Auto) 0.0 CBC Comment DIFF FINAL Differential Comment Prothrombin Time 10.4 Prothromb Time International Ratio 1.0 Activated Partial Thromboplast Time 25.7 Blood Urea Nitrogen 8 Creatinine 0.35 Random Glucose 104 Total Protein 6.4 Albumin 3.0 Calcium Level 7.9 Magnesium Level 1.8 Alkaline Phosphatase 79 Aspartate Amino Transf (AST/SGOT) 31 Alanine Aminotransferase (ALT/SGPT) 16 Total Bilirubin 0.7 Sodium Level 111 Potassium Level 4.8 Chloride Level 79 Carbon Dioxide Level 23.6 Anion Gap 8 Estimat Glomerular Filtration Rate 177 Total Creatine Kinase 96 Troponin I 0.03 Urine Color YELLOW Urine Turbidity HAZY Urine pH 7.5 Urine Specific [place]onson 1.009 Urine Protein NEG Urine Glucose (UA) NEG Urine Ketones NEG Urine Occult Blood NEG Urine Nitrite NEG Urine Bilirubin NEG Urine Urobilinogen LESS THAN 2.0 Urine Leukocyte Esterase NEG Urine RBC LESS THAN 1 Urine WBC LESS THAN 1 Urine Amorphous Sediment MOD Urine Bacteria OCC Urine Hyaline Casts 1 Urine Mucus FEW Microscopic Urinalysis Comment CATH-CULTURE IND Date/Time Source Procedure Growth Status 04/28/17 10:10 Urine Catheterized Urine Urine Culture Pending Received Result Diagram: 04/28/17 1006 04/28/17 1006 Imaging Last Impressions Chest X-Ray 04/28/17 1159 Signed Impressions: Service Date/Time: Sunday, April 28, 2017 12:24 - CONCLUSION: Mild congestive failure Luis Amaral MD FACR Caprini VTE Risk Assessment Caprini VTE Risk Assessment: Mod/High Risk (score >= 2) Caprini Risk Assessment Model Point Value = 1 Point Value = 2 Point Value = 3 Point Value = 5 Age 41-60 Minor surgery BMI > 25 kg/m2 Swollen legs Varicose veins or History of unexplained or recurrent spontaneous Oral contraceptives or hormone replacement Sepsis (< 1 month) Serious lung disease, including pneumonia (< 1 month) Abnormal pulmonary function Acute myocardial infarction Congestive heart failure (< 1 month) History of inflammatory bowel disease Medical patient at bed rest Age 61-74 Arthroscopic surgery Major open surgery (> 45 min) Laparoscopic surgery (> 45 min) Malignancy Confined to bed (> 72 hours) Immobilizing plaster cast Central venous access Age >= 75 History of VTE Family history of VTE Factor V Leiden Prothrombin [id number] Lupus anticoagulant Anticardiolipin antibodies Elevated serum homocysteine Heparin-induced thrombocytopenia Other congenital or acquired thrombophilia Stroke (< 1 month) Elective arthroplasty Hip, pelvis, or leg fracture Acute spinal cord injury (< 1 month) Prophylaxis Regimen Total Risk Factor Score Risk Level Prophylaxis Regimen 0-1 Low Early ambulation 2 Moderate Order ONE of the following: *Sequential Compression Device (SCD) *Heparin 5000 units SQ BID 3-4 Higher Order ONE of the following medications: *Heparin 5000 units SQ TID *Enoxaparin/Lovenox 40 mg SQ daily (WT < 150 kg, CrCl > 30 mL/min) *Enoxaparin/Lovenox 30 mg SQ daily (WT < 150 kg, CrCl > 10-29 mL/min) *Enoxaparin/Lovenox 30 mg SQ BID (WT < 150 kg, CrCl > 30 mL/min) AND/OR *Sequential Compression Device (SCD) 5 or more Highest Order ONE of the following medications: *Heparin 5000 units SQ TID (Preferred with Epidurals) *Enoxaparin/Lovenox 40 mg SQ daily (WT < 150 kg, CrCl > 30 mL/min) *Enoxaparin/Lovenox 30 mg SQ daily (WT < 150 kg, CrCl > 10-29 mL/min) *Enoxaparin/Lovenox 30 mg SQ BID (WT < 150 kg, CrCl > 30 mL/min) AND *Sequential Compression Device (SCD) Assessment and Plan Assessment and Plan A/P - hyponatremia- recurrent- likely due to CHF start on sodium tablet and continue with Lasix-monitor the sodium level closely. check serum and urine osmolality and urine sodium. will consult nephrology -dysphagia?- consult ST for swallow evaluation -hypertension; resume home meds- will monitor BP and adjust the regimen as needed -CAD/ aortic valve stenosis- s/p recent aortic valve replacement; resume plavix , BB and statin -DVT prophylaxis with SCD's. -DNR per my d/w the daughter d/w the daughter at length; palliative care was offered and the daughter agreed with hospice evaluation although she would like to talk to the rest of the family; hospice consulted. Discussed Condition With ER physician, the patient and her daughter. Physician Certification 2 Midnight Certification Type: Admission for Inpatient Services Order for Inpatient Services The services are ordered in accordance with Medicare regulations or non- Medicare payer requirements, as applicable. In the case of services not specified as inpatient-only, they are appropriately provided as inpatient services in accordance with the 2-midnight benchmark. Estimated LOS (days): 2 days is the estimated time the patient will need to remain in the hospital, assuming treatment plan goals are met and no additional complications. Post-Hospital Plan: Not yet determined Naya Funes MD Apr 28, 2017 13:59
[2017-04-28] MEDS ORDERED: RESP: ALBUTEROL 1.25 MG/3 ML NEB (PRN) NEB (14:00)
[2017-04-28 14:07] LABS: SODIUM,RANDOM URINE 75 MEQ/L
[2017-04-28 14:09] LABS: OSMOLALITY,URINE 353 MOSM/KG (300-1300)
[2017-04-28 15:30] VITALS: BP 150/77; PULSE 69; RESP 18; TEMP 96.3; O2SAT 94
[2017-04-28] MEDS: POTASSIUM CHLORIDE 20 MEQ CONTROLLED RELEASE TAB PO SCH (15:35)
[2017-04-28] MEDS: SODIUM CHLORIDE 1 GRAM TAB PO SCH ×2 (15:36→21:15)
--- NOTE | 2017-04-28 16:48 | EKG ---
Date Performed: 04/28/2017 Time Performed: 11:43:45 PTAGE: 87 years EKG: Sinus rhythm LEFT BUNDLE BRANCH BLOCK ABNORMAL ECG PREVIOUS TRACING : 04/18/2017 03.12 Compared to prior tracing no significant change DOCTOR: Yash Roman Interpretating Date/Time 04/28/2017 16:46:51
[2017-04-28] MEDS ORDERED: 3% SALINE INJ 500 ML IV ONE (17:00)
--- NOTE | 2017-04-28 17:30 | MB ---
cc: MAXIM CLAUDIO MD DATE OF CONSULTATION: 04/28/2017. REASON FOR CONSULTATION: Severe hyponatremia for evaluation. HISTORY OF PRESENT ILLNESS: This is an 87-year-old female with past medical history of ischemic heart disease, hyperlipidemia, aortic stenosis, chronic diarrhea, hiatal hernia, hypertension, systolic congestive heart failure who was brought to the hospital with generalized weakness. The patient was recently admitted and she had a TAVR done and she was discharged on April 17. The patient has history of aortic stenosis and when she was admitted the last time the sodium was on the lower side and it stayed around 125 to 126 most of the time. Previously she has known history of hyponatremia. According to the daughter, for the last two to three days, the patient was not eating well and she also had loose bowel movements. There was nausea but there was no vomiting. The patient has been drinking a lot of fluids. She was on sodium tablets according to the daughter but it was stopped about four or five days ago when she went for follow up with a box cutter. She has not been eating very well. The daughter lives with her and noticed that her mother had more and more increasing weakness. There is no history of fever. PAST MEDICAL HISTORY: 1. Hypertension. 2. Ischemic heart disease. 3. Aortic stenosis. 4. Systolic congestive heart failure. 5. Chronic diarrhea. 6. Hyperlipidemia. PAST SURGICAL HISTORY: 1. Coronary artery bypass grafting. 2. History of TAVR done recently. REVIEW OF SYSTEMS: The patient has generalized weakness and is feeling tired and is not eating well. Has decreased appetite and nausea. There is no vomiting. She has loose bowel motions off and on, more in the last three or four days. She has been drinking more fluids. There is no history of dysuria or hematuria. She has been feeling weak and tired and has been feeling dizzy when she stands up. SOCIAL HISTORY: The patient lives with her daughter. There is no history of smoking or alcoholism. FAMILY HISTORY: Noncontributory. ALLERGIES: SHE HAS ALLERGY TO THE FOLLOWING DRUGS: 1. LACTOSE INTOLERANCE. 2. LANSOPRAZOLE. 3. NIFEDIPINE. 4. RANITIDINE. MEDICATIONS: Currently she is on the following medications: 1. Carvedilol 3.125 milligrams twice a day. 2. Furosemide 20 milligrams IV twice a day. 3. Plavix 75 milligrams daily. 4. Losartan 25 milligrams once a day. 5. Protonix 20 milligrams daily. 6. Potassium chloride 20 milliequivalents once a day. 7. Imdur 30 milligrams daily. 8. Pravachol 40 milligrams at bedtime. PHYSICAL EXAMINATION: GENERAL: On examination, the patient is awake and alert and she is not in acute distress. VITAL SIGNS: Her last blood pressure is 156/67, temperature is 97.8, oxygen saturation is 95% to 96%. HEAD, EYES, EARS, NOSE, THROAT: The pupils are mid constricted. Nonicteric sclerae. Conjunctivae are pale. NECK: The neck is supple. JVD is not elevated. LUNGS: The patient has bilateral good air entry with occasional wheezing. HEART: S1 and S2 regular rhythm. ABDOMEN: Abdomen is distended, soft and lax. There is no tenderness. Bowel sounds positive. EXTREMITIES: There is mild edema in the legs. INVESTIGATIONS: White blood cell count is 4.9, hemoglobin 11.4, platelet count of 356,000. Neutrophils 65.7%. Sodium 111, potassium 4.8, chloride 79, bicarbonate 23.6, BUN 8, creatinine 0.3, albumin 3.0, total protein 6.4. BNP is 437. INR is 1.0. Urinalysis showing specific gravity of 1.009, urine sodium is 75 and urine osmolality is 353. Urine culture is pending. IMAGING STUDIES: The patient had a chest x-ray done which shows mild congestive heart failure. ASSESSMENT: 1. Severe hyponatremia. 2. History of congestive heart failure. 3. Hypertension. 4. Post TAVR with history of aortic stenosis. 5. Decreased oral intake and chronic diarrhea. 6. Anemia. PLAN: The patient has a very low sodium level. She has had a history of low sodium in the past and her urine osmolality is higher than the serum osmolality, so she has an element of excessive ADH but she also has congestive heart failure. I will give her a small dose of 3% saline to increase the sodium close to 120 in the next 18-24 hours and I agree with continuing the Lasix at present, and if needed, I will consider the salt tablet later on but her not eating well and drinking more fluid is also contributing to this low sodium level along with her cardiac failure and low ejection fraction. I will put her on some fluid restriction. Thank you for the consultation. I will follow the patient while she is in the hospital and further recommendation will be given in due course. MD FLOR Diaz/GINA /4:32 PM /5:03 PM
[2017-04-28] MEDS ORDERED: CHLORHEXIDINE GLUCONATE 2 % 1 PACK (2 CLOTHS)(extra cloths) TOPICAL PRN (19:30)
[2017-04-28 20:00] VITALS: BP 118/64; PULSE 79; RESP 20; TEMP 97.7; O2SAT 97
[2017-04-28] MEDS: PRAVASTATIN SOD 40 MG TAB PO SCH (20:37)
[2017-04-28] MEDS: CARVEDILOL 3.125 MG TAB PO SCH (20:38)
[2017-04-28] MEDS ORDERED: clonazePAM 0.5 MG TAB PO ONE (21:00)
[2017-04-28] MEDS: FUROSEMIDE 20 MG/2 ML VIAL IV PUSH SCH (21:16)
[2017-04-29] VITALS (8 sets, daily range): BP systolic 102–144; BP diastolic 51–77; PULSE 62–74; RESP 18–22; TEMP 97–98; O2SAT 96–98
[2017-04-29] MEDS ORDERED: SODIUM CHLOR 0.9% 1000 ML INJ 1,000 ML IV SCH (03:00)
[2017-04-29] MEDS: CHLORHEXIDINE GLUCONATE 2 % 1 PACK (2 CLOTHS)(taper/protocol) TOPICAL SCH (04:00)
[2017-04-29] MEDS: ISOSORBIDE MONONITRATE 30 MG TAB PO SCH (06:41)
[2017-04-29 07:26] LABS: CALCIUM 7.9 MG/DL (8.5-10.1); CREATININE 0.23 MG/DL (0.50-1.00)
[2017-04-29] MEDS: FUROSEMIDE 20 MG/2 ML VIAL IV PUSH SCH ×2 (09:25→16:59)
[2017-04-29] MEDS: CLOPIDOGREL 75 MG TAB PO SCH (09:25)
[2017-04-29] MEDS: CARVEDILOL 3.125 MG TAB PO SCH ×2 (09:26→19:17)
[2017-04-29] MEDS: SODIUM CHLORIDE 1 GRAM TAB PO SCH ×2 (09:26→19:17)
[2017-04-29] MEDS: LOSARTAN 25 MG TAB PO SCH (09:26)
[2017-04-29] MEDS: PANTOPRAZOLE SOD 20 MG DELAYED RELEASE TAB PO SCH (09:26)
[2017-04-29] MEDS: POTASSIUM CHLORIDE 20 MEQ CONTROLLED RELEASE TAB PO SCH (09:26)
--- NOTE | 2017-04-29 10:54 | HHI.PR ---
Subjective Remarks f/u; hyponatremia in no acute distress. denies pain. sodium trend noted. d/w the RN. Objective Vitals Vital Signs Date Time Temp Pulse Resp B/P (MAP) Pulse Ox O2 Delivery O2 Flow Rate FiO2 04/29/17 08:00 98.0 72 22 127/77 (94) 96 04/29/17 07:00 69 04/29/17 04:00 97.9 74 20 131/63 (85) 04/29/17 00:00 97.4 67 18 102/51 (68) 96 04/28/17 20:00 97.7 79 20 118/64 (82) 97 04/28/17 20:00 79 04/28/17 15:38 04/28/17 15:30 96.3 69 18 150/77 (101) 94 04/28/17 12:03 96 Room Air 04/28/17 11:29 97.8 65 18 156/67 (96) 95 I/O 04/28/17 04/28/17 04/28/17 04/29/17 04/29/17 04/29/17 07:00 15:00 23:00 07:00 15:00 23:00 Intake Total 500 ml 295 ml Output Total 1750 ml Balance 500 ml -1455 ml Intake Oral 120 ml IV Total 500 ml 175 ml Output Urine Total 1750 ml # Voids 1 # Bowel Movements 0 Result Diagram: 04/28/17 1006 04/29/17 0521 Imaging Last Impressions Chest X-Ray 04/28/17 1159 Signed Impressions: Service Date/Time: Friday, April 28, 2017 12:24 - CONCLUSION: Mild congestive failure Luis Amaral MD FACR Objective Remarks GENERAL: elderly female, in no apparent distress. CARDIOVASCULAR: Regular rate and regular rhythm without murmurs, gallops, or rubs. RESPIRATORY: Clear to auscultation. Breath sounds equal bilaterally. No wheezes , rales, or rhonchi. GASTROINTESTINAL: Abdomen soft, non-tender, nondistended. Normal, active bowel sounds MUSCULOSKELETAL: Extremities without clubbing, cyanosis, or edema. NEURO: Alert & Oriented x4 to person, place, time, situation. Moves all ext x4 Medications and IVs Inpatient Medications Albuterol Sulfate (Albuterol Neb) 1.25 mg Q4HR NEB PRN NEB SHORTNESS OF BREATH ; Start 04/28/17 at 14:00 Carvedilol (Coreg) 3.125 mg BID PO Last administered on 04/29/17 09:26; Start 04/28/17 at 21:00 Chlorhexidine Gluconate (Chlorhexidine 2% Cloth) 3 pack UNSCH PRN TOPICAL HYGIENIC CARE; Start 04/28/17 at 19:30; Stop 05/03/17 at 19:23 Clonazepam (KlonoPIN) 0.5 mg ONCE ONCE PO Last administered on 04/28/17 21: 16; Start 04/28/17 at 21:00; Stop 04/28/17 at 21:01; Status DC Clopidogrel Bisulfate (Plavix) 75 mg DAILY PO Last administered on 04/29/17 09:25; Start 04/29/17 at 09:00 Furosemide (Lasix Inj) 20 mg BID@09,18 IV PUSH Last administered on 04/29/17 09:25; Start 04/28/17 at 18:00 Isosorbide Mononitrate (Imdur) 30 mg DAILY@07 PO Last administered on 06:41; Start 04/29/17 at 07:00 Losartan Potassium (Cozaar) 25 mg DAILY PO Last administered on 04/29/17 09: 26; Start 04/29/17 at 09:00 Miscellaneous Information Patient in critical care unit? Ass... [id number] ; Start 04/28/17 at 19:30 Pantoprazole Sodium (Protonix) 20 mg DAILY PO Last administered on 04/29/17 09:26; Start 04/29/17 at 09:00 Potassium Chloride (KCl) 20 meq DAILY PO Last administered on 04/29/17 09:26 ; Start 04/28/17 at 14:15 Pravastatin Sodium (Pravachol) 40 mg HS PO Last administered on 04/28/17 20: 37; Start 04/28/17 at 21:00 Sodium Chloride 1,000 ml @ 70 mls/hr [id number] IV Last administered on 03:00; Start 04/29/17 at 03:00 Sodium Chloride (NS Flush) 2 ml UNSCH PRN IVF FLUSH AFTER USING IV ACCESS; Start 04/28/17 at 12:00 Sodium Chloride (Sodium Chloride) 1 gm BID PO Last administered on 04/29/17t 09:26; Start 04/28/17 at 14:15 A/P Problem List: (1) Hyponatremia ICD Code: E87.1 - Hypo-osmolality and hyponatremia Assessment and Plan A/P - hyponatremia- recurrent- likely due to CHF continue NS -monitor the sodium level closely. nephrology consult appreciated. -dysphagia?- ST evaluation appreciated; recommended mechanical soft diet. -hypertension; resumed home meds- will monitor BP and adjust the regimen as needed -CAD/ aortic valve stenosis- s/p recent aortic valve replacement; resumed plavix , BB and statin -DVT prophylaxis with SCD's. -DNR per my d/w the daughter hospice consulted per my d/w the daughter. Discharge Planning awaiting hospice evaluation. Naya Funes MD Apr 29, 2017 10:54
--- NOTE | 2017-04-29 10:56 | HHI.NPPN ---
Subjective History of Present Illness 87-year-old female with past medical history of ischemic heart disease, hyperlipidemia, aortic stenosis, chronic diarrhea, hiatal hernia, hypertension, systolic congestive heart failure who was brought to the hospital with generalized weakness. The patient was recently admitted and she had a TAVR done and she was discharged on April 17. Additional Remarks Patient is alert, ate 50% of her Breakfast, no SOB, on room air. Objective Data Data Vital Signs Date Time Temp Pulse Resp B/P (MAP) Pulse Ox O2 Delivery O2 Flow Rate FiO2 04/29/17 08:00 98.0 72 22 127/77 (94) 96 04/29/17 07:00 69 04/29/17 04:00 97.9 74 20 131/63 (85) 04/29/17 00:00 97.4 67 18 102/51 (68) 96 04/28/17 20:00 97.7 79 20 118/64 (82) 97 04/28/17 20:00 79 04/28/17 15:38 04/28/17 15:30 96.3 69 18 150/77 (101) 94 04/28/17 12:03 96 Room Air 04/28/17 11:29 97.8 65 18 156/67 (96) 95 -: 04/28/17 1006 04/29/17 0521 Physical Exam General Appearance: No Acute Distress, Comfortable Eyes Eye Exam: Pupils Equal Throat Throat Exam: Oral Mucosa [place] & Moist Pulmonary Resp Exam: Breath Sounds Equal, No Distress, Rhonchi, Decreased Bases Cardiology CV Exam: Regular, Normal Sinus Rhythm Gastrointestinal/Abdomen GI Exam: Soft, Non-Tender, Bowel Sounds Present Extremeties Extremities Exam: Trace Edema Neurologic Neuro Exam: Alert, Awake Psychiatric Psych Exam: Appropriate Responses Assessment/Plan Electrolyte Assessment: Hyponatremia Problem List: (1) Aortic stenosis ICD Codes: I35.0 - Nonrheumatic aortic (valve) stenosis Status: Chronic (2) CAD (coronary artery disease) ICD Codes: I25.10 - Atherosclerotic heart disease of [place] coronary artery without angina pectoris Status: Chronic (3) CHF (congestive heart failure) ICD Codes: I50.9 - Heart failure, unspecified Status: Acute (4) Hyponatremia ICD Codes: E87.1 - Hypo-osmolality and hyponatremia (5) History of aortic valve replacement ICD Codes: Z95.2 - Presence of prosthetic heart valve Status: Chronic Plan Patient has gradual improvement in the Sodium level. Now on NS IV and also on Lasix. Restrict oral fluid intake. Encourage oral diet. Follow Na. at 2.00 pm today. No neurological signs, remain alert. Rafael Maier MD Apr 29, 2017 10:56
[2017-04-29] MEDS ORDERED: SODIUM CHLORIDE 23.4% INJ 188 MEQ in SODIUM CHLOR 0.9% 1000 ML INJ 1,000 ML IV SCH (15:30)
[2017-04-29] MEDS: ALPRAZolam 0.25 MG TAB PO PRN (16:59)
[2017-04-29] MEDS: PRAVASTATIN SOD 40 MG TAB PO SCH (19:17)
[2017-04-30] VITALS (12 sets, daily range): BP systolic 125–149; BP diastolic 58–68; PULSE 63–78; RESP 15–25; TEMP 97.8–98.7; O2SAT 95–98
[2017-04-30 00:44] LABS: BICARBONATE 27.7 MEQ/L (21.0-32.0); CALCIUM 7.8 MG/DL (8.5-10.1); CREATININE 0.34 MG/DL (0.50-1.00)
[2017-04-30] MEDS: CHLORHEXIDINE GLUCONATE 2 % 1 PACK (2 CLOTHS)(taper/protocol) TOPICAL SCH (04:00)
[2017-04-30] MEDS: ISOSORBIDE MONONITRATE 30 MG TAB PO SCH (05:32)
[2017-04-30] MEDS: CLOPIDOGREL 75 MG TAB PO SCH (08:19)
[2017-04-30] MEDS: POTASSIUM CHLORIDE 20 MEQ CONTROLLED RELEASE TAB PO SCH (08:19)
[2017-04-30] MEDS: PANTOPRAZOLE SOD 20 MG DELAYED RELEASE TAB PO SCH (08:19)
[2017-04-30] MEDS: SODIUM CHLORIDE 1 GRAM TAB PO SCH ×2 (08:19→21:59)
[2017-04-30] MEDS: FUROSEMIDE 20 MG/2 ML VIAL IV PUSH SCH ×2 (08:21→16:53)
[2017-04-30] MEDS: CARVEDILOL 3.125 MG TAB PO SCH ×2 (08:21→21:58)
[2017-04-30] MEDS: LOSARTAN 25 MG TAB PO SCH (08:21)
--- NOTE | 2017-04-30 08:39 | HHI.PR ---
Subjective Remarks f/u; hyponatremia in no acute distress. denies pain. awake and alert. sodium trend noted. Objective Vitals Vital Signs Date Time Temp Pulse Resp B/P (MAP) Pulse Ox O2 Delivery O2 Flow Rate FiO2 04/30/17 08:00 98.7 68 25 138/63 (88) 97 04/30/17 07:00 63 04/30/17 04:00 98.5 65 19 132/60 (84) 97 04/30/17 02:00 70 04/30/17 00:00 70 04/30/17 00:00 98.4 70 20 149/68 (95) 95 04/29/17 20:00 97.8 67 18 138/64 (88) 98 04/29/17 16:00 97.0 68 19 144/68 (93) 96 04/29/17 15:00 68 04/29/17 12:00 97.6 62 21 119/61 (80) 97 I/O 04/29/17 04/29/17 04/29/17 04/30/17 04/30/17 04/30/17 07:00 15:00 23:00 07:00 15:00 23:00 Intake Total 295 ml 1075 ml 389 ml Output Total 1750 ml 1650 ml 400 ml Balance -1455 ml -575 ml -11 ml Intake Oral 120 ml 240 ml 60 ml IV Total 175 ml 835 ml 329 ml Output Urine Total 1750 ml 1650 ml 400 ml # Bowel Movements 0 0 Result Diagram: 04/28/17 1006 04/30/17 0007 Imaging Last Impressions Chest X-Ray 04/28/17 1159 Signed Impressions: Service Date/Time: Friday, April 28, 2017 12:24 - CONCLUSION: Mild congestive failure Luis Amaral MD FACR Objective Remarks GENERAL: elderly female, in no apparent distress. CARDIOVASCULAR: Regular rate and regular rhythm without murmurs, gallops, or rubs. RESPIRATORY: Clear to auscultation. Breath sounds equal bilaterally. No wheezes , rales, or rhonchi. GASTROINTESTINAL: Abdomen soft, non-tender, nondistended. Normal, active bowel sounds MUSCULOSKELETAL: Extremities without clubbing, cyanosis, or edema. NEURO: Awake and alert; oriented to person, place and partly to time. Medications and IVs Inpatient Medications Albuterol Sulfate (Albuterol Neb) 1.25 mg Q4HR NEB PRN NEB SHORTNESS OF BREATH ; Start 04/28/17 at 14:00 Alprazolam (Xanax) 0.25 mg Q8H PRN PO ANXIETY Last administered on 04/29/17 16:59; Start 04/29/17 at 16:45 Carvedilol (Coreg) 3.125 mg BID PO Last administered on 04/30/17 08:21; Start 04/28/17 at 21:00 Chlorhexidine Gluconate (Chlorhexidine 2% Cloth) 3 pack UNSCH PRN TOPICAL HYGIENIC CARE; Start 04/28/17 at 19:30; Stop 05/03/17 at 19:23 Clonazepam (KlonoPIN) 0.5 mg ONCE ONCE PO Last administered on 04/28/17 21: 16; Start 04/28/17 at 21:00; Stop 04/28/17 at 21:01; Status DC Clopidogrel Bisulfate (Plavix) 75 mg DAILY PO Last administered on 04/30/17 08:19; Start 04/29/17 at 09:00 Furosemide (Lasix Inj) 20 mg BID@09,18 IV PUSH Last administered on 04/30/17 08:21; Start 04/28/17 at 18:00 Isosorbide Mononitrate (Imdur) 30 mg DAILY@07 PO Last administered on 05:32; Start 04/29/17 at 07:00 Losartan Potassium (Cozaar) 25 mg DAILY PO Last administered on 04/30/17 08: 21; Start 04/29/17 at 09:00 Miscellaneous Information Patient in critical care unit? Ass... Q361D .XX ; Start 04/28/17 at 19:30 Pantoprazole Sodium (Protonix) 20 mg DAILY PO Last administered on 04/30/17 08:19; Start 04/29/17 at 09:00 Potassium Chloride (KCl) 20 meq DAILY PO Last administered on 04/30/17 08:19 ; Start 04/28/17 at 14:15 Pravastatin Sodium (Pravachol) 40 mg HS PO Last administered on 04/29/17 19: 17; Start 04/28/17 at 21:00 Sodium Chloride (NS Flush) 2 ml UNSCH PRN IVF FLUSH AFTER USING IV ACCESS; Start 04/28/17 at 12:00 Sodium Chloride (Sodium Chloride) 1 gm BID PO Last administered on 04/30/17 08:19; Start 04/28/17 at 14:15 Sodium Chloride 188 meq/Sodium Chloride 1,047 ml @ 30 mls/hr Q24H IV Last administered on 04/29/17 17:07; Start 04/29/17 at 15:30 A/P Problem List: (1) Hyponatremia ICD Code: E87.1 - Hypo-osmolality and hyponatremia Assessment and Plan A/P - hyponatremia- recurrent- likely due to CHF- improving slowly. continue 2% sodium and lasix-monitor the sodium level closely. nephrology following. -dysphagia?- ST evaluation appreciated; recommended mechanical soft diet. -hypertension; resumed home meds- will monitor BP and adjust the regimen as needed -CAD/ aortic valve stenosis- s/p recent aortic valve replacement; resumed plavix , BB and statin -DVT prophylaxis with SCD's. -DNR per my d/w the daughter -PT consulted. hospice consulted per my d/w the daughter; awaiting hospice evaluation. Discharge Planning awaiting hospice evaluation. Naya Funes MD Apr 30, 2017 08:39
--- NOTE | 2017-04-30 11:42 | HHI.NPPN ---
Subjective History of Present Illness 87-year-old female with past medical history of ischemic heart disease, hyperlipidemia, aortic stenosis, chronic diarrhea, hiatal hernia, hypertension, systolic congestive heart failure who was brought to the hospital with generalized weakness. The patient was recently admitted and she had a TAVR done and she was discharged on April 17. Additional Remarks Patient is alert, started eating better, not in distress. Objective Data Data Vital Signs Date Time Temp Pulse Resp B/P (MAP) Pulse Ox O2 Delivery O2 Flow Rate FiO2 04/30/17 08:00 98.7 68 25 138/63 (88) 97 04/30/17 07:00 63 04/30/17 04:00 98.5 65 19 132/60 (84) 97 04/30/17 02:00 70 04/30/17 00:00 70 04/30/17 00:00 98.4 70 20 149/68 (95) 95 04/29/17 20:00 97.8 67 18 138/64 (88) 98 04/29/17 16:00 97.0 68 19 144/68 (93) 96 04/29/17 15:00 68 04/29/17 12:00 97.6 62 21 119/61 (80) 97 -: 04/28/17 1006 04/30/17 1040 Physical Exam General Appearance: No Acute Distress, Comfortable Eyes Eye Exam: Pupils Equal Throat Throat Exam: Oral Mucosa [place] & Moist Pulmonary Resp Exam: Breath Sounds Equal, No Distress, Rhonchi, Decreased Bases Cardiology CV Exam: Regular, Normal Sinus Rhythm Gastrointestinal/Abdomen GI Exam: Soft, Non-Tender, Bowel Sounds Present Extremeties Extremities Exam: Trace Edema Neurologic Neuro Exam: Alert, Awake Psychiatric Psych Exam: Appropriate Responses Assessment/Plan Electrolyte Assessment: Hyponatremia Problem List: (1) Aortic stenosis ICD Codes: I35.0 - Nonrheumatic aortic (valve) stenosis Status: Chronic (2) CAD (coronary artery disease) ICD Codes: I25.10 - Atherosclerotic heart disease of [place] coronary artery without angina pectoris Status: Chronic (3) CHF (congestive heart failure) ICD Codes: I50.9 - Heart failure, unspecified Status: Acute (4) Hyponatremia ICD Codes: E87.1 - Hypo-osmolality and hyponatremia (5) History of aortic valve replacement ICD Codes: Z95.2 - Presence of prosthetic heart valve Status: Chronic Plan Patient has gradual improvement in the Sodium level. Now on NS IV and also on Lasix. Restrict oral fluid intake. Encourage oral diet. No neurological signs, remain alert. Na. now improve to 121. To D/C the IVF, and follow the oral fluid restriction. D/W the daughter at bed side. Rafael Maier MD Apr 30, 2017 11:42
[2017-04-30] MEDS ORDERED: SODIUM CHLOR 0.9% 1000 ML INJ 1,000 ML IV SCH (15:00)
[2017-04-30] MEDS: PRAVASTATIN SOD 40 MG TAB PO SCH (21:59)
[2017-05-01] VITALS (11 sets, daily range): BP systolic 108–139; BP diastolic 56–83; PULSE 62–77; RESP 12–35; TEMP 98–98.5; O2SAT 94–97
[2017-05-01] MEDS: CHLORHEXIDINE GLUCONATE 2 % 1 PACK (2 CLOTHS)(taper/protocol) TOPICAL SCH (04:00)
[2017-05-01 04:59] LABS: BICARBONATE 26.8 MEQ/L (21.0-32.0); CALCIUM 7.8 MG/DL (8.5-10.1); CREATININE 0.3 MG/DL (0.50-1.00)
[2017-05-01] MEDS: ISOSORBIDE MONONITRATE 30 MG TAB PO SCH (06:13)
[2017-05-01] MEDS: CARVEDILOL 3.125 MG TAB PO SCH ×2 (08:00→21:09)
[2017-05-01] MEDS: LOSARTAN 25 MG TAB PO SCH (08:00)
[2017-05-01] MEDS: FUROSEMIDE 20 MG/2 ML VIAL IV PUSH SCH ×2 (08:01→17:10)
[2017-05-01] MEDS: SODIUM CHLORIDE 1 GRAM TAB PO SCH ×2 (08:01→21:09)
[2017-05-01] MEDS: PANTOPRAZOLE SOD 20 MG DELAYED RELEASE TAB PO SCH (08:01)
[2017-05-01] MEDS: POTASSIUM CHLORIDE 20 MEQ CONTROLLED RELEASE TAB PO SCH (08:01)
[2017-05-01] MEDS: CLOPIDOGREL 75 MG TAB PO SCH (08:01)
--- NOTE | 2017-05-01 08:31 | HHI.PR ---
Subjective Remarks f/u; hyponatremia awake and alert. in no distress. sodium level is slowly improving. d/w the RN. Objective Vitals Vital Signs Date Time Temp Pulse Resp B/P (MAP) Pulse Ox O2 Delivery O2 Flow Rate FiO2 05/01/17 08:00 66 05/01/17 08:00 98.0 66 20 120/58 (78) 96 05/01/17 06:00 72 05/01/17 04:00 98.5 68 12 130/58 (82) 94 05/01/17 04:00 68 05/01/17 02:00 70 05/01/17 00:00 69 12 114/83 (93) 96 05/01/17 00:00 69 04/30/17 22:00 76 04/30/17 20:00 98.4 78 22 132/63 (86) 95 04/30/17 20:00 78 04/30/17 18:00 78 04/30/17 16:00 69 04/30/17 16:00 97.8 69 15 125/58 (80) 97 04/30/17 14:00 67 04/30/17 12:00 98.5 67 25 126/59 (81) 98 04/30/17 12:00 67 04/30/17 10:00 72 I/O 04/30/17 04/30/17 04/30/17 05/01/17 05/01/17 05/01/17 07:00 15:00 23:00 07:00 15:00 23:00 Intake Total 389 ml 750 ml 335 ml Output Total 400 ml 1450 ml 525 ml Balance -11 ml -700 ml -190 ml Intake Oral 60 ml 750 ml IV Total 329 ml 335 ml Output Urine Total 400 ml 1450 ml 525 ml # Bowel Movements 0 0 0 Result Diagram: 04/28/17 1006 05/01/17 0346 Imaging Last Impressions Chest X-Ray 04/28/17 1159 Signed Impressions: Service Date/Time: Friday, April 28, 2017 12:24 - CONCLUSION: Mild congestive failure Luis Amaral MD FACR Objective Remarks GENERAL: elderly female, in no apparent distress. CARDIOVASCULAR: Regular rate and regular rhythm without murmurs, gallops, or rubs. RESPIRATORY: Clear to auscultation. Breath sounds equal bilaterally. No wheezes , rales, or rhonchi. GASTROINTESTINAL: Abdomen soft, non-tender, nondistended. Normal, active bowel sounds MUSCULOSKELETAL: Extremities without clubbing, cyanosis, or edema. NEURO: Awake and alert; oriented to person, place and partly to time. Medications and IVs Inpatient Medications Albuterol Sulfate (Albuterol Neb) 1.25 mg Q4HR NEB PRN NEB SHORTNESS OF BREATH ; Start 04/28/17 at 14:00 Alprazolam (Xanax) 0.25 mg Q8H PRN PO ANXIETY Last administered on 04/29/17 16:59; Start 04/29/17 at 16:45 Carvedilol (Coreg) 3.125 mg BID PO Last administered on 05/01/17 08:00; Start 04/28/17 at 21:00 Chlorhexidine Gluconate (Chlorhexidine 2% Cloth) 3 pack UNSCH PRN TOPICAL HYGIENIC CARE; Start 04/28/17 at 19:30; Stop 05/03/17 at 19:23 Clonazepam (KlonoPIN) 0.5 mg ONCE ONCE PO Last administered on 04/28/17 21: 16; Start 04/28/17 at 21:00; Stop 04/28/17 at 21:01; Status DC Clopidogrel Bisulfate (Plavix) 75 mg DAILY PO Last administered on 05/01/17 08:01; Start 04/29/17 at 09:00 Furosemide (Lasix Inj) 20 mg BID@09,18 IV PUSH Last administered on 05/01/17 08:01; Start 04/28/17 at 18:00 Isosorbide Mononitrate (Imdur) 30 mg DAILY@07 PO Last administered on 06:13; Start 04/29/17 at 07:00 Losartan Potassium (Cozaar) 25 mg DAILY PO Last administered on 05/01/17 08: 00; Start 04/29/17 at 09:00 Miscellaneous Information Patient in critical care unit? Ass... Q361D .XX ; Start 04/28/17 at 19:30 Pantoprazole Sodium (Protonix) 20 mg DAILY PO Last administered on 05/01/17 08:01; Start 04/29/17 at 09:00 Potassium Chloride (KCl) 20 meq DAILY PO Last administered on 05/01/17 08:01 ; Start 04/28/17 at 14:15 Pravastatin Sodium (Pravachol) 40 mg HS PO Last administered on 04/30/17 21: 59; Start 04/28/17 at 21:00 Sodium Chloride 1,000 ml @ 50 mls/hr Q20H IV Last administered on 04/30/17 15:25; Start 04/30/17 at 15:00; Status Future Hold Sodium Chloride (NS Flush) 2 ml UNSCH PRN IVF FLUSH AFTER USING IV ACCESS; Start 04/28/17 at 12:00 Sodium Chloride (Sodium Chloride) 1 gm BID PO Last administered on 05/01/17 08:01; Start 04/28/17 at 14:15 Sodium Chloride 188 meq/Sodium Chloride 1,047 ml @ 30 mls/hr Q24H IV Last administered on 04/29/17 17:07; Start 04/29/17 at 15:30; Stop 04/30/17 at 14 :29; Status DC A/P Problem List: (1) Hyponatremia ICD Code: E87.1 - Hypo-osmolality and hyponatremia Assessment and Plan A/P - hyponatremia- recurrent- likely due to CHF- improving slowly. IV fluid on hold- continue lasix- and fluid restriction- monitor the sodium level closely. nephrology following. -dysphagia?- ST evaluation appreciated; recommended mechanical soft diet. -hypertension; resumed home meds- will monitor BP and adjust the regimen as needed -CAD/ aortic valve stenosis- s/p recent aortic valve replacement; resumed plavix , BB and statin -DVT prophylaxis with SCD's. -DNR per my d/w the daughter -PT consulted. hospice consulted per my d/w the daughter; awaiting hospice evaluation. Discharge Planning awaiting hospice evaluation. Naya Funes MD May 01, 2017 08:31
--- NOTE | 2017-05-01 17:13 | HHI.NPPN ---
Subjective History of Present Illness 87-year-old female with past medical history of ischemic heart disease, hyperlipidemia, aortic stenosis, chronic diarrhea, hiatal hernia, hypertension, systolic congestive heart failure who was brought to the hospital with generalized weakness. The patient was recently admitted and she had a TAVR done and she was discharged on April 17. Additional Remarks Patient is alert, started eating better, not in distress, clinically same. Objective Data Data Vital Signs Date Time Temp Pulse Resp B/P (MAP) Pulse Ox O2 Delivery O2 Flow Rate FiO2 05/01/17 16:00 75 05/01/17 16:00 98.5 75 35 137/72 (93) 96 05/01/17 14:00 71 05/01/17 12:00 66 05/01/17 12:00 98.2 66 19 108/56 (73) 97 05/01/17 10:00 62 05/01/17 08:00 66 05/01/17 08:00 98.0 66 20 120/58 (78) 96 05/01/17 06:00 72 05/01/17 04:00 98.5 68 12 130/58 (82) 94 05/01/17 04:00 68 05/01/17 02:00 70 05/01/17 00:00 69 12 114/83 (93) 96 05/01/17 00:00 69 04/30/17 22:00 76 04/30/17 20:00 98.4 78 22 132/63 (86) 95 04/30/17 20:00 78 04/30/17 18:00 78 -: 04/28/17 1006 05/01/17 1209 Physical Exam General Appearance: No Acute Distress, Comfortable Eyes Eye Exam: Pupils Equal Throat Throat Exam: Oral Mucosa [place] & Moist Pulmonary Resp Exam: Breath Sounds Equal, No Distress, Rhonchi, Decreased Bases Cardiology CV Exam: Regular, Normal Sinus Rhythm Gastrointestinal/Abdomen GI Exam: Soft, Non-Tender, Bowel Sounds Present Extremeties Extremities Exam: Trace Edema Neurologic Neuro Exam: Alert, Awake Psychiatric Psych Exam: Appropriate Responses Assessment/Plan Electrolyte Assessment: Hyponatremia Problem List: (1) Aortic stenosis ICD Codes: I35.0 - Nonrheumatic aortic (valve) stenosis Status: Chronic (2) CAD (coronary artery disease) ICD Codes: I25.10 - Atherosclerotic heart disease of [place] coronary artery without angina pectoris Status: Chronic (3) CHF (congestive heart failure) ICD Codes: I50.9 - Heart failure, unspecified Status: Acute (4) Hyponatremia ICD Codes: E87.1 - Hypo-osmolality and hyponatremia (5) History of aortic valve replacement ICD Codes: Z95.2 - Presence of prosthetic heart valve Status: Chronic Plan Patient has gradual improvement in the Sodium level. Now on Lasix. Restrict oral fluid intake. Encourage oral diet. No neurological signs, remain alert. Na. remain stable at 120-121 range. Follow the oral fluid restriction. Give on dose of Samsca. Follow Na. level. Rafael Maier MD May 01, 2017 17:12
[2017-05-01] MEDS ORDERED: TOLVAPTAN 30 MG TAB PO ONE (17:15)
[2017-05-01] MEDS ORDERED: TOLVAPTAN 15 MG TAB PO ONE (19:00)
[2017-05-01] MEDS: PRAVASTATIN SOD 40 MG TAB PO SCH (21:09)
[2017-05-01] MEDS: ALPRAZolam 0.25 MG TAB PO PRN (21:16)
[2017-05-02] VITALS (20 sets, daily range): BP systolic 86–159; BP diastolic 52–111; PULSE 68–87; RESP 14–32; TEMP 98.1–98.5; O2SAT 94–96
[2017-05-02] MEDS: CHLORHEXIDINE GLUCONATE 2 % 1 PACK (2 CLOTHS)(taper/protocol) TOPICAL SCH (03:17)
[2017-05-02] MEDS: ISOSORBIDE MONONITRATE 30 MG TAB PO SCH (06:25)
[2017-05-02 08:35] LABS: BICARBONATE 26.5 MEQ/L (21.0-32.0); CALCIUM 8.3 MG/DL (8.5-10.1); CREATININE 0.27 MG/DL (0.50-1.00)
[2017-05-02] MEDS: POTASSIUM CHLORIDE 20 MEQ CONTROLLED RELEASE TAB PO SCH (09:20)
[2017-05-02] MEDS: LOSARTAN 25 MG TAB PO SCH (09:21)
[2017-05-02] MEDS: CARVEDILOL 3.125 MG TAB PO SCH ×2 (09:21→21:02)
[2017-05-02] MEDS: PANTOPRAZOLE SOD 20 MG DELAYED RELEASE TAB PO SCH (09:21)
[2017-05-02] MEDS: CLOPIDOGREL 75 MG TAB PO SCH (09:21)
[2017-05-02] MEDS: SODIUM CHLORIDE 0.9% FLUSH 10 ML FLUSH IVF PRN (09:21)
[2017-05-02] MEDS: FUROSEMIDE 20 MG/2 ML VIAL IV PUSH SCH (09:21)
[2017-05-02] MEDS: SODIUM CHLORIDE 1 GRAM TAB PO SCH ×2 (09:26→21:02)
--- NOTE | 2017-05-02 09:40 | HHI.PR ---
Subjective Remarks SODIUM IS ONLY 121 UP FROM 111 EVEN AFTER SAMSCA NO NEW COMPLAINTS ALERT AND ORIENTED SEEN SITTING IN A CHAIR AT SIDE OF BED NEEDS PT AND OT Objective Vitals Vital Signs Date Time Temp Pulse Resp B/P (MAP) Pulse Ox O2 Delivery O2 Flow Rate FiO2 05/02/17 05:00 153/66 (95) 05/02/17 04:00 98.5 74 24 141/111 (121) 95 05/02/17 00:00 98.3 76 32 136/91 (106) 94 05/01/17 20:00 98.1 76 22 139/71 (93) 96 05/01/17 18:00 77 05/01/17 16:00 75 05/01/17 16:00 98.5 75 35 137/72 (93) 96 05/01/17 14:00 71 05/01/17 12:00 66 05/01/17 12:00 98.2 66 19 108/56 (73) 97 05/01/17 10:00 62 I/O 05/01/17 05/01/17 05/01/17 05/02/17 05/02/17 05/02/17 07:00 15:00 23:00 07:00 15:00 23:00 Intake Total 335 ml 800 ml 240 ml Output Total 525 ml 1550 ml 800 ml Balance -190 ml -750 ml -560 ml Intake Oral 800 ml 240 ml IV Total 335 ml Output Urine Total 525 ml 1550 ml 800 ml # Bowel Movements 0 1 1 Result Diagram: 04/28/17 1006 05/02/17 0616 Other Results Laboratory Tests Test 04/29/17 14:00 04/29/17 20:40 04/30/17 00:07 04/30/17 10:40 Sodium Level 115 MEQ/L 114 MEQ/L 117 MEQ/L 121 MEQ/L Blood Urea Nitrogen 7 MG/DL Creatinine 0.34 MG/DL Random Glucose 90 MG/DL Calcium Level 7.8 MG/DL Potassium Level 3.5 MEQ/L Chloride Level 82 MEQ/L Carbon Dioxide Level 27.7 MEQ/L Anion Gap 7 MEQ/L Estimat Glomerular Filtration Rate 183 ML/MIN Test 04/30/17 15:10 04/30/17 20:44 05/01/17 03:46 05/01/17 12:09 Sodium Level 122 MEQ/L 120 MEQ/L 121 MEQ/L 121 MEQ/L Blood Urea Nitrogen 9 MG/DL Creatinine 0.30 MG/DL Random Glucose 86 MG/DL Calcium Level 7.8 MG/DL Potassium Level 3.5 MEQ/L Chloride Level 85 MEQ/L Carbon Dioxide Level 26.8 MEQ/L Anion Gap 9 MEQ/L Estimat Glomerular Filtration Rate 211 ML/MIN Test 05/01/17 17:36 05/01/17 23:42 05/02/17 06:16 Sodium Level 121 MEQ/L 120 MEQ/L 121 MEQ/L Blood Urea Nitrogen 7 MG/DL Creatinine 0.27 MG/DL Random Glucose 77 MG/DL Calcium Level 8.3 MG/DL Potassium Level 4.0 MEQ/L Chloride Level 86 MEQ/L Carbon Dioxide Level 26.5 MEQ/L Anion Gap 9 MEQ/L Estimat Glomerular Filtration Rate 239 ML/MIN Imaging Last Impressions Chest X-Ray 04/28/17 1159 Signed Impressions: Service Date/Time: Sunday, April 28, 2017 12:24 - CONCLUSION: Mild congestive failure Luis Amaral MD FACR Objective Remarks GENERAL: Awake alert oriented talkative and cooperative appears stated age knows that she is at [place] knows that IT WAS JUST [place], Knows that New 's Day is coming up, 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 HEAD: Atraumatic. Normocephalic. EYES: Pupils equal and round. No scleral icterus. No injection or drainage. ENT: No nasal bleeding or discharge. Mucous membranes pink and moist. NECK: Trachea midline. No JVD. CARDIOVASCULAR: Regular rate and rhythm. S1 and S2 no S3 or S4 RESPIRATORY: No accessory muscle use. Clear to auscultation. Breath sounds equal bilaterally. GASTROINTESTINAL: Abdomen soft, non-tender, nondistended. Hepatic and splenic margins not palpable. MUSCULOSKELETAL: Extremities without clubbing, cyanosis, or edema. No obvious deformities. NEUROLOGICAL: Awake and alert. No obvious cranial nerve deficits. Motor grossly within normal limits. 4 out of 5 muscle strength in the arms and legs. Normal speech. PSYCHIATRIC: Appropriate mood and affect; insight and judgment normal. Medications and IVs Current Medications Sodium Chloride (NS Flush) 2 ml UNSCH PRN IVF FLUSH AFTER USING IV ACCESS Last administered on 05/02/17t 09:21; Start 04/28/17 at 12:00 Sodium Chloride 500 ml @ 500 mls/hr BOLUS ONCE IV Last administered on 13:14; Start 04/28/17 at 13:15; Stop 04/28/17 at 14:14; Status DC Sodium Chloride 1,000 ml @ 50 mls/hr Q20H IV ; Start 04/28/17 at 13:45; Stop 04/30/17 at 14:28; Status DC Carvedilol (Coreg) 3.125 mg BID PO Last administered on 05/02/17 09:21; Start 04/28/17 at 21:00 Clopidogrel Bisulfate (Plavix) 75 mg DAILY PO Last administered on 05/02/17 09:21; Start 04/29/17 at 09:00 Isosorbide Mononitrate (Imdur) 30 mg DAILY@07 PO Last administered on 06:25; Start 04/29/17 at 07:00 Losartan Potassium (Cozaar) 25 mg DAILY PO Last administered on 05/02/17 09: 21; Start 04/29/17 at 09:00 Pantoprazole Sodium (Protonix) 20 mg DAILY PO Last administered on 05/02/17 09:21; Start 04/29/17 at 09:00 Pravastatin Sodium (Pravachol) 40 mg HS PO Last administered on 05/01/17 21: 09; Start 04/28/17 at 21:00 Albuterol Sulfate (Albuterol Neb) 1.25 mg Q4HR NEB PRN NEB SHORTNESS OF BREATH ; Start 04/28/17 at 14:00 Sodium Chloride (Sodium Chloride) 1 gm BID PO Last administered on 05/02/17 09:26; Start 04/28/17 at 14:15 Furosemide (Lasix Inj) 20 mg BID@09,18 IV PUSH Last administered on 05/02/17 09:21; Start 04/28/17 at 18:00 Potassium Chloride (KCl) 20 meq DAILY PO Last administered on 05/02/17 09:20 ; Start 04/28/17 at 14:15 Sodium Chloride 500 ml @ 20 mls/hr ONCE ONCE IV Last administered on 20:38; Start 04/28/17 at 17:00; Stop 04/29/17 at 17:59; Status DC Miscellaneous Information Patient in critical care unit? Ass... Q361D .XX ; Start 04/28/17 at 19:30 Chlorhexidine Gluconate (Chlorhexidine 2% Cloth) 3 pack DAILY@04 TOPICAL Last administered on 05/02/17 03:17; Start 04/29/17 at 04:00; Stop 05/03/17 at 04 :01 Chlorhexidine Gluconate (Chlorhexidine 2% Cloth) 3 pack UNSCH PRN TOPICAL HYGIENIC CARE; Start 04/28/17 at 19:30; Stop 05/03/17 at 19:23 Clonazepam (KlonoPIN) 0.5 mg ONCE ONCE PO Last administered on 04/28/17 21: 16; Start 04/28/17 at 21:00; Stop 04/28/17 at 21:01; Status DC Sodium Chloride 1,000 ml @ 70 mls/hr Q87Q12C IV Last administered on 03:00; Start 04/29/17 at 03:00; Stop 04/29/17 at 15:19; Status DC Sodium Chloride 188 meq/Sodium Chloride 1,047 ml @ 30 mls/hr Q24H IV Last administered on 04/29/17 17:07; Start 04/29/17 at 15:30; Stop 04/30/17 at 14 :29; Status DC Alprazolam (Xanax) 0.25 mg Q8H PRN PO ANXIETY Last administered on 05/01/17 21:16; Start 04/29/17 at 16:45 Sodium Chloride 1,000 ml @ 50 mls/hr Q20H IV Last administered on 04/30/17 15:25; Start 04/30/17 at 15:00; Status Future Hold Tolvaptan (Samsca) 30 mg ONCE ONCE PO ; Start 05/01/17 at 17:15; Stop at 17:16; Status Cancel Tolvaptan (Samsca) 30 mg ONCE ONCE PO Last administered on 05/01/17 22:32; Start 05/01/17 at 19:00; Stop 05/01/17 at 19:01; Status DC Urinary Catheter: Yes Assessment to: Continue Cox insert reason: Measure Accurate Output A/P Problem List: (1) Hyponatremia ICD Code: E87.1 - Hypo-osmolality and hyponatremia Assessment and Plan A/P - hyponatremia- recurrent- likely due to CHF- improving slowly. IV fluid on hold- continue lasix- and fluid restriction- monitor the sodium level closely. nephrology following. Was given Samsca one dose without much improvement -dysphagia?- ST evaluation appreciated; recommended mechanical soft diet. -hypertension; resumed home meds- will monitor BP and adjust the regimen as needed -CAD/ aortic valve stenosis- s/p recent aortic valve replacement; resumed plavix , BB and statin -DVT prophylaxis with SCD's. -DNR per my d/w the daughter -PT consulted. Consult OT hospice consulted per my d/w the daughter; awaiting hospice evaluation. Discharge Planning awaiting hospice evaluation. 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
--- NOTE | 2017-05-02 17:33 | HHI.NPPN ---
Subjective History of Present Illness 87-year-old female with past medical history of ischemic heart disease, hyperlipidemia, aortic stenosis, chronic diarrhea, hiatal hernia, hypertension, systolic congestive heart failure who was brought to the hospital with generalized weakness. The patient was recently admitted and she had a TAVR done and she was discharged on April 17. Additional Remarks Patient is alert, with off and on confusion. Objective Data Data Vital Signs Date Time Temp Pulse Resp B/P (MAP) Pulse Ox O2 Delivery O2 Flow Rate FiO2 05/02/17 16:00 78 05/02/17 14:00 80 05/02/17 12:00 69 05/02/17 10:00 68 05/02/17 08:00 74 05/02/17 05:00 153/66 (95) 05/02/17 04:00 98.5 74 24 141/111 (121) 95 05/02/17 00:00 98.3 76 32 136/91 (106) 94 05/01/17 20:00 98.1 76 22 139/71 (93) 96 05/01/17 18:00 77 -: 04/28/17 1006 05/02/17 0616 Physical Exam General Appearance: No Acute Distress, Comfortable Eyes Eye Exam: Pupils Equal Throat Throat Exam: Oral Mucosa [place] & Moist Pulmonary Resp Exam: Breath Sounds Equal, No Distress, Rhonchi, Decreased Bases Cardiology CV Exam: Regular, Normal Sinus Rhythm Gastrointestinal/Abdomen GI Exam: Soft, Non-Tender, Bowel Sounds Present Extremeties Extremities Exam: Trace Edema Neurologic Neuro Exam: Alert, Awake Psychiatric Psych Exam: Appropriate Responses Assessment/Plan Electrolyte Assessment: Hyponatremia Problem List: (1) Aortic stenosis ICD Codes: I35.0 - Nonrheumatic aortic (valve) stenosis Status: Chronic (2) CAD (coronary artery disease) ICD Codes: I25.10 - Atherosclerotic heart disease of [place] coronary artery without angina pectoris Status: Chronic (3) CHF (congestive heart failure) ICD Codes: I50.9 - Heart failure, unspecified Status: Acute (4) Hyponatremia ICD Codes: E87.1 - Hypo-osmolality and hyponatremia (5) History of aortic valve replacement ICD Codes: Z95.2 - Presence of prosthetic heart valve Status: Chronic Plan Patient has the Sodium level now remain 120-121. Now on Lasix. Restrict oral fluid intake. Encourage oral diet. No neurological signs, remain alert. Na. remain stable at 120-121 range. Follow the oral fluid restriction. Give on dose of Samsca on 05/01. Follow Na. level. Decrease Lasix, as she has not been eating much. Rafael Maier MD May 02, 2017 17:33
[2017-05-02] MEDS: ALPRAZolam 0.25 MG TAB PO PRN (21:02)
[2017-05-02] MEDS: PRAVASTATIN SOD 40 MG TAB PO SCH (21:02)
[2017-05-03] VITALS (13 sets, daily range): BP systolic 108–165; BP diastolic 55–70; PULSE 69–83; RESP 14–24; TEMP 97.7–99.1; O2SAT 94–96
[2017-05-03] MEDS: CHLORHEXIDINE GLUCONATE 2 % 1 PACK (2 CLOTHS)(taper/protocol) TOPICAL SCH (03:28)
[2017-05-03] MEDS: ISOSORBIDE MONONITRATE 30 MG TAB PO SCH ×2 (05:42→08:22)
[2017-05-03 08:10] LABS: AUTOMATED NEUTROPHIL # 3.4 TH/MM3 (1.8-7.7); BASOPHIL # 0.1 TH/MM3 (0-0.2); BASOPHIL % 1.8 % (0.0-2.0); EOSINOPHIL # 0.2 TH/MM3 (0-0.4); EOSINOPHIL % 3.1 % (0.0-4.0); HEMOGLOBIN 11.4 GM/DL (11.6-15.3); LYMPH % 19.4 % (9.0-44.0); LYMPHOCYTE # 1.1 TH/MM3 (1.0-4.8); MEAN CORPUSCULAR HEMOGLOBIN 28.8 PG (27.0-34.0); MEAN CORPUSCULAR HGB CONC 34.7 % (32.0-36.0); MEAN PLATELET VOLUME 7.9 FL (7.0-11.0); MONOCYTE # 0.8 TH/MM3 (0-0.9); NEUT % 61.7 % (16.0-70.0); PLATELET COUNT 324 TH/MM3 (150-450); RED BLOOD COUNT 3.98 MIL/MM3 (4.00-5.30); RED CELL DISTRIBUTION WIDTH 13.8 % (11.6-17.2); WHITE BLOOD COUNT 5.6 TH/MM3 (4.0-11.0)
[2017-05-03] MEDS: LOSARTAN 25 MG TAB PO SCH (08:22)
[2017-05-03] MEDS: PANTOPRAZOLE SOD 20 MG DELAYED RELEASE TAB PO SCH (08:22)
[2017-05-03] MEDS: POTASSIUM CHLORIDE 20 MEQ CONTROLLED RELEASE TAB PO SCH (08:22)
[2017-05-03] MEDS: CLOPIDOGREL 75 MG TAB PO SCH (08:22)
[2017-05-03] MEDS: FUROSEMIDE 20 MG/2 ML VIAL IV PUSH SCH (08:22)
[2017-05-03] MEDS: SODIUM CHLORIDE 1 GRAM TAB PO SCH ×3 (08:22→18:15)
[2017-05-03] MEDS: CARVEDILOL 3.125 MG TAB PO SCH ×2 (08:23→21:51)
[2017-05-03 08:30] LABS: ALBUMIN 2.6 GM/DL (3.4-5.0); AST (GOT) 16 U/L (15-37); BICARBONATE 27.1 MEQ/L (21.0-32.0); BLOOD UREA NITROGEN 7 MG/DL (7-18); CALCIUM 8.5 MG/DL (8.5-10.1); CHLORIDE 93 MEQ/L (98-107); CREATININE 0.33 MG/DL (0.50-1.00); GLOMERULAR FILTRATION RATE 189 ML/MIN (>89); GLUCOSE,RANDOM 87 MG/DL (74-106); MAGNESIUM 1.8 MG/DL (1.5-2.5); SODIUM (NA) 128 MEQ/L (136-145)
[2017-05-03 08:40] LABS: ALKALINE PHOSPHATASE 81 U/L (45-117); ALT (GPT) 15 U/L (10-53); FREE T4 1.81 NG/DL (0.76-1.46); PHOSPHORUS 3.5 MG/DL (2.5-4.9); TOTAL BILIRUBIN ADULT 0.5 MG/DL (0.2-1.0); TOTAL PROTEIN 5.8 GM/DL (6.4-8.2)
--- NOTE | 2017-05-03 09:41 | HHI.PR ---
Subjective Remarks 05-02 SODIUM IS ONLY 121 UP FROM 111 EVEN AFTER SAMSCA NO NEW COMPLAINTS ALERT AND ORIENTED SEEN SITTING IN A CHAIR AT SIDE OF BED NEEDS PT AND OT 05-03 SODIUM IS UP TO 128 WILL MAKE SURE SHE REMAINS ON NACL TABS TID DW RN AND PT AND DAUGHTER MOVE OUT OF ICU AM LABS PT AND OT Objective Vitals Vital Signs Date Time Temp Pulse Resp B/P (MAP) Pulse Ox O2 Delivery O2 Flow Rate FiO2 05/03/17 04:00 97.7 74 18 165/70 (101) 95 05/03/17 00:00 97.9 73 14 138/65 (89) 96 05/02/17 20:00 98.1 74 14 129/61 (83) 96 05/02/17 19:00 82 21 144/70 (94) 94 05/02/17 18:00 98.4 87 24 159/74 (102) 94 05/02/17 18:00 87 05/02/17 17:01 82 25 141/63 (89) 95 05/02/17 17:00 81 23 95 05/02/17 16:00 78 05/02/17 16:00 78 17 123/66 (85) 95 05/02/17 15:00 80 23 132/65 (87) 95 05/02/17 14:00 80 05/02/17 14:00 80 26 110/59 (76) 96 05/02/17 13:00 77 31 96/52 (67) 95 05/02/17 12:00 98.2 69 15 107/55 (72) 96 05/02/17 12:00 69 05/02/17 11:06 71 23 95/53 (67) 94 05/02/17 11:01 68 15 86/52 (63) 96 05/02/17 11:00 69 18 94 05/02/17 10:00 68 05/02/17 10:00 72 19 109/56 (73) 95 I/O 05/02/17 05/02/17 05/02/17 05/03/17 05/03/17 05/03/17 07:00 15:00 23:00 07:00 15:00 23:00 Intake Total 240 ml 600 ml 480 ml Output Total 800 ml 2600 ml 500 ml Balance -560 ml -2000 ml -20 ml Intake Oral 240 ml 600 ml 480 ml Output Urine Total 800 ml 2600 ml 500 ml # Bowel Movements 1 0 0 Result Diagram: 05/03/17 0620 05/03/17 0620 Other Results Laboratory Tests Test 04/30/17 10:40 04/30/17 15:10 04/30/17 20:44 05/01/17 03:46 Sodium Level 121 MEQ/L 122 MEQ/L 120 MEQ/L 121 MEQ/L Blood Urea Nitrogen 9 MG/DL Creatinine 0.30 MG/DL Random Glucose 86 MG/DL Calcium Level 7.8 MG/DL Potassium Level 3.5 MEQ/L Chloride Level 85 MEQ/L Carbon Dioxide Level 26.8 MEQ/L Anion Gap 9 MEQ/L Estimat Glomerular Filtration Rate 211 ML/MIN Test 05/01/17 12:09 05/01/17 17:36 05/01/17 23:42 05/02/17 06:16 Sodium Level 121 MEQ/L 121 MEQ/L 120 MEQ/L 121 MEQ/L Blood Urea Nitrogen 7 MG/DL Creatinine 0.27 MG/DL Random Glucose 77 MG/DL Calcium Level 8.3 MG/DL Potassium Level 4.0 MEQ/L Chloride Level 86 MEQ/L Carbon Dioxide Level 26.5 MEQ/L Anion Gap 9 MEQ/L Estimat Glomerular Filtration Rate 239 ML/MIN Test 05/03/17 06:20 White Blood Count 5.6 TH/MM3 Red Blood Count 3.98 MIL/MM3 Hemoglobin 11.4 GM/DL Hematocrit 33.0 % Mean Corpuscular Volume 83.0 FL Mean Corpuscular Hemoglobin 28.8 PG Mean Corpuscular Hemoglobin Concent 34.7 % Red Cell Distribution Width 13.8 % Platelet Count 324 TH/MM3 Mean Platelet Volume 7.9 FL Neutrophils (%) (Auto) 61.7 % Lymphocytes (%) (Auto) 19.4 % Monocytes (%) (Auto) 14.0 % Eosinophils (%) (Auto) 3.1 % Basophils (%) (Auto) 1.8 % Neutrophils # (Auto) 3.4 TH/MM3 Lymphocytes # (Auto) 1.1 TH/MM3 Monocytes # (Auto) 0.8 TH/MM3 Eosinophils # (Auto) 0.2 TH/MM3 Basophils # (Auto) 0.1 TH/MM3 CBC Comment DIFF FINAL Differential Comment Blood Urea Nitrogen 7 MG/DL Creatinine 0.33 MG/DL Random Glucose 87 MG/DL Total Protein 5.8 GM/DL Albumin 2.6 GM/DL Calcium Level 8.5 MG/DL Phosphorus Level 3.5 MG/DL Magnesium Level 1.8 MG/DL Alkaline Phosphatase 81 U/L Aspartate Amino Transf (AST/SGOT) 16 U/L Alanine Aminotransferase (ALT/SGPT) 15 U/L Total Bilirubin 0.5 MG/DL Sodium Level 128 MEQ/L Potassium Level 3.7 MEQ/L Chloride Level 93 MEQ/L Carbon Dioxide Level 27.1 MEQ/L Anion Gap 8 MEQ/L Estimat Glomerular Filtration Rate 189 ML/MIN Free Thyroxine 1.81 NG/DL Thyroid Stimulating Hormone 3rd Gen 1.290 uIU/ML Imaging Last Impressions Chest X-Ray 04/28/17 1159 Signed Impressions: Service Date/Time: Friday, April 28, 2017 12:24 - CONCLUSION: Mild congestive failure Luis Amaral MD FACR Objective Remarks GENERAL: Awake alert oriented talkative and cooperative appears stated age knows that she is at [place] knows that IT WAS JUST VANESSA, Knows that New 's Day is coming up, 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 HEAD: Atraumatic. Normocephalic. EYES: Pupils equal and round. No scleral icterus. No injection or drainage. ENT: No nasal bleeding or discharge. Mucous membranes pink and moist. NECK: Trachea midline. No JVD. CARDIOVASCULAR: Regular rate and rhythm. S1 and S2 no S3 or S4 RESPIRATORY: No accessory muscle use. Clear to auscultation. Breath sounds equal bilaterally. GASTROINTESTINAL: Abdomen soft, non-tender, nondistended. Hepatic and splenic margins not palpable. MUSCULOSKELETAL: Extremities without clubbing, cyanosis, or edema. No obvious deformities. NEUROLOGICAL: Awake and alert. No obvious cranial nerve deficits. Motor grossly within normal limits. 4 out of 5 muscle strength in the arms and legs. Normal speech. PSYCHIATRIC: Appropriate mood and affect; insight and judgment normal. Medications and IVs Current Medications Sodium Chloride (NS Flush) 2 ml UNSCH PRN IVF FLUSH AFTER USING IV ACCESS Last administered on 05/02/17 09:21; Start 04/28/17 at 12:00 Sodium Chloride 500 ml @ 500 mls/hr BOLUS ONCE IV Last administered on 13:14; Start 04/28/17 at 13:15; Stop 04/28/17 at 14:14; Status DC Sodium Chloride 1,000 ml @ 50 mls/hr Q20H IV ; Start 04/28/17 at 13:45; Stop 04/30/17 at 14:28; Status DC Carvedilol (Coreg) 3.125 mg BID PO Last administered on 05/03/17 08:23; Start 04/28/17 at 21:00 Clopidogrel Bisulfate (Plavix) 75 mg DAILY PO Last administered on 05/03/17 08:22; Start 04/29/17 at 09:00 Isosorbide Mononitrate (Imdur) 30 mg DAILY@07 PO Last administered on 08:22; Start 04/29/17 at 07:00 Losartan Potassium (Cozaar) 25 mg DAILY PO Last administered on 05/03/17 08: 22; Start 04/29/17 at 09:00 Pantoprazole Sodium (Protonix) 20 mg DAILY PO Last administered on 05/03/17 08:22; Start 04/29/17 at 09:00 Pravastatin Sodium (Pravachol) 40 mg HS PO Last administered on 05/02/17 21: 02; Start 04/28/17 at 21:00 Albuterol Sulfate (Albuterol Neb) 1.25 mg Q4HR NEB PRN NEB SHORTNESS OF BREATH ; Start 04/28/17 at 14:00 Sodium Chloride (Sodium Chloride) 1 gm BID PO Last administered on 05/03/17 08:22; Start 04/28/17 at 14:15 Furosemide (Lasix Inj) 20 mg BID@09,18 IV PUSH Last administered on 05/02/17 09:21; Start 04/28/17 at 18:00; Stop 05/02/17 at 17:30; Status DC Potassium Chloride (KCl) 20 meq DAILY PO Last administered on 05/03/17 08:22 ; Start 04/28/17 at 14:15 Sodium Chloride 500 ml @ 20 mls/hr ONCE ONCE IV Last administered on 20:38; Start 04/28/17 at 17:00; Stop 04/29/17 at 17:59; Status DC Miscellaneous Information Patient in critical care unit? Ass... Q361D .XX ; Start 04/28/17 at 19:30 Chlorhexidine Gluconate (Chlorhexidine 2% Cloth) 3 pack DAILY@04 TOPICAL Last administered on 05/03/17 03:28; Start 04/29/17 at 04:00; Stop 05/03/17 at 04 :01; Status DC Chlorhexidine Gluconate (Chlorhexidine 2% Cloth) 3 pack UNSCH PRN TOPICAL HYGIENIC CARE; Start 04/28/17 at 19:30; Stop 05/03/17 at 19:23 Clonazepam (KlonoPIN) 0.5 mg ONCE ONCE PO Last administered on 04/28/17 21: 16; Start 04/28/17 at 21:00; Stop 04/28/17 at 21:01; Status DC Sodium Chloride 1,000 ml @ 70 mls/hr [id number] IV Last administered on 03:00; Start 04/29/17 at 03:00; Stop 04/29/17 at 15:19; Status DC Sodium Chloride 188 meq/Sodium Chloride 1,047 ml @ 30 mls/hr Q24H IV Last administered on 04/29/17 17:07; Start 04/29/17 at 15:30; Stop 04/30/17 at 14 :29; Status DC Alprazolam (Xanax) 0.25 mg Q8H PRN PO ANXIETY Last administered on 05/02/17 21:02; Start 04/29/17 at 16:45 Sodium Chloride 1,000 ml @ 50 mls/hr Q20H IV Last administered on 04/30/17 15:25; Start 04/30/17 at 15:00; Status Future Hold Tolvaptan (Samsca) 30 mg ONCE ONCE PO ; Start 05/01/17 at 17:15; Stop at 17:16; Status Cancel Tolvaptan (Samsca) 30 mg ONCE ONCE PO Last administered on 05/01/17 22:32; Start 05/01/17 at 19:00; Stop 05/01/17 at 19:01; Status DC Furosemide (Lasix Inj) 20 mg DAILY IV PUSH Last administered on 05/03/17 08: 22; Start 05/03/17 at 09:00 A/P Problem List: (1) Hyponatremia ICD Code: E87.1 - Hypo-osmolality and hyponatremia Assessment and Plan A/P - hyponatremia- recurrent- likely due to CHF- improving slowly. IV fluid on hold- continue lasix- and fluid restriction- monitor the sodium level closely. nephrology following. Was given Samsca WITH SOME IMPROVEMENT NOW PLACE ON NACL TABS TID -dysphagia?- ST evaluation appreciated; recommended mechanical soft diet. -hypertension; resumed home meds- will monitor BP and adjust the regimen as needed -CAD/ aortic valve stenosis- s/p recent aortic valve replacement; resumed plavix , BB and statin -DVT prophylaxis with SCD's. -DNR per my d/w the daughter -PT consulted. Consult OT hospice consulted -FAMILY NOT INTERESTED.-- FAMILY NOT WISHING HOSPICE AT THIS TIME Discharge Planning Discussed with patient and RN AND DAUGHTER Discharge Planning [facility] VS SNF Luis Segura DO May 03, 2017 09:41
[2017-05-03 16:51] LABS: HEMOGLOBIN A1C 5.3 % (4.3-6.0)
--- NOTE | 2017-05-03 18:34 | HHI.NPPN ---
Subjective History of Present Illness 87-year-old female with past medical history of ischemic heart disease, hyperlipidemia, aortic stenosis, chronic diarrhea, hiatal hernia, hypertension, systolic congestive heart failure who was brought to the hospital with generalized weakness. The patient was recently admitted and she had a TAVR done and she was discharged on April 17. Additional Remarks Patient is alert, with off and on confusion, clinically same. Objective Data Data 05/03/17 05/04/17 19:00 07:00 Intake Total 240 ml Balance 240 ml Intake Oral 240 ml # Voids 0 # Bowel Movements 0 Vital Signs Date Time Temp Pulse Resp B/P (MAP) Pulse Ox O2 Delivery O2 Flow Rate FiO2 05/03/17 16:48 98.4 81 20 116/62 (80) 96 05/03/17 16:00 79 05/03/17 16:00 98.1 79 24 119/55 (76) 95 05/03/17 14:00 83 05/03/17 12:00 98.4 76 21 108/58 (75) 95 05/03/17 12:00 76 05/03/17 10:00 69 05/03/17 08:00 97.8 73 14 121/60 (80) 94 05/03/17 08:00 73 05/03/17 04:00 97.7 74 18 165/70 (101) 95 05/03/17 00:00 97.9 73 14 138/65 (89) 96 05/02/17 20:00 98.1 74 14 129/61 (83) 96 05/02/17 19:00 82 21 144/70 (94) 94 -: 05/03/17 0620 05/03/17 0620 Physical Exam General Appearance: No Acute Distress, Comfortable Eyes Eye Exam: Pupils Equal Throat Throat Exam: Oral Mucosa [place] & Moist Pulmonary Resp Exam: Breath Sounds Equal, No Distress, Rhonchi, Decreased Bases Cardiology CV Exam: Regular, Normal Sinus Rhythm Gastrointestinal/Abdomen GI Exam: Soft, Non-Tender, Bowel Sounds Present Extremeties Extremities Exam: Trace Edema Neurologic Neuro Exam: Alert, Awake Psychiatric Psych Exam: Appropriate Responses Assessment/Plan Electrolyte Assessment: Hyponatremia Problem List: (1) Aortic stenosis ICD Codes: I35.0 - Nonrheumatic aortic (valve) stenosis Status: Chronic (2) CAD (coronary artery disease) ICD Codes: I25.10 - Atherosclerotic heart disease of [place] coronary artery without angina pectoris Status: Chronic (3) CHF (congestive heart failure) ICD Codes: I50.9 - Heart failure, unspecified Status: Acute (4) Hyponatremia ICD Codes: E87.1 - Hypo-osmolality and hyponatremia (5) History of aortic valve replacement ICD Codes: Z95.2 - Presence of prosthetic heart valve Status: Chronic Plan Restrict oral fluid intake. Encourage oral diet. No neurological signs, remain alert. Na. remain stable at 120-121 range. Follow the oral fluid restriction. Give on dose of Samsca on 05/01. Follow Na. level, now improve to 128. Rafael Maier MD May 03, 2017 18:34
[2017-05-03] MEDS: SODIUM CHLORIDE 0.9% FLUSH 10 ML FLUSH IVF PRN (21:51)
[2017-05-03] MEDS: PRAVASTATIN SOD 40 MG TAB PO SCH (21:51)
[2017-05-04] VITALS (20 sets, daily range): BP systolic 127–137; BP diastolic 63–73; PULSE 68–86; RESP 18–20; TEMP 97.5–98.8; O2SAT 94–97
[2017-05-04 06:39] LABS: BASOPHIL # 0.1 TH/MM3 (0-0.2); BASOPHIL % 1.2 % (0.0-2.0); EOSINOPHIL # 0.2 TH/MM3 (0-0.4); EOSINOPHIL % 3.1 % (0.0-4.0); HEMATOCRIT 32.9 % (35.0-46.0); HEMOGLOBIN 11.3 GM/DL (11.6-15.3); LYMPH % 16.2 % (9.0-44.0); MEAN CELL VOLUME 83.3 FL (80.0-100.0); MEAN CORPUSCULAR HEMOGLOBIN 28.6 PG (27.0-34.0); MEAN CORPUSCULAR HGB CONC 34.4 % (32.0-36.0); MEAN PLATELET VOLUME 7.3 FL (7.0-11.0); MONO % 11.9 % (0.0-8.0); MONOCYTE # 0.7 TH/MM3 (0-0.9); NEUT % 67.6 % (16.0-70.0); PLATELET COUNT 293 TH/MM3 (150-450); RED BLOOD COUNT 3.95 MIL/MM3 (4.00-5.30); RED CELL DISTRIBUTION WIDTH 13.9 % (11.6-17.2)
[2017-05-04 07:04] LABS: ALBUMIN 2.6 GM/DL (3.4-5.0); AST (GOT) 20 U/L (15-37); BICARBONATE 26.7 MEQ/L (21.0-32.0); BLOOD UREA NITROGEN 9 MG/DL (7-18); CALCIUM 8.3 MG/DL (8.5-10.1); CHLORIDE 91 MEQ/L (98-107); CREATININE 0.34 MG/DL (0.50-1.00); GLOMERULAR FILTRATION RATE 183 ML/MIN (>89); GLUCOSE,RANDOM 86 MG/DL (74-106); MAGNESIUM 1.7 MG/DL (1.5-2.5); SODIUM (NA) 126 MEQ/L (136-145)
[2017-05-04 07:05] LABS: ALT (GPT) 15 U/L (10-53); PHOSPHORUS 3.3 MG/DL (2.5-4.9)
[2017-05-04 07:07] LABS: ALKALINE PHOSPHATASE 80 U/L (45-117); TOTAL BILIRUBIN ADULT 0.5 MG/DL (0.2-1.0); TOTAL PROTEIN 5.9 GM/DL (6.4-8.2)
[2017-05-04] MEDS: FUROSEMIDE 20 MG/2 ML VIAL IV PUSH SCH (10:20)
[2017-05-04] MEDS: LOSARTAN 25 MG TAB PO SCH (10:20)
[2017-05-04] MEDS: PANTOPRAZOLE SOD 20 MG DELAYED RELEASE TAB PO SCH (10:21)
[2017-05-04] MEDS: CLOPIDOGREL 75 MG TAB PO SCH (10:21)
[2017-05-04] MEDS: SODIUM CHLORIDE 1 GRAM TAB PO SCH ×3 (10:21→18:20)
[2017-05-04] MEDS: CARVEDILOL 3.125 MG TAB PO SCH ×2 (10:21→20:32)
[2017-05-04] MEDS: POTASSIUM CHLORIDE 20 MEQ CONTROLLED RELEASE TAB PO SCH (10:21)
--- NOTE | 2017-05-04 10:54 | HHI.PR ---
Subjective Remarks 05-02 SODIUM IS ONLY 121 UP FROM 111 EVEN AFTER SAMSCA NO NEW COMPLAINTS ALERT AND ORIENTED SEEN SITTING IN A CHAIR AT SIDE OF BED NEEDS PT AND OT 05-03 SODIUM IS UP TO 128 WILL MAKE SURE SHE REMAINS ON NACL TABS TID DW RN AND PT AND DAUGHTER MOVE OUT OF ICU AM LABS PT AND OT 05-04 SODIUM DOWN TO 126 TODAY NEEDS NACL TABS DW RN AND PT PT AND OT Objective Vitals Vital Signs Date Time Temp Pulse Resp B/P (MAP) Pulse Ox O2 Delivery O2 Flow Rate FiO2 05/04/17 06:00 72 05/04/17 05:00 80 05/04/17 04:00 84 05/04/17 04:00 Room Air 05/04/17 04:00 97.7 83 18 127/73 (91) 94 05/04/17 03:00 74 05/04/17 02:00 80 05/04/17 01:00 72 05/04/17 00:00 73 05/04/17 00:00 Room Air 05/04/17 00:00 98.4 86 18 136/64 (88) 95 05/03/17 23:00 82 05/03/17 22:00 78 05/03/17 21:00 82 05/03/17 20:00 81 05/03/17 20:00 Room Air 05/03/17 20:00 99.1 80 18 122/64 (83) 94 05/03/17 19:00 80 05/03/17 16:48 98.4 81 20 116/62 (80) 96 05/03/17 16:00 79 05/03/17 16:00 98.1 79 24 119/55 (76) 95 05/03/17 14:00 83 05/03/17 12:00 98.4 76 21 108/58 (75) 95 05/03/17 12:00 76 I/O 05/03/17 05/03/17 05/03/17 05/04/17 05/04/17 05/04/17 07:00 15:00 23:00 07:00 15:00 23:00 Intake Total 480 ml 240 ml 240 ml Output Total 500 ml Balance -20 ml 240 ml 240 ml Intake Oral 480 ml 240 ml 240 ml Output Urine Total 500 ml # Voids 0 2 # Bowel Movements 0 0 0 Result Diagram: 05/04/17 0549 05/04/17 0549 Other Results Laboratory Tests Test 05/01/17 12:09 05/01/17 17:36 05/01/17 23:42 05/02/17 06:16 Sodium Level 121 MEQ/L 121 MEQ/L 120 MEQ/L 121 MEQ/L Blood Urea Nitrogen 7 MG/DL Creatinine 0.27 MG/DL Random Glucose 77 MG/DL Calcium Level 8.3 MG/DL Potassium Level 4.0 MEQ/L Chloride Level 86 MEQ/L Carbon Dioxide Level 26.5 MEQ/L Anion Gap 9 MEQ/L Estimat Glomerular Filtration Rate 239 ML/MIN Test 05/03/17 06:20 05/04/17 05:49 White Blood Count 5.6 TH/MM3 6.0 TH/MM3 Red Blood Count 3.98 MIL/MM3 3.95 MIL/MM3 Hemoglobin 11.4 GM/DL 11.3 GM/DL Hematocrit 33.0 % 32.9 % Mean Corpuscular Volume 83.0 FL 83.3 FL Mean Corpuscular Hemoglobin 28.8 PG 28.6 PG Mean Corpuscular Hemoglobin Concent 34.7 % 34.4 % Red Cell Distribution Width 13.8 % 13.9 % Platelet Count 324 TH/MM3 293 TH/MM3 Mean Platelet Volume 7.9 FL 7.3 FL Neutrophils (%) (Auto) 61.7 % 67.6 % Lymphocytes (%) (Auto) 19.4 % 16.2 % Monocytes (%) (Auto) 14.0 % 11.9 % Eosinophils (%) (Auto) 3.1 % 3.1 % Basophils (%) (Auto) 1.8 % 1.2 % Neutrophils # (Auto) 3.4 TH/MM3 4.0 TH/MM3 Lymphocytes # (Auto) 1.1 TH/MM3 1.0 TH/MM3 Monocytes # (Auto) 0.8 TH/MM3 0.7 TH/MM3 Eosinophils # (Auto) 0.2 TH/MM3 0.2 TH/MM3 Basophils # (Auto) 0.1 TH/MM3 0.1 TH/MM3 CBC Comment DIFF FINAL DIFF FINAL Differential Comment Blood Urea Nitrogen 7 MG/DL 9 MG/DL Creatinine 0.33 MG/DL 0.34 MG/DL Random Glucose 87 MG/DL 86 MG/DL Total Protein 5.8 GM/DL 5.9 GM/DL Albumin 2.6 GM/DL 2.6 GM/DL Calcium Level 8.5 MG/DL 8.3 MG/DL Phosphorus Level 3.5 MG/DL 3.3 MG/DL Magnesium Level 1.8 MG/DL 1.7 MG/DL Alkaline Phosphatase 81 U/L 80 U/L Aspartate Amino Transf (AST/SGOT) 16 U/L 20 U/L Alanine Aminotransferase (ALT/SGPT) 15 U/L 15 U/L Total Bilirubin 0.5 MG/DL 0.5 MG/DL Sodium Level 128 MEQ/L 126 MEQ/L Potassium Level 3.7 MEQ/L 3.9 MEQ/L Chloride Level 93 MEQ/L 91 MEQ/L Carbon Dioxide Level 27.1 MEQ/L 26.7 MEQ/L Anion Gap 8 MEQ/L 8 MEQ/L Estimat Glomerular Filtration Rate 189 ML/MIN 183 ML/MIN Hemoglobin A1c 5.3 % Free Thyroxine 1.81 NG/DL Thyroid Stimulating Hormone 3rd Gen 1.290 uIU/ML Imaging Last Impressions Chest X-Ray 04/28/17 1159 Signed Impressions: Service Date/Time: Friday, April 28, 2017 12:24 - CONCLUSION: Mild congestive failure Luis Amaral MD FACR Objective Remarks GENERAL: Awake alert oriented talkative and cooperative appears stated age knows that she is at [place] knows that IT WAS JUST VANESSA, Knows that New 's Day is coming up, 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 HEAD: Atraumatic. Normocephalic. EYES: Pupils equal and round. No scleral icterus. No injection or drainage. EOMI ENT: No nasal bleeding or discharge. Mucous membranes pink and moist. TONGUE MIDLINE NECK: Trachea midline. No JVD. SUPPLE CARDIOVASCULAR: Regular rate and rhythm. S1 and S2 no S3 or S4 RESPIRATORY: No accessory muscle use. Clear to auscultation. Breath sounds equal bilaterally. GASTROINTESTINAL: Abdomen soft, non-tender, nondistended. Hepatic and splenic margins not palpable. MUSCULOSKELETAL: Extremities without clubbing, cyanosis, or edema. No obvious deformities. NEUROLOGICAL: Awake and alert. No obvious cranial nerve deficits. Motor grossly within normal limits. 4 out of 5 muscle strength in the arms and legs. Normal speech. PSYCHIATRIC: Appropriate mood and affect; insight and judgment normal. Procedures NONE Medications and IVs Current Medications Sodium Chloride (NS Flush) 2 ml UNSCH PRN IVF FLUSH AFTER USING IV ACCESS Last administered on 05/03/17 21:51; Start 04/28/17 at 12:00 Sodium Chloride 500 ml @ 500 mls/hr BOLUS ONCE IV Last administered on 13:14; Start 04/28/17 at 13:15; Stop 04/28/17 at 14:14; Status DC Sodium Chloride 1,000 ml @ 50 mls/hr Q20H IV ; Start 04/28/17 at 13:45; Stop 04/30/17 at 14:28; Status DC Carvedilol (Coreg) 3.125 mg BID PO Last administered on 05/04/17 10:21; Start 04/28/17 at 21:00 Clopidogrel Bisulfate (Plavix) 75 mg DAILY PO Last administered on 05/04/17 10:21; Start 04/29/17 at 09:00 Isosorbide Mononitrate (Imdur) 30 mg DAILY@07 PO Last administered on 08:22; Start 04/29/17 at 07:00 Losartan Potassium (Cozaar) 25 mg DAILY PO Last administered on 05/04/17 10: 20; Start 04/29/17 at 09:00 Pantoprazole Sodium (Protonix) 20 mg DAILY PO Last administered on 05/04/17 10:21; Start 04/29/17 at 09:00 Pravastatin Sodium (Pravachol) 40 mg HS PO Last administered on 05/03/17 21: 51; Start 04/28/17 at 21:00 Albuterol Sulfate (Albuterol Neb) 1.25 mg Q4HR NEB PRN NEB SHORTNESS OF BREATH ; Start 04/28/17 at 14:00 Sodium Chloride (Sodium Chloride) 1 gm BID PO Last administered on 05/03/17 08:22; Start 04/28/17 at 14:15; Stop 05/03/17 at 09:42; Status DC Furosemide (Lasix Inj) 20 mg BID@09,18 IV PUSH Last administered on 05/02/17 09:21; Start 04/28/17 at 18:00; Stop 05/02/17 at 17:30; Status DC Potassium Chloride (KCl) 20 meq DAILY PO Last administered on 05/04/17 10:21 ; Start 04/28/17 at 14:15 Sodium Chloride 500 ml @ 20 mls/hr ONCE ONCE IV Last administered on 20:38; Start 04/28/17 at 17:00; Stop 04/29/17 at 17:59; Status DC Miscellaneous Information Patient in critical care unit? Ass... Q361D .XX ; Start 04/28/17 at 19:30 Chlorhexidine Gluconate (Chlorhexidine 2% Cloth) 3 pack DAILY@04 TOPICAL Last administered on 05/03/17 03:28; Start 04/29/17 at 04:00; Stop 05/03/17 at 04 :01; Status DC Chlorhexidine Gluconate (Chlorhexidine 2% Cloth) 3 pack UNSCH PRN TOPICAL HYGIENIC CARE; Start 04/28/17 at 19:30; Stop 05/03/17 at 19:23; Status DC Clonazepam (KlonoPIN) 0.5 mg ONCE ONCE PO Last administered on 04/28/17 21: 16; Start 04/28/17 at 21:00; Stop 04/28/17 at 21:01; Status DC Sodium Chloride 1,000 ml @ 70 mls/hr [id number] IV Last administered on 03:00; Start 04/29/17 at 03:00; Stop 04/29/17 at 15:19; Status DC Sodium Chloride 188 meq/Sodium Chloride 1,047 ml @ 30 mls/hr Q24H IV Last administered on 04/29/17 17:07; Start 04/29/17 at 15:30; Stop 04/30/17 at 14 :29; Status DC Alprazolam (Xanax) 0.25 mg Q8H PRN PO ANXIETY Last administered on 05/02/17 21:02; Start 04/29/17 at 16:45 Sodium Chloride 1,000 ml @ 50 mls/hr Q20H IV Last administered on 04/30/17 15:25; Start 04/30/17 at 15:00; Status Future Hold Tolvaptan (Samsca) 30 mg ONCE ONCE PO ; Start 05/01/17 at 17:15; Stop at 17:16; Status Cancel Tolvaptan (Samsca) 30 mg ONCE ONCE PO Last administered on 05/01/17 22:32; Start 05/01/17 at 19:00; Stop 05/01/17 at 19:01; Status DC Furosemide (Lasix Inj) 20 mg DAILY IV PUSH Last administered on 05/04/17 10: 20; Start 05/03/17 at 09:00 Sodium Chloride (Sodium Chloride) 1 gm TID PO Last administered on 05/04/17 10:21; Start 05/03/17 at 13:00 A/P Problem List: (1) Hyponatremia ICD Code: E87.1 - Hypo-osmolality and hyponatremia Assessment and Plan A/P - hyponatremia- recurrent- likely due to CHF- improving slowly. IV fluid on hold- continue lasix- and fluid restriction- monitor the sodium level closely. nephrology following. Was given Samsca WITH SOME IMPROVEMENT NOW PLACE ON NACL TABS TID NA IS 126 TODAY -dysphagia?- ST evaluation appreciated; recommended mechanical soft diet. -hypertension; resumed home meds- will monitor BP and adjust the regimen as needed -CAD/ aortic valve stenosis- s/p recent aortic valve replacement; resumed plavix , BB and statin -DVT prophylaxis with SCD's. -DNR per my d/w the daughter -PT consulted. Consult OT hospice consulted -FAMILY NOT INTERESTED.-- FAMILY NOT WISHING HOSPICE AT THIS TIME Discharge Planning Discussed with patient and horse racing manager Planning [facility] VS SNF Luis Segura DO May 04, 2017 10:54
--- NOTE | 2017-05-04 11:02 | HHI.NPPN ---
Subjective History of Present Illness 87-year-old female with past medical history of ischemic heart disease, hyperlipidemia, aortic stenosis, chronic diarrhea, hiatal hernia, hypertension, systolic congestive heart failure who was brought to the hospital with generalized weakness. The patient was recently admitted and she had a TAVR done and she was discharged on April 17. Additional Remarks Patient is alert, with off and on confusion, clinically same. Objective Data Data Vital Signs Date Time Temp Pulse Resp B/P (MAP) Pulse Ox O2 Delivery O2 Flow Rate FiO2 05/04/17 06:00 72 05/04/17 05:00 80 05/04/17 04:00 84 05/04/17 04:00 Room Air 05/04/17 04:00 97.7 83 18 127/73 (91) 94 05/04/17 03:00 74 05/04/17 02:00 80 05/04/17 01:00 72 05/04/17 00:00 73 05/04/17 00:00 Room Air 05/04/17 00:00 98.4 86 18 136/64 (88) 95 05/03/17 23:00 82 05/03/17 22:00 78 05/03/17 21:00 82 05/03/17 20:00 81 05/03/17 20:00 Room Air 05/03/17 20:00 99.1 80 18 122/64 (83) 94 05/03/17 19:00 80 05/03/17 16:48 98.4 81 20 116/62 (80) 96 05/03/17 16:00 79 05/03/17 16:00 98.1 79 24 119/55 (76) 95 05/03/17 14:00 83 05/03/17 12:00 98.4 76 21 108/58 (75) 95 05/03/17 12:00 76 -: 05/04/17 0549 05/04/17 0549 Physical Exam General Appearance: No Acute Distress, Comfortable Eyes Eye Exam: Pupils Equal Throat Throat Exam: Oral Mucosa [place] & Moist Pulmonary Resp Exam: Breath Sounds Equal, No Distress, Rhonchi, Decreased Bases Cardiology CV Exam: Regular, Normal Sinus Rhythm Gastrointestinal/Abdomen GI Exam: Soft, Non-Tender, Bowel Sounds Present Extremeties Extremities Exam: Trace Edema Neurologic Neuro Exam: Alert, Awake Psychiatric Psych Exam: Appropriate Responses Assessment/Plan Electrolyte Assessment: Hyponatremia Problem List: (1) Aortic stenosis ICD Codes: I35.0 - Nonrheumatic aortic (valve) stenosis Status: Chronic (2) CAD (coronary artery disease) ICD Codes: I25.10 - Atherosclerotic heart disease of [place] coronary artery without angina pectoris Status: Chronic (3) CHF (congestive heart failure) ICD Codes: I50.9 - Heart failure, unspecified Status: Acute (4) Hyponatremia ICD Codes: E87.1 - Hypo-osmolality and hyponatremia (5) History of aortic valve replacement ICD Codes: Z95.2 - Presence of prosthetic heart valve Status: Chronic Plan Restrict oral fluid intake. Encourage oral diet. No neurological signs, remain alert. Na. remain stable at 120-121 range. Follow the oral fluid restriction. Give on dose of Samsca on 05/01. Follow Na. level, now improve to 128. Rafael Maier MD May 04, 2017 11:02
[2017-05-04] MEDS: ALPRAZolam 0.25 MG TAB PO PRN (20:32)
[2017-05-04] MEDS: PRAVASTATIN SOD 40 MG TAB PO SCH (20:32)
[2017-05-05] VITALS (7 sets, daily range): BP systolic 90–139; BP diastolic 53–77; PULSE 70–83; RESP 16–20; TEMP 97.7–98.8; O2SAT 94–97
[2017-05-05 04:52] LABS: AUTOMATED NEUTROPHIL # 2.7 TH/MM3 (1.8-7.7); BASOPHIL % 0.1 % (0.0-2.0); EOSINOPHIL # 0.3 TH/MM3 (0-0.4); EOSINOPHIL % 5.1 % (0.0-4.0); HEMATOCRIT 32.2 % (35.0-46.0); HEMOGLOBIN 10.8 GM/DL (11.6-15.3); LYMPH % 27.9 % (9.0-44.0); LYMPHOCYTE # 1.4 TH/MM3 (1.0-4.8); MEAN CELL VOLUME 83.8 FL (80.0-100.0); MEAN CORPUSCULAR HEMOGLOBIN 28.1 PG (27.0-34.0); MEAN CORPUSCULAR HGB CONC 33.5 % (32.0-36.0); MEAN PLATELET VOLUME 7.2 FL (7.0-11.0); MONO % 13.4 % (0.0-8.0); MONOCYTE # 0.7 TH/MM3 (0-0.9); NEUT % 53.5 % (16.0-70.0); PLATELET COUNT 281 TH/MM3 (150-450); RED BLOOD COUNT 3.84 MIL/MM3 (4.00-5.30); RED CELL DISTRIBUTION WIDTH 14.2 % (11.6-17.2); WHITE BLOOD COUNT 5.1 TH/MM3 (4.0-11.0)
[2017-05-05 05:22] LABS: ALKALINE PHOSPHATASE 83 U/L (45-117); ALT (GPT) 13 U/L (10-53); PHOSPHORUS 3.5 MG/DL (2.5-4.9); TOTAL BILIRUBIN ADULT 0.4 MG/DL (0.2-1.0); TOTAL PROTEIN 5.5 GM/DL (6.4-8.2)
[2017-05-05 05:30] LABS: ALBUMIN 2.4 GM/DL (3.4-5.0); AST (GOT) 20 U/L (15-37); BICARBONATE 25.9 MEQ/L (21.0-32.0); BLOOD UREA NITROGEN 9 MG/DL (7-18); CALCIUM 8.4 MG/DL (8.5-10.1); CHLORIDE 95 MEQ/L (98-107); CREATININE 0.33 MG/DL (0.50-1.00); GLOMERULAR FILTRATION RATE 189 ML/MIN (>89); GLUCOSE,RANDOM 80 MG/DL (74-106); MAGNESIUM 1.7 MG/DL (1.5-2.5); SODIUM (NA) 127 MEQ/L (136-145)
--- NOTE | 2017-05-05 08:37 | HHI.NPPN ---
Subjective History of Present Illness 87-year-old female with past medical history of ischemic heart disease, hyperlipidemia, aortic stenosis, chronic diarrhea, hiatal hernia, hypertension, systolic congestive heart failure who was brought to the hospital with generalized weakness. The patient was recently admitted and she had a TAVR done and she was discharged on April 17. Additional Remarks Serum Na is 127. Has history of CHF: EF of 25-35%. Review of Systems General Constitutional: Fatigue Objective Data Data Vital Signs Date Time Temp Pulse Resp B/P (MAP) Pulse Ox O2 Delivery O2 Flow Rate FiO2 05/05/17 03:53 71 16 139/77 (97) 96 05/05/17 00:20 73 05/04/17 20:17 83 05/04/17 20:15 98.8 82 20 136/65 (88) 95 05/04/17 20:15 Room Air 21 05/04/17 17:00 84 05/04/17 16:00 98.2 82 18 137/63 (87) 95 05/04/17 16:00 84 05/04/17 15:00 76 05/04/17 14:00 76 05/04/17 13:00 76 05/04/17 12:00 98.1 74 18 130/63 (85) 97 05/04/17 12:00 70 05/04/17 11:00 80 05/04/17 10:00 76 05/04/17 09:00 72 -: 05/05/17 0410 05/05/17 0410 Physical Exam General Appearance: No Acute Distress, Comfortable Eyes Eye Exam: Pupils Equal Throat Throat Exam: Oral Mucosa [place] & Moist Pulmonary Resp Exam: Breath Sounds Equal, No Distress, Rhonchi, Decreased Bases Cardiology CV Exam: Regular, Normal Sinus Rhythm Gastrointestinal/Abdomen GI Exam: Soft, Non-Tender, Bowel Sounds Present Extremeties Extremities Exam: Trace Edema Neurologic Neuro Exam: Alert, Awake Psychiatric Psych Exam: Appropriate Responses Assessment/Plan Electrolyte Assessment: Hyponatremia Problem List: (1) Aortic stenosis ICD Codes: I35.0 - Nonrheumatic aortic (valve) stenosis Status: Chronic (2) CAD (coronary artery disease) ICD Codes: I25.10 - Atherosclerotic heart disease of [place] coronary artery without angina pectoris Status: Chronic (3) CHF (congestive heart failure) ICD Codes: I50.9 - Heart failure, unspecified Status: Acute (4) Hyponatremia ICD Codes: E87.1 - Hypo-osmolality and hyponatremia (5) History of aortic valve replacement ICD Codes: Z95.2 - Presence of prosthetic heart valve Status: Chronic Plan Hyponatremia in the setting of CHF should be treated with fluid restriction with loop diuretics and perhaps Tolvaptan(Samsca). No role for salt tablets which might result in decompensated heart failure. I will stop Salt tablets. Continue fluid restriction and Lasix. May add Samsca if serum Na decreases again. If stable, she can be discharged from renal standpoint. Tacho Melendez MD May 05, 2017 08:37
[2017-05-05] MEDS: CARVEDILOL 3.125 MG TAB PO SCH ×2 (08:56→21:16)
[2017-05-05] MEDS: ISOSORBIDE MONONITRATE 30 MG TAB PO SCH (08:56)
[2017-05-05] MEDS: CLOPIDOGREL 75 MG TAB PO SCH (08:56)
[2017-05-05] MEDS: POTASSIUM CHLORIDE 20 MEQ CONTROLLED RELEASE TAB PO SCH (08:56)
[2017-05-05] MEDS: ALPRAZolam 0.25 MG TAB PO PRN ×2 (08:56→18:25)
[2017-05-05] MEDS: PANTOPRAZOLE SOD 20 MG DELAYED RELEASE TAB PO SCH (08:56)
[2017-05-05] MEDS: FUROSEMIDE 20 MG/2 ML VIAL IV PUSH SCH (08:59)
[2017-05-05] MEDS: SODIUM CHLORIDE 0.9% FLUSH 10 ML FLUSH IVF PRN (08:59)
[2017-05-05] MEDS: LOSARTAN 25 MG TAB PO SCH (09:00)
--- NOTE | 2017-05-05 18:17 | HHI.PR ---
Subjective Remarks 87F admitted for AMS related to hyponatremia. Taken off of salt tablets today by nephrology in favor of fluid restrictions. Patient does not seem distressed , no complaints. Objective Vitals Vital Signs Date Time Temp Pulse Resp B/P (MAP) Pulse Ox O2 Delivery O2 Flow Rate FiO2 05/05/17 11:25 97.7 70 20 90/53 (65) 97 05/05/17 10:58 Room Air 05/05/17 08:54 98.4 75 20 117/63 (81) 97 05/05/17 03:53 71 16 139/77 (97) 96 05/05/17 00:20 73 05/04/17 20:17 83 05/04/17 20:15 98.8 82 20 136/65 (88) 95 05/04/17 20:15 Room Air 21 I/O 05/04/17 05/04/17 05/04/17 05/05/17 05/05/17 05/05/17 07:00 15:00 23:00 07:00 15:00 23:00 Intake Total 240 ml Balance 240 ml Intake Oral 240 ml # Voids 2 4 2 # Bowel Movements 0 2 Result Diagram: 05/05/1740905/05/17409 Objective Remarks GENERAL: Thin, not distressed SKIN: Warm and dry. HEAD: Normocephalic. EYES: No scleral icterus. No injection or drainage. NECK: Supple, trachea midline. No JVD or lymphadenopathy. CARDIOVASCULAR: Regular rate and rhythm without murmurs, gallops, or rubs. RESPIRATORY: Breath sounds equal bilaterally. No accessory muscle use. GASTROINTESTINAL: Abdomen soft, non-tender, nondistended. MUSCULOSKELETAL: No cyanosis, or edema. BACK: Nontender without obvious deformity. No CVA tenderness. EXTREMITIES: No edema Procedures NONE A/P Problem List: (1) Hyponatremia ICD Code: E87.1 - Hypo-osmolality and hyponatremia Assessment and Plan Hyponantremia Likely CHF related, her baseline is below a normal sodium PO NaCl stopped today, will follow trend Fluid restriction Dysphagia Mechanical Soft diet recommended Hypertension Low BP today, will follow trend CAD, Aortic Valve stenosis Continue Plavix, beta bridger, statin DVT Prophylaxis SCD hose Discharge Planning Likely back to SNF, family declined hospice Shai Ladd MD May 05, 2017 18:17
[2017-05-05] MEDS: ACETAMINOPHEN 500 MG CPLT PO PRN (18:25)
[2017-05-05 21:15] LABS: BICARBONATE 25.2 MEQ/L (21.0-32.0); CALCIUM 8.2 MG/DL (8.5-10.1); CREATININE 0.62 MG/DL (0.50-1.00)
[2017-05-05] MEDS: PRAVASTATIN SOD 40 MG TAB PO SCH (21:16)
[2017-05-06] VITALS (7 sets, daily range): BP systolic 106–135; BP diastolic 62–70; PULSE 67–77; RESP 16–18; TEMP 98.2–98.7; O2SAT 95–96
[2017-05-06] MEDS: ISOSORBIDE MONONITRATE 30 MG TAB PO SCH (06:40)
[2017-05-06 07:07] LABS: ALBUMIN 2.4 GM/DL (3.4-5.0); BICARBONATE 27.9 MEQ/L (21.0-32.0); CALCIUM 8.3 MG/DL (8.5-10.1); CREATININE 0.39 MG/DL (0.50-1.00); PHOSPHORUS 3.9 MG/DL (2.5-4.9)
--- NOTE | 2017-05-06 09:02 | HHI.NPPN ---
Subjective History of Present Illness 87-year-old female with past medical history of ischemic heart disease, hyperlipidemia, aortic stenosis, chronic diarrhea, hiatal hernia, hypertension, systolic congestive heart failure who was brought to the hospital with generalized weakness. The patient was recently admitted and she had a TAVR done and she was discharged on April 17. Additional Remarks Resting comfortably. No distress. Review of Systems General Constitutional: Fatigue Objective Data Data Vital Signs Date Time Temp Pulse Resp B/P (MAP) Pulse Ox O2 Delivery O2 Flow Rate FiO2 05/06/17 08:23 98.2 72 16 118/66 (83) 95 05/06/17 04:00 98.3 67 18 130/64 (86) 95 05/06/17 00:00 98.3 74 18 131/62 (85) 96 05/05/17 23:00 70 05/05/17 20:00 98.8 79 18 112/54 (73) 94 05/05/17 19:00 100 Room Air 05/05/17 18:28 98.6 83 18 112/62 (79) 96 05/05/17 11:25 97.7 70 20 90/53 (65) 97 05/05/17 10:58 Room Air -: 05/05/17 0410 05/06/17 0537 Physical Exam General Appearance: No Acute Distress, Comfortable Eyes Eye Exam: Pupils Equal Throat Throat Exam: Oral Mucosa [place] & Moist Pulmonary Resp Exam: Breath Sounds Equal, No Distress, Rhonchi, Decreased Bases Cardiology CV Exam: Regular, Normal Sinus Rhythm Gastrointestinal/Abdomen GI Exam: Soft, Non-Tender, Bowel Sounds Present Extremeties Extremities Exam: Trace Edema Neurologic Neuro Exam: Alert, Awake Psychiatric Psych Exam: Appropriate Responses Assessment/Plan Electrolyte Assessment: Hyponatremia Problem List: (1) Aortic stenosis ICD Codes: I35.0 - Nonrheumatic aortic (valve) stenosis Status: Chronic (2) CAD (coronary artery disease) ICD Codes: I25.10 - Atherosclerotic heart disease of [place] coronary artery without angina pectoris Status: Chronic (3) CHF (congestive heart failure) ICD Codes: I50.9 - Heart failure, unspecified Status: Acute (4) Hyponatremia ICD Codes: E87.1 - Hypo-osmolality and hyponatremia (5) History of aortic valve replacement ICD Codes: Z95.2 - Presence of prosthetic heart valve Status: Chronic Plan Hyponatremia in the setting of CHF should be treated with fluid restriction with loop diuretics and perhaps Tolvaptan(Samsca). Serum Na is better today at 128. Will defer Samsca for now. Continue fluid restriction and loop diuretic. She can be discharged from renals standpoint. I will sign off at this time. Please call if needed. Tacho Melendez MD May 06, 2017 09:01
[2017-05-06] MEDS: PANTOPRAZOLE SOD 20 MG DELAYED RELEASE TAB PO SCH (10:21)
[2017-05-06] MEDS: CLOPIDOGREL 75 MG TAB PO SCH (10:21)
[2017-05-06] MEDS: POTASSIUM CHLORIDE 20 MEQ CONTROLLED RELEASE TAB PO SCH (10:22)
[2017-05-06] MEDS: CARVEDILOL 3.125 MG TAB PO SCH ×2 (10:22→22:15)
[2017-05-06] MEDS: FUROSEMIDE 20 MG/2 ML VIAL IV PUSH SCH (10:23)
[2017-05-06] MEDS: SODIUM CHLORIDE 0.9% FLUSH 10 ML FLUSH IVF PRN ×2 (10:23→22:15)
--- NOTE | 2017-05-06 14:42 | HHI.PR ---
Subjective Remarks Pt is in bed today, appears weak. She says she lives at home with daughter to help her. She usually walks with a walker but is uncertain about her strength. Objective Vitals Vital Signs Date Time Temp Pulse Resp B/P (MAP) Pulse Ox O2 Delivery O2 Flow Rate FiO2 05/06/17 12:52 98.3 74 18 106/62 (77) 96 05/06/17 08:23 98.2 72 16 118/66 (83) 95 05/06/17 04:00 98.3 67 18 130/64 (86) 95 05/06/17 00:00 98.3 74 18 131/62 (85) 96 05/05/17 23:00 70 05/05/17 20:00 98.8 79 18 112/54 (73) 94 05/05/17 19:00 100 Room Air 05/05/17 18:28 98.6 83 18 112/62 (79) 96 I/O 05/05/17 05/05/17 05/05/17 05/06/17 05/06/17 05/06/17 07:00 15:00 23:00 07:00 15:00 23:00 Intake Total 1080 ml 480 ml Output Total 400 ml Balance 1080 ml 80 ml Intake Oral 1080 ml 480 ml Output Urine Total 400 ml # Voids 2 5 2 Result Diagram: 05/05/17 0410 05/06/17 0537 Objective Remarks GENERAL: Thin, not distressed SKIN: Warm and dry. HEAD: Normocephalic. EYES: No scleral icterus. No injection or drainage. NECK: Supple, trachea midline. No JVD or lymphadenopathy. CARDIOVASCULAR: Regular rate and rhythm without murmurs, gallops, or rubs. RESPIRATORY: Breath sounds equal bilaterally. No accessory muscle use. GASTROINTESTINAL: Abdomen soft, non-tender, nondistended. MUSCULOSKELETAL: No cyanosis, or edema. BACK: Nontender without obvious deformity. No CVA tenderness. EXTREMITIES: No edema Procedures NONE A/P Problem List: (1) Hyponatremia ICD Code: E87.1 - Hypo-osmolality and hyponatremia Assessment and Plan Hyponantremia Likely CHF related, her baseline is below a normal sodium PO NaCl stopped, Fluid restriction main therapy So far Na+ appears stable, may discharge with outpatient serial labs to be followed by PCP Dysphagia Mechanical Soft diet DVT Prophylaxis SCD hose Discharge Planning Apparently she lives with daughter at home Will get PT evaluation to see if that is a safe prospect Likely discharge tomorrow Shai Ladd MD May 06, 2017 14:42
[2017-05-06] MEDS: ALPRAZolam 0.25 MG TAB PO PRN (22:15)
[2017-05-06] MEDS: PRAVASTATIN SOD 40 MG TAB PO SCH (22:15)
[2017-05-06] MEDS: ACETAMINOPHEN 500 MG CPLT PO PRN (22:28)
[2017-05-07] VITALS (17 sets, daily range): BP systolic 110–137; BP diastolic 62–69; PULSE 65–81; RESP 16; TEMP 97.8–98.4; O2SAT 95–98
[2017-05-07] MEDS: ISOSORBIDE MONONITRATE 30 MG TAB PO SCH (06:34)
[2017-05-07] MEDS: PANTOPRAZOLE SOD 20 MG DELAYED RELEASE TAB PO SCH (08:25)
[2017-05-07] MEDS: FUROSEMIDE 20 MG/2 ML VIAL IV PUSH SCH (08:26)
[2017-05-07] MEDS: POTASSIUM CHLORIDE 20 MEQ CONTROLLED RELEASE TAB PO SCH (08:26)
[2017-05-07] MEDS: CARVEDILOL 3.125 MG TAB PO SCH ×2 (08:26→20:29)
[2017-05-07] MEDS: CLOPIDOGREL 75 MG TAB PO SCH (08:26)
[2017-05-07] MEDS: ALPRAZolam 0.25 MG TAB PO PRN ×2 (10:44→22:45)
--- NOTE | 2017-05-07 16:34 | HHI.DS ---
Discharge Summary Admission Date Apr 28, 2017 at 13:41 Discharge Date: May 07, 2017 Admitting Diagnosis Hyponatremia, Generalized weakness. (1) Hyponatremia ICD Code: E87.1 - Hypo-osmolality and hyponatremia Diagnosis: Principal Procedures NONE Brief History - From Admission patient is a 87 y/o female, known to me from previous admission,with history of hyponatremia, s/p recent aortic valve replacement, was brought to ER with generalized weakness. most of the information was obtained from the daughter at the bedside. she says that she initially did fine after the surgery. but two days ago she started to feel weak to the extent that she wasn't able to get out of the bed.she denies any chest pain, sob, nausea or dizziness. but the daughter says that she's been having difficult swallowing recently. she says that she's been referred to a research engineer but hasn't heard from the office yet. CBC/BMP: 05/05/17 0410 05/07/17 1110 Significant Findings Laboratory Tests Test 05/05/17 04:10 05/05/17 19:56 05/06/17 05:37 05/06/17 15:55 Red Blood Count 3.84 MIL/MM3 (4.00-5.30) Hemoglobin 10.8 GM/DL (11.6-15.3) Hematocrit 32.2 % (35.0-46.0) Monocytes (%) (Auto) 13.4 % (0.0-8.0) Eosinophils (%) (Auto) 5.1 % (0.0-4.0) Creatinine 0.33 MG/DL (0.50-1.00) 0.39 MG/DL (0.50-1.00) Total Protein 5.5 GM/DL (6.4-8.2) Albumin 2.4 GM/DL (3.4-5.0) 2.4 GM/DL (3.4-5.0) Calcium Level 8.4 MG/DL (8.5-10.1) 8.2 MG/DL (8.5-10.1) 8.3 MG/DL (8.5-10.1) Sodium Level 127 MEQ/L (136-145) 127 MEQ/L (136-145) 128 MEQ/L (136-145) 127 MEQ/L (136-145) Chloride Level 95 MEQ/L (98-107) 91 MEQ/L (98-107) 93 MEQ/L (98-107) Random Glucose 122 MG/DL (74-106) Test 05/07/17 11:10 Sodium Level 125 MEQ/L (136-145) PE at Discharge GENERAL: Thin, not distressed SKIN: Warm and dry. HEAD: Normocephalic. EYES: No scleral icterus. No injection or drainage. NECK: Supple, trachea midline. No JVD or lymphadenopathy. CARDIOVASCULAR: Regular rate and rhythm without murmurs, gallops, or rubs. RESPIRATORY: Breath sounds equal bilaterally. No accessory muscle use. GASTROINTESTINAL: Abdomen soft, non-tender, nondistended. MUSCULOSKELETAL: No cyanosis, or edema. BACK: Nontender without obvious deformity. No CVA tenderness. EXTREMITIES: No edema Hospital Course 87F admitted for weakness related to marked hyponatremia. She improved slowly with fluid restriction and salt tablets, the salt tablets were discontinued by nephrology and her trend remains stable. Her baseline is mild hyponatremia, so she seems to be at her baseline. She prefers to go home instead of to a rehab facility. Pt Condition on Discharge: Fair Discharge Disposition: Disch w/ Home Health Serv Discharge Time: <= 30 minutes Discharge Instructions DIET: Follow Instructions for: As Tolerated, No Restrictions Speech Therapy-Diet Recommends: Mechanical Soft, Chopped Meat w/Gravy Activities you can perform: Weight Bearing as Shai Quintana MD May 07, 2017 16:34
--- NOTE | 2017-05-07 16:36 | HHI.FF ---
Face to Face Verification Diagnosis: (1) Generalized weakness (2) Hyponatremia Physical Therapy Order: Evaluate and Treat Occupational Therapy Order: Evaluate and Treat Home Health Nursing Order: Signs/symptoms of disease process Nursing assessment with vital signs Instructions: Please draw BMP labwork to monitor sodium levels every 2-3 days for 2 weeks. I have seen patient Jessy Cornell on 05/07/17. My clinical findings support the need for the requested home health care services because: Ltd mobility - disease progression Deconditioned w/ increased weakness Limited ability to care for self High risk of falls I certify that my clinical findings support that this patient is homebound because: Unsteady gait/balance Unsafe to leave home unassisted Unable to use public transportation Shai Ladd MD May 07, 2017 16:36
[2017-05-07] MEDS: PRAVASTATIN SOD 40 MG TAB PO SCH (20:29)
[2017-05-08] VITALS (15 sets, daily range): BP systolic 112–140; BP diastolic 67–73; PULSE 64–90; RESP 14–18; TEMP 98–98.6; O2SAT 95–96
[2017-05-08] MEDS: ISOSORBIDE MONONITRATE 30 MG TAB PO SCH (05:19)
[2017-05-08] MEDS: CLOPIDOGREL 75 MG TAB PO SCH (09:53)
[2017-05-08] MEDS: CARVEDILOL 3.125 MG TAB PO SCH (09:53)
[2017-05-08] MEDS: POTASSIUM CHLORIDE 20 MEQ CONTROLLED RELEASE TAB PO SCH (09:53)
[2017-05-08] MEDS: PANTOPRAZOLE SOD 20 MG DELAYED RELEASE TAB PO SCH (09:53)
[2017-05-08] MEDS: FUROSEMIDE 20 MG/2 ML VIAL IV PUSH SCH (09:54)
[2017-05-08] MEDS ORDERED: SODI1TAB PO (12:11)
[2017-05-08 14:29] LABS: BACTERIA, URINE MOD /hpf; BILIRUBIN, URINE NEG (NEG); BLOOD, URINE SMALL (NEG); GLUCOSE,URINE NEG (NEG); KETONE, URINE NEG (NEG); NITRITE,URINE NEG (NEG); PH, URINE 6.5 (5.0-8.5); TRANSITIONAL EPI CELLS, URINE <1 /hpf; URINE COLOR YELLOW (YELLW/STRAW); URINE LEUKOCYTE ESTERASE LARGE (NEG); WHITE BLOOD CELL CLUMPS MANY
[2017-05-08] MEDS ORDERED: BACT800T5 PO (14:53)
--- NOTE | 2017-05-08 15:07 | HHI.PR ---
Subjective Remarks Pt was medically discharged yesterday, but her daughter was unable to take her home and is present today with concerns. I explained the concept of fluid restriction vs. salt replacement for treatment of hyponatremia and why she was no longer taking salt tablets. She requested a back up plan script for salt tablets and treatment for what seems to be positive urinalysis with aseptic cultures based on previous study. Objective Vitals Vital Signs Date Time Temp Pulse Resp B/P (MAP) Pulse Ox O2 Delivery O2 Flow Rate FiO2 05/08/17 13:00 68 05/08/17 12:00 70 05/08/17 11:00 Room Air 05/08/17 11:00 98.6 64 16 112/71 (85) 96 05/08/17 11:00 72 05/08/17 10:00 90 05/08/17 09:00 89 05/08/17 08:00 78 05/08/17 07:00 Room Air 05/08/17 07:00 98.4 72 14 130/67 (88) 95 05/08/17 07:00 77 05/08/17 06:00 80 05/08/17 05:00 78 05/08/17 04:55 98.0 75 18 140/70 (93) 96 05/08/17 04:00 74 05/08/17 04:00 96 Room Air 05/08/17 03:00 76 05/08/17 03:00 78 05/08/17 02:00 74 05/08/17 01:00 74 05/08/17 00:00 98.0 76 18 135/73 (93) 96 05/08/17 00:00 96 Room Air 05/08/17 00:00 74 05/07/17 23:00 78 05/07/17 22:00 80 05/07/17 21:00 79 05/07/17 20:00 98.4 76 16 123/66 (85) 95 05/07/17 20:00 81 05/07/17 20:00 95 Room Air 05/07/17 19:27 80 05/07/17 18:19 80 05/07/17 17:14 77 05/07/17 16:01 76 05/07/17 15:39 97.8 74 16 110/62 (78) 96 05/07/17 15:39 76 1/1/18 15:39 96 Room Air I/O 05/07/17 05/07/17 05/07/17 05/08/17 05/08/17 05/08/17 07:00 15:00 23:00 07:00 15:00 23:00 Intake Total 480 ml 440 ml Balance 480 ml 440 ml Intake Oral 480 ml 440 ml # Voids 7 7 # Bowel Movements 1 1 Result Diagram: 05/05/17 0410 05/08/17 1220 Objective Remarks GENERAL: Thin, not distressed SKIN: Warm and dry. HEAD: Normocephalic. EYES: No scleral icterus. No injection or drainage. NECK: Supple, trachea midline. No JVD or lymphadenopathy. CARDIOVASCULAR: Regular rate and rhythm without murmurs, gallops, or rubs. RESPIRATORY: Breath sounds equal bilaterally. No accessory muscle use. GASTROINTESTINAL: Abdomen soft, non-tender, nondistended. MUSCULOSKELETAL: No cyanosis, or edema. BACK: Nontender without obvious deformity. No CVA tenderness. EXTREMITIES: No edema Procedures NONE A/P Problem List: (1) Hyponatremia ICD Code: E87.1 - Hypo-osmolality and hyponatremia Assessment and Plan Hyponantremia Likely CHF related, her baseline is below a normal sodium PO NaCl stopped, Fluid restriction main therapy Sodium remains stable again today Dysphagia Mechanical Soft diet DVT Prophylaxis SCD hose Discharge Planning Discharge home with home health Follow up with PCP tomorrow Cardiology this in 2 days Nephrology in 2 weeks. Home healthcare will visit today. Shai Ladd MD May 08, 2017 15:07
== END 2017-05-08 16:30 | disposition home health service (06) | DRG 641 ==
LOC: NEPC 11:27 → NEDA 13:41 → N06B 15:24 → HIMW 18:40 → HCIS 05-03 16:35
PROVIDERS: ADMIT Family Medicine; ATTEND Family Medicine
DX: E87.1 Hypo-osmolality and hyponatremia (principal); I50.22 Chronic systolic (congestive) heart failure; E86.0 Dehydration; I11.0 Hypertensive heart disease with heart failure; I44.7 Left bundle-branch block, unspecified; I25.10 Atherosclerotic heart disease of native coronary artery without angina pectoris; K21.9 Gastro-esophageal reflux disease without esophagitis; K44.9 Diaphragmatic hernia without obstruction or gangrene; E78.5 Hyperlipidemia, unspecified; K52.9 Noninfective gastroenteritis and colitis, unspecified; D64.9 Anemia, unspecified; R41.82 Altered mental status, unspecified; R13.10 Dysphagia, unspecified; M19.90 Unspecified osteoarthritis, unspecified site; Z66 Do not resuscitate; Z95.1 Presence of aortocoronary bypass graft; Z95.2 Presence of prosthetic heart valve
CPT/HCPCS: 71010; 80048; 80053; 80069; 81001; 82550; 83036; 83735; 83935; 84100; 84133; 84295; 84300; 84439; 84443; 84484; 85025; 85610; 85730; 87077; 87086; 87186; 93005; 99285; J1940; J7030; J7040